=== PATIENT | male | born 1960 | race Caucasian/White ===

== ENCOUNTER 2016-06-04 06:22 | Day surgery (SDC) | payer OTHER ==
[2016-05-29 08:48] VITALS: BMI 33.9
[~2016-06-04 06:22] MED LIST: ALPRAZolam 0.25 MG TAB PO PRN; ALPRAZolam 0.5 MG TAB PO PRN; ASPIRIN 325 MG TAB PO STA; ATORVASTATIN 80 MG TAB PO STA; NITROGLYCERIN SL TABS 0.4 MG TAB SUBLINGUAL PRN; SODIUM CHLORIDE 0.9% 1,000 ML in EMPTY BAG 1 BAG IV ONE
[2016-06-04] MEDS ORDERED: INSULIN LISPRO (humaLOG) 300 UNIT/3 ML VIAL SQ ONE (07:07)
[2016-06-04 07:11] VITALS: TEMP 98.2
[2016-06-04 07:13] LABS: Basophils % (A) 0 %; CH 32.1; CHCM 35.9; Eosinophils # (A) 0.2 k/uL (0-0.7); Eosinophils % (A) 2 %; HCT 34.1 % (39.0-53.0); HGB 11.7 gm/dL (13.0-17.5); Luc # (Auto) 0.17; Luc % (Auto) 2; Lymphocytes % (A) 20 %; MCH 30.9 pg (25.0-35.0); MCHC 34.4 g/dL (31.0-37.0); MCV 89.9 fL (80.0-100.0); Monocytes # (A) 0.6 k/uL (0-1.0); Monocytes % (A) 6 %; Neutrophils # (A) 6.7 k/uL (1.3-7.7); Neutrophils % (A) 70 %; RDW 12.8 % (11.5-15.5); WBC 9.6 k/uL (3.8-10.6); WBC (Perox) 10.25
[2016-06-04 07:15] LABS: Glucose,Whole Blood 308 mg/dL (75-99)
[2016-06-04 07:26] LABS: Anion Gap 11 mmol/L; Blood Urea Nitrogen 41 mg/dL (9-20); Calcium 9.7 mg/dL (8.4-10.2); Carbon Dioxide 24 mmol/L (22-30); Chloride 103 mmol/L (98-107); Glucose 302 mg/dL (74-99); Non-African American GFR(MDRD) 54 (>60 ml/min/1.73 sqM); Sodium 138 mmol/L (137-145)
[2016-06-04] MEDS ORDERED: SODIUM CHLORIDE 0.9% (PF) 10 ML VIAL ONE (07:54)
[2016-06-04] MEDS ORDERED: MIDAZOLAM 2 MG/2 ML VIAL ONE (07:54)
[2016-06-04] MEDS ORDERED: VERAPAMIL 2.5 MG/ML 2 ML AMP ONE (07:54)
[2016-06-04] MEDS ORDERED: LIDOCAINE 2% INJ 20 MG/ML (20 ML MDV) ONE (07:54)
[2016-06-04] MEDS ORDERED: diphenhydrAMINE 50 MG/ML 1 ML VIAL ONE (07:54)
[2016-06-04] MEDS ORDERED: diphenhydrAMINE 50 MG/ML 1 ML VIAL IVP ONE (08:14)
[2016-06-04] MEDS ORDERED: MIDAZOLAM 2 MG/2 ML VIAL IV ONE (08:25)
[2016-06-04] MEDS ORDERED: LIDOCAINE 2% INJ 20 MG/ML SQ ONE (08:33)
[2016-06-04] MEDS ORDERED: HEPARIN SODIUM 1,000 UNIT/ML VIAL ONE (08:34)
[2016-06-04] MEDS: VERAPAMIL SYRINGE (5 MG/10 ML) INTRAARTER ONE ×2 (08:35→09:03)
[2016-06-04] MEDS ORDERED: BIVALIRUDIN BOLUS 250 MG/50 ML IV ONE (08:51)
[2016-06-04] MEDS ORDERED: BIVALIRUDIN 250 MG in SODIUM CHLORIDE 0.9% 50 ML IV ONE (08:52)
[2016-06-04] MEDS ORDERED: IODIXANOL 320 MG/ML 100 ML INTRAARTER ONE (09:03)
[2016-06-04] MEDS ORDERED: RX INFO: IV CONTRAST WAS GIVEN 1 EACH MISC MISCELLANE PRN (09:10)
[2016-06-04] MEDS ORDERED: SODIUM CHLORIDE 0.9% 1,000 ML IV SCH (09:15)
[2016-06-04 12:32] VITALS: RESP 18
[2016-06-04 14:32] VITALS: BP 154/76; PULSE 76
--- NOTE | 2016-06-04 19:04 | CC ---
DATE OF SERVICE: June 04, 2016 PERFORMING PHYSICIAN: Deven Domínguez, power machine operator. PROCEDURES PERFORMED: 1. Selective right and left coronary angiogram. 2. Fractional flow reserve (FFR) of the left anterior descending artery. INDICATION: This is a pleasant 55-year-old gentleman who is known to have diabetes, hypertension, dyslipidemia and unfortunately who continues to smoke, who is known to have severe underlying coronary artery disease and prior stenting of the triple vessel, was experiencing chest discomfort consistent with angina. He was scheduled to undergo a heart catheterization today. APPROACH: Right radial artery. COMPLICATIONS: None. LEVEL OF SEDATION: Moderate. PROCEDURE DESCRIPTION: After obtaining an informed consent, the patient was brought to the cardiac director of labor and delivery. The right radial artery was cannulated using micropuncture technique. The micropuncture wire passed easily, then I placed a 6 Turkmen sheath in the right radial artery. Subsequently, the patient was given 2 mg of verapamil IA and 3000 units of heparin IV. After that, I did selective right and left coronary angiogram using JR4 and JL 3.5 catheters. After that, I did an FFR of the LAD. Please see separate paragraph for that. SELECTIVE CORONARY ANGIOGRAM: 1. The right coronary artery is a medium-caliber vessel and is a co-dominant vessel. The proximal RCA appeared to de christie lesion, seems to be in the range of 60% to 70%. The mid RCA is stented and the stent is patent. Distal to the stent there is another lesion, seems to be in the range of 50%. The RCA distally appeared to have mild disease only and bifurcates into small PDA and PLV branches. 2. The left main is a short left main, but angiographically normal. It bifurcates into the left circumflex and left anterior descending artery. 3. The left circumflex is a medium-caliber vessel. In the proximal portion gives rise into a large first obtuse marginal branch which appeared to be like ramus intermedius, which seems to be stented in the midportion with critical in-stent re-stenosis. The left circumflex was poorly visualized in the AV groove after that. 4. The left anterior descending artery. The proximal LAD appeared to have de christie lesion that seems to be in the range of 50%. The proximal to mid LAD seems to be stented with in-stent re-stenosis seems to be in the range of 60% to 70%, but we did an FFR on it and came in to be ischemic at 0.75. The LAD distally appeared to have mild disease only. FRACTIONAL FLOW RESERVE OF THE LEFT ANTERIOR DESCENDING ARTERY: Anticoagulation was initiated using Angiomax. Subsequently and after zeroing the Doppler wire and equalization between the Doppler wire and the guiding catheter, which was JL3.5 guiding catheter, we did an FFR. The FFR came in to be 0.75, which is ischemic. CONCLUSION: 1. Intermediate de christie coronary artery disease involving the proximal right coronary artery with patent stent in the mid right coronary artery. 2. Critical in-stent re-stenosis involving large first obtuse marginal branch of the left circumflex. 3. Intermediate disease involving the proximal left anterior descending artery, but it turned to be ischemic by fractional flow reserve. The disease in-stent re-stenosis. POSTPROCEDURE MANAGEMENT: I will discuss with the patient the coronary artery bypass grafting. Obviously, he is not responding well to stenting.
--- NOTE | 2016-06-04 19:10 | LTR ---
June 04, 2016 Dr. Reynolds RE: John Ruiz Dear Dr. Shankar: Per our discussion on the phone, Mr. John Ruiz underwent a heart catheterization which showed severe triple vessel coronary artery disease. I am going to be send him to be evaluated by a surgeon regarding coronary artery bypass grafting. I want to thank you for allowing us to participate in his care. Please feel free to call if you have any question or concerns. Sincerely, TYLOR ZAZUETA MD
== END 2016-06-04 14:55 | disposition home or self-care (01) ==
LOC: CATHCVL 06:22
PROVIDERS: ATTEND Internal Medicine Interventional Cardiology
DX: I25.110 Atherosclerotic heart disease of native coronary artery with unstable angina pectoris (principal); I10 Essential (primary) hypertension; F17.200 Nicotine dependence, unspecified, uncomplicated; I73.9 Peripheral vascular disease, unspecified; E11.9 Type 2 diabetes mellitus without complications; E78.5 Hyperlipidemia, unspecified; Z95.1 Presence of aortocoronary bypass graft; Z95.5 Presence of coronary angioplasty implant and graft; Z82.49 Family history of ischemic heart disease and other diseases of the circulatory system; E66.3 Overweight; Z68.34 Body mass index [BMI] 34.0-34.9, adult; Z79.84 Long term (current) use of oral hypoglycemic drugs; Z79.1 Long term (current) use of non-steroidal anti-inflammatories (NSAID); Z79.02 Long term (current) use of antithrombotics/antiplatelets; Z79.82 Long term (current) use of aspirin; Z79.899 Other long term (current) drug therapy
CPT/HCPCS: 80048; 85025; 93454; 93571

== ENCOUNTER 2016-06-15 22:21 | Inpatient (IN) | payer OTHER ==
[2016-06-15] MEDS ORDERED: NITROGLYCERIN SL TABS 0.4 MG TAB SUBLINGUAL STA ×3 (22:38)
[2016-06-15] MEDS ORDERED: ASPIRIN 81 MG CHEW PO STA (22:38)
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
[2016-06-15 22:45] LABS: Basophils # (A) 0.1 k/uL (0-0.2); Basophils % (A) 1 %; CH 32.2; CHCM 36.6; Eosinophils # (A) 0.2 k/uL (0-0.7); Eosinophils % (A) 3 %; HCT 32.3 % (39.0-53.0); HDW 2.92; HGB 11.5 gm/dL (13.0-17.5); Luc # (Auto) 0.19; Luc % (Auto) 2; Lymphocytes # (A) 2.2 k/uL (1.0-4.8); Lymphocytes % (A) 25 %; MCH 31.6 pg (25.0-35.0); MCHC 35.6 g/dL (31.0-37.0); MCV 88.6 fL (80.0-100.0); Mean Platelet Volume 7.6; Monocytes # (A) 0.5 k/uL (0-1.0); Monocytes % (A) 6 %; Neutrophils # (A) 5.7 k/uL (1.3-7.7); Neutrophils % (A) 64 %; RBC 3.65 m/uL (4.30-5.90); RDW 13.2 % (11.5-15.5); WBC 8.8 k/uL (3.8-10.6); WBC (Perox) 8.72
[2016-06-15 22:55] LABS: INR 0.9 (<1.1); Prothrombin Time 9.4 sec (9.0-12.0)
[2016-06-15 22:56] LABS: Calcium 9.5 mg/dL (8.4-10.2); Magnesium 2.2 mg/dL (1.6-2.3); Partial Thromboplastin Time 22.8 sec (22.0-30.0); Potassium 4.9 mmol/L (3.5-5.1); Total Bilirubin 0.5 mg/dL (0.2-1.3); Total Protein 7.1 g/dL (6.3-8.2)
[2016-06-15 23:20] LABS: Creatine Kinase MB 0.7 ng/mL (0.0-2.4)
[2016-06-15 23:23] LABS: Troponin I 0.205 ng/mL (0.000-0.034)
[2016-06-15] MEDS ORDERED: HEPARIN SODIUM,PORCINE 5,000 UNIT/ML 1 ML VIAL IV ONE (23:33)
[2016-06-15] MEDS ORDERED: NITROGLYCERIN SL TABS 0.4 MG TAB SUBLINGUAL PRN (23:36)
[2016-06-15] MEDS: HEPARIN SODIUM,PORCINE/D5W PMX 25,000 UNIT in DEXTROSE/WATER 1 500ML.BAG IV SCH (23:47)
--- NOTE | 2016-06-15 23:56 | XR ---
EXAMINATION TYPE: XR chest 2V DATE OF EXAM: 06/15/2016 11:32 PM COMPARISON: April 22, 2014 HISTORY: Chest pain, history of CAD and heart failure TECHNIQUE: Frontal and lateral views of the chest are obtained. FINDINGS: There is suggestion of mild CHF changes with mild perihilar pulmonary edema or chronic interstitial l marcela changes. No focal pneumonia pneumothorax or pleural effusion is noted. Mild cardiomegaly is prese nt. The right hilum is prominent with prominent pulmonary vessels. Mild to moderate degenerative lo ges in the thoracic spine. IMPRESSION: 1. Suggestion of mild CHF. 2. Cardiomegaly. 3. No focal pneumonia.
[2016-06-16] MEDS ORDERED: MAG HYDROX/AL HYDROX/SIMETH 30 ML CUP PO PRN (00:54)
[2016-06-16] MEDS: NITROGLYCERIN OINT 1 INCH/GM PACKET TOPICAL SCH ×4 (01:37→17:23)
[2016-06-16 06:03] LABS: Glucose,Whole Blood 256 mg/dL (75-99)
[2016-06-16 06:11] LABS: Basophils % (A) 0 %; CH 31.9; CHCM 34.9; Eosinophils # (A) 0.2 k/uL (0-0.7); Eosinophils % (A) 2 %; HDW 2.86; HGB 10.1 gm/dL (13.0-17.5); Luc # (Auto) 0.18; Luc % (Auto) 3; Lymphocytes # (A) 1.8 k/uL (1.0-4.8); Lymphocytes % (A) 28 %; MCHC 34.8 g/dL (31.0-37.0); MCV 91.8 fL (80.0-100.0); Mean Platelet Volume 6.9; Monocytes # (A) 0.4 k/uL (0-1.0); Monocytes % (A) 6 %; Neutrophils % (A) 61 %; RBC 3.16 m/uL (4.30-5.90); RDW 13.3 % (11.5-15.5); WBC 6.5 k/uL (3.8-10.6); WBC (Perox) 6.94
[2016-06-16 06:19] LABS: Cholesterol 133 mg/dL (<200); HDL Cholesterol 31 mg/dL (40-60)
[2016-06-16 06:26] LABS: Triglycerides 560 mg/dL (<150)
[2016-06-16 06:44] LABS: Creatine Kinase MB 2.6 ng/mL (0.0-2.4); Troponin I 0.95 ng/mL (0.000-0.034)
[2016-06-16] MEDS: HEPARIN SODIUM,PORCINE 5,000 UNIT/ML 1 ML VIAL IV PRN ×3 (06:58→18:47)
[2016-06-16] MEDS ORDERED: glipiZIDE 10 MG TAB PO SCH (07:30)
[2016-06-16] MEDS: INSULIN LISPRO (humaLOG) 300 UNIT/3 ML VIAL SQ SCH ×5 (07:36→21:33)
[2016-06-16 08:30] LABS: Hemoglobin A1C 9.9 % (4.2-6.1)
[2016-06-16] MEDS ORDERED: ASPIRIN 325 MG TAB PO SCH (09:00)
[2016-06-16] MEDS ORDERED: METOPROLOL TARTRATE 25 MG TAB PO SCH (09:00)
[2016-06-16 11:39] LABS: Troponin I 1.52 ng/mL (0.000-0.034)
[2016-06-16 12:01] LABS: Glucose,Whole Blood 236 mg/dL (75-99)
[2016-06-16] MEDS: LISINOPRIL-HCTZ 20-25 MG 1 EACH TAB PO SCH (12:38)
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
[2016-06-16] MEDS: METOPROLOL TARTRATE 50 MG TAB PO SCH ×2 (15:37→21:28)
--- NOTE | 2016-06-16 16:25 | CONS ---
DATE OF CONSULTATION: John Ruiz is a 55-year-old lady, a patient of Dr. Domínguez who has developed significant restenosis following multivessel PCI was advised to be seen by Dr. Dean Gonzalez tomorrow and for possible surgery soon for his coronary arteries. However, he presented today to the hospital with episode of chest pressure suggestive of angina, went on to have troponin elevation suggestive of [id number] OR. 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 At the time of my evaluation, virtually asymptomatic, wants to go home, does not want to be in the hospital. I spent a lot of time with the patient, explained to him that he has restenotic lesions and now he has non-ST elevation OR. He should ideally stay back in the hospital, have surgery while he is here and then only be discharged. His last stents were performed in March 2016 of circumflex. There is a restenosis of the RCA, circumflex and also significant lesion which in LAD positive by FFR. He is; however, pain free, troponin profile suggests non-ST elevation OR. I am recommending that we will continue IV heparin, hold Plavix, continue aspirin 81 mg daily, increase beta delfina and based on clinical course, I will make further recommendations, but he should have surgery rather soon. I personally spoke to Dr. Lozano and recommended that surgery be performed during hospitalization and discussed this at length with the patient. PAST MEDICAL HISTORY: 1. CAD with multivessel PCI and restenosis, advised aortocoronary bypass surgery. 2. Hypertension. 3. Hyperlipidemia. 4. Type 2 diabetes mellitus. 5. History of smoking, which he continues to do so. MEDICATIONS: Meloxicam, Glucotrol, aspirin, Neurontin, metoprolol tartrate, atorvastatin, lisinopril, hydrochlorothiazide. ALLERGIES: None. REVIEW OF SYSTEMS: Unremarkable other than above-mentioned facts. On examination, blood pressure is 120/70, pulse rate is about 77 per minute. HEENT: Unremarkable. Fundus was not examined. Neck is supple. No JVD. I do not hear a carotid bruit. Heart exam reveals S1 and S2 heard normally without a rub, murmur or gallop. Lungs are clear. Abdomen is soft, nontender. Lower extremities reveal normal pulses. No edema. Central nervous system is normal. EKG revealed a sinus mechanism with nonspecific ST abnormality and nondiagnostic inferior Q-waves. Laboratory data suggests a troponin elevation of up to 1.5 suggestive of a non-ST elevation myocardial infarction. IMPRESSION: 1. [id number] myocardial infarction in a patient who is scheduled to see a cardiac surgeon for bypass surgery soon. 2. History of coronary artery disease, multivessel PCI with significant restenosis. 3. Hypertension. 4. Type 2 diabetes mellitus. 5. Hypercholesterolemia. 6. History of smoking. RECOMMENDATIONS: I have counseled the patient regarding the need to quit smoking. I will increase metoprolol to 50 mg b.i.d., continue IV heparin as per protocol. Will also check a troponin level at 6 p.m. and 6 a.m. If he has any further pain, I will consider intervention, but he is pain free now and I am recommending we hold Plavix, continue aspirin, try and have Dr. Lozano see him today and proceed with aortocoronary bypass surgery much sooner. Discussed my thoughts in detail with the patient and also talked to Dr. Lozano.
[2016-06-16 17:18] LABS: Glucose,Whole Blood 227 mg/dL (75-99)
[2016-06-16] MEDS ORDERED: MD COMMUNICATION TO PHARMACY 1 EACH MISC PO ONE ×4 (17:51)
[2016-06-16 19:18] LABS: Appearance,Urine Clear (Clear); Bacteria,Urine Rare /hpf; Bilirubin,Urine Negative (Negative); Glucose,Urine (UA) 2+ (Negative); Ketones,Urine Negative (Negative); Leukocyte Esterase,Urine Negative (Negative); Nitrite,Urine Negative (Negative); PH, Urine 6.5 (5.0-8.0); Particle Count 519; Protein,Urine 3+ (Negative); RBC,Urine 3 /hpf (0-5); Specific Gravity,Urine 1.011 (1.001-1.035); UA Billing (MACRO vs. MICRO) MICRO; Urobilinogen,Urine <2.0 mg/dL (<2.0); WBC,Urine 2 /hpf (0-5)
[2016-06-16 19:47] LABS: Hepatitis B Surface Ag Index 0.07
[2016-06-16 19:53] LABS: Hepatitis B Core IgM Index 0.06
[2016-06-16 20:05] LABS: Hepatitis C Virus IgG Index 0.02
[2016-06-16 20:17] LABS: Hepatitis C Virus IgG Ab Negative (Negative)
[2016-06-16 21:09] LABS: Glucose,Whole Blood 141 mg/dL (75-99)
[2016-06-16] MEDS: ATORVASTATIN 40 MG TAB PO SCH (21:28)
[2016-06-16] MEDS: INSULIN GLARGINE 100 UNIT/ML 10 ML VIAL SQ SCH (21:33)
[2016-06-16] MEDS: MUPIROCIN 2% OINT 22 GM TUBE NASAL SCH (21:34)
[2016-06-17] MEDS: HEPARIN SODIUM,PORCINE/D5W PMX 25,000 UNIT in DEXTROSE/WATER 1 500ML.BAG IV SCH ×2 (01:20→07:05)
[2016-06-17] MEDS: NITROGLYCERIN OINT 1 INCH/GM PACKET TOPICAL SCH ×4 (01:22→17:11)
[2016-06-17 05:55] LABS: Glucose,Whole Blood 296 mg/dL (75-99)
[2016-06-17 06:22] LABS: Basophils % (A) 1 %; CH 31.9; CHCM 34.9; Eosinophils # (A) 0.1 k/uL (0-0.7); Eosinophils % (A) 2 %; HCT 27.7 % (39.0-53.0); HDW 2.89; HGB 9.3 gm/dL (13.0-17.5); Luc # (Auto) 0.21; Luc % (Auto) 3; Lymphocytes # (A) 2.1 k/uL (1.0-4.8); Lymphocytes % (A) 34 %; MCH 30.8 pg (25.0-35.0); MCHC 33.5 g/dL (31.0-37.0); Mean Platelet Volume 7.3; Monocytes # (A) 0.3 k/uL (0-1.0); Monocytes % (A) 5 %; Neutrophils # (A) 3.5 k/uL (1.3-7.7); Neutrophils % (A) 56 %; RBC 3.01 m/uL (4.30-5.90); RDW 13.2 % (11.5-15.5); WBC 6.3 k/uL (3.8-10.6); WBC (Perox) 6.51
[2016-06-17 06:36] LABS: ALT 35 U/L (21-72); AST 16 U/L (17-59); Alkaline Phosphatase 89 U/L (38-126); Anion Gap 7 mmol/L; Blood Urea Nitrogen 35 mg/dL (9-20); Calcium 8.4 mg/dL (8.4-10.2); Carbon Dioxide 23 mmol/L (22-30); Chloride 106 mmol/L (98-107); Glucose 263 mg/dL (74-99); Magnesium 2.2 mg/dL (1.6-2.3); Non-African American GFR(MDRD) 54 (>60 ml/min/1.73 sqM); Potassium 4.7 mmol/L (3.5-5.1); Sodium 136 mmol/L (137-145); Total Bilirubin 0.3 mg/dL (0.2-1.3); Total Protein 5.8 g/dL (6.3-8.2)
[2016-06-17] MEDS: HEPARIN SODIUM,PORCINE 5,000 UNIT/ML 1 ML VIAL IV PRN (07:06)
[2016-06-17] MEDS: INSULIN LISPRO (humaLOG) 300 UNIT/3 ML VIAL SQ SCH ×7 (07:54→20:58)
--- NOTE | 2016-06-17 08:34 | P.PN ---
Subjective Principal diagnosis: NSTEMI, S/P recent heart catheterization w/ stenting Pre-op CABG Pt sitting up in bed eating breakfast in no apparent distress. Denies CP/SOB. Objective - Vital Signs Vital signs: Vital Signs Temp 97.4 F L 06/17/16 04:00 Pulse 78 06/17/16 04:00 Resp 18 06/17/16 04:00 BP 136/72 06/17/16 04:00 Pulse Ox 97 06/17/16 04:00 Intake & Output 06/16/16 06/17/16 06/17/16 18:59 06:59 18:59 Intake Total 126.645 9983.624 498.578 Balance 265.016 6039.624 498.578 Weight 111.7 kg 111.1 kg Intake: IV 966.44 0.9 320 Heparin Sodium,Porcine/ 646.44 D5w Pmx 25,000 unit In Dextrose/Water 1 500ml. bag @ 8.83 UNITS/KG/HR 20 .02 mls/hr IV .Q24H JAY Rx#:[id number] Intake, IV Titration 345.006 11.184 258.578 Amount Heparin Sodium,Porcine/ 345.006 11.184 258.578 D5w Pmx 25,000 unit In Dextrose/Water 1 500ml. bag @ 8.83 UNITS/KG/HR 20 .02 mls/hr IV .Q24H JAY Rx#:[id number] Oral 350 420 240 Other: Voiding Method Toilet Toilet # Voids 1 2 - Constitutional General appearance: Present: cooperative, no acute distress - Respiratory Details: LS diminished w/ exp wheezes present bilaterally. Resp even/non-labored. Currently on room air. - Cardiovascular Details: S1/S2 present. Reg rate/rhythm, NSR on tele. No edema present. - Gastrointestinal Gastrointestinal Comment(s): Abd soft/NT/ND. Active BS x 4 quad. Tolerating diet. - Genitourinary Genitourinary Comment(s): Voiding clear/yellow urine. - Musculoskeletal Musculoskeletal: Present: gait normal - Psychiatric Psychiatric: Present: A&O x's 3, appropriate affect, intact judgment & insight - Allied health notes Allied health notes reviewed: nursing - Labs CBC & Chem 7: 06/17/16 05:54 06/17/16 05:54 Labs: Abnormal Lab Results - Last 24 Hours (Table) 06/16/16 06/16/16 06/16/16 Range/Units 05:19 10:46 11:58 RBC (4.30-5.90) m/uL Hgb (13.0-17.5) gm/dL Hct (39.0-53.0) % APTT (22.0-30.0) sec Sodium (137-145) mmol/L BUN (9-20) mg/dL Creatinine (0.66-1.25) mg/dL Glucose (74-99) mg/dL POC Glucose (mg/dL) 236 H (75-99) mg/dL Hemoglobin A1c 9.9 H (4.2-6.1) % AST (17-59) U/L CK-MB (CK-2) 3.0 H* (0.0-2.4) ng/mL Troponin I 1.520 H* (0.000-0.034) ng/mL Total Protein (6.3-8.2) g/dL Albumin (3.5-5.0) g/dL Urine Protein (Negative) Urine Glucose (UA) (Negative) Urine Blood (Negative) Urine Bacteria (None) /hpf 06/16/16 06/16/16 06/16/16 Range/Units 17:14 18:18 18:55 RBC (4.30-5.90) m/uL Hgb (13.0-17.5) gm/dL Hct (39.0-53.0) % APTT 33.7 H (22.0-30.0) sec Sodium (137-145) mmol/L BUN (9-20) mg/dL Creatinine (0.66-1.25) mg/dL Glucose (74-99) mg/dL POC Glucose (mg/dL) 227 H (75-99) mg/dL Hemoglobin A1c (4.2-6.1) % AST (17-59) U/L CK-MB (CK-2) (0.0-2.4) ng/mL Troponin I (0.000-0.034) ng/mL Total Protein (6.3-8.2) g/dL Albumin (3.5-5.0) g/dL Urine Protein 3+ H (Negative) Urine Glucose (UA) 2+ H (Negative) Urine Blood Trace H (Negative) Urine Bacteria Rare H (None) /hpf 06/16/16 06/17/16 06/17/16 Range/Units 21:07 00:18 05:54 RBC 3.01 L (4.30-5.90) m/uL Hgb 9.3 L (13.0-17.5) gm/dL Hct 27.7 L (39.0-53.0) % APTT 42.7 H (22.0-30.0) sec Sodium (137-145) mmol/L BUN (9-20) mg/dL Creatinine (0.66-1.25) mg/dL Glucose (74-99) mg/dL POC Glucose (mg/dL) 141 H (75-99) mg/dL Hemoglobin A1c (4.2-6.1) % AST (17-59) U/L CK-MB (CK-2) (0.0-2.4) ng/mL Troponin I (0.000-0.034) ng/mL Total Protein (6.3-8.2) g/dL Albumin (3.5-5.0) g/dL Urine Protein (Negative) Urine Glucose (UA) (Negative) Urine Blood (Negative) Urine Bacteria (None) /hpf 06/17/16 06/17/16 06/17/16 Range/Units 05:54 05:54 05:54 RBC (4.30-5.90) m/uL Hgb (13.0-17.5) gm/dL Hct (39.0-53.0) % APTT 39.1 H (22.0-30.0) sec Sodium 136 L (137-145) mmol/L BUN 35 H (9-20) mg/dL Creatinine 1.36 H (0.66-1.25) mg/dL Glucose 263 H (74-99) mg/dL POC Glucose (mg/dL) 296 H (75-99) mg/dL Hemoglobin A1c (4.2-6.1) % AST 16 L (17-59) U/L CK-MB (CK-2) (0.0-2.4) ng/mL Troponin I (0.000-0.034) ng/mL Total Protein 5.8 L (6.3-8.2) g/dL Albumin 2.9 L (3.5-5.0) g/dL Urine Protein (Negative) Urine Glucose (UA) (Negative) Urine Blood (Negative) Urine Bacteria (None) /hpf Microbiology - Last 24 Hours (Table) 06/16/16 18:55 Urine Culture - Preliminary Urine,Voided - Imaging and Cardiology Chest x-ray: report reviewed, image reviewed Assessment and Plan (1) NSTEMI (non-ST elevated myocardial infarction) Status: Acute (2) CAD (coronary artery disease) Status: Acute (3) HTN (hypertension) Status: Acute (4) Hyperlipidemia Status: Acute (5) Diabetes Status: Acute Plan: 1. Cont ASA, lipitor, BB, Hep gtt. 2. Cont VALENTINO, will DC 48 hours prior to surgery. 3. Cont to hold Plavix, last dose 06-15-16. 4. Pre-op testing in progress, anticipate urgent CABG this admission.Awaiting Plavix metabolism. 5. Pre-op teaching started, will continue.Will give CABG binder and incentive spirometer. 6. Encourage smoking cessation. 7. GI/DVT prophylaxis. 8. Further recommendations to follow depending on testing/pt status. Time with Patient: Greater than 30
[2016-06-17] MEDS: LISINOPRIL-HCTZ 20-25 MG 1 EACH TAB PO SCH (08:52)
[2016-06-17] MEDS: MUPIROCIN 2% OINT 22 GM TUBE NASAL SCH ×2 (08:52→20:57)
[2016-06-17] MEDS: ASPIRIN 81 MG CHEW PO SCH (08:52)
[2016-06-17] MEDS: METOPROLOL TARTRATE 50 MG TAB PO SCH ×3 (08:52→20:58)
[2016-06-17 11:33] LABS: Glucose,Whole Blood 234 mg/dL (75-99)
[2016-06-17] MEDS: PANTOPRAZOLE 40 MG TABLET PO SCH (12:10)
--- NOTE | 2016-06-17 14:51 | P.PN ---
Subjective Principal diagnosis: Non-Q-wave IA This is a 55-year-old gentleman who follows with Dr. Aguirre in the office. He presented to the hospital with a non-Q-wave myocardial infarction. Patient has a multivessel coronary artery disease and is scheduled to undergo coronary artery bypass graft surgery during this admission. The patient was taking Plavix which is currently on hold. He was seen in consultation by . is very waiting to speak with Dr. Gonzalez today regarding timing of surgery. Overall the patient feels well, denies any chest pain or difficulty in breathing. Currently on aspirin, Lipitor, IV heparin, lisinopril, and metoprolol tartrate. Objective - Vital Signs Vital signs: Vital Signs Temp 96.2 F L 06/17/16 12:00 Pulse 70 06/17/16 12:00 Resp 18 06/17/16 12:00 BP 122/64 06/17/16 12:00 Pulse Ox 98 06/17/16 12:00 Intake & Output 06/16/16 06/17/16 06/17/16 18:59 06:59 18:59 Intake Total 711.803 7564.624 738.578 Balance 254.227 8805.624 738.578 Weight 111.7 kg 111.1 kg 111.1 kg Intake: IV 966.44 0.9 320 Heparin Sodium,Porcine/ 646.44 D5w Pmx 25,000 unit In Dextrose/Water 1 500ml. bag @ 8.83 UNITS/KG/HR 20 .02 mls/hr IV .Q24H JAY Rx#:[id number] Intake, IV Titration 345.006 11.184 258.578 Amount Heparin Sodium,Porcine/ 345.006 11.184 258.578 D5w Pmx 25,000 unit In Dextrose/Water 1 500ml. bag @ 8.83 UNITS/KG/HR 20 .02 mls/hr IV .Q24H JAY Rx#:[id number] Oral 350 420 480 Other: Voiding Method Toilet Toilet Toilet # Voids 1 2 - Exam PHYSICAL EXAMINATION: HEENT: Head is atraumatic, normocephalic. Pupils equal, round. Neck is supple. There is no elevated jugular venous pressure. HEART EXAMINATION: Heart S1, S2 normal. No murmur or gallop heard. CHEST EXAMINATION: Lungs are clear to auscultation and precussion. No chest wall tenderness is noted on palpation or with deep breathing. ABDOMEN: Soft, nontender. Bowel sounds are heard. No organomegaly noted. EXTREMITIES: 2+ peripheral pulses with no evidence of peripheral edema and no calf tenderness noted. NEUROLOGIC patient is awake, alert and oriented -3. . - Labs CBC & Chem 7: 06/17/16 05:54 06/17/16 05:54 Labs: Abnormal Lab Results - Last 24 Hours (Table) 06/16/16 06/16/16 06/16/16 Range/Units 17:14 18:18 18:55 RBC (4.30-5.90) m/uL Hgb (13.0-17.5) gm/dL Hct (39.0-53.0) % APTT 33.7 H (22.0-30.0) sec Sodium (137-145) mmol/L BUN (9-20) mg/dL Creatinine (0.66-1.25) mg/dL Glucose (74-99) mg/dL POC Glucose (mg/dL) 227 H (75-99) mg/dL AST (17-59) U/L Total Protein (6.3-8.2) g/dL Albumin (3.5-5.0) g/dL Urine Protein 3+ H (Negative) Urine Glucose (UA) 2+ H (Negative) Urine Blood Trace H (Negative) Urine Bacteria Rare H (None) /hpf 06/16/16 06/17/16 06/17/16 Range/Units 21:07 00:18 05:54 RBC 3.01 L (4.30-5.90) m/uL Hgb 9.3 L (13.0-17.5) gm/dL Hct 27.7 L (39.0-53.0) % APTT 42.7 H (22.0-30.0) sec Sodium (137-145) mmol/L BUN (9-20) mg/dL Creatinine (0.66-1.25) mg/dL Glucose (74-99) mg/dL POC Glucose (mg/dL) 141 H (75-99) mg/dL AST (17-59) U/L Total Protein (6.3-8.2) g/dL Albumin (3.5-5.0) g/dL Urine Protein (Negative) Urine Glucose (UA) (Negative) Urine Blood (Negative) Urine Bacteria (None) /hpf 06/17/16 06/17/16 06/17/16 Range/Units 05:54 05:54 05:54 RBC (4.30-5.90) m/uL Hgb (13.0-17.5) gm/dL Hct (39.0-53.0) % APTT 39.1 H (22.0-30.0) sec Sodium 136 L (137-145) mmol/L BUN 35 H (9-20) mg/dL Creatinine 1.36 H (0.66-1.25) mg/dL Glucose 263 H (74-99) mg/dL POC Glucose (mg/dL) 296 H (75-99) mg/dL AST 16 L (17-59) U/L Total Protein 5.8 L (6.3-8.2) g/dL Albumin 2.9 L (3.5-5.0) g/dL Urine Protein (Negative) Urine Glucose (UA) (Negative) Urine Blood (Negative) Urine Bacteria (None) /hpf 06/17/16 Range/Units 11:27 RBC (4.30-5.90) m/uL Hgb (13.0-17.5) gm/dL Hct (39.0-53.0) % APTT (22.0-30.0) sec Sodium (137-145) mmol/L BUN (9-20) mg/dL Creatinine (0.66-1.25) mg/dL Glucose (74-99) mg/dL POC Glucose (mg/dL) 234 H (75-99) mg/dL AST (17-59) U/L Total Protein (6.3-8.2) g/dL Albumin (3.5-5.0) g/dL Urine Protein (Negative) Urine Glucose (UA) (Negative) Urine Blood (Negative) Urine Bacteria (None) /hpf Microbiology - Last 24 Hours (Table) 06/16/16 22:20 Nasal Screen MRSA/MSSA (DELVIN) - Preliminary Nasal Swab 06/16/16 18:55 Urine Culture - Preliminary Urine,Voided Assessment and Plan (1) CAD (coronary artery disease) Status: Acute (2) Diabetes Status: Acute (3) HTN (hypertension) Status: Acute (4) Hyperlipidemia Status: Acute (5) NSTEMI (non-ST elevated myocardial infarction) Status: Acute Plan: From cardiology's perspective, we will continue the current medications this patient is on. He will be scheduled to undergo coronary artery bypass grafting surgery, exact timing yet unknown. We will continue to follow. DNP note has been reviewed, I agree with a documented findings and plan of care. Patient was seen and examined.
--- NOTE | 2016-06-17 15:39 | US ---
EXAMINATION TYPE: US carotid duplex BILAT DATE OF EXAM: 06/17/2016 2:10 PM COMPARISON: No previous CLINICAL HISTORY: 55-year-old male pre op cardiac surgery. TECHNIQUE: Carotid duplex ultrasound. Indirect Doppler criteria was utilized. FINDINGS: Hanna scale images show mild atelectatic change at the left bifurcation. EXAM MEASUREMENTS: RIGHT: Peak Systolic Velocity (PSV) cm/sec ----- Right CCA: 77.5 ----- Right ICA: 101.3 ----- Right ECA: 78.4 ICA/CCA ratio: 1.3 RIGHT: End Diastole cm/sec ----- Right CCA: 23.0 ----- Right ICA: 33.4 ----- Right ECA: 5.9 LEFT: Peak Systolic Velocity (PSV) cm/sec ----- Left CCA: 98.3 ----- Left ICA: 78.7 ----- Left ECA: 142.0 ICA/CCA ratio: 0.8 LEFT: End Diastole cm/sec ----- Left CCA: 15.4 ----- Left ICA: 23.3 ----- Left ECA: 0.0 VERTEBRALS (direction of flow): Right Vertebral: Antegrade Left Vertebral: Antegrade IMPRESSION: No hemodynamically significant stenosis appreciated in either internal carotid artery. Criteria for Assigning % of Stenosis / Diameter reduction (Estimation based on the indirect measurements of the internal carotid artery velocities (ICA PSV). 1. Normal (no stenosis)=ICA PSV < 125 cm/s: ratio < 2.0: ICA EDV<40 cm/s. 2. Less than 50% stenosis=ICA PSV < 125 cm/s: ratio < 2.0: ICA EDV<40 cm/s. 3. 50 to 69% stenosis=ICA PSV of 125 to 230 cm/s: ration 2.0 ? 4.0: ICA EDV 40-100 cm/s. 4. Greater than 70% stenosis to near occlusion= ICA PSV > 230 cm/s: ratio > 4.0: ICA EDV > 100 cm/s. 5. Near occlusion= ICA PSV velocities may be low or undetectable: variable ratio and ICA EDV. 6. Total occlusion=unable to detect flow.
--- NOTE | 2016-06-17 15:51 | P.PN ---
Progress Note - Text Patient is seen and examined. Cath films were reviewed again. I had previously reviewed the cath films with Dr. Aguirre last week. Initial plan had been to see the patient in the office today however he was re- presented to the hospital over the weekend with a non-Q-wave OH. He is currently admitted with the hope of surgery being performed this week. I discussed with the patient indications for bypass surgery risks versus benefits possible complications. Patient is anxious to proceed. We will needed up-to-date echo and vein mapping. The pulmonary function testing has been performed. It demonstrates FEV1 greater than 50% of predicted. The patient has been off Plavix since the and has not had a cigarette since coming in the hospital. Plan is to proceed with coronary bypass surgery on , June 20. We will obtain the remainder of his preop testing in the interim. Plan will be to bypass the LAD, major marginal branch and distal right coronary artery or PDA. The patient is agreeable with this plan. He asked appropriate questions disease were answered to the best of my ability.
[2016-06-17] MEDS ORDERED: MD COMMUNICATION TO PHARMACY 1 EACH MISC PO ONE ×4 (16:08)
[2016-06-17 16:56] LABS: Glucose,Whole Blood 145 mg/dL (75-99)
[2016-06-17 20:47] LABS: Glucose,Whole Blood 211 mg/dL (75-99)
[2016-06-17] MEDS: ATORVASTATIN 40 MG TAB PO SCH (20:57)
[2016-06-17] MEDS: INSULIN GLARGINE 100 UNIT/ML 10 ML VIAL SQ SCH (20:58)
[2016-06-18] MEDS: HEPARIN SODIUM,PORCINE/D5W PMX 25,000 UNIT in DEXTROSE/WATER 1 500ML.BAG IV SCH (02:44)
[2016-06-18 05:51] LABS: Glucose,Whole Blood 223 mg/dL (75-99)
[2016-06-18 06:46] LABS: Basophils % (A) 0 %; CHCM 35.1; Eosinophils # (A) 0.2 k/uL (0-0.7); Eosinophils % (A) 2 %; HCT 27.4 % (39.0-53.0); HDW 2.87; HGB 9.3 gm/dL (13.0-17.5); Luc # (Auto) 0.18; Luc % (Auto) 3; Lymphocytes # (A) 2.2 k/uL (1.0-4.8); Lymphocytes % (A) 31 %; MCHC 33.8 g/dL (31.0-37.0); MCV 91.6 fL (80.0-100.0); Mean Platelet Volume 6.9; Monocytes # (A) 0.4 k/uL (0-1.0); Monocytes % (A) 6 %; Neutrophils # (A) 4.1 k/uL (1.3-7.7); Neutrophils % (A) 58 %; RBC 2.99 m/uL (4.30-5.90); RDW 13.3 % (11.5-15.5); WBC (Perox) 7.24
[2016-06-18] MEDS: NITROGLYCERIN OINT 1 INCH/GM PACKET TOPICAL SCH ×5 (07:04→23:02)
[2016-06-18] MEDS: PANTOPRAZOLE 40 MG TABLET PO SCH (07:05)
[2016-06-18] MEDS: INSULIN LISPRO (humaLOG) 300 UNIT/3 ML VIAL SQ SCH ×7 (07:06→20:41)
[2016-06-18] MEDS: ASPIRIN 81 MG CHEW PO SCH (08:50)
[2016-06-18] MEDS: MUPIROCIN 2% OINT 22 GM TUBE NASAL SCH ×2 (08:51→20:41)
[2016-06-18] MEDS: METOPROLOL TARTRATE 50 MG TAB PO SCH ×3 (08:51→20:41)
[2016-06-18] MEDS: HYDROCHLOROTHIAZIDE 25 MG TAB PO SCH (08:51)
[2016-06-18] MEDS ORDERED: LISINOPRIL 20 MG TAB PO SCH (09:00)
--- NOTE | 2016-06-18 11:18 | PN ---
DATE OF SERVICE: 06/17/2016 INTERVAL HISTORY: Mr. Ruiz is a 55-year-old male with known history of coronary artery disease, was admitted to the hospital with chief complaint of chest pain and found to have elevated troponin level. Patient was having multivessel disease and currently cardiothoracic surgery is evaluating for coronary artery bypass graft, possibly on June 20, 2016. Patient getting preop evaluation including pulmonary function test, carotid duplex, 2-D echo, vein mapping and Plavix has been held since the of this month. Otherwise, patient currently chest pain free. Continued on heparin drip. Cardiology and Cardiothoracic Surgery are following this patient. No acute overnight issues. REVIEW OF SYSTEMS: CONSTITUTIONAL: No fever. No chills. RESPIRATORY: No cough or sputum production. CARDIOVASCULAR: No chest pain or short of breath. ABDOMEN: No nausea, vomiting, abdominal pain. GENITOURINARY: Negative. ENDOCRINE: Negative. PSYCHIATRIC: Negative. SKIN: Negative. All other 14-point review of systems negative except the above. CURRENT MEDICATIONS: Reviewed. PHYSICAL EXAMINATION: A 55-year-old male lying in the bed comfortably, awake, alert, oriented x3, appears to be in no apparent distress. VITALS: Blood pressure is 122/64, pulse is 70, respirations 18, temperature afebrile, pulse ox 98% on room air. HEENT: Atraumatic, normocephalic. Neck is supple. No JVD. CVS EXAM: S1, S2 heard. No murmurs, no gallop. LUNGS: Bilateral air entry is present. No wheezing. No crackles. Nonlabored breathing. ABDOMEN: Soft, nontender. Bowel sounds are present. ANTENNA SPECIALIST: Awake, alert and oriented x3. No focal deficit. EXTREMITIES: No edema. Pulses palpable bilaterally. No clubbing or cyanosis. PSYCHIATRIC: Cooperative. LABORATORY DATA: WBC 6.3, hemoglobin 9.3, platelets 217. Sodium 136, potassium 4.7, chloride 106, bicarb is 23, BUN 35, creatinine 1.36. Blood sugar today 296. Albumin 2.9. IMPRESSION: 1. Acute non-ST elevated myocardial infarction with elevated troponin. Continued on heparin drip now. 2. Significant coronary artery disease, status post stent placement x2 in the past. Currently awaiting for coronary artery bypass graft. 3. Uncontrolled diabetes. Hemoglobin A1c of 9.9, started on insulin during this admission. 4. Acute on chronic kidney disease, stage III. Baseline creatinine 1.3, currently present creatinine came back to baseline. It was 1.6 yesterday. 5. Diabetic peripheral neuropathy. 6. Degenerative joint disease. DISCUSSION AND PLAN: Patient will be continued on the current management. He is on heparin IV and beta blockers and ( ). Plavix has been stopped. Continue with insulin dosing and adjust as needed. Currently on Lantus 15 units q.h.s. along with Aspart 5 units t.i.d. along with sliding scale. Will continue current management and further recommendations based on the clinical course.
[2016-06-18 11:48] LABS: Glucose,Whole Blood 343 mg/dL (75-99)
--- NOTE | 2016-06-18 12:03 | P.PN ---
Subjective Principal diagnosis: Non-Q-wave CO This is a 55-year-old gentleman who follows with Dr. Aguirre in the office. He presented to the hospital with a non-Q-wave myocardial infarction. Patient has a multivessel coronary artery disease and is scheduled to undergo coronary artery bypass graft surgery during this admission. The patient was taking Plavix which is currently on hold. Continues to be on IV heparin. Scheduled for coronary artery bypass grafting surgery on . Objective - Vital Signs Vital signs: Vital Signs Temp 97.2 F L 06/18/16 08:00 Pulse 74 06/18/16 08:00 Resp 18 06/18/16 08:00 BP 112/56 06/18/16 08:00 Pulse Ox 97 06/18/16 08:00 Intake & Output 06/17/16 06/18/16 06/18/16 18:59 06:59 18:59 Intake Total 1238.578 160 200 Balance 1238.578 160 200 Weight 111.1 kg 110.4 kg Intake: IV 160 0.9 160 Intake, IV Titration 758.578 Amount Heparin Sodium,Porcine/ 758.578 D5w Pmx 25,000 unit In Dextrose/Water 1 500ml. bag @ 8.83 UNITS/KG/HR 20 .02 mls/hr IV .Q24H JAY Rx#:[id number] Oral 480 200 Other: Voiding Method Toilet Toilet Toilet # Voids 1 - Exam PHYSICAL EXAMINATION: HEENT: Head is atraumatic, normocephalic. Pupils equal, round. Neck is supple. There is no elevated jugular venous pressure. HEART EXAMINATION: Heart S1, S2 normal. No murmur or gallop heard. CHEST EXAMINATION: Lungs are clear to auscultation and precussion. No chest wall tenderness is noted on palpation or with deep breathing. ABDOMEN: Soft, nontender. Bowel sounds are heard. No organomegaly noted. EXTREMITIES: 2+ peripheral pulses with no evidence of peripheral edema and no calf tenderness noted. NEUROLOGIC patient is awake, alert and oriented -3. . - Labs CBC & Chem 7: 06/18/16 05:32 06/17/16 05:54 Labs: Abnormal Lab Results - Last 24 Hours (Table) 06/17/16 06/17/16 06/17/16 Range/Units 15:45 16:36 20:44 RBC (4.30-5.90) m/uL Hgb (13.0-17.5) gm/dL Hct (39.0-53.0) % APTT 46.8 H (22.0-30.0) sec POC Glucose (mg/dL) 145 H 211 H (75-99) mg/dL 06/17/16 06/18/16 06/18/16 Range/Units 23:35 05:32 05:32 RBC 2.99 L (4.30-5.90) m/uL Hgb 9.3 L (13.0-17.5) gm/dL Hct 27.4 L (39.0-53.0) % APTT 55.2 H 63.8 H (22.0-30.0) sec POC Glucose (mg/dL) (75-99) mg/dL 06/18/16 06/18/16 Range/Units 05:50 11:44 RBC (4.30-5.90) m/uL Hgb (13.0-17.5) gm/dL Hct (39.0-53.0) % APTT (22.0-30.0) sec POC Glucose (mg/dL) 223 H 343 H (75-99) mg/dL Microbiology - Last 24 Hours (Table) 06/16/16 18:55 Urine Culture - Final Urine,Voided 06/16/16 22:20 Nasal Screen MRSA/MSSA (DELVIN) - Preliminary Nasal Swab Assessment and Plan (1) CAD (coronary artery disease) Status: Acute (2) Diabetes Status: Acute (3) HTN (hypertension) Status: Acute (4) Hyperlipidemia Status: Acute (5) NSTEMI (non-ST elevated myocardial infarction) Status: Acute Plan: From cardiology's perspective, we will continue the current medications this patient is on. He will be scheduled to undergo coronary artery bypass grafting surgery on . We will continue to follow. DNP note has been reviewed, I agree with a documented findings and plan of care. Patient was seen and examined.
--- NOTE | 2016-06-18 12:23 | ECHOF ---
Referral Reason:pre-op open heart MEASUREMENTS -------- HEIGHT: 182.9 cm WEIGHT: 110.2 kg BP: 125/71 RVIDd: 2.7 cm (< 3.3) IVSd: 1.3 cm (0.6 - 1.1) LVIDd: 5.6 cm (3.9 - 5.3) LVPWd: 1.5 cm (0.6 - 1.1) IVSs: 1.9 cm LVIDs: 4.8 cm LVPWs: 1.7 cm LA Diam: 3.7 cm (2.7 - 3.8) Ao Diam: 4.2 cm (2.0 - 3.7) AV Cusp: 2.5 cm (1.5 - 2.6) LA Diam: 3.9 cm (2.7 - 3.8) MV EXCURSION: 22.495 mm (> 18.000) MV EF SLOPE: 104 mm/s (70 - 150) EPSS: 1.4 cm MV E Isael: 0.59 m/s MV DecT: 222 ms MV A Isael: 0.96 m/s MV E/A Ratio: 0.61 RAP: 5.00 mmHg RVSP: 26.31 mmHg FINDINGS -------- Sinus rhythm. This was a techncally difficult study with suboptimal views, , Definity utilized for enhancement of images. Left ventricular wall thickness is normal. Overall left ventricular systolic function is moderately impaired with, an EF between 35 - 40 %. Inferiorlateral Hypokinesis Posterior Hypokinesis. The right ventricle is normal in size. The right atrial size is normal. 1.5MG OF DEFINITY UTLIZED: 2 OR MORE WALL SEGMENTS NOT VISUALIZED. There is mild aortic valve sclerosis. There is no evidence of aortic regurgitation. Mild mitral annular calcification present. Mild mitral regurgitation is present. Mild tricuspid regurgitation present. There is no evidence of pulmonary hypertension. The right ventricular systolic pressure, as measured by Doppler, is 26.31mmHg. There is no pulmonic regurgitation present. The aortic root size is normal. There is no pericardial effusion. CONCLUSIONS -------- 1. This was a techncally difficult study with suboptimal views, , Definity utilized for enhancement of images. 2. Mild tricuspid regurgitation present. 3. There is no evidence of pulmonary hypertension. 4. The right ventricular systolic pressure, as measured by Doppler, is 26.31mmHg. 5. Left ventricular wall thickness is normal. 6. Overall left ventricular systolic function is moderately impaired with, an EF between 35 - 40 %. 7. Inferiorlateral Hypokinesis 8. Posterior Hypokinesis. 9. 1.5MG OF DEFINITY UTLIZED: 2 OR MORE WALL SEGMENTS NOT VISUALIZED. 10. There is mild aortic valve sclerosis. 11. Mild mitral annular calcification present. 12. Mild mitral regurgitation is present. FAGOT HEATER: Kerrie Mg RDCS
--- NOTE | 2016-06-18 15:29 | P.PN ---
Subjective Principal diagnosis: NSTEMI, S/P recent heart catheterization w/ stenting Pre-op CABG Pt sitting up in bed eating breakfast in no apparent distress. Denies CP/SOB. Objective - Vital Signs Vital signs: Vital Signs Temp 97.4 F L 06/18/16 04:00 Pulse 82 06/18/16 04:00 Resp 18 06/18/16 04:00 BP 125/71 06/18/16 04:00 Pulse Ox 97 06/18/16 04:00 Intake & Output 06/17/16 06/18/16 06/18/16 18:59 06:59 18:59 Intake Total 1238.578 160 Balance 1238.578 160 Weight 111.1 kg 110.4 kg Intake: IV 160 0.9 160 Intake, IV Titration 758.578 Amount Heparin Sodium,Porcine/ 758.578 D5w Pmx 25,000 unit In Dextrose/Water 1 500ml. bag @ 8.83 UNITS/KG/HR 20 .02 mls/hr IV .Q24H JAY Rx#:[id number] Oral 480 Other: Voiding Method Toilet Toilet # Voids 1 - Constitutional General appearance: Present: cooperative, no acute distress - Respiratory Details: Lungs sounds diminished bilaterally. Respirations even, nonlabored. Currently on room air. - Cardiovascular Details: S1, S2 present. Regular rate and rhythm, normal sinus rhythm on telemetry. No edema present. - Gastrointestinal Gastrointestinal Comment(s): Abdomen soft, nontender, nondistended. Active bowel sounds 4 quadrants. Tolerating diet. - Genitourinary Genitourinary Comment(s): Patient continues to void clear, yellow urine per urinal. - Musculoskeletal Musculoskeletal Comment(s): Ambulating in hallway without difficulty. - Psychiatric Psychiatric: Present: A&O x's 3, appropriate affect, intact judgment & insight - Allied health notes Allied health notes reviewed: nursing (Vein mapping, carotid ultrasounds, ABIs reviewed) - Labs CBC & Chem 7: 06/18/16 05:32 06/17/16 05:54 Labs: Abnormal Lab Results - Last 24 Hours (Table) 06/17/16 06/17/16 06/17/16 Range/Units 11:27 15:45 16:36 RBC (4.30-5.90) m/uL Hgb (13.0-17.5) gm/dL Hct (39.0-53.0) % APTT 46.8 H (22.0-30.0) sec POC Glucose (mg/dL) 234 H 145 H (75-99) mg/dL 06/17/16 06/17/16 06/18/16 Range/Units 20:44 23:35 05:32 RBC 2.99 L (4.30-5.90) m/uL Hgb 9.3 L (13.0-17.5) gm/dL Hct 27.4 L (39.0-53.0) % APTT 55.2 H (22.0-30.0) sec POC Glucose (mg/dL) 211 H (75-99) mg/dL 06/18/16 06/18/16 Range/Units 05:32 05:50 RBC (4.30-5.90) m/uL Hgb (13.0-17.5) gm/dL Hct (39.0-53.0) % APTT 63.8 H (22.0-30.0) sec POC Glucose (mg/dL) 223 H (75-99) mg/dL Microbiology - Last 24 Hours (Table) 06/16/16 18:55 Urine Culture - Final Urine,Voided 06/16/16 22:20 Nasal Screen MRSA/MSSA (DELVIN) - Preliminary Nasal Swab Assessment and Plan (1) NSTEMI (non-ST elevated myocardial infarction) Status: Acute (2) CAD (coronary artery disease) Status: Acute (3) HTN (hypertension) Status: Acute (4) Hyperlipidemia Status: Acute (5) Diabetes Status: Acute Plan: 1. Cont ASA, lipitor, BB, Hep gtt. 2. Cont VALENTINO, will DC 48 hours prior to surgery. 3. Cont to hold Plavix, last dose 06-15-16. 4. Pre-op testing in progress, anticipate urgent CABG .Awaiting Plavix metabolism. 5. Pre-op teaching started, will continue to reinforce. 6. Continue to encourage smoking cessation. 7. GI/DVT prophylaxis. 8. Further recommendations to follow depending on testing/pt status. Time with Patient: Greater than 30
[2016-06-18 16:47] LABS: Glucose,Whole Blood 226 mg/dL (75-99)
[2016-06-18 20:35] LABS: Glucose,Whole Blood 188 mg/dL (75-99)
[2016-06-18] MEDS: ATORVASTATIN 40 MG TAB PO SCH (20:41)
[2016-06-18] MEDS: INSULIN GLARGINE 100 UNIT/ML 10 ML VIAL SQ SCH (20:41)
[2016-06-19] MEDS: NITROGLYCERIN OINT 1 INCH/GM PACKET TOPICAL SCH ×4 (06:05→23:28)
[2016-06-19 06:28] LABS: Basophils % (A) 0 %; CH 31.9; CHCM 35.3; Eosinophils # (A) 0.1 k/uL (0-0.7); Eosinophils % (A) 2 %; HCT 26.3 % (39.0-53.0); HDW 2.88; HGB 9.1 gm/dL (13.0-17.5); Luc # (Auto) 0.15; Luc % (Auto) 2; Lymphocytes # (A) 2.4 k/uL (1.0-4.8); Lymphocytes % (A) 34 %; MCH 31.5 pg (25.0-35.0); MCHC 34.7 g/dL (31.0-37.0); MCV 90.9 fL (80.0-100.0); Mean Platelet Volume 6.7; Monocytes # (A) 0.3 k/uL (0-1.0); Monocytes % (A) 5 %; Neutrophils # (A) 3.9 k/uL (1.3-7.7); Neutrophils % (A) 57 %; RBC 2.89 m/uL (4.30-5.90); RDW 13.2 % (11.5-15.5); WBC 6.8 k/uL (3.8-10.6)
[2016-06-19 06:44] LABS: Glucose,Whole Blood 201 mg/dL (75-99)
[2016-06-19] MEDS: PANTOPRAZOLE 40 MG TABLET PO SCH (06:56)
[2016-06-19] MEDS: INSULIN LISPRO (humaLOG) 300 UNIT/3 ML VIAL SQ SCH ×7 (06:57→21:48)
[2016-06-19] MEDS: HEPARIN SODIUM,PORCINE/D5W PMX 25,000 UNIT in DEXTROSE/WATER 1 500ML.BAG IV SCH (07:11)
[2016-06-19] MEDS: HYDROCHLOROTHIAZIDE 25 MG TAB PO SCH (08:02)
[2016-06-19] MEDS: METOPROLOL TARTRATE 50 MG TAB PO SCH ×3 (08:02→21:13)
[2016-06-19] MEDS: ASPIRIN 81 MG CHEW PO SCH (08:03)
[2016-06-19] MEDS: MUPIROCIN 2% OINT 22 GM TUBE NASAL SCH ×2 (08:03→21:13)
[2016-06-19 08:06] LABS: ALT 41 U/L (21-72); AST 21 U/L (17-59); Alkaline Phosphatase 77 U/L (38-126); Anion Gap 9 mmol/L; Blood Urea Nitrogen 26 mg/dL (9-20); Calcium 8.7 mg/dL (8.4-10.2); Carbon Dioxide 22 mmol/L (22-30); Chloride 106 mmol/L (98-107); Glucose 166 mg/dL (74-99); Non-African American GFR(MDRD) 53 (>60 ml/min/1.73 sqM); Potassium 4.1 mmol/L (3.5-5.1); Sodium 137 mmol/L (137-145); Total Bilirubin 0.4 mg/dL (0.2-1.3); Total Protein 6.1 g/dL (6.3-8.2)
--- NOTE | 2016-06-19 08:20 | PN ---
DATE OF SERVICE: 06/18/2016 INTERVAL HISTORY: Mr. Ruiz is a 55 -year-old male with known history of coronary artery disease, was admitted to the hospital with chest pain and found to have elevated troponin level and non-ST elevated myocardial infarction. Patient does have coronary artery with recent cardiac catheterization and ( ) coronary artery disease, patient is being planned for emergent coronary artery bypass graft. Patient is getting preop evaluation. Patient had pulmonary function tests, carotid duplex, 2-D echo, vein mapping and Plavix has been held from 06/15 until 06/14. Coronary artery bypass graft is being planned on . Otherwise, patient currently denied any complaints of chest pain, currently on heparin IV. Otherwise, patient denied any complaints. No acute overnight issues. RESPIRATORY: No cough or sputum production. No numbness or tingling. No headache or dizziness. All other fourteen-point review of systems above. CURRENT MEDICATIONS: Reviewed. PHYSICAL EXAMINATION: A 55 -year-old male lying in bed comfortably, awake, alert, oriented x3, appears to be in no apparent distress. VITALS: Blood pressure 119/54, pulse is 70, respiratory rate 18, temperature afebrile. Pulse ox 98% on room air. HEENT: Atraumatic, normocephalic. Neck is supple. No jugular venous distention. CARDIOVASCULAR: S1, S2 heard. No murmurs, no gallop, no rub. LUNGS: Bilateral air entry is present. No wheezing, no crackles. ABDOMEN: Soft, nontender. Bowel sounds are present. CARE CONNECTOR: Awake, alert, oriented, x3. No focal deficits. EXTREMITIES: No edema. Pulses palpable bilaterally. No clubbing or cyanosis. PSYCHIATRY: Cooperative. LABORATORY DATA: WBC 7.0, hemoglobin 9.3, platelets 220, blood sugar is elevated to 223 this morning. ASSESSMENT: 1. Acute non-ST elevated myocardial infarction continue heparin drip. 2. ( ) coronary artery disease with history of stent placement x2 and currently planning for bypass graft on . 3. Uncontrolled diabetes mellitus, HbA1c 9.9. Continue with insulin dose and the dose will be adjusted. 4. Acute on chronic kidney disease Stage III, baseline creatinine 1.3, improved now. 5. Diabetic peripheral neuropathy. 6. Degenerative joint disease. DISCUSSION AND PLAN: Patient will be continued on the current management and continue with heparin IV, beta blockers and statins. Plavix has been held at this time and will continue with the Lantus 15 units q.h.s. and increase to 20 units at bedtime along with Aspart 7 units t.i.d. a.c. and continue current management and further recommendations based on clinical course.
--- NOTE | 2016-06-19 11:34 | P.PN ---
Subjective Principal diagnosis: Non-Q-wave IA This is a 55-year-old gentleman who follows with Dr. Aguirre in the office. He presented to the hospital with a non-Q-wave myocardial infarction. Patient has a multivessel coronary artery disease and is scheduled to undergo coronary artery bypass graft surgery on . The patient was taking Plavix which is currently on hold. Continues to be on IV heparin. Didn't sleep well through the night last night, denies any chest pain or difficulty in breathing. Objective - Vital Signs Vital signs: Vital Signs Temp 97.8 F 06/19/16 08:00 Pulse 77 06/19/16 08:00 Resp 18 06/19/16 08:00 BP 118/60 06/19/16 08:00 Pulse Ox 99 06/19/16 08:00 Intake & Output 06/18/16 06/19/16 06/19/16 18:59 06:59 18:59 Intake Total 498 948.8 180 Balance 498 948.8 180 Weight 110.8 kg Intake: IV 448.8 0.9 160 Heparin Sodium,Porcine/ 288.8 D5w Pmx 25,000 unit In Dextrose/Water 1 500ml. bag @ 8.83 UNITS/KG/HR 20 .02 mls/hr IV .Q24H JAY Rx#:[id number] Intake, IV Titration 500 Amount Heparin Sodium,Porcine/ 500 D5w Pmx 25,000 unit In Dextrose/Water 1 500ml. bag @ 8.83 UNITS/KG/HR 20 .02 mls/hr IV .Q24H JAY Rx#:[id number] Oral 498 180 Other: Voiding Method Toilet Toilet Toilet # Voids 1 2 - Exam PHYSICAL EXAMINATION: HEENT: Head is atraumatic, normocephalic. Pupils equal, round. Neck is supple. There is no elevated jugular venous pressure. HEART EXAMINATION: Heart S1, S2 normal. No murmur or gallop heard. CHEST EXAMINATION: Lungs are clear to auscultation and precussion. No chest wall tenderness is noted on palpation or with deep breathing. ABDOMEN: Soft, nontender. Bowel sounds are heard. No organomegaly noted. EXTREMITIES: 2+ peripheral pulses with no evidence of peripheral edema and no calf tenderness noted. NEUROLOGIC patient is awake, alert and oriented -3. . - Labs CBC & Chem 7: 06/19/16 05:35 06/19/16 05:35 Labs: Abnormal Lab Results - Last 24 Hours (Table) 06/18/16 06/18/16 06/18/16 Range/Units 11:44 16:43 20:15 RBC (4.30-5.90) m/uL Hgb (13.0-17.5) gm/dL Hct (39.0-53.0) % APTT (22.0-30.0) sec BUN (9-20) mg/dL Creatinine (0.66-1.25) mg/dL Glucose (74-99) mg/dL POC Glucose (mg/dL) 343 H 226 H 188 H (75-99) mg/dL Total Protein (6.3-8.2) g/dL Albumin (3.5-5.0) g/dL Crossmatch 06/19/16 06/19/16 06/19/16 Range/Units 05:35 05:35 05:35 RBC 2.89 L (4.30-5.90) m/uL Hgb 9.1 L (13.0-17.5) gm/dL Hct 26.3 L (39.0-53.0) % APTT (22.0-30.0) sec BUN 26 H (9-20) mg/dL Creatinine 1.39 H (0.66-1.25) mg/dL Glucose 166 H (74-99) mg/dL POC Glucose (mg/dL) (75-99) mg/dL Total Protein 6.1 L (6.3-8.2) g/dL Albumin 3.1 L (3.5-5.0) g/dL Crossmatch See Detail 06/19/16 06/19/16 Range/Units 05:35 06:29 RBC (4.30-5.90) m/uL Hgb (13.0-17.5) gm/dL Hct (39.0-53.0) % APTT 89.0 H (22.0-30.0) sec BUN (9-20) mg/dL Creatinine (0.66-1.25) mg/dL Glucose (74-99) mg/dL POC Glucose (mg/dL) 201 H (75-99) mg/dL Total Protein (6.3-8.2) g/dL Albumin (3.5-5.0) g/dL Crossmatch Microbiology - Last 24 Hours (Table) 06/16/16 22:20 Nasal Screen MRSA/MSSA (DELVIN) - Final Nasal Swab Assessment and Plan (1) CAD (coronary artery disease) Status: Acute (2) Diabetes Status: Acute (3) HTN (hypertension) Status: Acute (4) Hyperlipidemia Status: Acute (5) NSTEMI (non-ST elevated myocardial infarction) Status: Acute Plan: From cardiology's perspective, we will continue the current medications this patient is on. He will be scheduled to undergo coronary artery bypass grafting surgery on . We will continue to follow. DNP note has been reviewed, I agree with a documented findings and plan of care. Patient was seen and examined.
[2016-06-19 11:43] LABS: Glucose,Whole Blood 226 mg/dL (75-99)
--- NOTE | 2016-06-19 15:03 | P.PN ---
Subjective Principal diagnosis: NSTEMI, S/P recent heart catheterization w/ stenting Pre-op CABG Pt sitting up in chair in no apparent distress. Denies CP/SOB. Anxious for surgery tomorrow. Objective - Vital Signs Vital signs: Vital Signs Temp 97.1 F L 06/19/16 04:00 Pulse 99 06/19/16 04:00 Resp 17 06/19/16 04:00 BP 133/67 06/19/16 04:00 Pulse Ox 92 L 06/19/16 04:00 Intake & Output 06/18/16 06/19/16 06/19/16 18:59 06:59 18:59 Intake Total 498 948.8 Balance 498 948.8 Weight 110.8 kg Intake: IV 448.8 0.9 160 Heparin Sodium,Porcine/ 288.8 D5w Pmx 25,000 unit In Dextrose/Water 1 500ml. bag @ 8.83 UNITS/KG/HR 20 .02 mls/hr IV .Q24H JAY Rx#:[id number] Intake, IV Titration 500 Amount Heparin Sodium,Porcine/ 500 D5w Pmx 25,000 unit In Dextrose/Water 1 500ml. bag @ 8.83 UNITS/KG/HR 20 .02 mls/hr IV .Q24H JAY Rx#:[id number] Oral 498 Other: Voiding Method Toilet Toilet # Voids 1 2 - Constitutional General appearance: Present: cooperative, no acute distress - Respiratory Details: Lungs sounds diminished bilaterally. Respirations even, nonlabored. Remains on room air. - Cardiovascular Details: S1, S2 present. Regular rate and rhythm, normal sinus rhythm on telemetry. - Gastrointestinal Gastrointestinal Comment(s): Abdomen soft, nontender, nondistended. Active bowel sounds 4 quadrants. Tolerating diet. - Genitourinary Genitourinary Comment(s): Continues to void clear yellow urine per urinal. - Musculoskeletal Musculoskeletal: Present: gait normal - Psychiatric Psychiatric: Present: A&O x's 3, appropriate affect, intact judgment & insight - Allied health notes Allied health notes reviewed: nursing - Labs CBC & Chem 7: 06/19/16 05:35 06/17/16 05:54 Labs: Abnormal Lab Results - Last 24 Hours (Table) 06/18/16 06/18/16 06/18/16 Range/Units 11:44 16:43 20:15 RBC (4.30-5.90) m/uL Hgb (13.0-17.5) gm/dL Hct (39.0-53.0) % APTT (22.0-30.0) sec POC Glucose (mg/dL) 343 H 226 H 188 H (75-99) mg/dL 06/19/16 06/19/16 06/19/16 Range/Units 05:35 05:35 06:29 RBC 2.89 L (4.30-5.90) m/uL Hgb 9.1 L (13.0-17.5) gm/dL Hct 26.3 L (39.0-53.0) % APTT 89.0 H (22.0-30.0) sec POC Glucose (mg/dL) 201 H (75-99) mg/dL Microbiology - Last 24 Hours (Table) 06/16/16 22:20 Nasal Screen MRSA/MSSA (DELVIN) - Final Nasal Swab Assessment and Plan (1) NSTEMI (non-ST elevated myocardial infarction) Status: Acute (2) CAD (coronary artery disease) Status: Acute (3) HTN (hypertension) Status: Acute (4) Hyperlipidemia Status: Acute (5) Diabetes Status: Acute Plan: 1. Cont ASA, lipitor, BB, Hep gtt. 2. Hold VALENTINO inhibitor. 3. Cont to hold Plavix, last dose 06-15-16. 4. Pre-op testing completed, anticipate urgent CABG tomorrow.Awaiting Plavix metabolism. 5. Pre-op teaching started, will continue to reinforce. 6. Continue to encourage smoking cessation. 7. GI/DVT prophylaxis. 8. 5 m walk test done: #1 3.88 seconds,#2 4.04 seconds, #3 3.41 seconds 9. Further recommendations to follow depending on testing/pt status. Time with Patient: Greater than 30
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
[2016-06-19 17:00] LABS: Glucose,Whole Blood 167 mg/dL (75-99)
[2016-06-19] MEDS ORDERED: INSULIN GLARGINE 100 UNIT/ML 10 ML VIAL SQ SCH (21:00)
[2016-06-19] MEDS: ATORVASTATIN 40 MG TAB PO SCH (21:13)
[2016-06-19 21:27] LABS: Glucose,Whole Blood 223 mg/dL (75-99)
[2016-06-20 04:18] LABS: Basophils # (A) 0.1 k/uL (0-0.2); Basophils % (A) 1 %; CH 31.9; CHCM 35.7; Eosinophils # (A) 0.1 k/uL (0-0.7); Eosinophils % (A) 2 %; HCT 26.2 % (39.0-53.0); HDW 2.95; HGB 9.1 gm/dL (13.0-17.5); Luc # (Auto) 0.19; Luc % (Auto) 3; Lymphocytes # (A) 2.1 k/uL (1.0-4.8); Lymphocytes % (A) 31 %; MCHC 34.6 g/dL (31.0-37.0); MCV 89.7 fL (80.0-100.0); Mean Platelet Volume 7.6; Monocytes # (A) 0.4 k/uL (0-1.0); Monocytes % (A) 6 %; Neutrophils % (A) 58 %; RBC 2.92 m/uL (4.30-5.90); RDW 13.3 % (11.5-15.5); WBC 6.9 k/uL (3.8-10.6); WBC (Perox) 6.79
[2016-06-20 04:25] LABS: Partial Thromboplastin Time 61.2 sec (22.0-30.0)
[2016-06-20 04:38] LABS: Prothrombin Time 10.5 sec (9.0-12.0)
[2016-06-20 04:49] LABS: ALT 47 U/L (21-72); AST 24 U/L (17-59); Alkaline Phosphatase 65 U/L (38-126); Anion Gap 8 mmol/L; Blood Urea Nitrogen 26 mg/dL (9-20); Calcium 8.8 mg/dL (8.4-10.2); Carbon Dioxide 25 mmol/L (22-30); Chloride 105 mmol/L (98-107); Glucose 197 mg/dL (74-99); Non-African American GFR(MDRD) 57 (>60 ml/min/1.73 sqM); Sodium 138 mmol/L (137-145); Total Bilirubin 0.4 mg/dL (0.2-1.3); Total Protein 6.2 g/dL (6.3-8.2)
[2016-06-20] MEDS ORDERED: MANNITOL 25% 12.5 GM/50 ML VIAL IV PRN ×2 (05:00)
[2016-06-20] MEDS ORDERED: PROPOFOL 500 MG in EMPTY BAG 1 BAG IV PRN (05:00)
[2016-06-20] MEDS ORDERED: PAPAVERINE 360 MG in SODIUM CHLORIDE 0.9% 90 ML IV PRN (05:00)
[2016-06-20] MEDS ORDERED: ceFAZolin 1,000 MG in SODIUM CHLORIDE 0.9% IRRIGATIO 1,000 ML IRRIGATION PRN (05:00)
[2016-06-20] MEDS ORDERED: PROTAMINE SULFATE 250 MG in EMPTY BAG 1 BAG IV PRN (05:00)
[2016-06-20] MEDS ORDERED: CARDIOPLEGIC SOLN (K+ 16 MEQ/L 1,000 ML with SODIUM BICARB (1 MEQ/ML) 20 ML, LIDOCAINE ... PERFUSION PRN ×3 (05:00)
[2016-06-20] MEDS ORDERED: AMINOCAPROIC ACID 250 MG/ML 20 ML VIAL IV PRN (05:00)
[2016-06-20] MEDS ORDERED: HEPARIN SODIUM 1,000 UNIT/ML VIAL IV PRN (05:00)
[2016-06-20] MEDS ORDERED: ceFAZolin 2,000 MG in SODIUM CHLORIDE 0.9% 30 ML IVPB PRN (05:00)
[2016-06-20] MEDS ORDERED: PROTAMINE SULFATE 10 MG/ML 25 ML VIAL IV PRN (05:00)
[2016-06-20] MEDS ORDERED: ALBUMIN HUMAN 25% 50 ML in EMPTY BAG 1 BAG IVPB PRN (05:00)
[2016-06-20] MEDS ORDERED: MAGNESIUM SULFATE SYG 4.06 MEQ/ML SYRINGE IV PRN (05:00)
[2016-06-20] MEDS ORDERED: ceFAZolin 2 GM in SODIUM CHLORIDE 0.9% 30 ML IVPB PRN (05:00)
[2016-06-20] MEDS ORDERED: ATORVASTATIN 10 MG TAB PO ONE (05:00)
[2016-06-20] MEDS ORDERED: METOPROLOL TARTRATE 25 MG TAB PO ONE (05:00)
[2016-06-20] MEDS ORDERED: AMINOCAPROIC ACID 5,000 MG in DEXTROSE 5% IN WATER 50 ML IV PRN ×4 (05:00)
[2016-06-20] MEDS ORDERED: CLEVIDIPINE BUTYRATE 25 MG in EMPTY BAG 1 BAG IV PRN (05:00)
[2016-06-20] MEDS ORDERED: SODIUM CHLORIDE 0.9% 1,000 ML IV PRN (05:00)
[2016-06-20] MEDS ORDERED: ALBUMIN HUMAN 5% 500 ML in EMPTY BAG 1 BAG IVPB PRN ×6 (05:00)
[2016-06-20] MEDS ORDERED: NITROGLYCERIN-D5W PMX 50 MG in DEXTROSE/WATER 1 250ML.BAG IV PRN (05:00)
[2016-06-20] MEDS ORDERED: HEPARIN SODIUM,PORCINE 5,000 UNIT in SODIUM CHLORIDE 0.9% 500 ML IV PRN (05:00)
[2016-06-20] MEDS ORDERED: NOREPINEPHRINE 4 MG in SODIUM CHLORIDE 0.9% 250 ML IV PRN (05:00)
[2016-06-20] MEDS ORDERED: SODIUM BICARB 8.4% 50 ML SYR (1 MEQ/ML) IV PRN (05:00)
[2016-06-20] MEDS ORDERED: CHLORHEXIDINE GLUCONATE 15 ML CUP MUCOUS MEM PRN (05:00)
[2016-06-20] MEDS ORDERED: CALCIUM CHLORIDE 100 MG/ML 10 ML SYRINGE IVP PRN (05:00)
[2016-06-20] MEDS ORDERED: PHENYLEPHRINE 40 MG in SODIUM CHLORIDE 0.9% 250 ML IV PRN (05:00)
[2016-06-20] MEDS ORDERED: INSULIN REGULAR 100 UNIT in SODIUM CHLORIDE 0.9% 100 ML IV PRN (05:00)
[2016-06-20] MEDS ORDERED: PHENYLEPHRINE-0.9% NACL SYG 1 MG/10 ML SYRINGE IV PRN ×4 (05:00)
[2016-06-20] MEDS ORDERED: ASPIRIN 325 MG TAB PO ONE (05:00)
[2016-06-20] MEDS ORDERED: NITROGLYCERIN-D5W PMX 25 MG/250 ML BTL IV PRN (05:00)
[2016-06-20] MEDS: INSULIN LISPRO (humaLOG) 300 UNIT/3 ML VIAL SQ SCH ×2 (05:17→05:18)
[2016-06-20] MEDS: NITROGLYCERIN OINT 1 INCH/GM PACKET TOPICAL SCH (05:17)
[2016-06-20] MEDS: PANTOPRAZOLE 40 MG TABLET PO SCH (05:18)
[2016-06-20 06:23] LABS: Glucose,Whole Blood 199 mg/dL (75-99)
[2016-06-20] MEDS ORDERED: IV FLUID CONTINUATION 1,000 ML IV ONE (07:02)
--- NOTE | 2016-06-20 09:06 | PN ---
DATE OF SERVICE: 06/19/2016 INTERVAL HISTORY: Mr. Ruiz is a 55-year-old male who was admitted to the hospital for acute non-ST elevation SD. Patient was found to have multivessel coronary artery disease and currently being planned for coronary artery bypass graft on 06/20/2016. Patient had preop workup done including pulmonary function tests, carotid duplex, 2-D echo and vein mapping and Plavix has been held since 06/15/2016. Currently denied any complaints of chest pain or short of breath. No nausea, vomiting or abdominal pain. No acute overnight issues. CURRENT MEDICATIONS: Reviewed. PHYSICAL EXAMINATION: A 55-year-old male lying in bed comfortably. Awake, alert, oriented x3. Appears to be in no apparent distress. VITALS: Blood pressure is 130/76, pulse is 73, respirations 18, temperature afebrile, pulse ox 98% on room air. HEENT: Atraumatic, normocephalic. NECK: Supple. No JVD. CVS EXAM: S1 and S2 heard. No murmurs, no gallops, no rub. LUNGS: Bilateral air entry is present. No wheezing. No crackles. Nonlabored breathing. ABDOMEN: Soft, nontender. Bowel sounds present. LANGUAGES AND LITERATURE INSTRUCTOR: Awake, alert and oriented x3. No focal deficit. EXTREMITIES: No edema. Pulses palpable bilaterally. No clubbing or cyanosis. PSYCHIATRIC: Cooperative. LABORATORY DATA: WBC is 6.8, hemoglobin 9.1, platelets 218. Sodium 137, potassium 4.1, chloride 106, bicarb is 22, BUN 26, creatinine 1.39 and blood sugar this morning is 223. IMPRESSION: 1. Acute non-ST elevated myocardial infarction. 2. Multivessel coronary artery disease, currently being planned for coronary artery bypass graft on , that is 06/20/2016. 3. Uncontrolled diabetes mellitus with hemoglobin A1c of 9.9. Started on insulin regimen during this admission, will titrate as needed. 4. Acute on chronic kidney disease, stage III. Baseline creatinine 1.3, improved now. 5. Diabetic peripheral neuropathy. 6. Degenerative joint disease. 7. Mild chronic obstructive pulmonary disease with FEV1 of 73% of predicted. DISCUSSION AND PLAN: Patient will be continued on current management including IV heparin and beta delfina, statins and Plavix has been held. Patient is being prepared for bypass graft for tomorrow.
[2016-06-20] MEDS ORDERED: SUCCINYLCHOLINE CHLORIDE 100 MG/5 ML SYR IV ONE (09:55)
[2016-06-20] MEDS ORDERED: ALBUMIN HUMAN 5% 500 ML VIAL IVPB ONE (09:55)
[2016-06-20] MEDS ORDERED: HEPARIN SODIUM,PORCINE 10,000 UNIT/ML 1 ML VIAL ONE (09:55)
[2016-06-20] MEDS ORDERED: VECURONIUM 10 MG VIAL IV ONE (09:55)
[2016-06-20] MEDS ORDERED: PROTAMINE SULFATE 10 MG/ML 5 ML VIAL IV ONE (09:55)
[2016-06-20] MEDS ORDERED: SODIUM CHLORIDE 0.9% IRRIG 1,000 ML BTL IRRIGATION ONE (09:55)
[2016-06-20] MEDS ORDERED: DOPAMINE IV ONE (09:55)
[2016-06-20] MEDS ORDERED: PROPOFOL 10 MG/ML 20 ML VIAL IV ONE (09:55)
[2016-06-20] MEDS ORDERED: MIDAZOLAM 2 MG/2 ML VIAL ONE (09:55)
[2016-06-20] MEDS ORDERED: HEPARIN SODIUM 1,000 UNIT/ML VIAL ONE (09:55)
[2016-06-20] MEDS ORDERED: fentaNYL (PF) 50 MCG/ML 50 ML VIAL ONE (09:55)
[2016-06-20] MEDS ORDERED: fentaNYL (PF) 50 MCG/ML 2 ML AMP ONE (09:55)
[2016-06-20 10:37] LABS: Glucose,Whole Blood 208 mg/dL (75-99)
[2016-06-20 12:11] LABS: Glucose,Whole Blood 197 mg/dL (75-99)
[2016-06-20 12:30] LABS: Glucose,Whole Blood 190 mg/dL (75-99)
[2016-06-20 13:06] LABS: Glucose,Whole Blood 169 mg/dL (75-99)
[2016-06-20] MEDS ORDERED: BENZOCAINE/MENTHOL LOZENG 1 EACH LOZENGE MUCOUS MEM PRN (13:58)
[2016-06-20] MEDS ORDERED: CALCIUM GLUCONATE 2,000 MG in SODIUM CHLORIDE 0.9% 100 ML IVPB ONE (13:58)
[2016-06-20] MEDS ORDERED: Magnesium Replacement Protocol 1 EACH MISC MISCELLANE PRN (13:58)
[2016-06-20] MEDS ORDERED: Potassium Replacement Protocol 1 EACH MISC MISCELLANE PRN (13:58)
[2016-06-20] MEDS ORDERED: METOCLOPRAMIDE 5 MG/ML 2 ML VIAL IVP PRN (13:58)
[2016-06-20] MEDS ORDERED: Phosphorus Replacement Protoco 1 EACH MISC MISCELLANE PRN (13:58)
[2016-06-20] MEDS ORDERED: NITROGLYCERIN-D5W PMX 50 MG in DEXTROSE/WATER 1 250ML.BAG IV SCH (14:00)
[2016-06-20] MEDS ORDERED: PROPOFOL 500 MG in EMPTY BAG 1 BAG IV SCH (14:00)
[2016-06-20] MEDS ORDERED: DOPamine DRIP 800 MG in DEXTROSE/WATER 1 500ML.BAG IV SCH (14:00)
[2016-06-20 14:05] LABS: Glucose,Whole Blood 143 mg/dL (75-99)
[2016-06-20 14:53] LABS: Glucose,Whole Blood 166 mg/dL (75-99)
[2016-06-20] MEDS: IPRATROPIUM-ALBUTEROL 3 ML NEB INHALATION SCH ×2 (15:15→18:39)
--- NOTE | 2016-06-20 15:24 | XR ---
EXAMINATION TYPE: XR chest 1V portable DATE OF EXAM: 06/20/2016 3:14 PM CLINICAL HISTORY: Post open cardiac surgery. TECHNIQUE: Single AP portable supine view of the chest is obtained. COMPARISON: Chest x-ray from 5 days earlier. FINDINGS: There is new endotracheal tube with tip at aortic knob level, approximately 4 cm above the [place]. There is new orogastric tube projecting below left hemidiaphragm. There is new right interna l jugular Morse-Oracio catheter with tip at level of right pulmonary artery. There is new left-sided dino st tube and mediastinal drainage catheter. New post CABG changes with mediastinal clips and sternal w ires is present. There is persistent cardiomegaly with new mild central vascular congestion and patchy left basilar at electatic change. No sizable pneumothorax is seen after procedure. Right basilar atelectatic change i s present. Osseous structures are intact. IMPRESSION: New tubes and lines as above felt satisfactory in position. There is redemonstration of c ardiomegaly with new mild central vascular congestion and patchy bibasilar atelectatic change all not ed.
[2016-06-20 15:26] LABS: CH 31.6; CHCM 35.8; HDW 2.94; Ionized Calcium 5.2 mg/dL (4.5-5.3); MCH 32.3 pg (25.0-35.0); MCHC 36.4 g/dL (31.0-37.0); MCV 88.6 fL (80.0-100.0); Mean Platelet Volume 7.9; RBC 2.24 m/uL (4.30-5.90); RDW 13.2 % (11.5-15.5); WBC 6.2 k/uL (3.8-10.6); WBC (Perox) 6.09
[2016-06-20 15:29] LABS: INR 1.1 (<1.1); Partial Thromboplastin Time 23.9 sec (22.0-30.0); Prothrombin Time 11.3 sec (9.0-12.0)
[2016-06-20 15:34] LABS: Glucose,Whole Blood 121 mg/dL (75-99)
[2016-06-20 15:37] LABS: ABG PH 7.36 (7.35-7.45)
[2016-06-20 15:37] LABS: HCT 19.8 % (39.0-53.0); HGB 7.2 gm/dL (13.0-17.5)
[2016-06-20 15:38] LABS: ABG Base Excess -1.6 mmol/L; ABG HCO3 23 mmol/L (21-25); ABG PCO2 41 mmHg (35-45); ABG PO2 185 mmHg (83-108); ABG TCO2 24 mmol/L (19-24)
[2016-06-20] MEDS: CLEVIDIPINE BUTYRATE 25 MG in EMPTY BAG 1 BAG IV SCH ×2 (15:39→19:46)
[2016-06-20] MEDS: ceFAZolin 2 GM in SODIUM CHLORIDE 0.9% 100 ML IVPB SCH (15:40)
[2016-06-20] MEDS: LACTATED RINGERS 1,000 ML IV SCH (15:40)
[2016-06-20 15:46] LABS: ALT 45 U/L (21-72); AST 33 U/L (17-59); Alkaline Phosphatase 38 U/L (38-126); Anion Gap 9 mmol/L; Blood Urea Nitrogen 23 mg/dL (9-20); Calcium 8.4 mg/dL (8.4-10.2); Carbon Dioxide 23 mmol/L (22-30); Chloride 108 mmol/L (98-107); Glucose 113 mg/dL (74-99); Magnesium 2.3 mg/dL (1.6-2.3); Non-African American GFR(MDRD) >60 (>60 ml/min/1.73 sqM); Potassium 3.9 mmol/L (3.5-5.1); Sodium 140 mmol/L (137-145); Total Bilirubin 0.7 mg/dL (0.2-1.3); Total Protein 5.2 g/dL (6.3-8.2)
[2016-06-20] MEDS ORDERED: POTASSIUM CHLORIDE IVPB ONE (16:09)
[2016-06-20 16:10] LABS: Add Differential Manual Differential
[2016-06-20 16:12] LABS: Nucleated Red Blood Cells 0 /100 WBC (0-0); Total Cells Counted 100
[2016-06-20 16:13] LABS: Manual Review Performed; RBC Morphology Normal
[2016-06-20 17:09] LABS: Glucose,Whole Blood 148 mg/dL (75-99)
[2016-06-20] MEDS: MORPHINE SULFATE 2 MG/ML SYRINGE IVP PRN ×3 (17:40→22:36)
[2016-06-20 18:06] LABS: Basophils # (A) 0.1 k/uL (0-0.2); Basophils % (A) 1 %; CH 31.8; CHCM 35.9; Eosinophils # (A) 0.1 k/uL (0-0.7); Eosinophils % (A) 1 %; HCT 22.9 % (39.0-53.0); HDW 2.98; HGB 8.2 gm/dL (13.0-17.5); Luc % (Auto) 1; Lymphocytes # (A) 1.3 k/uL (1.0-4.8); Lymphocytes % (A) 14 %; MCH 31.8 pg (25.0-35.0); MCHC 35.7 g/dL (31.0-37.0); Mean Platelet Volume 8.6; Monocytes # (A) 0.6 k/uL (0-1.0); Monocytes % (A) 6 %; Neutrophils # (A) 7.4 k/uL (1.3-7.7); Neutrophils % (A) 78 %; RBC 2.58 m/uL (4.30-5.90); RDW 13.2 % (11.5-15.5); WBC 9.5 k/uL (3.8-10.6); WBC (Perox) 9.96
[2016-06-20 18:10] LABS: Glucose,Whole Blood 170 mg/dL (75-99)
[2016-06-20 18:27] LABS: ABG PCO2 42 mmHg (35-45); ABG PH 7.33 (7.35-7.45)
[2016-06-20 18:28] LABS: ABG Base Excess -3.4 mmol/L; ABG HCO3 22 mmol/L (21-25); ABG PO2 63 mmHg (83-108); ABG TCO2 23 mmol/L (19-24)
--- NOTE | 2016-06-20 18:48 | P.PN ---
Subjective 55-year-old male patient, I was asked to see for a preoperative pulmonary evaluation as the patient is suspected to go for cardiac/coronary bypass surgery in the morning. This patient is known to have coronary artery disease and he has had multiple coronary interventions and stenting in the past. The patient developed significant restenosis following multivessel PCI and he was advised to see Dr. Gonzalez on an outpatient basis for cardiac surgery. Meanwhile , the patient came into the hospital with chest pressure and angina and he developed an acute non-ST segment elevation myocardial infarction and an urgent surgical consultation was requested. The patient has significant coronary artery disease and please refer to the details of the cardiac catheterization for further results. Currently is on IV heparin. His emanating in the hallway. 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 He is also a active smoker and he quit smoking approximately a week ago. Denies having any cough or sputum production. No wheezing. A bedside spirometry was done and his FEV1 is noted of 73% of predicted. No stare bronchial asthma. No previous history of DVT or Aneta embolism. X-ray that was done showed cardiomegaly and some mild changes of CHF. No evidence of any acute pneumonia or lesions. His echocardiogram showed a impaired LV function with an ejection fraction of 35-40% and the patient has inferolateral hypokinesis and there is mild aortic valve sclerosis and a right ventricular systolic pressure measured to be 26. On 06/20/2016, the patient is being seen postop following coronary artery bypass surgery. The patient underwent four-vessel bypass surgery. Currently is postop day #0. I discussed the case with Dr. Gonzalez. Intraoperatively the patient was having low urine output and he was started on low-dose dopamine to augment his urine output. The patient was also brought to the intensive care unit on a combination of nitroglycerin drip and cleviprex drip for blood pressure control. He was initially on assist control mode and the postoperative chest x-ray showed cardiomegaly with some patchy bibasilar atelectatic changes and all of the tubes were in good location including the ET tube, they mediastinal and the left pleural chest tube and the Covert-Oracio catheter. The blood gases showed a pH of 7.36 with a pCO2 of 41 and pO2 of 185 and this was done on assist-control mode with a tidal volume of 600, rate of 16 , FiO2 of 100% and a PEEP of 5. Hemodynamically, the patient is on a combination of nitroglycerin and Clevidipine for blood pressure control.The chest tubes are in place and estimated operative of the chest tube has been around 233 ML's of bloody effusion since the patient arrived from the operating room. Urine output since his arrival has been around 500 mL as being collected in the urine bag. The patient's cardiac output was 13.6 and an index was 6.The patient is currently in the process of being weaned off FiO2 and wants to the chair reasonable oxygenation we will stop the sedation and assess patient's weaning parameters. I anticipate extubation within the next few hours at least. Objective - Vital Signs Vital signs: Vital Signs Temp 98.4 F 06/20/16 07:22 Pulse 85 06/20/16 17:15 Resp 20 06/20/16 17:15 BP 128/77 06/20/16 07:30 Pulse Ox 94 L 06/20/16 17:15 Intake & Output 06/19/16 06/20/16 06/20/16 18:59 06:59 18:59 Intake Total 298 620 670.1 Output Total 250 1565 Balance 298 370 -894.9 Weight 110.3 kg Intake: IV 320 207 0.9 160 CO 180 Heparin Sodium,Porcine/ 160 D5w Pmx 25,000 unit In Dextrose/Water 1 500ml. bag @ 8.83 UNITS/KG/HR 20 .02 mls/hr IV .Q24H [facility] Rx#:[id number] PRESSURE BAG 27 Intake, IV Titration 463.1 Amount DOPamine DRIP 800 mg In 24.9 Dextrose/Water 1 500ml. bag @ 5 MCG/KG/MIN 20.68 mls/hr IV .Q24H [facility] Rx#: [id number] Insulin Regular 100 unit 5.5 In Sodium Chloride 0.9% 100 ml @ Per Protocol IV .Q0M [facility] Rx#:[id number] Lactated Ringers 1,000 ml 150 @ 50 mls/hr IV .Q20H [facility] Rx#:[id number] Nitroglycerin-D5w Pmx 50 9 mg In Dextrose/Water 1 250ml.bag @ 5 MCG/MIN 1.5 mls/hr IV .Q24H [facility] Rx#: [id number] Potassium Chloride Open 25 Heart 50 ml As IVPB .STK- [facility] Rx#:[id number] Propofol 500 mg In Empty 48.7 Bag 1 bag @ Titrate IV . Q0M [facility] Rx#:[id number] ceFAZolin 2 gm In Sodium 200 Chloride 0.9% 100 ml @ 100 mls/hr IVPB Q8HR [facility] Rx#:[id number] Oral 298 300 Output: Chest Tube Drainage 234 Left Pleural/Mediastinal 234 Urine 250 731 Estimated Blood Loss 600 Other: Voiding Method Toilet # Voids 2 1 ABP, PAP, CO, CI - Last Documented Arterial Blood Pressure 117/48 Pulmonary Artery Pressure 32/17 Cardiac Output 9.3 Cardiac Index 5.3 - Exam Head exam was generally normal. There was no scleral icterus or corneal arcus. Mucous membranes were moist.Neck is supple and the patient has a right IJ Covert- Oracio catheter in place. There is no goiter or neck masses. Orogastric and endotracheal tube are both in place. Lung sounds are diminished bilaterally along with some few rhonchi. No wheezes or crackles. Heart sounds are regular , positive stool. Sternum stable clean and intact. Chest tubes are all in place and the patient is a mediastinal and the left pleural chest tube.Abdominal exam revealed normal bowel sounds. The abdomen was soft, non- tender, and without masses, organomegaly, or appreciable enlargement of the abdominal aorta. My normal extremities surgical wound site at all dry clean and intact. - Labs CBC & Chem 7: 06/20/16 17:45 06/20/16 14:46 Labs: Abnormal Lab Results - Last 24 Hours (Table) 06/19/16 06/19/16 06/20/16 Range/Units 05:35 21:24 03:48 RBC 2.92 L (4.30-5.90) m/uL Hgb 9.1 L (13.0-17.5) gm/dL Hct 26.2 L (39.0-53.0) % APTT (22.0-30.0) sec ABG pH (7.35-7.45) ABG pO2 (83-108) mmHg ABG O2 Saturation (94-97) % Chloride (98-107) mmol/L BUN (9-20) mg/dL Creatinine (0.66-1.25) mg/dL Glucose (74-99) mg/dL POC Glucose (mg/dL) 223 H (75-99) mg/dL Total Protein (6.3-8.2) g/dL Albumin (3.5-5.0) g/dL Crossmatch See Detail 06/20/16 06/20/16 06/20/16 Range/Units 03:48 03:48 06:17 RBC (4.30-5.90) m/uL Hgb (13.0-17.5) gm/dL Hct (39.0-53.0) % APTT 61.2 H (22.0-30.0) sec ABG pH (7.35-7.45) ABG pO2 (83-108) mmHg ABG O2 Saturation (94-97) % Chloride (98-107) mmol/L BUN 26 H (9-20) mg/dL Creatinine 1.30 H (0.66-1.25) mg/dL Glucose 197 H (74-99) mg/dL POC Glucose (mg/dL) 199 H (75-99) mg/dL Total Protein 6.2 L (6.3-8.2) g/dL Albumin 3.2 L (3.5-5.0) g/dL Crossmatch 06/20/16 06/20/16 06/20/16 Range/Units 10:24 11:58 12:28 RBC (4.30-5.90) m/uL Hgb (13.0-17.5) gm/dL Hct (39.0-53.0) % APTT (22.0-30.0) sec ABG pH (7.35-7.45) ABG pO2 (83-108) mmHg ABG O2 Saturation (94-97) % Chloride (98-107) mmol/L BUN (9-20) mg/dL Creatinine (0.66-1.25) mg/dL Glucose (74-99) mg/dL POC Glucose (mg/dL) 208 H 197 H 190 H (75-99) mg/dL Total Protein (6.3-8.2) g/dL Albumin (3.5-5.0) g/dL Crossmatch 06/20/16 06/20/16 06/20/16 Range/Units 13:03 13:51 14:46 RBC 2.24 L (4.30-5.90) m/uL Hgb 7.2 L D (13.0-17.5) gm/dL Hct 19.8 L* (39.0-53.0) % APTT (22.0-30.0) sec ABG pH (7.35-7.45) ABG pO2 (83-108) mmHg ABG O2 Saturation (94-97) % Chloride (98-107) mmol/L BUN (9-20) mg/dL Creatinine (0.66-1.25) mg/dL Glucose (74-99) mg/dL POC Glucose (mg/dL) 169 H 143 H (75-99) mg/dL Total Protein (6.3-8.2) g/dL Albumin (3.5-5.0) g/dL Crossmatch 06/20/16 06/20/16 06/20/16 Range/Units 14:46 14:51 15:27 RBC (4.30-5.90) m/uL Hgb (13.0-17.5) gm/dL Hct (39.0-53.0) % APTT (22.0-30.0) sec ABG pH (7.35-7.45) ABG pO2 185 H (83-108) mmHg ABG O2 Saturation 99.0 H (94-97) % Chloride 108 H (98-107) mmol/L BUN 23 H (9-20) mg/dL Creatinine (0.66-1.25) mg/dL Glucose 113 H (74-99) mg/dL POC Glucose (mg/dL) 166 H (75-99) mg/dL Total Protein 5.2 L (6.3-8.2) g/dL Albumin 3.0 L (3.5-5.0) g/dL Crossmatch 06/20/16 06/20/16 06/20/16 Range/Units 15:31 17:01 17:45 RBC 2.58 L (4.30-5.90) m/uL Hgb 8.2 L (13.0-17.5) gm/dL Hct 22.9 L (39.0-53.0) % APTT (22.0-30.0) sec ABG pH (7.35-7.45) ABG pO2 (83-108) mmHg ABG O2 Saturation (94-97) % Chloride (98-107) mmol/L BUN (9-20) mg/dL Creatinine (0.66-1.25) mg/dL Glucose (74-99) mg/dL POC Glucose (mg/dL) 121 H 148 H (75-99) mg/dL Total Protein (6.3-8.2) g/dL Albumin (3.5-5.0) g/dL Crossmatch 06/20/16 06/20/16 Range/Units 18:07 18:09 RBC (4.30-5.90) m/uL Hgb (13.0-17.5) gm/dL Hct (39.0-53.0) % APTT (22.0-30.0) sec ABG pH 7.33 L (7.35-7.45) ABG pO2 63 L (83-108) mmHg ABG O2 Saturation 90.0 L (94-97) % Chloride (98-107) mmol/L BUN (9-20) mg/dL Creatinine (0.66-1.25) mg/dL Glucose (74-99) mg/dL POC Glucose (mg/dL) 170 H (75-99) mg/dL Total Protein (6.3-8.2) g/dL Albumin (3.5-5.0) g/dL Crossmatch Assessment and Plan Plan: Assessment 1 multivessel coronary artery disease, and the patient is status post three- vessel bypass surgery number postop day #0 2 ventilator management post thoracotomy and bypass surgery. Patient is currently being weaned off the mechanical ventilator. S x-ray shows some limited atelectatic changes in lung bases bilaterally. Blood gases was reviewed. Chest x-ray was reviewed. 3 COPD mild with an FEV1 of 70% of predicted 4 chronic renal failure, creatinine stable at 1.2 5 diabetes mellitus, currently on insulin drip for blood sugar control 6 hypertension currently on a combination of nitroglycerin and clevidipine 7 congestion heart failure with ejection fraction of 35-40% 8 chronic smoker, quit smoking approximately a week ago 9 peripheral vascular disease 10 peripheral neuropathy 11 hyperlipidemia 12 postoperative anemia Plan We'll wean off FiO2. We'll check a set of weaning parameters once the patient' s oxidation is reasonable on that a lower FiO2. We will gradually weaned off the Diprivan. Check set of weaning parameters and if adequate we'll proceed with a spelled his breathing trial and proceed with subsequent extubation. Hemodynamically stable. Titrate the nitroglycerin and clevidipine based on the blood pressure control. Keep the dopamine for urine output. We will continue to follow output from the chest tube. Monitor hemoglobin. Monitor hemodynamics. Condition remains critical. The patient will be staying in the intensive care unit for now.
--- NOTE | 2016-06-20 18:57 | PN ---
Mr. Ruiz is a 55-year-old male who has a known history of coronary artery disease, underwent coronary bypass grafting today. He is intubated, sedated, hemodynamically stable on IV nitroglycerin. He received BURTON to the left anterior descending artery and 2 saphenous vein grafts. He is in sinus mechanism. He is intubated and sedated. Jenison-Oracio catheter in place. Preoperative echocardiogram done on the revealed an ejection fraction of 35% to 40%. PHYSICAL EXAMINATION: His blood pressure is running in the 130/70 with a heart in the 80s. LUNGS: Clear anteriorly. HEART: Regular rate rhythm. S1, S2, no rub appreciated. ABDOMEN: Soft. Hypoactive bowel sounds. No organomegaly. EXTREMITIES: Jaguar wrapping in place. IMPRESSION: 1. Status post coronary artery bypass grafting. 2. Preoperative cardiomyopathy. 3. Prior history of smoking. 4. Hyperlipidemia. 5. Diabetes mellitus. RECOMMENDATION: Will continue the routine postoperative care. I am hopeful that we will be able to extubate him within the next 12 hours, resume his statin and beta delfina. Will follow his left ventricular systolic function postoperatively and depending on the trend, further recommendation will be made.
[2016-06-20] MEDS: ESMOLOL IN SODIUM CHLORIDE PMX 2.5 GM in SALINE 1 250ML.BAG IV SCH (18:59)
[2016-06-20 19:25] LABS: Glucose,Whole Blood 194 mg/dL (75-99)
[2016-06-20] MEDS ORDERED: CLEVIDIPINE BUTYRATE 25 MG/50 ML VIAL IV ONE (19:27)
[2016-06-20 20:08] LABS: Glucose,Whole Blood 190 mg/dL (75-99)
[2016-06-20] MEDS: INSULIN REGULAR 100 UNIT in SODIUM CHLORIDE 0.9% 100 ML IV SCH (20:13)
[2016-06-20] MEDS: HEPARIN SODIUM,PORCINE 5,000 UNIT/ML 1 ML VIAL SQ SCH (21:05)
[2016-06-20 21:27] LABS: Glucose,Whole Blood 175 mg/dL (75-99)
[2016-06-20 21:34] LABS: Basophils % (A) 0 %; CH 31.9; Eosinophils % (A) 0 %; HCT 24.2 % (39.0-53.0); HDW 2.96; HGB 8.3 gm/dL (13.0-17.5); Luc # (Auto) 0.09; Luc % (Auto) 1; Lymphocytes # (A) 0.5 k/uL (1.0-4.8); Lymphocytes % (A) 6 %; MCH 30.5 pg (25.0-35.0); MCHC 34.3 g/dL (31.0-37.0); MCV 88.9 fL (80.0-100.0); Mean Platelet Volume 8.7; Monocytes # (A) 0.6 k/uL (0-1.0); Monocytes % (A) 6 %; Neutrophils # (A) 8.4 k/uL (1.3-7.7); Neutrophils % (A) 87 %; RBC 2.72 m/uL (4.30-5.90); RDW 13.2 % (11.5-15.5); WBC 9.7 k/uL (3.8-10.6); WBC (Perox) 9.44
[2016-06-20] MEDS: MUPIROCIN 2% OINT 22 GM TUBE NASAL SCH (22:00)
[2016-06-20 22:23] LABS: Glucose,Whole Blood 172 mg/dL (75-99)
[2016-06-20 23:11] LABS: Glucose,Whole Blood 146 mg/dL (75-99)
[2016-06-21 00:09] LABS: Glucose,Whole Blood 126 mg/dL (75-99)
[2016-06-21] MEDS: ceFAZolin 2 GM in SODIUM CHLORIDE 0.9% 100 ML IVPB SCH ×2 (00:44→08:00)
[2016-06-21 01:05] LABS: Glucose,Whole Blood 114 mg/dL (75-99)
[2016-06-21] MEDS: MORPHINE SULFATE 2 MG/ML SYRINGE IVP PRN ×4 (01:19→11:06)
[2016-06-21 02:07] LABS: Glucose,Whole Blood 140 mg/dL (75-99)
[2016-06-21 03:05] LABS: Glucose,Whole Blood 137 mg/dL (75-99)
[2016-06-21] MEDS: ESMOLOL IN SODIUM CHLORIDE PMX 2.5 GM in SALINE 1 250ML.BAG IV SCH (03:10)
[2016-06-21] MEDS: ONDANSETRON 4 MG/2 ML VIAL IVP PRN ×2 (03:24→14:22)
[2016-06-21 04:25] LABS: Glucose,Whole Blood 121 mg/dL (75-99)
[2016-06-21 05:14] LABS: Glucose,Whole Blood 121 mg/dL (75-99)
[2016-06-21 05:21] LABS: Basophils % (A) 0 %; CH 31.9; CHCM 36.1; Eosinophils % (A) 0 %; HCT 23.5 % (39.0-53.0); HDW 2.94; HGB 8.2 gm/dL (13.0-17.5); Luc % (Auto) 1; Lymphocytes # (A) 0.7 k/uL (1.0-4.8); Lymphocytes % (A) 8 %; MCH 30.9 pg (25.0-35.0); MCHC 34.8 g/dL (31.0-37.0); MCV 88.9 fL (80.0-100.0); Mean Platelet Volume 7.9; Monocytes # (A) 0.5 k/uL (0-1.0); Monocytes % (A) 7 %; Neutrophils # (A) 6.9 k/uL (1.3-7.7); Neutrophils % (A) 84 %; RBC 2.65 m/uL (4.30-5.90); RDW 13.1 % (11.5-15.5); WBC 8.2 k/uL (3.8-10.6); WBC (Perox) 8.05
[2016-06-21 05:26] LABS: Ionized Calcium 5.2 mg/dL (4.5-5.3)
[2016-06-21] MEDS: HEPARIN SODIUM,PORCINE 5,000 UNIT/ML 1 ML VIAL SQ SCH ×3 (05:28→22:07)
[2016-06-21 05:31] LABS: ALT 48 U/L (21-72); AST 25 U/L (17-59); Alkaline Phosphatase 40 U/L (38-126); Anion Gap 8 mmol/L; Blood Urea Nitrogen 22 mg/dL (9-20); Calcium 8.5 mg/dL (8.4-10.2); Carbon Dioxide 24 mmol/L (22-30); Chloride 107 mmol/L (98-107); Glucose 112 mg/dL (74-99); Magnesium 2.2 mg/dL (1.6-2.3); Non-African American GFR(MDRD) >60 (>60 ml/min/1.73 sqM); Potassium 4.3 mmol/L (3.5-5.1); Sodium 139 mmol/L (137-145); Total Bilirubin 0.5 mg/dL (0.2-1.3); Total Protein 5.6 g/dL (6.3-8.2)
[2016-06-21] MEDS: ALBUMIN HUMAN 5% 250 ML in EMPTY BAG 1 BAG IVPB PRN ×2 (05:34→21:48)
[2016-06-21 06:18] LABS: Glucose,Whole Blood 117 mg/dL (75-99)
[2016-06-21 06:23] LABS: Prothrombin Time 10.5 sec (9.0-12.0)
[2016-06-21 07:12] LABS: Glucose,Whole Blood 111 mg/dL (75-99)
--- NOTE | 2016-06-21 07:27 | XR ---
EXAMINATION TYPE: XR chest 1V portable DATE OF EXAM: 06/21/2016 6:55 AM COMPARISON: NONE HISTORY: SOB, Follow Up FINDINGS: Endotracheal and NG tubes have been removed. [place]-Oracio catheter is in place as well as left-sided dino st tube. No evidence for sizable pneumothorax. No change in bibasilar opacities. Stable appearance of the cardio-mediastinal structures at this time. Pleural effusion unchanged. IMPRESSION: 1. Stable portable chest. ET and NG tube removal. Clinical correlation and follow up until resoluti on is recommended.
[2016-06-21 07:46] LABS: Glucose,Whole Blood 112 mg/dL (75-99)
[2016-06-21] MEDS: IPRATROPIUM-ALBUTEROL 3 ML NEB INHALATION SCH ×4 (07:49→19:39)
[2016-06-21] MEDS: CLOPIDOGREL 75 MG TAB PO SCH (07:52)
[2016-06-21] MEDS: ATORVASTATIN 40 MG TAB PO SCH (07:52)
[2016-06-21] MEDS: ASPIRIN 325 MG TAB PO SCH (07:52)
[2016-06-21] MEDS: MUPIROCIN 2% OINT 22 GM TUBE NASAL SCH ×2 (07:53→20:28)
--- NOTE | 2016-06-21 08:43 | P.PN ---
Subjective Principal diagnosis: NSTEMI, S/P recent heart catheterization w/ stenting POD #1 off-pump coronary artery bypass grafting 3 with left internal mammary artery graft to LAD and saphenous vein grafts to first obtuse marginal and posterior descending coronary artery, intraoperative transesophageal echocardiogram, epi-aortic scanning Patient currently up in the chair in no apparent distress. States he did have incisional pain last night which the nurses are working to control. He also had nausea last night making it difficult to take oral pain medication Objective - Vital Signs Vital signs: Vital Signs Temp 99.5 F 06/20/16 22:00 Pulse 93 06/21/16 08:09 Resp 18 06/21/16 06:00 BP 128/77 06/20/16 07:30 Pulse Ox 95 06/21/16 07:49 Intake & Output 06/20/16 06/21/16 06/21/16 18:59 06:59 18:59 Intake Total 893.2 1874.026 53 Output Total 1890 1605 60 Balance -996.8 269.026 -7 Weight 112.6 kg Intake: IV 336 335 3 CO 300 290 PRESSURE BAG 36 45 3 Intake, IV Titration 557.2 1299.026 50 Amount Clevidipine Butyrate 25 90.933 mg In Empty Bag 1 bag @ 1 MG/HR 2 mls/hr IV .Q24H [facility] Rx#:[id number] DOPamine DRIP 800 mg In 33.2 96.166 Dextrose/Water 1 500ml. bag @ 5 MCG/KG/MIN 20.68 mls/hr IV .Q24H [facility] Rx#: [id number] Esmolol in Sodium 323.828 Chloride Pmx 2.5 gm In Saline 1 250ml.bag @ 25 MCG/KG/MIN 16.54 mls/hr IV .Q15H7M [facility] Rx#: [id number] Insulin Regular 100 unit 7.0 33.299 In Sodium Chloride 0.9% 100 ml @ Per Protocol IV .Q0M [facility] Rx#:[id number] Insulin Regular 100 unit 5 In Sodium Chloride 0.9% 100 ml @ Titrate IV .Q0M PRN Rx#:[id number] Lactated Ringers 1,000 ml 200 600 50 @ 50 mls/hr IV .Q20H [facility] Rx#:[id number] Nitroglycerin-D5w Pmx 50 6 9 mg In Dextrose/Water 1 250ml.bag @ 5 MCG/MIN 1.5 mls/hr IV .Q24H [facility] Rx#: [id number] Nitroglycerin-D5w Pmx 50 9 37.50 mg In Dextrose/Water 1 250ml.bag @ 5 MCG/MIN 1.5 mls/hr IV .Q24H [facility] Rx#: [id number] Potassium Chloride Open 50 Heart 50 ml As IVPB .STK- [facility] Rx#:[id number] Propofol 500 mg In Empty 52.0 3.3 Bag 1 bag @ Titrate IV . Q0M [facility] Rx#:[id number] ceFAZolin 2 gm In Sodium 200 100 Chloride 0.9% 100 ml @ 100 mls/hr IVPB Q8HR [facility] Rx#:[id number] Oral 240 Output: Chest Tube Drainage 364 490 10 Left Pleural/Mediastinal 364 490 10 Urine 926 945 50 Emesis 170 Estimated Blood Loss 600 Other: Voiding Method Indwelling Catheter Indwelling Catheter ABP, PAP, CO, CI - Last Documented Arterial Blood Pressure 126/49 Pulmonary Artery Pressure 25/11 Cardiac Output 8 Cardiac Index 3.5 - Constitutional General appearance: Present: cooperative, no acute distress - Respiratory Details: Lungs sounds diminished with fine crackles in the bases bilaterally. Respirations even, nonlabored. Currently on 100% nonrebreather mask. Left pleural/mediastinal chest tube to -20 cm wall suction, draining serosanguineous fluid, approximately 20-40 mL/h, total 970 mL in atrium since surgery. No air leak present. - Cardiovascular Details: S1, S2 present. Regular rate and rhythm, normal sinus rhythm on telemetry. Chest stable. Heart hugger in place with patient demonstrating appropriate use. Trace bilateral lower extremity edema present. Teds, SCDs present. - Gastrointestinal Gastrointestinal Comment(s): Abdomen soft, nontender, nondistended. Hypoactive bowel sounds present. Denies flatus. - Genitourinary Genitourinary Comment(s): Cha present draining clear yellow urine. Approximately 25-100 mL per hour. - Integumentary Integumentary Comment(s): Anterior chest wall incision covered with dry intact silver dressing. Left large semi-EVH sites well approximated. - Musculoskeletal Musculoskeletal Comment(s): Up to chair with assist 2. - Psychiatric Psychiatric: Present: A&O x's 3, appropriate affect, intact judgment & insight - Allied health notes Allied health notes reviewed: nursing - Labs CBC & Chem 7: 06/21/16 05:08 06/21/16 05:08 Labs: Abnormal Lab Results - Last 24 Hours (Table) 06/19/16 06/20/16 06/20/16 Range/Units 05:35 10:24 11:58 RBC (4.30-5.90) m/uL Hgb (13.0-17.5) gm/dL Hct (39.0-53.0) % Neutrophils # (1.3-7.7) k/uL Lymphocytes # (1.0-4.8) k/uL ABG pH (7.35-7.45) ABG pO2 (83-108) mmHg ABG O2 Saturation (94-97) % Chloride (98-107) mmol/L BUN (9-20) mg/dL Glucose (74-99) mg/dL POC Glucose (mg/dL) 208 H 197 H (75-99) mg/dL Total Protein (6.3-8.2) g/dL Albumin (3.5-5.0) g/dL Crossmatch See Detail 06/20/16 06/20/16 06/20/16 Range/Units 12:28 13:03 13:51 RBC (4.30-5.90) m/uL Hgb (13.0-17.5) gm/dL Hct (39.0-53.0) % Neutrophils # (1.3-7.7) k/uL Lymphocytes # (1.0-4.8) k/uL ABG pH (7.35-7.45) ABG pO2 (83-108) mmHg ABG O2 Saturation (94-97) % Chloride (98-107) mmol/L BUN (9-20) mg/dL Glucose (74-99) mg/dL POC Glucose (mg/dL) 190 H 169 H 143 H (75-99) mg/dL Total Protein (6.3-8.2) g/dL Albumin (3.5-5.0) g/dL Crossmatch 06/20/16 06/20/16 06/20/16 Range/Units 14:46 14:46 14:51 RBC 2.24 L (4.30-5.90) m/uL Hgb 7.2 L D (13.0-17.5) gm/dL Hct 19.8 L* (39.0-53.0) % Neutrophils # (1.3-7.7) k/uL Lymphocytes # (1.0-4.8) k/uL ABG pH (7.35-7.45) ABG pO2 (83-108) mmHg ABG O2 Saturation (94-97) % Chloride 108 H (98-107) mmol/L BUN 23 H (9-20) mg/dL Glucose 113 H (74-99) mg/dL POC Glucose (mg/dL) 166 H (75-99) mg/dL Total Protein 5.2 L (6.3-8.2) g/dL Albumin 3.0 L (3.5-5.0) g/dL Crossmatch 06/20/16 06/20/16 06/20/16 Range/Units 15:27 15:31 17:01 RBC (4.30-5.90) m/uL Hgb (13.0-17.5) gm/dL Hct (39.0-53.0) % Neutrophils # (1.3-7.7) k/uL Lymphocytes # (1.0-4.8) k/uL ABG pH (7.35-7.45) ABG pO2 185 H (83-108) mmHg ABG O2 Saturation 99.0 H (94-97) % Chloride (98-107) mmol/L BUN (9-20) mg/dL Glucose (74-99) mg/dL POC Glucose (mg/dL) 121 H 148 H (75-99) mg/dL Total Protein (6.3-8.2) g/dL Albumin (3.5-5.0) g/dL Crossmatch 06/20/16 06/20/16 06/20/16 Range/Units 17:45 18:07 18:09 RBC 2.58 L (4.30-5.90) m/uL Hgb 8.2 L (13.0-17.5) gm/dL Hct 22.9 L (39.0-53.0) % Neutrophils # (1.3-7.7) k/uL Lymphocytes # (1.0-4.8) k/uL ABG pH 7.33 L (7.35-7.45) ABG pO2 63 L (83-108) mmHg ABG O2 Saturation 90.0 L (94-97) % Chloride (98-107) mmol/L BUN (9-20) mg/dL Glucose (74-99) mg/dL POC Glucose (mg/dL) 170 H (75-99) mg/dL Total Protein (6.3-8.2) g/dL Albumin (3.5-5.0) g/dL Crossmatch 06/20/16 06/20/16 06/20/16 Range/Units 19:23 20:05 21:20 RBC 2.72 L (4.30-5.90) m/uL Hgb 8.3 L (13.0-17.5) gm/dL Hct 24.2 L (39.0-53.0) % Neutrophils # 8.4 H (1.3-7.7) k/uL Lymphocytes # 0.5 L (1.0-4.8) k/uL ABG pH (7.35-7.45) ABG pO2 (83-108) mmHg ABG O2 Saturation (94-97) % Chloride (98-107) mmol/L BUN (9-20) mg/dL Glucose (74-99) mg/dL POC Glucose (mg/dL) 194 H 190 H (75-99) mg/dL Total Protein (6.3-8.2) g/dL Albumin (3.5-5.0) g/dL Crossmatch 06/20/16 06/20/16 06/20/16 Range/Units 21:24 22:21 23:10 RBC (4.30-5.90) m/uL Hgb (13.0-17.5) gm/dL Hct (39.0-53.0) % Neutrophils # (1.3-7.7) k/uL Lymphocytes # (1.0-4.8) k/uL ABG pH (7.35-7.45) ABG pO2 (83-108) mmHg ABG O2 Saturation (94-97) % Chloride (98-107) mmol/L BUN (9-20) mg/dL Glucose (74-99) mg/dL POC Glucose (mg/dL) 175 H 172 H 146 H (75-99) mg/dL Total Protein (6.3-8.2) g/dL Albumin (3.5-5.0) g/dL Crossmatch 06/21/16 06/21/16 06/21/16 Range/Units 00:03 01:03 02:05 RBC (4.30-5.90) m/uL Hgb (13.0-17.5) gm/dL Hct (39.0-53.0) % Neutrophils # (1.3-7.7) k/uL Lymphocytes # (1.0-4.8) k/uL ABG pH (7.35-7.45) ABG pO2 (83-108) mmHg ABG O2 Saturation (94-97) % Chloride (98-107) mmol/L BUN (9-20) mg/dL Glucose (74-99) mg/dL POC Glucose (mg/dL) 126 H 114 H 140 H (75-99) mg/dL Total Protein (6.3-8.2) g/dL Albumin (3.5-5.0) g/dL Crossmatch 06/21/16 06/21/16 06/21/16 Range/Units 03:02 04:21 05:08 RBC 2.65 L (4.30-5.90) m/uL Hgb 8.2 L (13.0-17.5) gm/dL Hct 23.5 L (39.0-53.0) % Neutrophils # (1.3-7.7) k/uL Lymphocytes # 0.7 L (1.0-4.8) k/uL ABG pH (7.35-7.45) ABG pO2 (83-108) mmHg ABG O2 Saturation (94-97) % Chloride (98-107) mmol/L BUN (9-20) mg/dL Glucose (74-99) mg/dL POC Glucose (mg/dL) 137 H 121 H (75-99) mg/dL Total Protein (6.3-8.2) g/dL Albumin (3.5-5.0) g/dL Crossmatch 06/21/16 06/21/16 06/21/16 Range/Units 05:08 05:09 06:16 RBC (4.30-5.90) m/uL Hgb (13.0-17.5) gm/dL Hct (39.0-53.0) % Neutrophils # (1.3-7.7) k/uL Lymphocytes # (1.0-4.8) k/uL ABG pH (7.35-7.45) ABG pO2 (83-108) mmHg ABG O2 Saturation (94-97) % Chloride (98-107) mmol/L BUN 22 H (9-20) mg/dL Glucose 112 H (74-99) mg/dL POC Glucose (mg/dL) 121 H 117 H (75-99) mg/dL Total Protein 5.6 L (6.3-8.2) g/dL Albumin 3.2 L (3.5-5.0) g/dL Crossmatch 06/21/16 06/21/16 Range/Units 07:09 07:44 RBC (4.30-5.90) m/uL Hgb (13.0-17.5) gm/dL Hct (39.0-53.0) % Neutrophils # (1.3-7.7) k/uL Lymphocytes # (1.0-4.8) k/uL ABG pH (7.35-7.45) ABG pO2 (83-108) mmHg ABG O2 Saturation (94-97) % Chloride (98-107) mmol/L BUN (9-20) mg/dL Glucose (74-99) mg/dL POC Glucose (mg/dL) 111 H 112 H (75-99) mg/dL Total Protein (6.3-8.2) g/dL Albumin (3.5-5.0) g/dL Crossmatch - Imaging and Cardiology Chest x-ray: report reviewed, image reviewed Assessment and Plan (1) NSTEMI (non-ST elevated myocardial infarction) Status: Acute (2) CAD (coronary artery disease) Status: Acute (3) HTN (hypertension) Status: Acute (4) Hyperlipidemia Status: Acute (5) Diabetes Status: Acute Plan: 1. Cont ASA, lipitor, BB, Plavix. Lisinopril restarted per cardiology. 2. Wean O2 as tolerated. 3. Increase activity, out of bed most of the day, ambulate in room. 4. Will DC Faber, dopamine. 5. Tight blood sugar control with insulin drip. 6. Pain control with ordered medications. 7. Xanax ordered when necessary for patient's high anxiety. 8. Continue to encourage smoking cessation. 9. GI/DVT prophylaxis. 10. Further recommendations to follow depending on pt status. Time with Patient: Greater than 30
[2016-06-21 08:53] LABS: Glucose,Whole Blood 144 mg/dL (75-99)
[2016-06-21] MEDS ORDERED: PANTOPRAZOLE 40 MG/10 ML VIAL IVP SCH (09:00)
[2016-06-21] MEDS ORDERED: LISINOPRIL 2.5 MG TAB PO SCH (09:00)
[2016-06-21] MEDS ORDERED: METOPROLOL TARTRATE 12.5 MG TAB PO SCH (09:00)
[2016-06-21] MEDS ORDERED: METOPROLOL TARTRATE 25 MG TAB PO SCH ×2 (09:15→16:00)
--- NOTE | 2016-06-21 09:41 | PN ---
Mr. Ruiz is a 55-year-old male who has severe triple vessel coronary artery disease, underwent coronary bypass grafting yesterday. He is doing well. He is extubated. He continues to be in sinus mechanism, feeling well. His breathing is stable. He is denying any chest pain. He denies any dizziness or palpitation. He denies any nausea. He continues to be on aspirin once a day, Lipitor 40 mg daily, Plavix 75 mg daily. He was on esmolol during the night and that has been stopped. He is started on metoprolol tartrate at 12.5 mg twice a day. PHYSICAL EXAMINATION: Blood pressure 126/49 with the heart rate in 90s. His PA pressure is running in the 20s. LUNGS: With mild decreased in breath sounds. No wheezes. HEART: Regular rate and rhythm. S1, S2. No S3. No rub appreciated. ABDOMEN: Soft, nontender. EXTREMITIES: Dressing in place. Chest x-ray shows mild congestion. Lab data revealed BUN and creatinine 22 and 1.2. Potassium 4.3. Hemoglobin of 8.2. IMPRESSION: 1. Status post coronary artery bypass grafting. 2. Severe ischemic cardiomyopathy. 3. Diabetes mellitus. 4. Hypertension. 5. Hyperlipidemia. 6. Prior history of smoking. RECOMMENDATIONS: From the cardiac standpoint, will continue on beta delfina. I will start him back on a low dose of an VALENTINO inhibitor. Follow his blood pressure and renal function and depending on his progress, further recommendation will be made.
--- NOTE | 2016-06-21 10:02 | P.PN ---
Subjective 55-year-old male patient, I was asked to see for a preoperative pulmonary evaluation as the patient is suspected to go for cardiac/coronary bypass surgery in the morning. This patient is known to have coronary artery disease and he has had multiple coronary interventions and stenting in the past. The patient developed significant restenosis following multivessel PCI and he was advised to see Dr. Gonzalez on an outpatient basis for cardiac surgery. Meanwhile , the patient came into the hospital with chest pressure and angina and he developed an acute non-ST segment elevation myocardial infarction and an urgent surgical consultation was requested. The patient has significant coronary artery disease and please refer to the details of the cardiac catheterization for further results. Currently is on IV heparin. His emanating in the hallway. 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 He is also a active smoker and he quit smoking approximately a week ago. Denies having any cough or sputum production. No wheezing. A bedside spirometry was done and his FEV1 is noted of 73% of predicted. No stare bronchial asthma. No previous history of DVT or Aneta embolism. X-ray that was done showed cardiomegaly and some mild changes of CHF. No evidence of any acute pneumonia or lesions. His echocardiogram showed a impaired LV function with an ejection fraction of 35-40% and the patient has inferolateral hypokinesis and there is mild aortic valve sclerosis and a right ventricular systolic pressure measured to be 26. On 06/20/2016, the patient is being seen postop following coronary artery bypass surgery. The patient underwent 3-vessel bypass surgery. Currently is postop day #0. I discussed the case with Dr. Gonzalez. Intraoperatively the patient was having low urine output and he was started on low-dose dopamine to augment his urine output. The patient was also brought to the intensive care unit on a combination of nitroglycerin drip and cleviprex drip for blood pressure control. He was initially on assist control mode and the postoperative chest x-ray showed cardiomegaly with some patchy bibasilar atelectatic changes and all of the tubes were in good location including the ET tube, they mediastinal and the left pleural chest tube and the [place]-Oracio catheter. The blood gases showed a pH of 7.36 with a pCO2 of 41 and pO2 of 185 and this was done on assist-control mode with a tidal volume of 600, rate of 16 , FiO2 of 100% and a PEEP of 5. Hemodynamically, the patient is on a combination of nitroglycerin and Clevidipine for blood pressure control.The chest tubes are in place and estimated operative of the chest tube has been around 233 ML's of bloody effusion since the patient arrived from the operating room. Urine output since his arrival has been around 500 mL as being collected in the urine bag. The patient's cardiac output was 13.6 and an index was 6.The patient is currently in the process of being weaned off FiO2 and wants to the chair reasonable oxygenation we will stop the sedation and assess patient's weaning parameters. I anticipate extubation within the next few hours at least. On 06/21/2016, the patient is postop day #1. The patient was weaned off the mechanical ventilator and the patient was extubated without any major difficulties. This morning the patient on the 50% Ventimask. His chest x-ray showing atelectatic changes small effusion the lung bases bilaterally. The patient has still a mediastinal and the left pleural chest tube and output from the chest tubes have been 10 mL an hour collectively. The patient is using incentive spirometer and is pulling approximately 750 mL. The patient is hemodynamically stable. The asthma all drip and the nitroglycerin drip has been discontinued and the patient is currently on a clevidipine drip at 2 mg an hour. His cardiac index is at 3.5. He is producing adequate urine output and his urine output is around 60 mL an hour. No nausea. No vomiting. No active chest pain and his sternum stable clean and intact. No other significant events overnight. He is fully awake and alert and following commands and answering questions appropriately. Hemoglobin dropped down to 8.2 and this is stable for now Objective - Vital Signs Vital signs: Vital Signs Temp 99.5 F 06/20/16 22:00 Pulse 93 06/21/16 08:09 Resp 18 06/21/16 06:00 BP 128/77 06/20/16 07:30 Pulse Ox 95 06/21/16 07:49 Intake & Output 06/20/16 06/21/16 06/21/16 18:59 06:59 18:59 Intake Total 893.2 1874.026 53 Output Total 1890 1605 60 Balance -996.8 269.026 -7 Weight 112.6 kg Intake: IV 336 335 3 CO 300 290 PRESSURE BAG 36 45 3 Intake, IV Titration 557.2 1299.026 50 Amount Clevidipine Butyrate 25 90.933 mg In Empty Bag 1 bag @ 1 MG/HR 2 mls/hr IV .Q24H [facility] Rx#:[id number] DOPamine DRIP 800 mg In 33.2 96.166 Dextrose/Water 1 500ml. bag @ 5 MCG/KG/MIN 20.68 mls/hr IV .Q24H [facility] Rx#: [id number] Esmolol in Sodium 323.828 Chloride Pmx 2.5 gm In Saline 1 250ml.bag @ 25 MCG/KG/MIN 16.54 mls/hr IV .Q15H7M [facility] Rx#: [id number] Insulin Regular 100 unit 7.0 33.299 In Sodium Chloride 0.9% 100 ml @ Per Protocol IV .Q0M [facility] Rx#:[id number] Insulin Regular 100 unit 5 In Sodium Chloride 0.9% 100 ml @ Titrate IV .Q0M PRN Rx#:[id number] Lactated Ringers 1,000 ml 200 600 50 @ 50 mls/hr IV .Q20H [facility] Rx#:[id number] Nitroglycerin-D5w Pmx 50 6 9 mg In Dextrose/Water 1 250ml.bag @ 5 MCG/MIN 1.5 mls/hr IV .Q24H PRN Rx#: [id number] Nitroglycerin-D5w Pmx 50 9 37.50 mg In Dextrose/Water 1 250ml.bag @ 5 MCG/MIN 1.5 mls/hr IV .Q24H [facility] Rx#: [id number] Potassium Chloride Open 50 Heart 50 ml As IVPB .STK- [facility] Rx#:[id number] Propofol 500 mg In Empty 52.0 3.3 Bag 1 bag @ Titrate IV . Q0M [facility] Rx#:[id number] ceFAZolin 2 gm In Sodium 200 100 Chloride 0.9% 100 ml @ 100 mls/hr IVPB Q8HR [facility] Rx#:[id number] Oral 240 Output: Chest Tube Drainage 364 490 10 Left Pleural/Mediastinal 364 490 10 Urine 926 945 50 Emesis 170 Estimated Blood Loss 600 Other: Voiding Method Indwelling Catheter Indwelling Catheter ABP, PAP, CO, CI - Last Documented Arterial Blood Pressure 126/49 Pulmonary Artery Pressure 25/11 Cardiac Output 8 Cardiac Index 3.5 - Exam Head exam was generally normal. There was no scleral icterus or corneal arcus. Mucous membranes were moist.Neck was supple and without jugular venous distension, thyromegaly, or carotid bruits. Carotids were easily palpable bilaterally. There was no adenopathy. The patient has a right IJ Cordis with [place]-Oracio catheter in place. Lung sounds are diminished in lung bases bilaterally and the sternum stable clean and intact. The patient has mediastinal and left pleural chest tube.Cardiac exam revealed the PMI to be normally situated and sized. The rhythm was regular and no extrasystoles were noted during several minutes of auscultation. The first and second heart sounds were normal and physiologic splitting of the second heart sound was noted. There were no murmurs, rubs, clicks, or gallops.Abdominal exam revealed normal bowel sounds. The abdomen was soft, non-tender, and without masses, organomegaly , or appreciable enlargement of the abdominal aorta.Examination of the extremities revealed easily palpable radial, femoral and pedal pulses. There was no cyanosis, clubbing or edema. - Labs CBC & Chem 7: 06/21/16 05:08 06/21/16 05:08 Labs: Abnormal Lab Results - Last 24 Hours (Table) 06/19/16 06/20/16 06/20/16 Range/Units 05:35 10:24 11:58 RBC (4.30-5.90) m/uL Hgb (13.0-17.5) gm/dL Hct (39.0-53.0) % Neutrophils # (1.3-7.7) k/uL Lymphocytes # (1.0-4.8) k/uL ABG pH (7.35-7.45) ABG pO2 (83-108) mmHg ABG O2 Saturation (94-97) % Chloride (98-107) mmol/L BUN (9-20) mg/dL Glucose (74-99) mg/dL POC Glucose (mg/dL) 208 H 197 H (75-99) mg/dL Total Protein (6.3-8.2) g/dL Albumin (3.5-5.0) g/dL Crossmatch See Detail 06/20/16 06/20/16 06/20/16 Range/Units 12:28 13:03 13:51 RBC (4.30-5.90) m/uL Hgb (13.0-17.5) gm/dL Hct (39.0-53.0) % Neutrophils # (1.3-7.7) k/uL Lymphocytes # (1.0-4.8) k/uL ABG pH (7.35-7.45) ABG pO2 (83-108) mmHg ABG O2 Saturation (94-97) % Chloride (98-107) mmol/L BUN (9-20) mg/dL Glucose (74-99) mg/dL POC Glucose (mg/dL) 190 H 169 H 143 H (75-99) mg/dL Total Protein (6.3-8.2) g/dL Albumin (3.5-5.0) g/dL Crossmatch 06/20/16 06/20/16 06/20/16 Range/Units 14:46 14:46 14:51 RBC 2.24 L (4.30-5.90) m/uL Hgb 7.2 L D (13.0-17.5) gm/dL Hct 19.8 L* (39.0-53.0) % Neutrophils # (1.3-7.7) k/uL Lymphocytes # (1.0-4.8) k/uL ABG pH (7.35-7.45) ABG pO2 (83-108) mmHg ABG O2 Saturation (94-97) % Chloride 108 H (98-107) mmol/L BUN 23 H (9-20) mg/dL Glucose 113 H (74-99) mg/dL POC Glucose (mg/dL) 166 H (75-99) mg/dL Total Protein 5.2 L (6.3-8.2) g/dL Albumin 3.0 L (3.5-5.0) g/dL Crossmatch 06/20/16 06/20/16 06/20/16 Range/Units 15:27 15:31 17:01 RBC (4.30-5.90) m/uL Hgb (13.0-17.5) gm/dL Hct (39.0-53.0) % Neutrophils # (1.3-7.7) k/uL Lymphocytes # (1.0-4.8) k/uL ABG pH (7.35-7.45) ABG pO2 185 H (83-108) mmHg ABG O2 Saturation 99.0 H (94-97) % Chloride (98-107) mmol/L BUN (9-20) mg/dL Glucose (74-99) mg/dL POC Glucose (mg/dL) 121 H 148 H (75-99) mg/dL Total Protein (6.3-8.2) g/dL Albumin (3.5-5.0) g/dL Crossmatch 06/20/16 06/20/16 06/20/16 Range/Units 17:45 18:07 18:09 RBC 2.58 L (4.30-5.90) m/uL Hgb 8.2 L (13.0-17.5) gm/dL Hct 22.9 L (39.0-53.0) % Neutrophils # (1.3-7.7) k/uL Lymphocytes # (1.0-4.8) k/uL ABG pH 7.33 L (7.35-7.45) ABG pO2 63 L (83-108) mmHg ABG O2 Saturation 90.0 L (94-97) % Chloride (98-107) mmol/L BUN (9-20) mg/dL Glucose (74-99) mg/dL POC Glucose (mg/dL) 170 H (75-99) mg/dL Total Protein (6.3-8.2) g/dL Albumin (3.5-5.0) g/dL Crossmatch 06/20/16 06/20/16 06/20/16 Range/Units 19:23 20:05 21:20 RBC 2.72 L (4.30-5.90) m/uL Hgb 8.3 L (13.0-17.5) gm/dL Hct 24.2 L (39.0-53.0) % Neutrophils # 8.4 H (1.3-7.7) k/uL Lymphocytes # 0.5 L (1.0-4.8) k/uL ABG pH (7.35-7.45) ABG pO2 (83-108) mmHg ABG O2 Saturation (94-97) % Chloride (98-107) mmol/L BUN (9-20) mg/dL Glucose (74-99) mg/dL POC Glucose (mg/dL) 194 H 190 H (75-99) mg/dL Total Protein (6.3-8.2) g/dL Albumin (3.5-5.0) g/dL Crossmatch 06/20/16 06/20/16 06/20/16 Range/Units 21:24 22:21 23:10 RBC (4.30-5.90) m/uL Hgb (13.0-17.5) gm/dL Hct (39.0-53.0) % Neutrophils # (1.3-7.7) k/uL Lymphocytes # (1.0-4.8) k/uL ABG pH (7.35-7.45) ABG pO2 (83-108) mmHg ABG O2 Saturation (94-97) % Chloride (98-107) mmol/L BUN (9-20) mg/dL Glucose (74-99) mg/dL POC Glucose (mg/dL) 175 H 172 H 146 H (75-99) mg/dL Total Protein (6.3-8.2) g/dL Albumin (3.5-5.0) g/dL Crossmatch 06/21/16 06/21/16 06/21/16 Range/Units 00:03 01:03 02:05 RBC (4.30-5.90) m/uL Hgb (13.0-17.5) gm/dL Hct (39.0-53.0) % Neutrophils # (1.3-7.7) k/uL Lymphocytes # (1.0-4.8) k/uL ABG pH (7.35-7.45) ABG pO2 (83-108) mmHg ABG O2 Saturation (94-97) % Chloride (98-107) mmol/L BUN (9-20) mg/dL Glucose (74-99) mg/dL POC Glucose (mg/dL) 126 H 114 H 140 H (75-99) mg/dL Total Protein (6.3-8.2) g/dL Albumin (3.5-5.0) g/dL Crossmatch 06/21/16 06/21/16 06/21/16 Range/Units 03:02 04:21 05:08 RBC 2.65 L (4.30-5.90) m/uL Hgb 8.2 L (13.0-17.5) gm/dL Hct 23.5 L (39.0-53.0) % Neutrophils # (1.3-7.7) k/uL Lymphocytes # 0.7 L (1.0-4.8) k/uL ABG pH (7.35-7.45) ABG pO2 (83-108) mmHg ABG O2 Saturation (94-97) % Chloride (98-107) mmol/L BUN (9-20) mg/dL Glucose (74-99) mg/dL POC Glucose (mg/dL) 137 H 121 H (75-99) mg/dL Total Protein (6.3-8.2) g/dL Albumin (3.5-5.0) g/dL Crossmatch 06/21/16 06/21/16 06/21/16 Range/Units 05:08 05:09 06:16 RBC (4.30-5.90) m/uL Hgb (13.0-17.5) gm/dL Hct (39.0-53.0) % Neutrophils # (1.3-7.7) k/uL Lymphocytes # (1.0-4.8) k/uL ABG pH (7.35-7.45) ABG pO2 (83-108) mmHg ABG O2 Saturation (94-97) % Chloride (98-107) mmol/L BUN 22 H (9-20) mg/dL Glucose 112 H (74-99) mg/dL POC Glucose (mg/dL) 121 H 117 H (75-99) mg/dL Total Protein 5.6 L (6.3-8.2) g/dL Albumin 3.2 L (3.5-5.0) g/dL Crossmatch 06/21/16 06/21/16 06/21/16 Range/Units 07:09 07:44 08:51 RBC (4.30-5.90) m/uL Hgb (13.0-17.5) gm/dL Hct (39.0-53.0) % Neutrophils # (1.3-7.7) k/uL Lymphocytes # (1.0-4.8) k/uL ABG pH (7.35-7.45) ABG pO2 (83-108) mmHg ABG O2 Saturation (94-97) % Chloride (98-107) mmol/L BUN (9-20) mg/dL Glucose (74-99) mg/dL POC Glucose (mg/dL) 111 H 112 H 144 H (75-99) mg/dL Total Protein (6.3-8.2) g/dL Albumin (3.5-5.0) g/dL Crossmatch Assessment and Plan Plan: Assessment 1 multivessel coronary artery disease, and the patient is status post three- vessel bypass surgery number postop day #1 2 hypoxic respiratory failure, expected, due to postoperative atelectatic changes and effusion the lung bases bilaterally. The patient has a mediastinal and the pleural chest tube and output is minimal at 10 mL an hour. Hemodynamically stable. 3 COPD mild with an FEV1 of 70% of predicted 4 chronic renal failure, creatinine stable at 1.2 5 diabetes mellitus, currently on insulin drip for blood sugar control 6 hypertension currently on clevidipine at 2 mg an hour and the patient received Lopressor and lisinopril and hopefully will be able to wean off the drip based on his blood pressure control. 7 congestion heart failure with ejection fraction of 35-40%, adequate cardiac index at 3.6 8 chronic smoker, quit smoking approximately a week ago 9 peripheral vascular disease 10 peripheral neuropathy 11 hyperlipidemia 12 postoperative anemia, hemoglobin stable at 8.2 Plan The patient is on a 50% Ventimask which would be gradually weaned off and we will maintain a saturation above 92%. The patient is making adequate amount of urine output. Control the blood pressure and wean off the clevidipine infusion. Remove the [place]-Oracio catheter. Aggressive Pulmicort toileting. Keep in ICU and will continue to follow.
[2016-06-21 10:28] LABS: Glucose,Whole Blood 212 mg/dL (75-99)
[2016-06-21] MEDS: CLEVIDIPINE BUTYRATE 25 MG in EMPTY BAG 1 BAG IV SCH ×2 (11:01→16:16)
[2016-06-21] MEDS: ACETAMINOPHEN IV (For NPO) 1,000 MG in EMPTY BAG 1 BAG IVPB SCH ×2 (11:04→17:30)
[2016-06-21] MEDS: GABAPENTIN 300 MG CAP PO SCH ×2 (11:09→20:29)
[2016-06-21 11:13] LABS: Glucose,Whole Blood 176 mg/dL (75-99)
--- NOTE | 2016-06-21 11:24 | P.OP ---
Date of Procedure: 06/20/16 Preoperative Diagnosis: Coronary artery disease, subendocardial myocardial infarction, unstable angina. Postoperative Diagnosis: Same Procedure(s) Performed: Off-pump coronary artery bypass grafting 3 with left internal mammary artery graft to LAD and saphenous vein grafts to first obtuse marginal and posterior descending coronary arteries, endovascular vein harvest, epi-aortic ultrasonography. Anesthesia: GETA Surgeon: Dean Gonzalez Terrazzo Installer #1: Jay Jay Castañeda Terrazzo Installer #2: Aj Menjivar Estimated Blood Loss (ml): 50 IV fluids (ml): 2,000 Urine output (ml): 500 Pathology: none sent Condition: stable Disposition: ICU Indications for Procedure: Patient is a 63-year-old male with known history of hypertension and diabetes who presented with subendocardial infarction and unstable anginal symptomatology. Cardiac catheterization demonstrated severe three-vessel coronary artery disease and urgent surgical revascularization was requested. Echocardiogram ejection fraction was 20%. A1c was over 9. Operative Findings: Epi-aortic ultrasonography demonstrated a relatively normal ascending aorta. Conduits were reasonable. Saphenous vein was somewhat small. Left internal mammary artery was very good. Coronary arteries were diffusely diseased and calcified. Left ventricle was markedly dilated with very poor ejection fraction on initial RASHAUN approximately 15-20%. Mitral regurgitation was minimal. After revascularization the ejection fraction improved to 30-35%. Description of Procedure: Patient was brought to the operating room, placed supine on the operating table , anesthetized and intubated. [place]-Oracio catheter had been placed via the right internal jugular approach Cha and nasogastric tubes were placed in RASHAUN probe was placed. The anterior torso and lower extremities were sterilely prepped and draped. RASHAUN was performed with the findings as noted above. Endovascular vein harvest was performed from the left lower extremity from mid calf to groin and was of good quality. Simultaneous sternotomy was performed a left hemisternum retracted upwards and the left internal mammary artery harvested on a vascularized pedicle left intact on its origin from the subclavian and divided distally. Left pleural space was drained with 32-Setswana chest tube. Standard sternal retractor was placed and the heart was exposed with pericardial sutures following pericardiotomy. Patient was systemically heparinized. A CTs were maintained greater than 250 during grafting. BURTON was performed first to the LAD. The LAD was a diffusely diseased and calcific vessel. There was a short segment of relatively normal soft vessel out in the distal third of the anterior wall. It was grafted here. It was opened and blood flow control with a 2.0 mm david through. It was a 2.5 mm vessel. End-to- side anastomosis of the BURTON to the LAD was performed with running 8-0 Prolene. On completion anastomosis inflow was open and good hemostasis was noted. The JORGE ALBERTO pedicle was tacked surrounding epicardium with 6-0 silk. The lateral wall was now exposed. The first major marginal branch bifurcated high. Both branches ran intramyocardially. It was decided to grasp the second of these 2 branches of the first obtuse marginal. The vessel was dissected out of the mitral myocardium and stabilized. Was opened and blood flow control the 1.5 mm flow through. It was a 1.75 mm vessel. Saphenous vein was anastomosed in an inside fashion with running 7-0 Prolene. The heart was loaded and have position and the vein graft cut to appropriately to reach the ascending aorta. Inferior wall the heart was now exposed. The main right coronary artery was heavily calcified and nongraftable. Posterior lateral branches were very small. The PDA was a small vessel. It was opened and had a 1.25 mm lumen. 1 mm flow through could be advanced distally but not proximally as it was essentially occluded proximally. Saphenous vein graft to the PDA was performed with running 7-0 Prolene suture. On completion of the anastomosis suture was tied and good hemostasis was noted. There was good backbleeding into the vein graft. Heart was lowered into anatomic position and vein graft cut to appropriate length to reach the ascending aorta. Blood pressure was now controlled by anesthesia. Epi-aortic ultrasonography demonstrated no significant ascending aortic disease. Partial-occlusion clamp was placed on the ascending aorta and 24 mm punch holes created. Proximal anastomosis performed with running 6-0 Prolene. On completion of the proximal anastomoses the partial occlusion clamp was removed vein grafts were de-aired through needle holes and the inflow open to both distals. Good hemostasis was obtained throughout. Heparin was reversed with protamine. Patient was hemodynamically stable. RASHAUN demonstrated markedly improved left ventricular function. Mediastinum was drained with 36-Setswana chest tube. Chest was irrigated with antibiotic solution. The sternum was closed with 8 sternal wires. Fascia was closed with 0 Ethibond. The subcutaneous and subcuticular layers were closed with layers of Vicryl suture. Dry sterile dressings were applied. The patient was transferred to the ICU in stable hemodynamic condition on no inotropic support. The patient had required no blood transfusions.
[2016-06-21 12:16] LABS: Glucose,Whole Blood 140 mg/dL (75-99)
[2016-06-21 13:01] LABS: Glucose,Whole Blood 132 mg/dL (75-99)
[2016-06-21] MEDS ORDERED: BISACODYL 10 MG SUPP RECTAL PRN (14:06)
[2016-06-21] MEDS ORDERED: MAGNESIUM HYDROXIDE 2,400 MG/10 ML CUP PO PRN (14:06)
[2016-06-21] MEDS ORDERED: IPRATROPIUM-ALBUTEROL 3 ML NEB INHALATION PRN (14:07)
[2016-06-21 14:08] LABS: Glucose,Whole Blood 128 mg/dL (75-99)
[2016-06-21 15:05] LABS: Glucose,Whole Blood 129 mg/dL (75-99)
[2016-06-21] MEDS ORDERED: METOPROLOL TARTRATE 25 MG TAB PO STA (15:11)
[2016-06-21] MEDS: LACTATED RINGERS 1,000 ML IV SCH (16:16)
[2016-06-21 16:24] LABS: Glucose,Whole Blood 108 mg/dL (75-99)
[2016-06-21 17:03] LABS: Glucose,Whole Blood 99 mg/dL (75-99)
--- NOTE | 2016-06-21 17:18 | PN ---
SUBJECTIVE DATA AND HOSPITAL COURSE: This is a 55-year-old gentleman who underwent multiple interventions of the coronary arteries with stents thereafter having multiple myocardial infarctions with in stent stenosis underwent CABG x3. He is currently postoperatively day one. Patient underwent a triple vessel bypass surgery. This morning, patient is extubated currently on 50% FiO2. Denies having significant amount of cough, very minimally productive. Does state to have some chest discomfort. The patient has not been passing gas yet. However, he is tolerating some oral intake. Currently on 3 units of regular insulin, IV drip, maintained on ( ) for rate control at this time. Patient is off pressors. [place]-Oracio catheter was removed. Continues to have a chest drain and Cha catheter that is in place. No other abnormalities were reported. Patient is currently been changed over to oral rate control medications. OBJECTIVE DATA: Temperature 99.5, heart rate 93, respiratory rate 18, blood pressure 120/77, saturating 95% on 50% FiO2 as stated. GENERAL APPEARANCE: Alert, oriented x3 in no distress. LUNGS: Good air movement. No crackles or wheezing appreciated today. HEART: S1, S2 heard. Regular rate and rhythm. No murmurs appreciated. ABDOMEN: Soft, appropriately tender to palpation. Bowel sounds are hypoactive. LOWER EXTREMITIES: No edema noted. No focal deficits appreciated. Laboratory data include: Hemoglobin 8.8, hematocrit 23.5. White count 8.2, platelets 189. Sodium 139, potassium 4.3, chloride 107, bicarb 24, BUN 22, creatinine 1.21. ASSESSMENT AND PLAN: 1. Acute hypoxic respiratory failure as expected from recent surgery. 2. Acute blood loss anemia as expected from the recent open heart surgery. 3. Coronary artery disease status post triple-vessel bypass surgery postoperative day one. 4. Chronic obstructive pulmonary disease with no acute exacerbation. 5. Chronic kidney disease stage III. 6. Diabetes mellitus. 7. Peripheral vascular disease. 8. Dyslipidemia 9. Compensated systolic heart failure. PLAN: Continue management per cardiothoracic surgery and ICU. Will titrate off the insulin drip in the a.m. was patient's intake is more stable. Titrate off oxygen as tolerated. Incentive spirometer. Encourage ambulation. To continue oral beta delfina therapy and titrate off the drip as management per cardiothoracic surgery. Will follow the patient. [facility]
[2016-06-21] MEDS ORDERED: KETOROLAC 30 MG/ML 1 ML VIAL IVP ONE (17:57)
[2016-06-21 18:04] LABS: Glucose,Whole Blood 124 mg/dL (75-99)
[2016-06-21 19:06] LABS: Glucose,Whole Blood 133 mg/dL (75-99)
[2016-06-21 20:23] LABS: Glucose,Whole Blood 164 mg/dL (75-99)
[2016-06-21] MEDS: SENNOSIDES-DOCUSATE SODIUM 1 EACH TAB PO SCH (20:28)
[2016-06-21] MEDS: METOPROLOL TARTRATE 50 MG TAB PO SCH (21:47)
[2016-06-21 22:02] LABS: Glucose,Whole Blood 138 mg/dL (75-99)
[2016-06-21 23:31] LABS: Glucose,Whole Blood 137 mg/dL (75-99)
[2016-06-22 00:12] LABS: Glucose,Whole Blood 127 mg/dL (75-99)
[2016-06-22] MEDS: HYDROcodone/APAP 5-325MG 1 EACH TAB PO PRN ×3 (00:59→20:11)
[2016-06-22 01:11] LABS: Glucose,Whole Blood 111 mg/dL (75-99)
[2016-06-22 02:04] LABS: Glucose,Whole Blood 139 mg/dL (75-99)
[2016-06-22 03:18] LABS: Glucose,Whole Blood 141 mg/dL (75-99)
[2016-06-22] MEDS: ALPRAZolam 0.25 MG TAB PO PRN (04:04)
[2016-06-22] MEDS: CLEVIDIPINE BUTYRATE 25 MG in EMPTY BAG 1 BAG IV SCH ×2 (04:07→07:11)
[2016-06-22 04:23] LABS: Glucose,Whole Blood 128 mg/dL (75-99)
[2016-06-22] MEDS: LACTATED RINGERS 1,000 ML IV SCH (04:58)
[2016-06-22] MEDS: INSULIN REGULAR 100 UNIT in SODIUM CHLORIDE 0.9% 100 ML IV SCH ×2 (04:59→12:10)
[2016-06-22 05:11] LABS: Glucose,Whole Blood 146 mg/dL (75-99)
[2016-06-22 05:22] LABS: Basophils % (A) 0 %; CH 31.8; CHCM 35.4; Eosinophils # (A) 0.1 k/uL (0-0.7); Eosinophils % (A) 1 %; HCT 21.4 % (39.0-53.0); HDW 3.07; HGB 7.3 gm/dL (13.0-17.5); Luc # (Auto) 0.13; Luc % (Auto) 2; Lymphocytes # (A) 1.1 k/uL (1.0-4.8); Lymphocytes % (A) 14 %; MCHC 34.3 g/dL (31.0-37.0); MCV 90.3 fL (80.0-100.0); Monocytes # (A) 0.5 k/uL (0-1.0); Monocytes % (A) 7 %; Neutrophils # (A) 5.9 k/uL (1.3-7.7); Neutrophils % (A) 77 %; RBC 2.37 m/uL (4.30-5.90); RDW 13.5 % (11.5-15.5); WBC 7.8 k/uL (3.8-10.6); WBC (Perox) 7.52
[2016-06-22 05:30] LABS: Prothrombin Time 10.5 sec (9.0-12.0)
[2016-06-22 05:45] LABS: Ionized Calcium 5.1 mg/dL (4.5-5.3)
[2016-06-22 05:46] LABS: Calcium 8.6 mg/dL (8.4-10.2); Magnesium 2.2 mg/dL (1.6-2.3); Potassium 4.1 mmol/L (3.5-5.1); Total Bilirubin 0.9 mg/dL (0.2-1.3); Total Protein 5.3 g/dL (6.3-8.2)
[2016-06-22 06:47] LABS: Glucose,Whole Blood 138 mg/dL (75-99)
[2016-06-22] MEDS: HEPARIN SODIUM,PORCINE 5,000 UNIT/ML 1 ML VIAL SQ SCH ×3 (06:58→21:11)
[2016-06-22 07:16] LABS: Glucose,Whole Blood 147 mg/dL (75-99)
--- NOTE | 2016-06-22 07:28 | XR ---
EXAMINATION TYPE: XR chest 1V portable DATE OF EXAM: 06/22/2016 6:32 AM Comparison: 06/21/2016 Clinical History: 55 year-old male post Operative Cardiac Surgery Findings: Median sternotomy wires are present with post-CABG clips in the mediastinum. Heart is mildly enlarged. Lung volumes low with crowded vascular markings. Hazy density remains at th e right base with improving aeration. Continued small left pleural effusion with patchy left basilar opacity. No appreciable pneumothorax. Left-sided chest tube remains in place. Impression: Hypoventilatory changes with small pleural effusions with adjacent atelectasis and/or consolidation. There is some improving aeration at the right base.
[2016-06-22] MEDS: IPRATROPIUM-ALBUTEROL 3 ML NEB INHALATION SCH ×4 (07:53→19:56)
[2016-06-22 08:33] LABS: Glucose,Whole Blood 156 mg/dL (75-99)
[2016-06-22] MEDS: METOPROLOL TARTRATE 50 MG TAB PO SCH ×3 (08:47→21:11)
[2016-06-22] MEDS: PANTOPRAZOLE 40 MG TABLET PO SCH (08:47)
[2016-06-22] MEDS: ASPIRIN 325 MG TAB PO SCH (08:47)
[2016-06-22] MEDS: ATORVASTATIN 40 MG TAB PO SCH (08:48)
[2016-06-22] MEDS: GABAPENTIN 300 MG CAP PO SCH ×2 (08:48→20:11)
[2016-06-22] MEDS: CLOPIDOGREL 75 MG TAB PO SCH (08:48)
[2016-06-22] MEDS: MUPIROCIN 2% OINT 22 GM TUBE NASAL SCH ×3 (08:48→20:12)
--- NOTE | 2016-06-22 09:13 | PN ---
Mr. Ruiz is a 55-year-old male who underwent coronary artery bypass grafting. He is awake, alert, sitting up in the chair. Denying any anginal symptoms. He has chest soreness. Denies any dizziness or palpitation. Hemodynamically, he is stable. He continued to be on metoprolol tartrate 50 mg twice a day, Plavix 75 mg daily, aspirin once a day, lisinopril 2.5 mg daily, Lipitor 40 mg daily. PHYSICAL EXAMINATION: Blood pressure 130/40 with the heart rate in the 90s. LUNGS: With mild decrease in breath sounds at bases. No wheezes. HEART: Regular rate rhythm. S1, S2, no S3, no rub appreciated. ABDOMEN: Soft, nontender. EXTREMITIES: No edema. Lab data revealed BUN and creatinine 27 and 1.7, which is worse compared with yesterday. Potassium 4.1. Hemoglobin of 7.3. IMPRESSION: 1. Status post coronary artery bypass grafting . 2. Prior history of ischemic cardiomyopathy. 3. Worsening renal function. 4. Diabetes mellitus. 5. Hyperlipidemia. 6. Prior history of smoking. RECOMMENDATIONS: I will hold his VALENTINO inhibitor at this time. Continue the rest of his medical regimen. Follow his blood pressure and his renal function. Depending on that, the VALENTINO inhibitor can be reinitiated. In the meantime he will continue on incentive spirometry.
[2016-06-22] MEDS: NITROGLYCERIN OINT 1 INCH/GM PACKET TOPICAL SCH (09:46)
[2016-06-22] MEDS: INSULIN LISPRO (humaLOG) 300 UNIT/3 ML VIAL SQ SCH ×6 (09:46→20:25)
[2016-06-22] MEDS: HYDROCHLOROTHIAZIDE 25 MG TAB PO SCH (09:46)
--- NOTE | 2016-06-22 10:08 | P.PN ---
Progress Note - Text CV Surgery Nursing POD: #2, off-pump coronary artery bypass grafting 3 with left internal mammary artery to left anterior descending artery and reverse saphenous vein grafts to the first obtuse marginal and posterior descending coronary arteries, transesophageal echocardiogram done by anesthesia, epi-aortic ultrasonography, endoscopic harvesting of the greater saphenous vein. Patient awake and alert, sitting up in chair, no distress noted, no specific complaints. Vital Signs: Afebrile , T-max 99.7F Vital Signs - 24 hr 06/21/16 06/21/16 06/21/16 10:00 10:30 11:00 Temperature Pulse Rate 88 83 85 Respiratory 23 Rate Blood Pressure O2 Sat by Pulse 88 L 93 L 91 L Oximetry 06/21/16 06/21/16 06/21/16 11:27 11:30 11:44 Temperature Pulse Rate 80 81 83 Respiratory Rate Blood Pressure O2 Sat by Pulse 92 L Oximetry 06/21/16 06/21/16 06/21/16 12:00 12:30 13:00 Temperature 99.7 F H Pulse Rate 86 86 84 Respiratory 26 H Rate Blood Pressure O2 Sat by Pulse 92 L 87 L 97 Oximetry 06/21/16 06/21/16 06/21/16 13:30 14:00 14:30 Temperature Pulse Rate 93 91 89 Respiratory Rate Blood Pressure O2 Sat by Pulse 94 L 95 93 L Oximetry 06/21/16 06/21/16 06/21/16 15:00 15:30 16:00 Temperature 99.6 F Pulse Rate 95 82 84 Respiratory 24 Rate Blood Pressure O2 Sat by Pulse 92 L 98 96 Oximetry 06/21/16 06/21/16 06/21/16 16:30 17:00 17:30 Temperature Pulse Rate 99 90 89 Respiratory 26 H Rate Blood Pressure O2 Sat by Pulse 84 L 86 L 90 L Oximetry 06/21/16 06/21/16 06/21/16 18:00 18:30 19:00 Temperature Pulse Rate 83 81 88 Respiratory 25 H 28 H Rate Blood Pressure 111/59 O2 Sat by Pulse 96 96 98 Oximetry 06/21/16 06/21/16 06/21/16 19:30 19:39 19:48 Temperature Pulse Rate 90 100 100 Respiratory 28 H Rate Blood Pressure O2 Sat by Pulse 95 Oximetry 06/21/16 06/21/16 06/21/16 20:00 20:30 21:00 Temperature 98.8 F Pulse Rate 89 82 87 Respiratory 15 17 24 Rate Blood Pressure 90/58 104/61 97/55 O2 Sat by Pulse 95 99 96 Oximetry 06/21/16 06/21/16 06/21/16 21:30 22:00 22:30 Temperature Pulse Rate 86 82 80 Respiratory 22 18 16 Rate Blood Pressure 97/55 94/60 O2 Sat by Pulse 100 97 100 Oximetry 06/21/16 06/21/16 06/22/16 23:00 23:30 00:00 Temperature 98.5 F Pulse Rate 81 83 84 Respiratory 16 24 16 Rate Blood Pressure 94/60 97/59 131/64 O2 Sat by Pulse 100 98 97 Oximetry 06/22/16 06/22/16 06/22/16 00:30 01:00 01:30 Temperature Pulse Rate 87 87 88 Respiratory 21 20 16 Rate Blood Pressure 131/64 114/62 126/61 O2 Sat by Pulse 96 87 L 93 L Oximetry 06/22/16 06/22/16 06/22/16 02:00 02:30 03:00 Temperature Pulse Rate 86 86 86 Respiratory 16 18 17 Rate Blood Pressure 101/54 101/54 106/58 O2 Sat by Pulse 94 L 93 L 91 L Oximetry 06/22/16 06/22/16 06/22/16 03:30 04:00 04:30 Temperature Pulse Rate 88 113 H 99 Respiratory 19 42 H 22 Rate Blood Pressure 106/58 128/62 128/62 O2 Sat by Pulse 91 L 74 L 87 L Oximetry 06/22/16 06/22/16 06/22/16 04:45 05:00 05:30 Temperature Pulse Rate 98 97 99 Respiratory 23 20 22 Rate Blood Pressure 128/62 131/63 131/63 O2 Sat by Pulse 92 L 93 L 93 L Oximetry 06/22/16 06/22/16 06/22/16 06:00 06:30 07:00 Temperature Pulse Rate 104 H 122 H 104 H Respiratory 26 H 43 H 22 Rate Blood Pressure 131/63 131/63 113/62 O2 Sat by Pulse 91 L 91 L 92 L Oximetry 06/22/16 06/22/16 06/22/16 07:30 07:53 08:00 Temperature 98.1 F Pulse Rate 105 H 106 H 105 H Respiratory 21 20 22 Rate Blood Pressure 113/62 110/58 O2 Sat by Pulse 94 L 95 Oximetry 06/22/16 06/22/16 06/22/16 08:15 08:30 09:00 Temperature Pulse Rate 100 116 H 107 H Respiratory 24 24 Rate Blood Pressure 110/58 109/62 O2 Sat by Pulse 96 97 Oximetry 06/22/16 09:30 Temperature Pulse Rate 106 H Respiratory 20 Rate Blood Pressure 109/62 O2 Sat by Pulse 92 L Oximetry ABP, PAP, CO, CI - Last 8 Hours Arterial Blood Pressure 122/49 Arterial Blood Pressure 117/45 Arterial Blood Pressure 131/45 Arterial Blood Pressure 151/48 Arterial Blood Pressure 140/58 Arterial Blood Pressure 102/67 Arterial Blood Pressure 115/73 Arterial Blood Pressure 196/58 Arterial Blood Pressure 154/52 Arterial Blood Pressure 124/51 Arterial Blood Pressure 105/47 Arterial Blood Pressure 101/46 Labs: Short CBC 06/22/16 Range/Units 05:08 WBC 7.8 (3.8-10.6) k/uL Hgb 7.3 L (13.0-17.5) gm/dL Hct 21.4 L (39.0-53.0) % Plt Count 149 L (150-450) k/uL Neutrophils # 5.9 (1.3-7.7) k/uL BMP 06/22/16 05:08 Sodium 135 L Potassium 4.1 Chloride 104 Carbon Dioxide 23 BUN 27 H Creatinine 1.60 H Glucose 128 H Calcium 8.6 Liver Function 06/22/16 Range/Units 05:08 Total Bilirubin 0.9 (0.2-1.3) mg/dL AST 15 L (17-59) U/L ALT 37 (21-72) U/L Alkaline Phosphatase 45 (38-126) U/L Albumin 2.9 L (3.5-5.0) g/dL CVP: 12 mmHg Lungs: Respirations are even and nonlabored, breath sounds diminished bilaterally particularly in the right base O2 sat: Oxygen saturation is 92% on 2 L of oxygen delivered via nasal cannula I/S: 750 mL, patient gives a return demonstration of proper use the device. Patient was counseled on the importance of regular use of the incentive spirometer and verbalized his understanding and intent to make regular use of it. Heart: S1S2, regular rate and rhythm bedside telemetry shows sinus tachycardia without ectopy Sternum stable, chest incision clean with silverlon dressing clean and dry. Abdomen: Soft, Positive bowel sounds present in all 4 quadrants. CBGs: 128-156 mg/dL U/O: Adequate urine output to the Cha catheter Chest Tubes: Chest tubes without visible air leak draining approximately 250 mL of serosanguineous fluid over the last 8 hours Intake & Output 06/20/16 06/21/16 06/22/16 06/23/16 06:59 06:59 06:59 06:59 Intake Total 918 2767.226 1816.506 93.133 Output Total 250 3495 1963 200 Balance 668 -727.774 -146.494 -106.867 Weight 110.3 kg 112.6 kg 116.6 kg Active Medications Acetaminophen/Hydrocodone Bitart ([place] 5-325) 2 each PO Q4HR PRN PRN Reason: Severe Pain Last Admin: 06/22/16 06:38 Dose: 2 each Acetaminophen/Hydrocodone Bitart ([place] 5-325) 1 each PO Q4HR PRN PRN Reason: Moderate Pain Albuterol/Ipratropium (Duoneb 0.5 Mg-3 Mg/3 Ml Soln) 3 ml INHALATION RT-Q2H PRN PRN Reason: Shortness Of Breath Or Wheezing Albuterol/Ipratropium (Duoneb 0.5 Mg-3 Mg/3 Ml Soln) 3 ml INHALATION RT-QID [facility] Last Admin: 06/22/16 07:53 Dose: 3 ml Alprazolam (Xanax) 0.25 mg PO BID PRN PRN Reason: Anxiety Last Admin: 06/22/16 04:04 Dose: 0.25 mg Aspirin (Aspirin) 325 mg PO DAILY [facility] Last Admin: 06/22/16 08:47 Dose: 325 mg Atorvastatin Calcium (Lipitor) 40 mg PO DAILY [facility] Last Admin: 06/22/16 08:48 Dose: 40 mg Benzocaine/Menthol (Cepacol Lozenge) 1 each MUCOUS MEM Q2H PRN PRN Reason: Sore Throat Bisacodyl (Dulcolax) 10 mg RECTAL DAILY PRN PRN Reason: Constipation Clopidogrel Bisulfate (Plavix) 75 mg PO DAILY [facility] Last Admin: 06/22/16 08:48 Dose: 75 mg Gabapentin (Neurontin) 300 mg PO BID [facility] Last Admin: 06/22/16 08:48 Dose: 300 mg Heparin Sodium (Porcine) (Heparin) 5,000 unit SQ Q8H [facility] Last Admin: 06/22/16 06:58 Dose: 5,000 unit Albumin Human 250 ml/ IV (Solution) 250 mls @ 250 mls/hr IVPB Q1HR PRN PRN Reason: For Volume Stop: 06/22/16 13:59 Last Admin: 06/21/16 21:48 Dose: 250 mls/hr Clevidipine 25 mg/ IV Solution 50 mls @ 2 mls/hr IV .Q24H JAY; 1 MG/HR PRN Reason: Protocol Last Admin: 06/22/16 07:11 Dose: 4 mg/hr, 8 mls/hr Lactated Ringer's (Lactated Ringers) 1,000 mls @ 20 mls/hr IV .Q24H [facility] Last Admin: 06/22/16 04:58 Dose: 20 mls/hr Insulin Human Regular 100 unit (/ Sodium Chloride) 101 mls @ 0 mls/hr IV .Q0M [facility]; Per Protocol PRN Reason: Protocol Last Titration: 06/22/16 06:46 Dose: 2.5 units/hr, 2.52 mls/hr Magnesium Hydroxide (Milk Of Magnesia) 2,400 mg PO BID PRN PRN Reason: Constipation Metoclopramide HCl (Reglan) 10 mg IVP Q4H PRN PRN Reason: Nausea And Vomiting Metoprolol Tartrate (Lopressor) 50 mg PO BID [facility] Last Admin: 06/22/16 08:47 Dose: 50 mg Miscellaneous Information (Magnesium Per Protocol) 1 each MISCELLANE DAILY PRN ; Protocol PRN Reason: Per Protocol Miscellaneous Information (Phosphorus Per Protocol) 1 each MISCELLANE DAILY PRN ; Protocol PRN Reason: Per Protocol Miscellaneous Information (Potassium Per Protocol) 1 each MISCELLANE DAILY PRN ; Protocol PRN Reason: Per Protocol Mupirocin (Bactroban Oint) 1 applic NASAL BID [facility] Stop: 06/23/16 21:01 Last Admin: 06/22/16 08:48 Dose: 1 applic Ondansetron HCl (Zofran) 4 mg IVP Q6HR PRN PRN Reason: Nausea And Vomiting Last Admin: 06/21/16 14:22 Dose: 4 mg Pantoprazole Sodium (Protonix) 40 mg PO AC-BRKFST [facility] Last Admin: 06/22/16 08:47 Dose: 40 mg Senna/Docusate Sodium (Senokot-S) 2 each PO HS [facility] Last Admin: 06/21/16 20:28 Dose: 2 each Sodium Chloride (Saline Flush) 10 ml IV BID [facility] Last Admin: 06/22/16 08:48 Dose: 10 ml Plan: Status post off-pump CABG, day #2 Good progress Continue aggressive pulmonary toilet utilizing incentive spirometry, coughing and deep breathing, and inhalation treatments per respiratory therapy. DC Cha catheter. Continue to increase activity as tolerated. DC chest tube when drainage decreased.
[2016-06-22 10:14] LABS: Glucose,Whole Blood 194 mg/dL (75-99)
[2016-06-22 11:44] LABS: Glucose,Whole Blood 155 mg/dL (75-99)
[2016-06-22] MEDS ORDERED: FUROSEMIDE 10 MG/ML 4 ML VIAL IV STA (12:00)
[2016-06-22 14:01] LABS: Hemoglobin A1C 9.3 % (4.2-6.1)
[2016-06-22 14:09] LABS: Glucose,Whole Blood 147 mg/dL (75-99)
[2016-06-22] MEDS: INSULIN DETEMIR 100 UNIT/ML 10 ML VIAL SQ SCH (15:58)
[2016-06-22 17:07] LABS: Glucose,Whole Blood 145 mg/dL (75-99)
--- NOTE | 2016-06-22 18:56 | P.PN ---
Subjective 55-year-old male patient, I was asked to see for a preoperative pulmonary evaluation as the patient is suspected to go for cardiac/coronary bypass surgery in the morning. This patient is known to have coronary artery disease and he has had multiple coronary interventions and stenting in the past. The patient developed significant restenosis following multivessel PCI and he was advised to see Dr. Gonzalez on an outpatient basis for cardiac surgery. Meanwhile , the patient came into the hospital with chest pressure and angina and he developed an acute non-ST segment elevation myocardial infarction and an urgent surgical consultation was requested. The patient has significant coronary artery disease and please refer to the details of the cardiac catheterization for further results. Currently is on IV heparin. His emanating in the hallway. 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 He is also a active smoker and he quit smoking approximately a week ago. Denies having any cough or sputum production. No wheezing. A bedside spirometry was done and his FEV1 is noted of 73% of predicted. No stare bronchial asthma. No previous history of DVT or Aneta embolism. X-ray that was done showed cardiomegaly and some mild changes of CHF. No evidence of any acute pneumonia or lesions. His echocardiogram showed a impaired LV function with an ejection fraction of 35-40% and the patient has inferolateral hypokinesis and there is mild aortic valve sclerosis and a right ventricular systolic pressure measured to be 26. On 06/20/2016, the patient is being seen postop following coronary artery bypass surgery. The patient underwent 3-vessel bypass surgery. Currently is postop day #0. I discussed the case with Dr. Gonzalez. Intraoperatively the patient was having low urine output and he was started on low-dose dopamine to augment his urine output. The patient was also brought to the intensive care unit on a combination of nitroglycerin drip and cleviprex drip for blood pressure control. He was initially on assist control mode and the postoperative chest x-ray showed cardiomegaly with some patchy bibasilar atelectatic changes and all of the tubes were in good location including the ET tube, they mediastinal and the left pleural chest tube and the [place]-Oracio catheter. The blood gases showed a pH of 7.36 with a pCO2 of 41 and pO2 of 185 and this was done on assist-control mode with a tidal volume of 600, rate of 16 , FiO2 of 100% and a PEEP of 5. Hemodynamically, the patient is on a combination of nitroglycerin and Clevidipine for blood pressure control.The chest tubes are in place and estimated operative of the chest tube has been around 233 ML's of bloody effusion since the patient arrived from the operating room. Urine output since his arrival has been around 500 mL as being collected in the urine bag. The patient's cardiac output was 13.6 and an index was 6.The patient is currently in the process of being weaned off FiO2 and wants to the chair reasonable oxygenation we will stop the sedation and assess patient's weaning parameters. I anticipate extubation within the next few hours at least. On 06/21/2016, the patient is postop day #1. The patient was weaned off the mechanical ventilator and the patient was extubated without any major difficulties. This morning the patient on the 50% Ventimask. His chest x-ray showing atelectatic changes small effusion the lung bases bilaterally. The patient has still a mediastinal and the left pleural chest tube and output from the chest tubes have been 10 mL an hour collectively. The patient is using incentive spirometer and is pulling approximately 750 mL. The patient is hemodynamically stable. The asthma all drip and the nitroglycerin drip has been discontinued and the patient is currently on a clevidipine drip at 2 mg an hour. His cardiac index is at 3.5. He is producing adequate urine output and his urine output is around 60 mL an hour. No nausea. No vomiting. No active chest pain and his sternum stable clean and intact. No other significant events overnight. He is fully awake and alert and following commands and answering questions appropriately. Hemoglobin dropped down to 8.2 and this is stable for now On 06/22/2016 patient is postop day #2. He is doing well and he was weaned off the nonrebreather patient is currently on 2 L of oxygen by nasal cannula. He is sitting up on a chair. He is not having any major stroke difficulties. He is calm and comfortable. Today's chest x-ray shows adequate positioning of the chest tubes including a mediastinal and the pleural chest tube. The patient continues to have a small left-sided pleural effusion and patchy infiltration of the lung bases/atelectasis. Hemodynamically, the patient was taken off nitroglycerin drip and clevidipine and the patient was started on metoprolol 50 mg by mouth 3 times a day. Output from the chest to his been around 10-50 mL an hour and the mediastinal and the pleural chest tubes will be kept for another 24 hours. No cardiac arrhythmias noted. Cardiac output remains decent. The patient is producing adequate amount of urine output. He is pulling approximately 8000 on his incentive spirometer. He remains on insulin drip for blood sugar control. No other significant events over the past 24 hours and the patient's subsequent hemoglobin is down to 7.3, no plans for a transfusion. Creatinine is up to 1.6. Objective - Vital Signs Vital signs: Vital Signs Temp 98.1 F 06/22/16 12:30 Pulse 124 H 06/22/16 18:00 Resp 26 H 06/22/16 18:00 BP 121/67 06/22/16 18:00 Pulse Ox 92 L 06/22/16 18:00 Intake & Output 06/21/16 06/22/16 06/22/16 18:59 06:59 18:59 Intake Total 874.898 941.608 403.741 Output Total 980 983 870 Balance -105.102 -41.392 -466.259 Weight 116.6 kg Intake: IV 98 33 36 CO 20 PRESSURE BAG 78 33 36 Intake, IV Titration 776.898 658.608 367.741 Amount ACETAMINOPHEN IV (For NPO 100 ) 1,000 mg In Empty Bag 1 bag @ 400 mls/hr IVPB Q6HR JAY Rx#:[id number] Albumin Human 5% 250 ml 250 In Empty Bag 1 bag @ 250 mls/hr IVPB Q1HR PRN Rx#: [id number] Clevidipine Butyrate 25 29.933 16.333 24.133 mg In Empty Bag 1 bag @ 1 MG/HR 2 mls/hr IV .Q24H JAY Rx#:[id number] Insulin Regular 100 unit 46.965 32.275 13.608 In Sodium Chloride 0.9% 100 ml @ Per Protocol IV .Q0M JAY Rx#:[id number] Lactated Ringers 1,000 ml 500 360 330 @ 20 mls/hr IV .Q24H JAY Rx#:[id number] ceFAZolin 2 gm In Sodium 100 Chloride 0.9% 100 ml @ 100 mls/hr IVPB Q8HR JAY Rx#:[id number] Oral 250 Output: Chest Tube Drainage 230 210 170 Left Pleural/Mediastinal 230 210 170 Urine 750 773 700 Stool 0 Other: Voiding Method Indwelling Catheter Indwelling Catheter Indwelling Catheter ABP, PAP, CO, CI - Last Documented Arterial Blood Pressure 122/49 Pulmonary Artery Pressure 36/18 Cardiac Output 8 Cardiac Index 3.5 - Exam Head exam was generally normal. There was no scleral icterus or corneal arcus. Mucous membranes were moist.Neck was supple and without jugular venous distension, thyromegaly, or carotid bruits. Carotids were easily palpable bilaterally. There was no adenopathy. The patient has a right IJ Cordis with [place]-Oracio catheter in place. Lung sounds are diminished in lung bases bilaterally and the sternum stable clean and intact. The patient has mediastinal and left pleural chest tube.Cardiac exam revealed the PMI to be normally situated and sized. The rhythm was regular and no extrasystoles were noted during several minutes of auscultation. The first and second heart sounds were normal and physiologic splitting of the second heart sound was noted. There were no murmurs, rubs, clicks, or gallops.Abdominal exam revealed normal bowel sounds. The abdomen was soft, non-tender, and without masses, organomegaly , or appreciable enlargement of the abdominal aorta.Examination of the extremities revealed easily palpable radial, femoral and pedal pulses. There was no cyanosis, clubbing or edema. - Labs CBC & Chem 7: 06/22/16 05:08 06/22/16 05:08 Labs: Abnormal Lab Results - Last 24 Hours (Table) 06/21/16 06/21/16 06/21/16 Range/Units 19:04 20:20 22:00 RBC (4.30-5.90) m/uL Hgb (13.0-17.5) gm/dL Hct (39.0-53.0) % Plt Count (150-450) k/uL Sodium (137-145) mmol/L BUN (9-20) mg/dL Creatinine (0.66-1.25) mg/dL Glucose (74-99) mg/dL POC Glucose (mg/dL) 133 H 164 H 138 H (75-99) mg/dL Hemoglobin A1c (4.2-6.1) % AST (17-59) U/L Total Protein (6.3-8.2) g/dL Albumin (3.5-5.0) g/dL 06/21/16 06/22/16 06/22/16 Range/Units 23:28 00:09 01:07 RBC (4.30-5.90) m/uL Hgb (13.0-17.5) gm/dL Hct (39.0-53.0) % Plt Count (150-450) k/uL Sodium (137-145) mmol/L BUN (9-20) mg/dL Creatinine (0.66-1.25) mg/dL Glucose (74-99) mg/dL POC Glucose (mg/dL) 137 H 127 H 111 H (75-99) mg/dL Hemoglobin A1c (4.2-6.1) % AST (17-59) U/L Total Protein (6.3-8.2) g/dL Albumin (3.5-5.0) g/dL 06/22/16 06/22/16 06/22/16 Range/Units 02:01 03:16 04:22 RBC (4.30-5.90) m/uL Hgb (13.0-17.5) gm/dL Hct (39.0-53.0) % Plt Count (150-450) k/uL Sodium (137-145) mmol/L BUN (9-20) mg/dL Creatinine (0.66-1.25) mg/dL Glucose (74-99) mg/dL POC Glucose (mg/dL) 139 H 141 H 128 H (75-99) mg/dL Hemoglobin A1c (4.2-6.1) % AST (17-59) U/L Total Protein (6.3-8.2) g/dL Albumin (3.5-5.0) g/dL 06/22/16 06/22/16 06/22/16 Range/Units 05:08 05:08 05:08 RBC 2.37 L (4.30-5.90) m/uL Hgb 7.3 L (13.0-17.5) gm/dL Hct 21.4 L (39.0-53.0) % Plt Count 149 L (150-450) k/uL Sodium 135 L (137-145) mmol/L BUN 27 H (9-20) mg/dL Creatinine 1.60 H (0.66-1.25) mg/dL Glucose 128 H (74-99) mg/dL POC Glucose (mg/dL) 146 H (75-99) mg/dL Hemoglobin A1c (4.2-6.1) % AST 15 L (17-59) U/L Total Protein 5.3 L (6.3-8.2) g/dL Albumin 2.9 L (3.5-5.0) g/dL 06/22/16 06/22/16 06/22/16 Range/Units 05:08 06:45 07:14 RBC (4.30-5.90) m/uL Hgb (13.0-17.5) gm/dL Hct (39.0-53.0) % Plt Count (150-450) k/uL Sodium (137-145) mmol/L BUN (9-20) mg/dL Creatinine (0.66-1.25) mg/dL Glucose (74-99) mg/dL POC Glucose (mg/dL) 138 H 147 H (75-99) mg/dL Hemoglobin A1c 9.3 H (4.2-6.1) % AST (17-59) U/L Total Protein (6.3-8.2) g/dL Albumin (3.5-5.0) g/dL 06/22/16 06/22/16 06/22/16 Range/Units 08:32 10:11 11:43 RBC (4.30-5.90) m/uL Hgb (13.0-17.5) gm/dL Hct (39.0-53.0) % Plt Count (150-450) k/uL Sodium (137-145) mmol/L BUN (9-20) mg/dL Creatinine (0.66-1.25) mg/dL Glucose (74-99) mg/dL POC Glucose (mg/dL) 156 H 194 H 155 H (75-99) mg/dL Hemoglobin A1c (4.2-6.1) % AST (17-59) U/L Total Protein (6.3-8.2) g/dL Albumin (3.5-5.0) g/dL 06/22/16 06/22/16 Range/Units 14:07 17:06 RBC (4.30-5.90) m/uL Hgb (13.0-17.5) gm/dL Hct (39.0-53.0) % Plt Count (150-450) k/uL Sodium (137-145) mmol/L BUN (9-20) mg/dL Creatinine (0.66-1.25) mg/dL Glucose (74-99) mg/dL POC Glucose (mg/dL) 147 H 145 H (75-99) mg/dL Hemoglobin A1c (4.2-6.1) % AST (17-59) U/L Total Protein (6.3-8.2) g/dL Albumin (3.5-5.0) g/dL Assessment and Plan Plan: Assessment 1 multivessel coronary artery disease, and the patient is status post three- vessel bypass surgery number postop day #2 2 hypoxic respiratory failure, expected, due to postoperative atelectatic changes and effusion the lung bases bilaterally. The patient has a mediastinal and the pleural chest tube and output is minimal at 10 mL an hour. Hemodynamically stable. On the patient is postop day #2. The patient is doing well on 2 L of oxygen by nasal cannula. Chest tube will be kept in place. Today chest x-ray was noted. The patient is doing aggressive pulmonary toileting and using incentive spirometer. 3 COPD mild with an FEV1 of 70% of predicted 4 chronic renal failure 5 diabetes mellitus, currently on insulin drip for blood sugar control 6 hypertension , currently under better control 7 congestion heart failure with ejection fraction of 35-40%, adequate cardiac index at 3.6 postop and currently the [place]-Oracio catheter has been removed 8 chronic smoker, quit smoking approximately a week ago 9 peripheral vascular disease 10 peripheral neuropathy 11 hyperlipidemia 12 postoperative anemia, hemoglobin stable at 7.3 Plan Continue aggressive pulmonary toileting. Monitor the output from the chest tubes. Repeat chest x-ray in the morning. Keep insulin drip for blood sugar control. Keep the patient in ICU for supportive care. We'll continue to follow and reevaluate this patient in a.m.
--- NOTE | 2016-06-22 20:02 | PN ---
SUBJECTIVE DATA: This is a 55-year-old gentleman that was admitted to the hospital with N-STEMI. The patient is postoperative day 2 from CABG x3. Patient is currently in the ICU and status post extubation day 2. Patient is currently on supplemental oxygen. States to have some chest soreness. Denies having any abdominal pain. No nausea, vomiting. Patient's heart rate during my examination was in the 100 tens. Denies having any headaches, blurry vision as well. Currently off ( ) drip, off pressor support. Currently on insulin drip around 3 to 5 units per hour at an average over the last 24 hours. OBJECTIVE DATA: VITALS: Heart rate is between 113 to 123, respiratory rate 21, blood pressure is 111/66. Saturating 94% on 2 liters supplemental oxygen. GENERAL APPEARANCE: Alert, oriented x3. No distress. Neck is supple. No JVD. CHEST: Dressing noted over the sternal region. S1, S2 heard. Slightly tachycardic. No murmurs appreciated. LUNGS: Good air movement. No crackles or rhonchi or wheezing appreciated. ABDOMEN: Soft, appropriately tender to palpation. No organomegaly. LOWER EXTREMITIES: Trace edema. There is new or old. No focal deficits noted. LABORATORY DATA: Glucose level has been stable, between 155 and 194 ( ). ASSESSMENT: 1. Coronary artery disease, status post coronary artery bypass graft. 2. Acute hypoxic respiratory failure as expected from recent surgery. 3. Diabetes mellitus, type II, currently on the drip. 4. Compensated systolic heart failure. 5. ( ). 6. Sinus tachycardia. 7. Chronic kidney disease stage II. 8. Chronic obstructive pulmonary disease with no acute exacerbation. 9. Acute blood loss anemia as expected from recent surgery. PLAN: Continue ongoing care. Patient's beta delfina therapy has been titrated by the CT surgeon. The patient's insulin requirement has been anywhere from 70 to 75 units over the last 24 hours, hence patient will be started on 45 units of Levemir, will be titrated off the drip an hour later and thereafter will be started at 10 units t.i.d. with meals. Patient also will be on NovoLog sliding scale for any additional premeal coverage. Patient will be followed up in the a.m. and appropriate changes will be made to insulin. Other management per ICU and a CT surgery.
[2016-06-22] MEDS: SENNOSIDES-DOCUSATE SODIUM 1 EACH TAB PO SCH (20:12)
[2016-06-22 20:24] LABS: Glucose,Whole Blood 226 mg/dL (75-99)
[2016-06-22] MEDS ORDERED: INSULIN DETEMIR 100 UNIT/ML 10 ML VIAL SQ SCH (21:00)
[2016-06-23 01:10] LABS: Glucose,Whole Blood 157 mg/dL (75-99)
[2016-06-23] MEDS: HYDROcodone/APAP 5-325MG 1 EACH TAB PO PRN ×4 (04:52→21:02)
[2016-06-23 05:05] LABS: Glucose,Whole Blood 181 mg/dL (75-99)
[2016-06-23 05:22] LABS: Basophils % (A) 0 %; CH 31.8; CHCM 35.2; Eosinophils # (A) 0.1 k/uL (0-0.7); Eosinophils % (A) 1 %; HCT 21.8 % (39.0-53.0); HDW 3.07; HGB 7.5 gm/dL (13.0-17.5); Luc # (Auto) 0.25; Luc % (Auto) 3; Lymphocytes # (A) 1.2 k/uL (1.0-4.8); Lymphocytes % (A) 14 %; MCH 31.1 pg (25.0-35.0); MCHC 34.2 g/dL (31.0-37.0); Mean Platelet Volume 7.6; Monocytes # (A) 0.5 k/uL (0-1.0); Monocytes % (A) 6 %; Neutrophils # (A) 6.6 k/uL (1.3-7.7); Neutrophils % (A) 76 %; RDW 13.3 % (11.5-15.5); WBC 8.6 k/uL (3.8-10.6)
[2016-06-23 05:32] LABS: Prothrombin Time 9.8 sec (9.0-12.0)
[2016-06-23 05:37] LABS: Calcium 8.7 mg/dL (8.4-10.2); Magnesium 2.1 mg/dL (1.6-2.3); Potassium 4.2 mmol/L (3.5-5.1); Total Bilirubin 0.6 mg/dL (0.2-1.3); Total Protein 5.4 g/dL (6.3-8.2)
[2016-06-23 07:10] LABS: Glucose,Whole Blood 215 mg/dL (75-99)
--- NOTE | 2016-06-23 07:25 | XR ---
EXAMINATION TYPE: XR chest 1V portable DATE OF EXAM: 06/23/2016 6:43 AM Comparison: 06/22/2016 Clinical History: 55 year-old male post Operative Cardiac Surgery Findings: The heart remains mild to moderately enlarged, likely accentuated by low lung volumes. Vascular russ ngs are crowded and possibly mildly congested but unchanged from prior. Bibasilar opacities show impr oving aeration at the left base. Left chest tube remains in place without appreciable pneumothorax. M marissaian sternotomy wires are present with postoperative clips in the mediastinum. Impression: 1. Stable cardiomegaly and hypoventilatory changes. There may be mild pulmonary vascular congestion. 2. Patchy bibasilar atelectasis/infiltrates and likely trace effusions with some improvement in aerat ion of the left base.
[2016-06-23 08:39] LABS: Glucose,Whole Blood 179 mg/dL (75-99)
[2016-06-23] MEDS: ATORVASTATIN 40 MG TAB PO SCH (08:43)
[2016-06-23] MEDS: PANTOPRAZOLE 40 MG TABLET PO SCH (08:43)
[2016-06-23] MEDS: METOPROLOL TARTRATE 50 MG TAB PO SCH ×3 (08:43→21:01)
[2016-06-23] MEDS: CLOPIDOGREL 75 MG TAB PO SCH (08:43)
[2016-06-23] MEDS: ASPIRIN 325 MG TAB PO SCH (08:43)
[2016-06-23] MEDS: GABAPENTIN 300 MG CAP PO SCH ×2 (08:43→21:01)
[2016-06-23] MEDS: HEPARIN SODIUM,PORCINE 5,000 UNIT/ML 1 ML VIAL SQ SCH ×3 (08:44→21:01)
[2016-06-23] MEDS: INSULIN LISPRO (humaLOG) 300 UNIT/3 ML VIAL SQ SCH ×7 (08:44→21:55)
[2016-06-23] MEDS: MUPIROCIN 2% OINT 22 GM TUBE NASAL SCH ×2 (08:46→21:56)
[2016-06-23] MEDS: IPRATROPIUM-ALBUTEROL 3 ML NEB INHALATION SCH ×4 (08:46→21:02)
[2016-06-23 11:05] LABS: Glucose,Whole Blood 181 mg/dL (75-99)
--- NOTE | 2016-06-23 11:37 | P.PN ---
Progress Note - Text CV Surgery Nursing POD: #3, off pump coronary artery bypass grafts 3 with left internal mammary artery to left anterior descending coronary artery and reverse saphenous vein grafts to the first obtuse marginal and posterior descending coronary arteries, transesophageal echocardiogram, epi-aortic ultrasonography, endoscopic harvesting of the greater saphenous vein. Patient awake and alert, no distress noted, no specific complaints. Vital Signs: Afebrile , T-max 98.4F Vital Signs - 24 hr 06/22/16 06/22/16 06/22/16 12:00 12:30 12:49 Temperature 98.1 F Pulse Rate 90 93 Respiratory 21 19 Rate Blood Pressure 104/63 104/63 O2 Sat by Pulse 94 L Oximetry 06/22/16 06/22/16 06/22/16 13:00 13:01 13:30 Temperature Pulse Rate 99 92 98 Respiratory 35 H 20 Rate Blood Pressure 104/63 O2 Sat by Pulse 87 L 98 Oximetry 06/22/16 06/22/16 06/22/16 14:00 15:00 16:00 Temperature Pulse Rate 101 H 118 H 121 H Respiratory 20 21 33 H Rate Blood Pressure 114/62 127/81 123/68 O2 Sat by Pulse 96 98 96 Oximetry 06/22/16 06/22/16 06/22/16 16:04 16:15 17:00 Temperature Pulse Rate 91 93 123 H Respiratory 22 Rate Blood Pressure 123/68 O2 Sat by Pulse 94 L Oximetry 06/22/16 06/22/16 06/22/16 18:00 19:00 19:58 Temperature Pulse Rate 124 H 113 H 112 H Respiratory 26 H 21 Rate Blood Pressure 121/67 111/66 O2 Sat by Pulse 92 L 94 L Oximetry 06/22/16 06/22/16 06/22/16 20:00 20:10 21:00 Temperature 98 F Pulse Rate 112 H 118 H 117 H Respiratory 22 27 H Rate Blood Pressure 104/68 118/67 O2 Sat by Pulse 97 97 Oximetry 06/22/16 06/22/16 06/22/16 22:00 23:00 23:25 Temperature Pulse Rate 113 H 104 H 94 Respiratory 21 16 24 Rate Blood Pressure 132/66 122/72 O2 Sat by Pulse 96 97 95 Oximetry 06/23/16 06/23/16 06/23/16 00:00 01:00 02:00 Temperature 98.4 F Pulse Rate 77 76 92 Respiratory 17 20 22 Rate Blood Pressure 114/63 110/63 142/60 O2 Sat by Pulse 92 L 96 93 L Oximetry 06/23/16 06/23/16 06/23/16 03:00 04:00 05:00 Temperature Pulse Rate 91 89 100 Respiratory 23 17 24 Rate Blood Pressure 136/70 134/69 130/72 O2 Sat by Pulse 95 98 93 L Oximetry 06/23/16 06/23/16 06/23/16 06:00 07:00 08:00 Temperature Pulse Rate 90 87 84 Respiratory 15 21 11 L Rate Blood Pressure 149/76 99/61 121/72 O2 Sat by Pulse 98 99 100 Oximetry 06/23/16 06/23/16 09:00 10:00 Temperature 98.2 F Pulse Rate 94 84 Respiratory 20 21 Rate Blood Pressure 119/68 131/65 O2 Sat by Pulse 94 L 94 L Oximetry Labs: Short CBC 06/23/16 Range/Units 05:00 WBC 8.6 (3.8-10.6) k/uL Hgb 7.5 L (13.0-17.5) gm/dL Hct 21.8 L (39.0-53.0) % Plt Count 162 (150-450) k/uL Neutrophils # 6.6 (1.3-7.7) k/uL BMP 06/23/16 05:00 Sodium 137 Potassium 4.2 Chloride 104 Carbon Dioxide 23 BUN 33 H Creatinine 1.60 H Glucose 162 H Calcium 8.7 Liver Function 06/23/16 Range/Units 05:00 Total Bilirubin 0.6 (0.2-1.3) mg/dL AST 13 L (17-59) U/L ALT 35 (21-72) U/L Alkaline Phosphatase 52 (38-126) U/L Albumin 2.8 L (3.5-5.0) g/dL Lungs: Respirations are even and nonlabored, breath sounds slightly diminished bilaterally O2 sat: 94% on room air I/S: 750 mL, patient gave return demonstration of proper use of the incentive spirometer. Heart: S1S2, regular rate and rhythm bedside telemetry shows a normal sinus rhythm in the 90s Sternum stable, chest incision clean with silverlon dressing clean and dry. Abdomen: Soft, Positive bowel sounds present in all 4 quadrants. CBGs: 145-226 mg/dL U/O: Adequate Chest Tubes: Mediastinal and left pleural chest tubes without visible air leak, draining 160 mL of serosanguineous fluid over the last 8 hours. Intake & Output 06/21/16 06/22/16 06/23/16 06/24/16 06:59 06:59 06:59 06:59 Intake Total 2767.226 1439.280 6057.741 36 Output Total 3495 1963 1405 520 Balance -727.774 -146.494 -55.259 -484 Weight 112.6 kg 116.6 kg 116.9 kg Active Medications Acetaminophen/Hydrocodone Bitart (Bucklin 5-325) 2 each PO Q4HR PRN PRN Reason: Severe Pain Last Admin: 06/23/16 08:58 Dose: 2 each Acetaminophen/Hydrocodone Bitart ([place]lin 5-325) 1 each PO Q4HR PRN PRN Reason: Moderate Pain Albuterol/Ipratropium (Duoneb 0.5 Mg-3 Mg/3 Ml Soln) 3 ml INHALATION RT-Q2H PRN PRN Reason: Shortness Of Breath Or Wheezing Albuterol/Ipratropium (Duoneb 0.5 Mg-3 Mg/3 Ml Soln) 3 ml INHALATION RT-QID [facility] Last Admin: 06/23/16 08:46 Dose: Not Given Alprazolam (Xanax) 0.25 mg PO BID PRN PRN Reason: Anxiety Last Admin: 06/22/16 04:04 Dose: 0.25 mg Aspirin (Aspirin) 325 mg PO DAILY [facility] Last Admin: 06/23/16 08:43 Dose: 325 mg Atorvastatin Calcium (Lipitor) 40 mg PO DAILY [facility] Last Admin: 06/23/16 08:43 Dose: 40 mg Benzocaine/Menthol (Cepacol Lozenge) 1 each MUCOUS MEM Q2H PRN PRN Reason: Sore Throat Bisacodyl (Dulcolax) 10 mg RECTAL DAILY PRN PRN Reason: Constipation Clopidogrel Bisulfate (Plavix) 75 mg PO DAILY [facility] Last Admin: 06/23/16 08:43 Dose: 75 mg Gabapentin (Neurontin) 300 mg PO BID [facility] Last Admin: 06/23/16 08:43 Dose: 300 mg Heparin Sodium (Porcine) (Heparin) 5,000 unit SQ Q8H [facility] Last Admin: 06/23/16 08:44 Dose: 5,000 unit Clevidipine 25 mg/ IV Solution 50 mls @ 2 mls/hr IV .Q24H [facility]AY; 1 MG/HR PRN Reason: Protocol Last Admin: 06/22/16 07:11 Dose: 4 mg/hr, 8 mls/hr Lactated Ringer's (Lactated Ringers) 1,000 mls @ 20 mls/hr IV .Q24H [facility] Last Admin: 06/22/16 04:58 Dose: 20 mls/hr Insulin Detemir (Levemir) 40 unit SQ HS [facility] Last Admin: 06/22/16 15:58 Dose: 40 unit Insulin Human Lispro (Humalog) 0 unit SQ ACHS [facility] PRN Reason: Protocol Last Admin: 06/23/16 08:44 Dose: 3 unit Insulin Human Lispro (Humalog) 10 unit SQ AC-TID [facility] Last Admin: 06/23/16 08:45 Dose: 10 unit Magnesium Hydroxide (Milk Of Magnesia) 2,400 mg PO BID PRN PRN Reason: Constipation Metoclopramide HCl (Reglan) 10 mg IVP Q4H PRN PRN Reason: Nausea And Vomiting Metoprolol Tartrate (Lopressor) 50 mg PO TID [facility] Last Admin: 06/23/16 08:43 Dose: 50 mg Miscellaneous Information (Magnesium Per Protocol) 1 each MISCELLANE DAILY PRN ; Protocol PRN Reason: Per Protocol Miscellaneous Information (Phosphorus Per Protocol) 1 each MISCELLANE DAILY PRN ; Protocol PRN Reason: Per Protocol Miscellaneous Information (Potassium Per Protocol) 1 each MISCELLANE DAILY PRN ; Protocol PRN Reason: Per Protocol Mupirocin (Bactroban Oint) 1 applic NASAL BID [facility] Stop: 06/23/16 21:01 Last Admin: 06/23/16 08:46 Dose: Not Given Ondansetron HCl (Zofran) 4 mg IVP Q6HR PRN PRN Reason: Nausea And Vomiting Last Admin: 06/21/16 14:22 Dose: 4 mg Pantoprazole Sodium (Protonix) 40 mg PO AC-BRKFST [facility] Last Admin: 06/23/16 08:43 Dose: 40 mg Senna/Docusate Sodium (Senokot-S) 2 each PO HS [facility] Last Admin: 06/22/16 20:12 Dose: 2 each Sodium Chloride (Saline Flush) 10 ml IV BID [facility] Last Admin: 06/23/16 08:45 Dose: 10 ml Plan: Status post CABG day #3 Good progress DC chest tubes, cordis, arterial line. Transfer to stepdown unit.
[2016-06-23 12:22] LABS: Glucose,Whole Blood 132 mg/dL (75-99)
--- NOTE | 2016-06-23 13:03 | PN ---
Mr. Ruiz is a 55-year-old male, status post coronary artery bypass grafting. He is doing well this morning. His breathing is stable. Chest tube has been removed. He continues to be in sinus mechanism. He is using incentive spirometry. He has no chest pain. No dizziness. No palpitations. He continues to be at this time on aspirin once a day, Lipitor 40 mg daily, Plavix 75 mg daily, metoprolol tartrate 50 mg 3 times a day and Protonix. PHYSICAL EXAMINATION: Blood pressure 131/60 with a heart rate in the 80s. LUNGS: With mild decreased in breath sounds at bases. No wheezes. HEART: Regular rate rhythm. S1, S2, no S3, no rub. ABDOMEN: Soft, nontender. EXTREMITIES: Trace to 1+ edema on the left side. Lab data revealed BUN and creatinine 33 and 1.6. Potassium 4.2. Hemoglobin of 7.5. IMPRESSION: 1. Status post coronary artery bypass grafting, remains in sinus mechanism is stable. 2. History of ischemic cardiomyopathy. 3. Renal failure. 4. Diabetes. 5. Hyperlipidemia. RECOMMENDATION: Will continue present therapy, continue holding the VALENTINO inhibitor and following his renal function, increase his level of activity. If his renal function stabilizes, then I will add an VALENTINO inhibitor to his regimen. I would expect he should be able to be transferred to the telemetry floor.
[2016-06-23] MEDS: LACTATED RINGERS 1,000 ML IV SCH (15:57)
[2016-06-23 16:57] LABS: Glucose,Whole Blood 136 mg/dL (75-99)
--- NOTE | 2016-06-23 17:27 | P.PN ---
Subjective 55-year-old male patient, I was asked to see for a preoperative pulmonary evaluation as the patient is suspected to go for cardiac/coronary bypass surgery in the morning. This patient is known to have coronary artery disease and he has had multiple coronary interventions and stenting in the past. The patient developed significant restenosis following multivessel PCI and he was advised to see Dr. Gonzalez on an outpatient basis for cardiac surgery. Meanwhile , the patient came into the hospital with chest pressure and angina and he developed an acute non-ST segment elevation myocardial infarction and an urgent surgical consultation was requested. The patient has significant coronary artery disease and please refer to the details of the cardiac catheterization for further results. Currently is on IV heparin. His emanating in the hallway. 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 He is also a active smoker and he quit smoking approximately a week ago. Denies having any cough or sputum production. No wheezing. A bedside spirometry was done and his FEV1 is noted of 73% of predicted. No stare bronchial asthma. No previous history of DVT or Aneta embolism. X-ray that was done showed cardiomegaly and some mild changes of CHF. No evidence of any acute pneumonia or lesions. His echocardiogram showed a impaired LV function with an ejection fraction of 35-40% and the patient has inferolateral hypokinesis and there is mild aortic valve sclerosis and a right ventricular systolic pressure measured to be 26. On 06/20/2016, the patient is being seen postop following coronary artery bypass surgery. The patient underwent 3-vessel bypass surgery. Currently is postop day #0. I discussed the case with Dr. Gonzalez. Intraoperatively the patient was having low urine output and he was started on low-dose dopamine to augment his urine output. The patient was also brought to the intensive care unit on a combination of nitroglycerin drip and cleviprex drip for blood pressure control. He was initially on assist control mode and the postoperative chest x-ray showed cardiomegaly with some patchy bibasilar atelectatic changes and all of the tubes were in good location including the ET tube, they mediastinal and the left pleural chest tube and the [place]Oracio catheter. The blood gases showed a pH of 7.36 with a pCO2 of 41 and pO2 of 185 and this was done on assist-control mode with a tidal volume of 600, rate of 16 , FiO2 of 100% and a PEEP of 5. Hemodynamically, the patient is on a combination of nitroglycerin and Clevidipine for blood pressure control.The chest tubes are in place and estimated operative of the chest tube has been around 233 ML's of bloody effusion since the patient arrived from the operating room. Urine output since his arrival has been around 500 mL as being collected in the urine bag. The patient's cardiac output was 13.6 and an index was 6.The patient is currently in the process of being weaned off FiO2 and wants to the chair reasonable oxygenation we will stop the sedation and assess patient's weaning parameters. I anticipate extubation within the next few hours at least. On 06/21/2016, the patient is postop day #1. The patient was weaned off the mechanical ventilator and the patient was extubated without any major difficulties. This morning the patient on the 50% Ventimask. His chest x-ray showing atelectatic changes small effusion the lung bases bilaterally. The patient has still a mediastinal and the left pleural chest tube and output from the chest tubes have been 10 mL an hour collectively. The patient is using incentive spirometer and is pulling approximately 750 mL. The patient is hemodynamically stable. The asthma all drip and the nitroglycerin drip has been discontinued and the patient is currently on a clevidipine drip at 2 mg an hour. His cardiac index is at 3.5. He is producing adequate urine output and his urine output is around 60 mL an hour. No nausea. No vomiting. No active chest pain and his sternum stable clean and intact. No other significant events overnight. He is fully awake and alert and following commands and answering questions appropriately. Hemoglobin dropped down to 8.2 and this is stable for now On 06/22/2016 patient is postop day #2. He is doing well and he was weaned off the nonrebreather patient is currently on 2 L of oxygen by nasal cannula. He is sitting up on a chair. He is not having any major stroke difficulties. He is calm and comfortable. Today's chest x-ray shows adequate positioning of the chest tubes including a mediastinal and the pleural chest tube. The patient continues to have a small left-sided pleural effusion and patchy infiltration of the lung bases/atelectasis. Hemodynamically, the patient was taken off nitroglycerin drip and clevidipine and the patient was started on metoprolol 50 mg by mouth 3 times a day. Output from the chest to his been around 10-50 mL an hour and the mediastinal and the pleural chest tubes will be kept for another 24 hours. No cardiac arrhythmias noted. Cardiac output remains decent. The patient is producing adequate amount of urine output. He is pulling approximately 8000 on his incentive spirometer. He remains on insulin drip for blood sugar control. No other significant events over the past 24 hours and the patient's subsequent hemoglobin is down to 7.3, no plans for a transfusion. Creatinine is up to 1.6. On 06/23/2016, the patient is postop day #3. The patient is doing extremely well. The chest tubes were all removed today. Chest x-ray shows some atelectatic changes small effusion the lung bases nevertheless the patient has been on room air oxygen. He is ambulating. He is off antihypertensive medication is back on his metoprolol. No fever. Surgical wound sites are all clean. He is using incentive spirometer. Objective - Vital Signs Vital signs: Vital Signs Temp 98.2 F 06/23/16 09:00 Pulse 112 H 06/23/16 12:17 Resp 22 06/23/16 12:00 BP 131/65 06/23/16 11:00 Pulse Ox 94 L 06/23/16 11:00 Intake & Output 06/22/16 06/23/16 06/23/16 18:59 06:59 18:59 Intake Total 403.741 946 36 Output Total 870 535 520 Balance -466.259 411 -484 Weight 116.9 kg Intake: IV 36 36 6 PRESSURE BAG 36 36 6 Intake, IV Titration 367.741 360 30 Amount Clevidipine Butyrate 25 24.133 mg In Empty Bag 1 bag @ 1 MG/HR 2 mls/hr IV .Q24H [facility] Rx#:[id number] Insulin Regular 100 unit 13.608 In Sodium Chloride 0.9% 100 ml @ Per Protocol IV .Q0M [facility] Rx#:[id number] Lactated Ringers 1,000 ml 330 360 30 @ 20 mls/hr IV .Q24H [facility] Rx#:[id number] Oral 550 Output: Chest Tube Drainage 170 160 20 Left Pleural/Mediastinal 170 160 20 Urine 700 375 500 Stool 0 0 0 Other: Voiding Method Indwelling Catheter Indwelling Catheter ABP, PAP, CO, CI - Last Documented Arterial Blood Pressure 122/49 Pulmonary Artery Pressure 36/18 Cardiac Output 8 Cardiac Index 3.5 - Exam Head exam was generally normal. There was no scleral icterus or corneal arcus. Mucous membranes were moist.Neck was supple and without jugular venous distension, thyromegaly, or carotid bruits. Carotids were easily palpable bilaterally. There was no adenopathy. The patient has a right IJ Cordis with [place]-Oracio catheter in place. Lung sounds are diminished in lung bases bilaterally and the sternum stable clean and intact.Cardiac exam revealed the PMI to be normally situated and sized. The rhythm was regular and no extrasystoles were noted during several minutes of auscultation. The first and second heart sounds were normal and physiologic splitting of the second heart sound was noted. There were no murmurs, rubs, clicks, or gallops.Abdominal exam revealed normal bowel sounds. The abdomen was soft, non-tender, and without masses, organomegaly, or appreciable enlargement of the abdominal aorta.Examination of the extremities revealed easily palpable radial, femoral and pedal pulses. There was no cyanosis, clubbing or edema. - Labs CBC & Chem 7: 06/23/16 05:00 06/23/16 05:00 Labs: Abnormal Lab Results - Last 24 Hours (Table) 06/22/16 06/23/16 06/23/16 Range/Units 20:20 01:07 04:59 RBC (4.30-5.90) m/uL Hgb (13.0-17.5) gm/dL Hct (39.0-53.0) % BUN (9-20) mg/dL Creatinine (0.66-1.25) mg/dL Glucose (74-99) mg/dL POC Glucose (mg/dL) 226 H 157 H 181 H (75-99) mg/dL AST (17-59) U/L Total Protein (6.3-8.2) g/dL Albumin (3.5-5.0) g/dL 06/23/16 06/23/16 06/23/16 Range/Units 05:00 05:00 07:09 RBC 2.40 L (4.30-5.90) m/uL Hgb 7.5 L (13.0-17.5) gm/dL Hct 21.8 L (39.0-53.0) % BUN 33 H (9-20) mg/dL Creatinine 1.60 H (0.66-1.25) mg/dL Glucose 162 H (74-99) mg/dL POC Glucose (mg/dL) 215 H (75-99) mg/dL AST 13 L (17-59) U/L Total Protein 5.4 L (6.3-8.2) g/dL Albumin 2.8 L (3.5-5.0) g/dL 06/23/16 06/23/16 06/23/16 Range/Units 08:37 11:02 12:20 RBC (4.30-5.90) m/uL Hgb (13.0-17.5) gm/dL Hct (39.0-53.0) % BUN (9-20) mg/dL Creatinine (0.66-1.25) mg/dL Glucose (74-99) mg/dL POC Glucose (mg/dL) 179 H 181 H 132 H (75-99) mg/dL AST (17-59) U/L Total Protein (6.3-8.2) g/dL Albumin (3.5-5.0) g/dL 06/23/16 Range/Units 16:52 RBC (4.30-5.90) m/uL Hgb (13.0-17.5) gm/dL Hct (39.0-53.0) % BUN (9-20) mg/dL Creatinine (0.66-1.25) mg/dL Glucose (74-99) mg/dL POC Glucose (mg/dL) 136 H (75-99) mg/dL AST (17-59) U/L Total Protein (6.3-8.2) g/dL Albumin (3.5-5.0) g/dL Assessment and Plan Plan: Assessment 1 multivessel coronary artery disease, and the patient is status post three- vessel bypass surgery number postop day #3 2 hypoxic respiratory failure, expected, due to postoperative atelectatic changes and effusion the lung bases bilaterally. The patient has a mediastinal and the pleural chest tube and output is minimal at 10 mL an hour. Hemodynamically stable. On the patient is postop day #2. The patient is doing well on 2 L of oxygen by nasal cannula. Chest tube will be kept in place. Today chest x-ray was noted. The patient is doing aggressive pulmonary toileting and using incentive spirometer. On 06/23/2016 the patient is postop day #3. The chest tube will be removed. He is on room air oxygen and pulse oxing above 90%. Hemodynamically stable. I' m inclined to this patient out of the intensive care unit if the surgical team is agreeable. 3 COPD mild with an FEV1 of 70% of predicted 4 chronic renal failure 5 diabetes mellitus, currently on insulin drip for blood sugar control 6 hypertension , currently under better control 7 congestion heart failure with ejection fraction of 35-40%, adequate cardiac index at 3.6 postop and currently the [place] catheter has been removed 8 chronic smoker, quit smoking approximately a week ago 9 peripheral vascular disease 10 peripheral neuropathy 11 hyperlipidemia 12 postoperative anemia, hemoglobin stable at 7.5 Plan Continue aggressive pulmonary toileting. Remote the chest tube. Continue using incentive spirometer. Monitor hemoglobin. Monitor renal function. We' ll follow. We'll move the patient out of the intensive care unit.
--- NOTE | 2016-06-23 18:40 | PN ---
SUBJECTIVE DATA: This is a 55-year-old gentleman that is admitted to the hospital with an N-STEMI. The patient is postoperative day 3 from a CABG x3. Patient is triaged out of the ICU. He is status post extubation day 3. Patient is on minimal oxygen. He is able to ambulate without any difficulty. Denies having any additional complaints. 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 OBJECTIVE DATA: Heart rate is between 82 to 112. Blood pressure 131/69. Saturating 94% on room air. GENERAL: Appears alert, oriented x3. No distress. Neck is supple. No JVD. HEART: S1, S2 heard. Regular rate and rhythm. Murmurs appreciated. Slightly tachycardic. Intermittently. LUNGS: Good air movement and diminished at the bases. ABDOMEN: Soft, nontender, no organomegaly. LOWER EXTREMITIES: No edema noted. NEURO: No focal motor or sensory deficits noted. Insulin range has been on 132 to 215. ASSESSMENT: 1. Coronary artery disease status post coronary artery bypass graft. 2. Diabetes mellitus type 2. 3. Chronic kidney disease stage II. 4. Chronic obstructive pulmonary disease with no acute exacerbation. 5. Acute hypoxic respiratory failure, which is improved. 6. Compensated systolic heart failure. PLAN: Continue ongoing care. Patient does have isolated elevations of glucose. However, patient's Levemir was started yesterday. We will monitor before making the change tomorrow. Encourage ambulation. Other plans per CT surgery team.
[2016-06-23] MEDS: SENNOSIDES-DOCUSATE SODIUM 1 EACH TAB PO SCH (21:01)
[2016-06-23 21:14] LABS: Glucose,Whole Blood 185 mg/dL (75-99)
[2016-06-23] MEDS: INSULIN DETEMIR 100 UNIT/ML 10 ML VIAL SQ SCH (21:55)
[2016-06-24 03:06] LABS: Glucose,Whole Blood 267 mg/dL (75-99)
[2016-06-24] MEDS: HYDROcodone/APAP 5-325MG 1 EACH TAB PO PRN ×2 (04:37→20:13)
[2016-06-24] MEDS: ALPRAZolam 0.25 MG TAB PO PRN ×2 (04:38→20:13)
[2016-06-24 06:35] LABS: Glucose,Whole Blood 208 mg/dL (75-99)
[2016-06-24 06:41] LABS: Basophils % (A) 0 %; CHCM 35.1; Eosinophils # (A) 0.2 k/uL (0-0.7); Eosinophils % (A) 3 %; HCT 22.3 % (39.0-53.0); HGB 7.6 gm/dL (13.0-17.5); Luc % (Auto) 3; Lymphocytes # (A) 0.9 k/uL (1.0-4.8); Lymphocytes % (A) 14 %; MCH 31.1 pg (25.0-35.0); MCHC 33.9 g/dL (31.0-37.0); MCV 91.7 fL (80.0-100.0); Mean Platelet Volume 7.5; Monocytes # (A) 0.4 k/uL (0-1.0); Monocytes % (A) 6 %; Neutrophils # (A) 4.3 k/uL (1.3-7.7); Neutrophils % (A) 73 %; RBC 2.43 m/uL (4.30-5.90); RDW 13.4 % (11.5-15.5); WBC (Perox) 6.49
[2016-06-24 06:48] LABS: INR 0.9 (<1.1); Prothrombin Time 9.3 sec (9.0-12.0)
[2016-06-24] MEDS: PANTOPRAZOLE 40 MG TABLET PO SCH (06:59)
[2016-06-24] MEDS: HEPARIN SODIUM,PORCINE 5,000 UNIT/ML 1 ML VIAL SQ SCH ×3 (07:00→20:14)
[2016-06-24 07:01] LABS: ALT 30 U/L (21-72); AST 12 U/L (17-59); Alkaline Phosphatase 61 U/L (38-126); Anion Gap 9 mmol/L; Blood Urea Nitrogen 35 mg/dL (9-20); Calcium 8.9 mg/dL (8.4-10.2); Carbon Dioxide 23 mmol/L (22-30); Chloride 105 mmol/L (98-107); Glucose 193 mg/dL (74-99); Magnesium 2.2 mg/dL (1.6-2.3); Non-African American GFR(MDRD) 52 (>60 ml/min/1.73 sqM); Potassium 4.1 mmol/L (3.5-5.1); Sodium 137 mmol/L (137-145); Total Bilirubin 0.4 mg/dL (0.2-1.3); Total Protein 5.6 g/dL (6.3-8.2)
--- NOTE | 2016-06-24 07:29 | XR ---
EXAMINATION TYPE: XR chest 1V portable DATE OF EXAM: 06/24/2016 7:20 AM COMPARISON: 06/23/2016 HISTORY: Post cardiac surgery TECHNIQUE: Single frontal view of the chest is obtained. FINDINGS: Postsurgical change and cardiomegaly noted with bilateral infiltrate and small right effus ion. No sizable pneumothorax. Mild venous congestion not excluded. IMPRESSION: 1. Stable bilateral consolidation and small effusion. 2. Postsurgical changes
[2016-06-24] MEDS: INSULIN LISPRO (humaLOG) 300 UNIT/3 ML VIAL SQ SCH ×7 (07:58→21:16)
[2016-06-24] MEDS: ASPIRIN 325 MG TAB PO SCH (08:21)
[2016-06-24] MEDS: METOPROLOL TARTRATE 50 MG TAB PO SCH ×3 (08:21→20:14)
[2016-06-24] MEDS: CLOPIDOGREL 75 MG TAB PO SCH (08:21)
[2016-06-24] MEDS: GABAPENTIN 300 MG CAP PO SCH ×2 (08:21→20:14)
[2016-06-24] MEDS: ATORVASTATIN 40 MG TAB PO SCH (08:21)
[2016-06-24 08:34] VITALS: RESP 16
[2016-06-24] MEDS: IPRATROPIUM-ALBUTEROL 3 ML NEB INHALATION SCH ×4 (09:00→19:34)
--- NOTE | 2016-06-24 09:22 | P.PN ---
Subjective Principal diagnosis: NSTEMI, S/P recent heart catheterization w/ stenting POD #4 off-pump coronary artery bypass grafting 3 with left internal mammary artery graft to LAD and saphenous vein grafts to first obtuse marginal and posterior descending coronary artery, intraoperative transesophageal echocardiogram, epi-aortic scanning Patient currently sitting up in the chair and ambulating in the hallway. No apparent distress. States his pain medication is making him anxious Objective - Vital Signs Vital signs: Vital Signs Temp 98.6 F 06/24/16 08:00 Pulse 94 06/24/16 08:00 Resp 16 06/24/16 08:00 BP 124/56 06/24/16 08:00 Pulse Ox 96 06/24/16 08:00 Intake & Output 06/23/16 06/24/16 06/24/16 18:59 06:59 18:59 Intake Total 276 300 Output Total 520 Balance -244 300 Weight 116.8 kg Intake: IV 6 PRESSURE BAG 6 Intake, IV Titration 30 Amount Lactated Ringers 1,000 ml 30 @ 20 mls/hr IV .Q24H JAY Rx#:[id number] Oral 240 300 Output: Chest Tube Drainage 20 Left Pleural/Mediastinal 20 Urine 500 Stool 0 Other: Voiding Method Toilet # Voids 1 ABP, PAP, CO, CI - Last Documented Arterial Blood Pressure 122/49 Pulmonary Artery Pressure 36/18 Cardiac Output 8 Cardiac Index 3.5 - Constitutional General appearance: Present: cooperative, no acute distress - Respiratory Details: Lungs sounds very diminished. Respirations even, nonlabored. Currently on room air. Able to achieve 1250 mL on his incentive spirometry. - Cardiovascular Details: S1, S2. Regular rate and rhythm, normal sinus rhythm on telemetry. Chest stable. Heart hugger in place with patient demonstrating appropriate use. No edema present. Teds, SCDs present. - Gastrointestinal Gastrointestinal Comment(s): Abdomen soft, nontender, nondistended. Active bowel sounds 4 quadrants. Tolerating diet. - Genitourinary Genitourinary Comment(s): Patient pain clear, yellow urine per urinal. - Integumentary Integumentary Comment(s): Anterior chest incision covered with dry intact silver dressing. Left lower extremity EVH site well approximated. - Musculoskeletal Musculoskeletal: Present: gait normal - Psychiatric Psychiatric: Present: A&O x's 3, appropriate affect, intact judgment & insight - Allied health notes Allied health notes reviewed: nursing - Labs CBC & Chem 7: 06/24/16 06:06 06/24/16 06:06 Labs: Abnormal Lab Results - Last 24 Hours (Table) 06/23/16 06/23/16 06/23/16 Range/Units 11:02 12:20 16:52 RBC (4.30-5.90) m/uL Hgb (13.0-17.5) gm/dL Hct (39.0-53.0) % Lymphocytes # (1.0-4.8) k/uL BUN (9-20) mg/dL Creatinine (0.66-1.25) mg/dL Glucose (74-99) mg/dL POC Glucose (mg/dL) 181 H 132 H 136 H (75-99) mg/dL AST (17-59) U/L Total Protein (6.3-8.2) g/dL Albumin (3.5-5.0) g/dL 06/23/16 06/24/16 06/24/16 Range/Units 21:09 02:56 06:06 RBC 2.43 L (4.30-5.90) m/uL Hgb 7.6 L (13.0-17.5) gm/dL Hct 22.3 L (39.0-53.0) % Lymphocytes # 0.9 L (1.0-4.8) k/uL BUN (9-20) mg/dL Creatinine (0.66-1.25) mg/dL Glucose (74-99) mg/dL POC Glucose (mg/dL) 185 H 267 H (75-99) mg/dL AST (17-59) U/L Total Protein (6.3-8.2) g/dL Albumin (3.5-5.0) g/dL 06/24/16 06/24/16 Range/Units 06:06 06:20 RBC (4.30-5.90) m/uL Hgb (13.0-17.5) gm/dL Hct (39.0-53.0) % Lymphocytes # (1.0-4.8) k/uL BUN 35 H (9-20) mg/dL Creatinine 1.40 H (0.66-1.25) mg/dL Glucose 193 H (74-99) mg/dL POC Glucose (mg/dL) 208 H (75-99) mg/dL AST 12 L (17-59) U/L Total Protein 5.6 L (6.3-8.2) g/dL Albumin 2.9 L (3.5-5.0) g/dL - Imaging and Cardiology Chest x-ray: report reviewed, image reviewed Assessment and Plan (1) NSTEMI (non-ST elevated myocardial infarction) Status: Acute (2) CAD (coronary artery disease) Status: Acute (3) HTN (hypertension) Status: Acute (4) Hyperlipidemia Status: Acute (5) Diabetes Status: Acute Plan: 1. Cont ASA, lipitor, BB, Plavix. Lisinopril discontinued per cardiology secondary to renal function. 2. Will restart VALENTINO inhibitor when appropriate. 3. Increase activity, out of bed most of the day, ambulate in hallway. 4. Tight blood sugar control per primary service 5. Pain control with ordered medications. 6. Xanax ordered when necessary for patient's high anxiety. 7. Continue to encourage smoking cessation. 8. GI/DVT prophylaxis. 9. Anticipate discharge in the next 24-48 hours.
[2016-06-24] MEDS ORDERED: FUROSEMIDE 10 MG/ML 2 ML VIAL IV ONE (10:31)
[2016-06-24 11:36] LABS: ABG Base Excess -2.7 mmol/L; ABG HCO3 22 mmol/L (21-25); ABG Oxygen Saturation 99.9 % (94-97); ABG PCO2 43 mmHg (35-45); ABG PH 7.33 (7.35-7.45); ABG PO2 332 mmHg (83-108); ABG TCO2 24 mmol/L (19-24)
[2016-06-24 11:37] LABS: ABG Base Excess -2.3 mmol/L; ABG HCO3 23 mmol/L (21-25); ABG PCO2 43 mmHg (35-45); ABG PH 7.34 (7.35-7.45); ABG PO2 412 mmHg (83-108); ABG TCO2 24 mmol/L (19-24)
[2016-06-24 11:39] LABS: ABG Base Excess -1.7 mmol/L; ABG HCO3 23 mmol/L (21-25); ABG Oxygen Saturation 99.7 % (94-97); ABG PCO2 39 mmHg (35-45); ABG PH 7.38 (7.35-7.45); ABG PO2 210 mmHg (83-108); ABG TCO2 24 mmol/L (19-24)
[2016-06-24 11:39] LABS: Glucose,Whole Blood 161 mg/dL (75-99)
[2016-06-24 11:40] LABS: ABG PCO2 37 mmHg (35-45)
[2016-06-24 11:41] LABS: ABG Base Excess -1.8 mmol/L; ABG HCO3 22 mmol/L (21-25); ABG Oxygen Saturation 99.8 % (94-97); ABG PO2 247 mmHg (83-108); ABG TCO2 23 mmol/L (19-24)
[2016-06-24 11:42] LABS: ABG Base Excess -1.5 mmol/L; ABG HCO3 22 mmol/L (21-25); ABG Oxygen Saturation 99.8 % (94-97); ABG PCO2 36 mmHg (35-45); ABG PH 7.42 (7.35-7.45); ABG PO2 236 mmHg (83-108); ABG TCO2 23 mmol/L (19-24)
[2016-06-24 13:03] VITALS: BMI 34.9
--- NOTE | 2016-06-24 13:17 | P.PN ---
Subjective Principal diagnosis: Status post CABG 55-year-old male patient, I was asked to see for a preoperative pulmonary evaluation as the patient is suspected to go for cardiac/coronary bypass surgery in the morning. This patient is known to have coronary artery disease and he has had multiple coronary interventions and stenting in the past. The patient developed significant restenosis following multivessel PCI and he was advised to see Dr. Gonzalez on an outpatient basis for cardiac surgery. Meanwhile , the patient came into the hospital with chest pressure and angina and he developed an acute non-ST segment elevation myocardial infarction and an urgent surgical consultation was requested. The patient has significant coronary artery disease and please refer to the details of the cardiac catheterization for further results. Currently is on IV heparin. His emanating in the hallway. 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 He is also a active smoker and he quit smoking approximately a week ago. Denies having any cough or sputum production. No wheezing. A bedside spirometry was done and his FEV1 is noted of 73% of predicted. No stare bronchial asthma. No previous history of DVT or Aneta embolism. X-ray that was done showed cardiomegaly and some mild changes of CHF. No evidence of any acute pneumonia or lesions. His echocardiogram showed a impaired LV function with an ejection fraction of 35-40% and the patient has inferolateral hypokinesis and there is mild aortic valve sclerosis and a right ventricular systolic pressure measured to be 26. On 06/20/2016, the patient is being seen postop following coronary artery bypass surgery. The patient underwent 3-vessel bypass surgery. Currently is postop day #0. I discussed the case with Dr. Gonzalez. Intraoperatively the patient was having low urine output and he was started on low-dose dopamine to augment his urine output. The patient was also brought to the intensive care unit on a combination of nitroglycerin drip and cleviprex drip for blood pressure control. He was initially on assist control mode and the postoperative chest x-ray showed cardiomegaly with some patchy bibasilar atelectatic changes and all of the tubes were in good location including the ET tube, they mediastinal and the left pleural chest tube and the [place] catheter. The blood gases showed a pH of 7.36 with a pCO2 of 41 and pO2 of 185 and this was done on assist-control mode with a tidal volume of 600, rate of 16 , FiO2 of 100% and a PEEP of 5. Hemodynamically, the patient is on a combination of nitroglycerin and Clevidipine for blood pressure control.The chest tubes are in place and estimated operative of the chest tube has been around 233 ML's of bloody effusion since the patient arrived from the operating room. Urine output since his arrival has been around 500 mL as being collected in the urine bag. The patient's cardiac output was 13.6 and an index was 6.The patient is currently in the process of being weaned off FiO2 and wants to the chair reasonable oxygenation we will stop the sedation and assess patient's weaning parameters. I anticipate extubation within the next few hours at least. On 06/21/2016, the patient is postop day #1. The patient was weaned off the mechanical ventilator and the patient was extubated without any major difficulties. This morning the patient on the 50% Ventimask. His chest x-ray showing atelectatic changes small effusion the lung bases bilaterally. The patient has still a mediastinal and the left pleural chest tube and output from the chest tubes have been 10 mL an hour collectively. The patient is using incentive spirometer and is pulling approximately 750 mL. The patient is hemodynamically stable. The asthma all drip and the nitroglycerin drip has been discontinued and the patient is currently on a clevidipine drip at 2 mg an hour. His cardiac index is at 3.5. He is producing adequate urine output and his urine output is around 60 mL an hour. No nausea. No vomiting. No active chest pain and his sternum stable clean and intact. No other significant events overnight. He is fully awake and alert and following commands and answering questions appropriately. Hemoglobin dropped down to 8.2 and this is stable for now On 06/22/2016 patient is postop day #2. He is doing well and he was weaned off the nonrebreather patient is currently on 2 L of oxygen by nasal cannula. He is sitting up on a chair. He is not having any major stroke difficulties. He is calm and comfortable. Today's chest x-ray shows adequate positioning of the chest tubes including a mediastinal and the pleural chest tube. The patient continues to have a small left-sided pleural effusion and patchy infiltration of the lung bases/atelectasis. Hemodynamically, the patient was taken off nitroglycerin drip and clevidipine and the patient was started on metoprolol 50 mg by mouth 3 times a day. Output from the chest to his been around 10-50 mL an hour and the mediastinal and the pleural chest tubes will be kept for another 24 hours. No cardiac arrhythmias noted. Cardiac output remains decent. The patient is producing adequate amount of urine output. He is pulling approximately 8000 on his incentive spirometer. He remains on insulin drip for blood sugar control. No other significant events over the past 24 hours and the patient's subsequent hemoglobin is down to 7.3, no plans for a transfusion. Creatinine is up to 1.6. On 06/23/2016, the patient is postop day #3. The patient is doing extremely well. The chest tubes were all removed today. Chest x-ray shows some atelectatic changes small effusion the lung bases nevertheless the patient has been on room air oxygen. He is ambulating. He is off antihypertensive medication is back on his metoprolol. No fever. Surgical wound sites are all clean. He is using incentive spirometer. On 06/24/2016, patient is postoperative day #4. Continues to have some shortness of breath with activity, intermittent episodes of diaphoresis. No chest pain, no shortness of breath at rest, chest x-ray showed some atelectatic changes at the bases, and a small left pleural effusion. Hemoglobin is 7.6. Electrolytes are normal BUN is 35 creatinine is 1.40. Chest x-ray was reviewed and I ordered one dose of Lasix. Objective - Vital Signs Vital signs: Vital Signs Temp 98.6 F 06/24/16 08:00 Pulse 94 06/24/16 08:00 Resp 16 06/24/16 08:00 BP 124/56 06/24/16 08:00 Pulse Ox 96 06/24/16 08:00 Intake & Output 06/23/16 06/24/16 06/24/16 18:59 06:59 18:59 Intake Total 276 300 Output Total 520 Balance -244 300 Weight 116.8 kg 116.8 kg Intake: IV 6 PRESSURE BAG 6 Intake, IV Titration 30 Amount Lactated Ringers 1,000 ml 30 @ 20 mls/hr IV .Q24H JAY Rx#:[id number] Oral 240 300 Output: Chest Tube Drainage 20 Left Pleural/Mediastinal 20 Urine 500 Stool 0 Other: Voiding Method Toilet Toilet # Voids 1 ABP, PAP, CO, CI - Last Documented Arterial Blood Pressure 122/49 Pulmonary Artery Pressure 36/18 Cardiac Output 8 Cardiac Index 3.5 - Exam Physical Exam: Revealed a 55-year-old white male in no distress. HEENT:[Neck is supple.] [No neck masses.] [No thyromegaly.] [No JVD.] Chest: [Diminished breath sounds at the bases no crackles or rhonchi or wheezes except minimal crackles at the left base. Cardiac Exam: [Normal S1 and S2, no S3 gallop, no murmur.] Abdomen: [Soft, nontender, no megaly, no rebound, no guarding, normal bowel sounds.] Extremities: [No clubbing, no edema, no cyanosis.] Neurological Exam: [No focal neurologic deficit.] - Labs CBC & Chem 7: 06/24/16 06:06 06/24/16 06:06 Labs: Abnormal Lab Results - Last 24 Hours (Table) 06/20/16 06/20/16 06/20/16 Range/Units 10:25 12:00 12:29 RBC (4.30-5.90) m/uL Hgb (13.0-17.5) gm/dL Hct (39.0-53.0) % Lymphocytes # (1.0-4.8) k/uL ABG pH 7.33 L 7.34 L (7.35-7.45) ABG pO2 332 H 412 H 210 H (83-108) mmHg ABG O2 Saturation 99.9 H 100.0 H 99.7 H (94-97) % ABG Hematocrit 24 L 24 L 24 L (34.0-46.0) % BUN (9-20) mg/dL Creatinine (0.66-1.25) mg/dL Glucose (74-99) mg/dL POC Glucose (mg/dL) (75-99) mg/dL AST (17-59) U/L Total Protein (6.3-8.2) g/dL Albumin (3.5-5.0) g/dL 06/20/16 06/20/16 06/23/16 Range/Units 13:04 13:53 16:52 RBC (4.30-5.90) m/uL Hgb (13.0-17.5) gm/dL Hct (39.0-53.0) % Lymphocytes # (1.0-4.8) k/uL ABG pH (7.35-7.45) ABG pO2 247 H 236 H (83-108) mmHg ABG O2 Saturation 99.8 H 99.8 H (94-97) % ABG Hematocrit 21 L 20 L* (34.0-46.0) % BUN (9-20) mg/dL Creatinine (0.66-1.25) mg/dL Glucose (74-99) mg/dL POC Glucose (mg/dL) 136 H (75-99) mg/dL AST (17-59) U/L Total Protein (6.3-8.2) g/dL Albumin (3.5-5.0) g/dL 06/23/16 06/24/16 06/24/16 Range/Units 21:09 02:56 06:06 RBC 2.43 L (4.30-5.90) m/uL Hgb 7.6 L (13.0-17.5) gm/dL Hct 22.3 L (39.0-53.0) % Lymphocytes # 0.9 L (1.0-4.8) k/uL ABG pH (7.35-7.45) ABG pO2 (83-108) mmHg ABG O2 Saturation (94-97) % ABG Hematocrit (34.0-46.0) % BUN (9-20) mg/dL Creatinine (0.66-1.25) mg/dL Glucose (74-99) mg/dL POC Glucose (mg/dL) 185 H 267 H (75-99) mg/dL AST (17-59) U/L Total Protein (6.3-8.2) g/dL Albumin (3.5-5.0) g/dL 06/24/16 06/24/16 06/24/16 Range/Units 06:06 06:20 11:34 RBC (4.30-5.90) m/uL Hgb (13.0-17.5) gm/dL Hct (39.0-53.0) % Lymphocytes # (1.0-4.8) k/uL ABG pH (7.35-7.45) ABG pO2 (83-108) mmHg ABG O2 Saturation (94-97) % ABG Hematocrit (34.0-46.0) % BUN 35 H (9-20) mg/dL Creatinine 1.40 H (0.66-1.25) mg/dL Glucose 193 H (74-99) mg/dL POC Glucose (mg/dL) 208 H 161 H (75-99) mg/dL AST 12 L (17-59) U/L Total Protein 5.6 L (6.3-8.2) g/dL Albumin 2.9 L (3.5-5.0) g/dL Assessment and Plan Plan: 1 multivessel coronary artery disease, and the patient is status post three- vessel bypass surgery number postop day #4 2 hypoxic respiratory failure, expected, due to postoperative atelectatic changes and effusion the lung bases bilaterally. The patient has a mediastinal and the pleural chest tube and output is minimal at 10 mL an hour. Hemodynamically stable. On the patient is postop day #2. The patient is doing well on 2 L of oxygen by nasal cannula. Chest tube will be kept in place. Today chest x-ray was noted. The patient is doing aggressive pulmonary toileting and using incentive spirometer. On 06/23/2016 the patient is postop day #3. The chest tube will be removed. He is on room air oxygen and pulse oxing above 90%. Hemodynamically stable. I' m inclined to this patient out of the intensive care unit if the surgical team is agreeable. On 06/24/2016, patient is postoperative day #4, continues to do relatively well, chest x-ray showed minimal atelectasis and small left pleural effusion, hence Lasix was given 1 dose only. Renal profile was reviewed. Patient is ambulating , and we'll continue bronchodilators for his underlying COPD as well as incentive spirometry. 3 COPD mild with an FEV1 of 70% of predicted 4 chronic renal failure 5 diabetes mellitus, currently on insulin drip for blood sugar control 6 hypertension , currently under better control 7 congestion heart failure with ejection fraction of 35-40%, adequate cardiac index at 3.6 postop and currently the [place] catheter has been removed 8 chronic smoker, quit smoking approximately a week ago 9 peripheral vascular disease 10 peripheral neuropathy 11 hyperlipidemia 12 postoperative anemia, hemoglobin stable at 7.6 Recommendation: Continue present treatment plan, continue ablation, intermittent diuresis, bronchodilators, incentive spirometry. We'll continue to follow. Time with Patient: Less than 30
--- NOTE | 2016-06-24 13:21 | P.PN ---
Subjective Principal diagnosis: Non-Q-wave GA This is a 55-year-old gentleman who follows with Dr. Aguirre in the office. He presented to the hospital with a non-Q-wave myocardial infarction. Patient underwent coronary artery bypass grafting surgery. He is now being followed on the telemetry unit. Blood pressure 124/50 with a heart rate in the 90s. 96% on room air. Patient states that he gets diaphoretic after taking his medications. The pressure and heart rate have remained stable. He has been encouraged to work on his incentive spirometry and increase ambulation. Objective - Vital Signs Vital signs: Vital Signs Temp 98.6 F 06/24/16 08:00 Pulse 94 06/24/16 08:00 Resp 16 06/24/16 08:00 BP 124/56 06/24/16 08:00 Pulse Ox 96 06/24/16 08:00 Intake & Output 06/23/16 06/24/16 06/24/16 18:59 06:59 18:59 Intake Total 276 300 Output Total 520 Balance -244 300 Weight 116.8 kg 116.8 kg Intake: IV 6 PRESSURE BAG 6 Intake, IV Titration 30 Amount Lactated Ringers 1,000 ml 30 @ 20 mls/hr IV .Q24H JAY Rx#:[id number] Oral 240 300 Output: Chest Tube Drainage 20 Left Pleural/Mediastinal 20 Urine 500 Stool 0 Other: Voiding Method Toilet Toilet # Voids 1 ABP, PAP, CO, CI - Last Documented Arterial Blood Pressure 122/49 Pulmonary Artery Pressure 36/18 Cardiac Output 8 Cardiac Index 3.5 - Exam PHYSICAL EXAMINATION: HEENT: Head is atraumatic, normocephalic. Pupils equal, round. Neck is supple. There is no elevated jugular venous pressure. HEART EXAMINATION: Heart S1, S2 normal. No murmur or gallop heard. CHEST EXAMINATION: Lungs reveal crackles to bilateral bases. ABDOMEN: Soft, nontender. Bowel sounds are heard. No organomegaly noted. EXTREMITIES: 2+ peripheral pulses with trace evidence of peripheral edema and no calf tenderness noted. NEUROLOGIC patient is awake, alert and oriented -3. . - Labs CBC & Chem 7: 06/24/16 06:06 06/24/16 06:06 Labs: Abnormal Lab Results - Last 24 Hours (Table) 06/20/16 06/20/16 06/20/16 Range/Units 10:25 12:00 12:29 RBC (4.30-5.90) m/uL Hgb (13.0-17.5) gm/dL Hct (39.0-53.0) % Lymphocytes # (1.0-4.8) k/uL ABG pH 7.33 L 7.34 L (7.35-7.45) ABG pO2 332 H 412 H 210 H (83-108) mmHg ABG O2 Saturation 99.9 H 100.0 H 99.7 H (94-97) % ABG Hematocrit 24 L 24 L 24 L (34.0-46.0) % BUN (9-20) mg/dL Creatinine (0.66-1.25) mg/dL Glucose (74-99) mg/dL POC Glucose (mg/dL) (75-99) mg/dL AST (17-59) U/L Total Protein (6.3-8.2) g/dL Albumin (3.5-5.0) g/dL 06/20/16 06/20/16 06/23/16 Range/Units 13:04 13:53 16:52 RBC (4.30-5.90) m/uL Hgb (13.0-17.5) gm/dL Hct (39.0-53.0) % Lymphocytes # (1.0-4.8) k/uL ABG pH (7.35-7.45) ABG pO2 247 H 236 H (83-108) mmHg ABG O2 Saturation 99.8 H 99.8 H (94-97) % ABG Hematocrit 21 L 20 L* (34.0-46.0) % BUN (9-20) mg/dL Creatinine (0.66-1.25) mg/dL Glucose (74-99) mg/dL POC Glucose (mg/dL) 136 H (75-99) mg/dL AST (17-59) U/L Total Protein (6.3-8.2) g/dL Albumin (3.5-5.0) g/dL 06/23/16 06/24/16 06/24/16 Range/Units 21:09 02:56 06:06 RBC 2.43 L (4.30-5.90) m/uL Hgb 7.6 L (13.0-17.5) gm/dL Hct 22.3 L (39.0-53.0) % Lymphocytes # 0.9 L (1.0-4.8) k/uL ABG pH (7.35-7.45) ABG pO2 (83-108) mmHg ABG O2 Saturation (94-97) % ABG Hematocrit (34.0-46.0) % BUN (9-20) mg/dL Creatinine (0.66-1.25) mg/dL Glucose (74-99) mg/dL POC Glucose (mg/dL) 185 H 267 H (75-99) mg/dL AST (17-59) U/L Total Protein (6.3-8.2) g/dL Albumin (3.5-5.0) g/dL 06/24/16 06/24/16 06/24/16 Range/Units 06:06 06:20 11:34 RBC (4.30-5.90) m/uL Hgb (13.0-17.5) gm/dL Hct (39.0-53.0) % Lymphocytes # (1.0-4.8) k/uL ABG pH (7.35-7.45) ABG pO2 (83-108) mmHg ABG O2 Saturation (94-97) % ABG Hematocrit (34.0-46.0) % BUN 35 H (9-20) mg/dL Creatinine 1.40 H (0.66-1.25) mg/dL Glucose 193 H (74-99) mg/dL POC Glucose (mg/dL) 208 H 161 H (75-99) mg/dL AST 12 L (17-59) U/L Total Protein 5.6 L (6.3-8.2) g/dL Albumin 2.9 L (3.5-5.0) g/dL Assessment and Plan (1) CAD (coronary artery disease) Status: Acute (2) Diabetes Status: Acute (3) HTN (hypertension) Status: Acute (4) Hyperlipidemia Status: Acute (5) NSTEMI (non-ST elevated myocardial infarction) Status: Acute (6) S/P CABG (coronary artery bypass graft) Status: Acute Plan: From cardiology's perspective, we will continue the current medications this patient is on. The patient has been encouraged regarding the use of his incentive spirometry, he's also been encouraged to be up ambulating. Chest x- ray performed today revealed stable bilateral consolidation and small effusions. DNP note has been reviewed, I agree with a documented findings and plan of care. Patient was seen and examined.
[2016-06-24 16:10] LABS: Glucose,Whole Blood 159 mg/dL (75-99)
[2016-06-24] MEDS ORDERED: INSULIN DETEMIR 100 UNIT/ML 10 ML VIAL SQ SCH (21:00)
[2016-06-24 21:02] LABS: Glucose,Whole Blood 197 mg/dL (75-99)
[2016-06-24] MEDS: SENNOSIDES-DOCUSATE SODIUM 1 EACH TAB PO SCH (21:15)
--- NOTE | 2016-06-24 22:07 | PN ---
SUBJECTIVE/INTERVAL HISTORY: The patient is a 55-year-old gentleman who was admitted to the hospital with chest pain secondary to an NSTEMI. Patient underwent CABG x3. He is currently postoperative day 4. Patient is off oxygen. Denies having any chest pain, difficulty in breathing, nausea, vomiting. Patient is able to ambulate without any difficulty. OBJECTIVE DATA: Vitals include heart rate of 94, blood pressure 124/56. Saturating 96% on room air. GENERAL APPEARANCE: Alert, oriented x3, in no distress. HEAD: Atraumatic, normocephalic. Pupils are equal, round and reactive to light and accommodation. CHEST: Bandage over the surgical site. Regular rate and rhythm. No murmurs appreciated. LUNGS: Diminished breath sounds at the bases. No rhonchi or wheezing or crackles. ABDOMEN: Soft, nontender. No organomegaly. LOWER EXTREMITIES: One plus edema. Nontender to palpation. NEURO: No focal motor or sensory deficits noted. Labs were reviewed, including sodium 137, potassium 4.1, chloride 105, bicarb 23. BUN 35, creatinine 1.40. ASSESSMENT AND PLAN: 1. Coronary artery disease, status post coronary artery bypass graft x3. 2. Diabetes mellitus, type 2, poorly controlled. 3. Acute on chronic kidney disease with a baseline creatinine of 0.91. 4. History of chronic obstructive pulmonary disease that is stable. 5. Hypertension that is stable. 6. Sinus tachycardia that is appropriately stable. 7. Anemia due to recent blood loss as expected from surgery. PLAN: Continue ongoing care and encourage incentive spirometry, encourage ambulation. Patient's Levemir will be increased to 45 units. Continue NovoLog 10 t.i.d. The patient should be on insulin on discharge. This was discussed with the patient and the CT Surgery nurse practitioner.
[2016-06-25 02:34] LABS: Glucose,Whole Blood 229 mg/dL (75-99)
[2016-06-25 06:34] LABS: INR 0.9 (<1.1); Prothrombin Time 9.3 sec (9.0-12.0)
[2016-06-25 06:35] LABS: Basophils % (A) 0 %; CH 31.8; Eosinophils # (A) 0.2 k/uL (0-0.7); Eosinophils % (A) 4 %; HCT 22.6 % (39.0-53.0); HDW 3.24; HGB 7.7 gm/dL (13.0-17.5); Luc % (Auto) 4; Lymphocytes # (A) 1.2 k/uL (1.0-4.8); Lymphocytes % (A) 21 %; MCH 31.2 pg (25.0-35.0); MCHC 34.2 g/dL (31.0-37.0); MCV 91.2 fL (80.0-100.0); Monocytes # (A) 0.4 k/uL (0-1.0); Monocytes % (A) 6 %; Neutrophils # (A) 3.7 k/uL (1.3-7.7); Neutrophils % (A) 65 %; RBC 2.48 m/uL (4.30-5.90); RDW 13.1 % (11.5-15.5); WBC 5.7 k/uL (3.8-10.6); WBC (Perox) 5.81
[2016-06-25 06:38] LABS: Glucose,Whole Blood 211 mg/dL (75-99)
[2016-06-25 06:47] LABS: ALT 26 U/L (21-72); AST 11 U/L (17-59); Alkaline Phosphatase 64 U/L (38-126); Anion Gap 11 mmol/L; Blood Urea Nitrogen 33 mg/dL (9-20); Calcium 8.9 mg/dL (8.4-10.2); Carbon Dioxide 23 mmol/L (22-30); Chloride 104 mmol/L (98-107); Glucose 193 mg/dL (74-99); Magnesium 2.1 mg/dL (1.6-2.3); Non-African American GFR(MDRD) 52 (>60 ml/min/1.73 sqM); Potassium 3.9 mmol/L (3.5-5.1); Sodium 138 mmol/L (137-145); Total Bilirubin 0.4 mg/dL (0.2-1.3); Total Protein 5.6 g/dL (6.3-8.2)
[2016-06-25] MEDS: INSULIN LISPRO (humaLOG) 300 UNIT/3 ML VIAL SQ SCH ×4 (06:52→12:27)
[2016-06-25] MEDS: HEPARIN SODIUM,PORCINE 5,000 UNIT/ML 1 ML VIAL SQ SCH (06:52)
[2016-06-25] MEDS: PANTOPRAZOLE 40 MG TABLET PO SCH (07:10)
[2016-06-25] MEDS: IPRATROPIUM-ALBUTEROL 3 ML NEB INHALATION SCH ×3 (09:17→16:19)
[2016-06-25] MEDS: ASPIRIN 325 MG TAB PO SCH (09:36)
[2016-06-25] MEDS: CLOPIDOGREL 75 MG TAB PO SCH (09:36)
[2016-06-25] MEDS: GABAPENTIN 300 MG CAP PO SCH (09:36)
[2016-06-25] MEDS: METOPROLOL TARTRATE 50 MG TAB PO SCH (09:36)
[2016-06-25] MEDS: ATORVASTATIN 40 MG TAB PO SCH (09:36)
[2016-06-25 11:25] LABS: Glucose,Whole Blood 215 mg/dL (75-99)
[2016-06-25 11:40] VITALS: TEMP 96.8
[2016-06-25 12:26] VITALS: BP 122/65; PULSE 88
--- NOTE | 2016-06-25 14:13 | P.PN ---
Subjective Principal diagnosis: Status post CABG 55-year-old male patient, I was asked to see for a preoperative pulmonary evaluation as the patient is suspected to go for cardiac/coronary bypass surgery in the morning. This patient is known to have coronary artery disease and he has had multiple coronary interventions and stenting in the past. The patient developed significant restenosis following multivessel PCI and he was advised to see Dr. Gonzalez on an outpatient basis for cardiac surgery. Meanwhile , the patient came into the hospital with chest pressure and angina and he developed an acute non-ST segment elevation myocardial infarction and an urgent surgical consultation was requested. The patient has significant coronary artery disease and please refer to the details of the cardiac catheterization for further results. Currently is on IV heparin. His emanating in the hallway. 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 He is also a active smoker and he quit smoking approximately a week ago. Denies having any cough or sputum production. No wheezing. A bedside spirometry was done and his FEV1 is noted of 73% of predicted. No stare bronchial asthma. No previous history of DVT or Aneta embolism. X-ray that was done showed cardiomegaly and some mild changes of CHF. No evidence of any acute pneumonia or lesions. His echocardiogram showed a impaired LV function with an ejection fraction of 35-40% and the patient has inferolateral hypokinesis and there is mild aortic valve sclerosis and a right ventricular systolic pressure measured to be 26. On 06/20/2016, the patient is being seen postop following coronary artery bypass surgery. The patient underwent 3-vessel bypass surgery. Currently is postop day #0. I discussed the case with Dr. Gonzalez. Intraoperatively the patient was having low urine output and he was started on low-dose dopamine to augment his urine output. The patient was also brought to the intensive care unit on a combination of nitroglycerin drip and cleviprex drip for blood pressure control. He was initially on assist control mode and the postoperative chest x-ray showed cardiomegaly with some patchy bibasilar atelectatic changes and all of the tubes were in good location including the ET tube, they mediastinal and the left pleural chest tube and the Harvey-Oracio catheter. The blood gases showed a pH of 7.36 with a pCO2 of 41 and pO2 of 185 and this was done on assist-control mode with a tidal volume of 600, rate of 16 , FiO2 of 100% and a PEEP of 5. Hemodynamically, the patient is on a combination of nitroglycerin and Clevidipine for blood pressure control.The chest tubes are in place and estimated operative of the chest tube has been around 233 ML's of bloody effusion since the patient arrived from the operating room. Urine output since his arrival has been around 500 mL as being collected in the urine bag. The patient's cardiac output was 13.6 and an index was 6.The patient is currently in the process of being weaned off FiO2 and wants to the chair reasonable oxygenation we will stop the sedation and assess patient's weaning parameters. I anticipate extubation within the next few hours at least. On 06/21/2016, the patient is postop day #1. The patient was weaned off the mechanical ventilator and the patient was extubated without any major difficulties. This morning the patient on the 50% Ventimask. His chest x-ray showing atelectatic changes small effusion the lung bases bilaterally. The patient has still a mediastinal and the left pleural chest tube and output from the chest tubes have been 10 mL an hour collectively. The patient is using incentive spirometer and is pulling approximately 750 mL. The patient is hemodynamically stable. The asthma all drip and the nitroglycerin drip has been discontinued and the patient is currently on a clevidipine drip at 2 mg an hour. His cardiac index is at 3.5. He is producing adequate urine output and his urine output is around 60 mL an hour. No nausea. No vomiting. No active chest pain and his sternum stable clean and intact. No other significant events overnight. He is fully awake and alert and following commands and answering questions appropriately. Hemoglobin dropped down to 8.2 and this is stable for now On 06/22/2016 patient is postop day #2. He is doing well and he was weaned off the nonrebreather patient is currently on 2 L of oxygen by nasal cannula. He is sitting up on a chair. He is not having any major stroke difficulties. He is calm and comfortable. Today's chest x-ray shows adequate positioning of the chest tubes including a mediastinal and the pleural chest tube. The patient continues to have a small left-sided pleural effusion and patchy infiltration of the lung bases/atelectasis. Hemodynamically, the patient was taken off nitroglycerin drip and clevidipine and the patient was started on metoprolol 50 mg by mouth 3 times a day. Output from the chest to his been around 10-50 mL an hour and the mediastinal and the pleural chest tubes will be kept for another 24 hours. No cardiac arrhythmias noted. Cardiac output remains decent. The patient is producing adequate amount of urine output. He is pulling approximately 8000 on his incentive spirometer. He remains on insulin drip for blood sugar control. No other significant events over the past 24 hours and the patient's subsequent hemoglobin is down to 7.3, no plans for a transfusion. Creatinine is up to 1.6. On 06/23/2016, the patient is postop day #3. The patient is doing extremely well. The chest tubes were all removed today. Chest x-ray shows some atelectatic changes small effusion the lung bases nevertheless the patient has been on room air oxygen. He is ambulating. He is off antihypertensive medication is back on his metoprolol. No fever. Surgical wound sites are all clean. He is using incentive spirometer. On 06/24/2016, patient is postoperative day #4. Continues to have some shortness of breath with activity, intermittent episodes of diaphoresis. No chest pain, no shortness of breath at rest, chest x-ray showed some atelectatic changes at the bases, and a small left pleural effusion. Hemoglobin is 7.6. Electrolytes are normal BUN is 35 creatinine is 1.40. Chest x-ray was reviewed and I ordered one dose of Lasix. Patient was seen on 06/17/2016, his postoperative day #5. Feeling much better today, requesting to be discharged home, and he was made aware that the final decision upon discharge it would be left up to the surgeon on the case. Patient denies any shortness of breath no cough no wheezing. Hemoglobin today is 7.7, electrolytes were reviewed BUN is 33 creatinine is 1.4. No chest x-ray was done today. Objective - Vital Signs Vital signs: Vital Signs Temp 96.8 F L 06/25/16 08:00 Pulse 88 06/25/16 12:00 Resp 16 06/25/16 12:00 BP 122/65 06/25/16 12:00 Pulse Ox 95 06/25/16 12:00 Intake & Output 06/24/16 06/25/16 06/25/16 18:59 06:59 18:59 Intake Total 598 300 402 Output Total 0 0 0 Balance 598 300 402 Weight 116.8 kg 115.8 kg Intake: IV 0 PRESSURE BAG 0 Oral 598 300 402 Output: Stool 0 0 0 Other: Voiding Method Toilet Toilet # Voids 1 2 ABP, PAP, CO, CI - Last Documented Arterial Blood Pressure 122/49 Pulmonary Artery Pressure 36/18 Cardiac Output 8 Cardiac Index 3.5 - Exam Physical Exam: Revealed a 55-year-old white male in no distress. HEENT:[Neck is supple.] [No neck masses.] [No thyromegaly.] [No JVD.] Chest: [Diminished breath sounds at the bases no crackles or rhonchi or wheezes except minimal crackles at the left base. Cardiac Exam: [Normal S1 and S2, no S3 gallop, no murmur.] Abdomen: [Soft, nontender, no megaly, no rebound, no guarding, normal bowel sounds.] Extremities: [No clubbing, no edema, no cyanosis.] Neurological Exam: [No focal neurologic deficit.] - Labs CBC & Chem 7: 06/25/16 05:56 06/25/16 05:56 Labs: Abnormal Lab Results - Last 24 Hours (Table) 06/24/16 06/24/16 06/25/16 Range/Units 16:08 21:01 02:29 RBC (4.30-5.90) m/uL Hgb (13.0-17.5) gm/dL Hct (39.0-53.0) % BUN (9-20) mg/dL Creatinine (0.66-1.25) mg/dL Glucose (74-99) mg/dL POC Glucose (mg/dL) 159 H 197 H 229 H (75-99) mg/dL AST (17-59) U/L Total Protein (6.3-8.2) g/dL Albumin (3.5-5.0) g/dL 06/25/16 06/25/16 06/25/16 Range/Units 05:56 05:56 06:37 RBC 2.48 L (4.30-5.90) m/uL Hgb 7.7 L (13.0-17.5) gm/dL Hct 22.6 L (39.0-53.0) % BUN 33 H (9-20) mg/dL Creatinine 1.40 H (0.66-1.25) mg/dL Glucose 193 H (74-99) mg/dL POC Glucose (mg/dL) 211 H (75-99) mg/dL AST 11 L (17-59) U/L Total Protein 5.6 L (6.3-8.2) g/dL Albumin 2.9 L (3.5-5.0) g/dL 06/25/16 Range/Units 11:20 RBC (4.30-5.90) m/uL Hgb (13.0-17.5) gm/dL Hct (39.0-53.0) % BUN (9-20) mg/dL Creatinine (0.66-1.25) mg/dL Glucose (74-99) mg/dL POC Glucose (mg/dL) 215 H (75-99) mg/dL AST (17-59) U/L Total Protein (6.3-8.2) g/dL Albumin (3.5-5.0) g/dL Assessment and Plan Plan: 1 multivessel coronary artery disease, and the patient is status post three- vessel bypass surgery number postop day # 5 2 hypoxic respiratory failure, expected, due to postoperative atelectatic changes and effusion the lung bases bilaterally. On the patient is postop day #2. The patient is doing well on 2 L of oxygen by nasal cannula. Chest tube will be kept in place. Today chest x-ray was noted. The patient is doing aggressive pulmonary toileting and using incentive spirometer. On 06/23/2016 the patient is postop day #3. The chest tube will be removed. He is on room air oxygen and pulse oxing above 90%. Hemodynamically stable. I' m inclined to this patient out of the intensive care unit if the surgical team is agreeable. On 06/24/2016, patient is postoperative day #4, continues to do relatively well, chest x-ray showed minimal atelectasis and small left pleural effusion, hence Lasix was given 1 dose only. Renal profile was reviewed. Patient is ambulating , and we'll continue bronchodilators for his underlying COPD as well as incentive spirometry. On 06/25/2016, patient is postoperative day #5, doing well, requesting to be discharged home, patient will be cleared from our perspective, but the final decision will have to be done by the surgeon on the case. Patient can follow- up with us on outpatient basis of discharge home today. 3 COPD mild with an FEV1 of 70% of predicted 4 chronic renal failure 5 diabetes mellitus, currently on insulin drip for blood sugar control 6 hypertension , currently under better control 7 congestion heart failure with ejection fraction of 35-40%, adequate cardiac index at 3.6 postop and currently the Harvey-Oracio catheter has been removed 8 chronic smoker, quit smoking approximately a week ago 9 peripheral vascular disease 10 peripheral neuropathy 11 hyperlipidemia 12 postoperative anemia, hemoglobin stable at 7.7 Recommendation: Continue present treatment plan, continue ablation, intermittent diuresis, bronchodilators, incentive spirometry. We'll continue to follow. Time with Patient: Less than 30
--- NOTE | 2016-06-25 14:24 | P.PN ---
Subjective Principal diagnosis: NSTEMI, S/P recent heart catheterization w/ stenting POD #5 off-pump coronary artery bypass grafting 3 with left internal mammary artery graft to LAD and saphenous vein grafts to first obtuse marginal and posterior descending coronary artery, intraoperative transesophageal echocardiogram, epi-aortic scanning Patient currently sitting up in the chair in no apparent distress. Anxious to go home. Objective - Vital Signs Vital signs: Vital Signs Temp 97.1 F L 06/25/16 04:00 Pulse 92 06/25/16 04:00 Resp 16 06/25/16 04:00 BP 138/71 06/25/16 04:00 Pulse Ox 97 06/25/16 04:00 Intake & Output 06/24/16 06/25/16 06/25/16 18:59 06:59 18:59 Intake Total 598 300 Output Total 0 0 Balance 598 300 Weight 116.8 kg 115.8 kg Intake: IV 0 PRESSURE BAG 0 Oral 598 300 Output: Stool 0 0 Other: Voiding Method Toilet # Voids 1 2 ABP, PAP, CO, CI - Last Documented Arterial Blood Pressure 122/49 Pulmonary Artery Pressure 36/18 Cardiac Output 8 Cardiac Index 3.5 - Constitutional General appearance: Present: cooperative, no acute distress - Respiratory Details: Lungs sounds diminished bilaterally. Respirations even, nonlabored. Currently on 2 L nasal cannula. Able to achieve 1750 mL on his incentive spirometry. - Cardiovascular Details: S1, S2 present. Regular rate and rhythm, normal sinus rhythm on telemetry. Chest stable. Heart hugger in place with patient demonstrating appropriate use. Trace bilateral lower extremity edema present. Teds, SCDs present. - Gastrointestinal Gastrointestinal Comment(s): Abdomen soft, nontender, nondistended. Active bowel sounds 4 quadrants. No bowel movement since surgery. Tolerating diet. - Genitourinary Genitourinary Comment(s): Continues to void clear, yellow urine per urinal. - Integumentary Integumentary Comment(s): Anterior chest incision covered with dry intact silver dressing. Left lower extremity EVH site well approximated. - Musculoskeletal Musculoskeletal: Present: gait normal - Psychiatric Psychiatric: Present: A&O x's 3, appropriate affect, intact judgment & insight - Allied health notes Allied health notes reviewed: case management - Labs CBC & Chem 7: 06/25/16 05:56 06/25/16 05:56 Labs: Abnormal Lab Results - Last 24 Hours (Table) 06/20/16 06/20/16 06/20/16 Range/Units 10:25 12:00 12:29 RBC (4.30-5.90) m/uL Hgb (13.0-17.5) gm/dL Hct (39.0-53.0) % ABG pH 7.33 L 7.34 L (7.35-7.45) ABG pO2 332 H 412 H 210 H (83-108) mmHg ABG O2 Saturation 99.9 H 100.0 H 99.7 H (94-97) % ABG Hematocrit 24 L 24 L 24 L (34.0-46.0) % BUN (9-20) mg/dL Creatinine (0.66-1.25) mg/dL Glucose (74-99) mg/dL POC Glucose (mg/dL) (75-99) mg/dL AST (17-59) U/L Total Protein (6.3-8.2) g/dL Albumin (3.5-5.0) g/dL 06/20/16 06/20/16 06/24/16 Range/Units 13:04 13:53 11:34 RBC (4.30-5.90) m/uL Hgb (13.0-17.5) gm/dL Hct (39.0-53.0) % ABG pH (7.35-7.45) ABG pO2 247 H 236 H (83-108) mmHg ABG O2 Saturation 99.8 H 99.8 H (94-97) % ABG Hematocrit 21 L 20 L* (34.0-46.0) % BUN (9-20) mg/dL Creatinine (0.66-1.25) mg/dL Glucose (74-99) mg/dL POC Glucose (mg/dL) 161 H (75-99) mg/dL AST (17-59) U/L Total Protein (6.3-8.2) g/dL Albumin (3.5-5.0) g/dL 06/24/16 06/24/16 06/25/16 Range/Units 16:08 21:01 02:29 RBC (4.30-5.90) m/uL Hgb (13.0-17.5) gm/dL Hct (39.0-53.0) % ABG pH (7.35-7.45) ABG pO2 (83-108) mmHg ABG O2 Saturation (94-97) % ABG Hematocrit (34.0-46.0) % BUN (9-20) mg/dL Creatinine (0.66-1.25) mg/dL Glucose (74-99) mg/dL POC Glucose (mg/dL) 159 H 197 H 229 H (75-99) mg/dL AST (17-59) U/L Total Protein (6.3-8.2) g/dL Albumin (3.5-5.0) g/dL 06/25/16 06/25/16 06/25/16 Range/Units 05:56 05:56 06:37 RBC 2.48 L (4.30-5.90) m/uL Hgb 7.7 L (13.0-17.5) gm/dL Hct 22.6 L (39.0-53.0) % ABG pH (7.35-7.45) ABG pO2 (83-108) mmHg ABG O2 Saturation (94-97) % ABG Hematocrit (34.0-46.0) % BUN 33 H (9-20) mg/dL Creatinine 1.40 H (0.66-1.25) mg/dL Glucose 193 H (74-99) mg/dL POC Glucose (mg/dL) 211 H (75-99) mg/dL AST 11 L (17-59) U/L Total Protein 5.6 L (6.3-8.2) g/dL Albumin 2.9 L (3.5-5.0) g/dL Assessment and Plan (1) NSTEMI (non-ST elevated myocardial infarction) Status: Acute (2) CAD (coronary artery disease) Status: Acute (3) HTN (hypertension) Status: Acute (4) Hyperlipidemia Status: Acute (5) Diabetes Status: Acute Plan: 1. Cont ASA, lipitor, BB, Plavix. Lisinopril discontinued per cardiology secondary to renal function. 2. Will restart VALENTINO inhibitor when appropriate. 3. Increase activity, out of bed most of the day, ambulate in hallway. PT to follow 4. Tight blood sugar control per primary service. Will DC on insulin 5. Constipation, discussed with primary RN need for milk of mag. 6. Pain control with ordered medications. 7. Xanax ordered when necessary for patient's high anxiety. 8. Continue to encourage smoking cessation. 9. GI/DVT prophylaxis. 10. Anticipate discharge today if pt has BM. Time with Patient: Greater than 30
--- NOTE | 2016-06-25 15:07 | P.PN ---
Subjective Principal diagnosis: Non-Q-wave AR This is a 55-year-old gentleman who follows with Dr. Aguirre in the office. He presented to the hospital with a non-Q-wave myocardial infarction. Patient underwent coronary artery bypass grafting surgery. He is now being followed on the telemetry unit. Blood pressure 122/60 with a heart rate in the 80s. 98% on room air. He's been up ambulating in the hallway without any difficulty. Eager to be discharged home today. Objective - Vital Signs Vital signs: Vital Signs Temp 96.8 F L 06/25/16 08:00 Pulse 88 06/25/16 12:00 Resp 16 06/25/16 12:00 BP 122/65 06/25/16 12:00 Pulse Ox 95 06/25/16 12:00 Intake & Output 06/24/16 06/25/16 06/25/16 18:59 06:59 18:59 Intake Total 598 300 402 Output Total 0 0 0 Balance 598 300 402 Weight 116.8 kg 115.8 kg Intake: IV 0 PRESSURE BAG 0 Oral 598 300 402 Output: Stool 0 0 0 Other: Voiding Method Toilet Toilet # Voids 1 2 ABP, PAP, CO, CI - Last Documented Arterial Blood Pressure 122/49 Pulmonary Artery Pressure 36/18 Cardiac Output 8 Cardiac Index 3.5 - Exam PHYSICAL EXAMINATION: HEENT: Head is atraumatic, normocephalic. Pupils equal, round. Neck is supple. There is no elevated jugular venous pressure. HEART EXAMINATION: Heart S1, S2 normal. No murmur or gallop heard. CHEST EXAMINATION: Lungs reveal crackles to bilateral bases. ABDOMEN: Soft, nontender. Bowel sounds are heard. No organomegaly noted. EXTREMITIES: 2+ peripheral pulses with trace evidence of peripheral edema and no calf tenderness noted. NEUROLOGIC patient is awake, alert and oriented -3. . - Labs CBC & Chem 7: 06/25/16 05:56 06/25/16 05:56 Labs: Abnormal Lab Results - Last 24 Hours (Table) 06/24/16 06/24/16 06/25/16 Range/Units 16:08 21:01 02:29 RBC (4.30-5.90) m/uL Hgb (13.0-17.5) gm/dL Hct (39.0-53.0) % BUN (9-20) mg/dL Creatinine (0.66-1.25) mg/dL Glucose (74-99) mg/dL POC Glucose (mg/dL) 159 H 197 H 229 H (75-99) mg/dL AST (17-59) U/L Total Protein (6.3-8.2) g/dL Albumin (3.5-5.0) g/dL 06/25/16 06/25/16 06/25/16 Range/Units 05:56 05:56 06:37 RBC 2.48 L (4.30-5.90) m/uL Hgb 7.7 L (13.0-17.5) gm/dL Hct 22.6 L (39.0-53.0) % BUN 33 H (9-20) mg/dL Creatinine 1.40 H (0.66-1.25) mg/dL Glucose 193 H (74-99) mg/dL POC Glucose (mg/dL) 211 H (75-99) mg/dL AST 11 L (17-59) U/L Total Protein 5.6 L (6.3-8.2) g/dL Albumin 2.9 L (3.5-5.0) g/dL 06/25/16 Range/Units 11:20 RBC (4.30-5.90) m/uL Hgb (13.0-17.5) gm/dL Hct (39.0-53.0) % BUN (9-20) mg/dL Creatinine (0.66-1.25) mg/dL Glucose (74-99) mg/dL POC Glucose (mg/dL) 215 H (75-99) mg/dL AST (17-59) U/L Total Protein (6.3-8.2) g/dL Albumin (3.5-5.0) g/dL Assessment and Plan (1) CAD (coronary artery disease) Status: Acute (2) Diabetes Status: Acute (3) HTN (hypertension) Status: Acute (4) Hyperlipidemia Status: Acute (5) NSTEMI (non-ST elevated myocardial infarction) Status: Acute (6) S/P CABG (coronary artery bypass graft) Status: Acute Plan: From cardiology's perspective, we will continue the current medications this patient is on. Arrangements are made made for discharge home today. A follow- up appointment in 2 weeks post discharge. DNP note has been reviewed, I agree with a documented findings and plan of care. Patient was seen and examined.
--- NOTE | 2016-06-25 16:56 | P.PN ---
Subjective Date of service 06/25/2016. Progress note being dictated for Dr. Ferguson. Interval history: This 55-year-old gentleman admitted with non-Q-wave MN, status post CABG, poorly controlled diabetes mellitus, acute on chronic renal failure and multiple other medical issues. Levemir increased yesterday, with blood sugars slow to improve. Positive diet intake without nausea or vomiting. Ambulating in hallway, tolerating increase in exertion well. Incentive spirometer up to 1500 to 2000. Telemetry sinus rhythm. Denies chest pain, palpitations or increasing shortness of breath. Objective - Vital Signs Vital signs: Vital Signs Temp 96.8 F L 06/25/16 08:00 Pulse 88 06/25/16 12:00 Resp 16 06/25/16 12:00 BP 122/65 06/25/16 12:00 Pulse Ox 95 06/25/16 12:00 Intake & Output 06/24/16 06/25/16 06/25/16 18:59 06:59 18:59 Intake Total 598 300 402 Output Total 0 0 0 Balance 598 300 402 Weight 116.8 kg 115.8 kg Intake: IV 0 PRESSURE BAG 0 Oral 598 300 402 Output: Stool 0 0 0 Other: Voiding Method Toilet Toilet # Voids 1 2 ABP, PAP, CO, CI - Last Documented Arterial Blood Pressure 122/49 Pulmonary Artery Pressure 36/18 Cardiac Output 8 Cardiac Index 3.5 - Exam PHYSICAL EXAM: VITAL SIGNS: [As above] GENERAL: [Sitting up in chair, no acute distress] HEENT: [Pupils equal conjunctiva normal.] NECK: [Supple, no JVD] RESPIRATORY EFFORT:[Normal] LUNGS: [Diminished bilateral bases, no crackles, no rhonchi, no wheezing] CARDIOVASCULAR[regular S1 and S2, no murmur, rub or gallop, trace edema] GI: [Abdomen soft, nontender, positive bowel sounds.] PSYCH: [Alert and oriented -3, mood and affect normal.] NEURO: No focal deficits, moves all 4 extremities, strength and sensation grossly intact - Labs CBC & Chem 7: 06/25/16 05:56 06/25/16 05:56 Labs: Abnormal Lab Results - Last 24 Hours (Table) 06/24/16 06/24/16 06/25/16 Range/Units 16:08 21:01 02:29 RBC (4.30-5.90) m/uL Hgb (13.0-17.5) gm/dL Hct (39.0-53.0) % BUN (9-20) mg/dL Creatinine (0.66-1.25) mg/dL Glucose (74-99) mg/dL POC Glucose (mg/dL) 159 H 197 H 229 H (75-99) mg/dL AST (17-59) U/L Total Protein (6.3-8.2) g/dL Albumin (3.5-5.0) g/dL 06/25/16 06/25/16 06/25/16 Range/Units 05:56 05:56 06:37 RBC 2.48 L (4.30-5.90) m/uL Hgb 7.7 L (13.0-17.5) gm/dL Hct 22.6 L (39.0-53.0) % BUN 33 H (9-20) mg/dL Creatinine 1.40 H (0.66-1.25) mg/dL Glucose 193 H (74-99) mg/dL POC Glucose (mg/dL) 211 H (75-99) mg/dL AST 11 L (17-59) U/L Total Protein 5.6 L (6.3-8.2) g/dL Albumin 2.9 L (3.5-5.0) g/dL 06/25/16 Range/Units 11:20 RBC (4.30-5.90) m/uL Hgb (13.0-17.5) gm/dL Hct (39.0-53.0) % BUN (9-20) mg/dL Creatinine (0.66-1.25) mg/dL Glucose (74-99) mg/dL POC Glucose (mg/dL) 215 H (75-99) mg/dL AST (17-59) U/L Total Protein (6.3-8.2) g/dL Albumin (3.5-5.0) g/dL Assessment and Plan Plan: 1. [Acute non-STEMI ,CAD, status post CABG]. 2. [Diabetes mellitus type 2, poorly controlled, hemoglobin A1c 9.3]. 3. [Acute on chronic kidney disease with baseline creatinine of 0.91]. 4. [COPD, without acute exacerbation]. 5. [Hypertension]. 6. [Postoperative blood loss anemia as expected from surgery]. 7. [Hyperlipidemia]. Plan: Continue on current medication regime ,monitoring and symptomatic treatment. Aggressive pulmonary toileting, I S reinforced .Discussed with RN, patient cleared for discharge with increase in Levemir insulin to 48 units, sliding scale, maintain log of Accu-Cheks to be taken to follow-up appointment at PCPs office for further recommendations, welfare case worker arranging outpatient diabetes education classes and confirming diabetic supplies including glucometer. Patient is being discharged home as per cardiothoracic surgery. Follow-up with PCP in 3 days. Close monitoring of hemoglobin, renal function with outpatient repeat labs ordered. Further recommendations to follow. The impression and plan of care has been dictated as directed. : I performed a H&P examination of this patient and discussed the same with the dictator. I agree with the dictator's note. Any additional findings/opinions/ etc. will be noted.
[2016-06-25] MEDS ORDERED: INSULIN DETEMIR 100 UNIT/ML 10 ML VIAL SQ SCH (21:00)
--- NOTE | 2016-06-26 10:56 | P.VSCSTY ---
Greater Saphenous Vein Mapping This is bilateral lower extremity greater saphenous vein mapping. Date of service 06/17/2016 Vein quality and ultrasound appearance some excessive significant branching the right thigh and lower left thigh. Vein size groin right 8.7 x 8.0 groin left 8.8 x 8.3 High thigh right 5.7 x 5.9 high thigh left 6.3 x 6.0 Mid thigh right 3.8 x 3.2 mid thigh left 4.8 x 4.1 Above-knee right 3.4 x 3.0 above- knee left 4.3 x 4.5 Below knee right 2.4 x 2.3 below-knee left 3.2 x 3.2 Mid calf right 2.8 x 2.5 mid calf left to 3.1 x 2.6 Ankle right 2.3 x 1.9 ankle left 3.0 x 2.5 Impression usable bilateral greater saphenous vein. Lower legs probably a better in overall size and characteristics.
--- NOTE | 2016-06-26 10:58 | P.ARTDOP ---
Arterial Doppler LOWER EXTREMITY ARTERIAL DOPPLER: DATE OF SERVICE: 06/17/2016 Reason for study: Pre-CABG. Doppler waveforms: Multiphasic bilaterally throughout. Pulse volume recording: Normal configuration. Pressure gradients: None. Ankle-brachial indices: Greater than 1 bilaterally. Toe pressures: 91 on the right, 122 on the left Impression: Normal study.
--- NOTE | 2016-06-29 06:15 | P.DS ---
Providers Date of admission: 06/15/16 23:36 Attending physician: Dean Gonzalez Consults: 06/16/16 11:57 Consult Physician Urgent Consulting Provider: Svetlana Lozano Consult Reason/Comments: CABG JOSE GUADALUPE Do you want consulting provider notified?: Yes 06/16/16 17:51 Consult Anesthesia Routine Consulting Provider: Anesthesia,Services Consult Reason/Comments: Cardiac Surgery Pre-Op 06/17/16 16:08 Consult Anesthesia Routine Consulting Provider: Anesthesia,Services Consult Reason/Comments: Cardiac Surgery Pre-Op Consult Physician Routine Consulting Provider: Nabeel Awad Consult Reason/Comments: medical management Do you want consulting provider notified?: Already Contacted 06/19/16 08:25 Consult Physician Routine Consulting Provider: Isidra Oreilly Consult Reason/Comments: pre-op CABG for 06/20/16 Do you want consulting provider notified?: Yes Primary care physician: Vonnie Reynolds - Arsh Diagnosis(es) (1) NSTEMI (non-ST elevated myocardial infarction) Status: Acute (2) CAD (coronary artery disease) Status: Acute (3) HTN (hypertension) Status: Acute (4) Hyperlipidemia Status: Acute (5) Diabetes Status: Acute Hospital Course: FINAL DIAGNOSIS: 1.[coronary artery disease with history of coronary artery stenting to LAD, RCA , circumflex arteries] 2.[non-ST elevation myocardial infarction] 3.[hypertension] 4.[uncontrolled diabetes mellitus type 2] 5.[systolic heart failure] 6.[hyperlipidemia] 7.[GERD] PRINCIPAL PROCEDURE: [] 1.[urgent off-pump coronary artery bypass grafting x3 with left internal mammary artery graft to LAD and saphenous vein grafts to first obtuse marginal and posterior descending coronary arteries] 2.[endovascular vein harvest] 3.[epi-aortic scanning] HISTORY OF PRESENT ILLNESS: [This 55 year old male with known history of coronary artery disease and previous stenting presented to the emergency room with chest pain after strenuous activity and was diagnosed with a non-ST elevation myocardial infarction. He was taken to the cardiac catheterization lab and was found to have severe three-vessel coronary artery disease and urgent surgical revascularization was requested. Pre-operative testing was completed. An extensive discussion was had with the patient, all risks and benefits were explained, and he elected to proceed with surgery.] HOSPITAL COURSE:[This gentleman was kept inpatient secondary to the severity of his disease. On 06/20/16 he was taken to the operating room. Dr. Gonzalez performed an urgent off-pump coronary artery bypass grafting x 3 with the left internal mammary artery graft to the LAD, greater saphenous vein grafts to the first obtuse marginal and posterior descending coronary arteries, endovascular vein harvest, and epi-aortic scanning. Upon completion of surgery, the patient was subsequently transferred to the cardiovascular intensive care unit where he was recovered, monitored hemodynamically, and where he progressed to cardiac rehabilitation phase I. He was extubated, all lines, tubes, and drips were discontinued when appropriate, and he was subsequently transferred to [address] [place] [address] for further monitoring aned rehabilitation. His oxygen was titrated down, he continued to work with physical therapy, and was ready to be discharged home on post operative day #5 with [facility] to follow.] COMPLICATIONS: [The patient experienced no post operative complications.] CONSULTATIONS: 1.[Dr. Domínguez for cardiology] 2.[Dr. Oreilly for pulmonology] 3.[Dr. Awad for medical managment] DISCHARGE INSTRUCTIONS: 1. No driving for 4 weeks, or until physician gives their ok. 2. The patient should sleep in their own bed, no medical bed needed. 3. Stairs are not an issue. If the bedroom is upstairs, it is advised that the patient go up at night and down in the morning for the first week. Go slowly, using handrail and take 1 step at a time. 4. SAHRA hose are to be worn for 30 days or until physician discontinues. 5. Heart hugger is to be worn 100% of the time until physician discontinues.( except when showering) 6. No lifting, pushing, or pulling more than 10 pounds for 12 weeks. The physician will advise of any restriction changes. 7. The patient is expected to continue the prescribed walking program. 8. Continue pain control per as needed orders. 9. Continue with incentive spirometry and splinting/heart hugger until otherwise directed by the physician. 10. Must shower daily using liquid antibacterial soap and a separate white washcloth for each individual incision. 11. Please remove Silverlon chest dressing on [June 27, 2016] with routine sternal incision care thereafter. HOME HEALTH SERVICES TO PROVIDE: RN SKILLED HOME CARE SERVICES FOR POST-OP SURGICAL PATIENTS WITH THE FOLLOWING: Coronary Artery Bypass Surgery (CABG) RN TO CONTINUE EDUCATION FROM ``ROAD TO A HEALTH HEART PATIENT EDUCATION MANUAL (GIVEN TO PATIENT IN THE HOSPITAL) MEDICATION RECONCILIATION WITH EDUCATION NEEDED ON FIRST HOME VISIT EMPHASIZE IMPORTANCE OF WEARING HEART HUGGER ENCOURAGE USE OF INCENTIVE SPIROMETER 10 X EVERY HOUR WHILE AWAKE ENCOURAGE UTILIZATION OF LOWER EXTREMITY COMPRESSION STOCKINGS/SAHRA HOSE and ELEVATE LEGS ABOVE LEVEL OF HEART WHILE AT REST. ENCOURAGE AMBULATION 3-5x/day INCREASING TOLERATES, WHILE AVOID EXTREMES IN TEMPERATURE FREQUENCY: RN TO OPEN THE PATIENT WITHIN 24 HOURS OF DISCHARGE FROM THE HOSPITAL WITH [place]HE[place] [facility] [place] TO VISIT 2-3 X A WEEK FOR 4 WEEKS ESTABLISHED BY PATIENT NEEDS. REMOVAL OF SUTURES: NURSING SERVICES TO REMOVE SUTURES TWO WEEKS POST SURGICAL DATE [ July 04, 2016 ]. If any questions regarding suture removal please call the office at [phone]. LABORATORY: CBC, CMP TO BE DRAWN ON THE THIRD DAY HOME, Friday06/28/2016 (RAN STAT) FAX RESULTS TO [phone]. TELEHEALTH PARAMETERS: WEIGHT: NOTIFY MD OF WEIGHT GAIN OF 2 LBS IN 24 HOURS OR 5 LBS IN ONE WEEK HR: NOTIFY MD OF HR <55 BPM OR HR>100 BPM BP: NOTIFY MD IF BP <90/55 OR BP>140/100 O2 SAT: NOTIFY MD IF PO2<93% ON ROOM AIR SEND TELEHEALTH REPORT TO CASE MGR AND CARDIOVASCULAR SURGEON THE FIRST WEEK OF CARE AND THEN BI-WEEKLY. PLEASE ADDITIONALLY COMMUNICATE ANY ABNORMALS AND NEW FINDINGS TO THE SURGEONS OFFICE. [facility] Care Patient Condition at Discharge: Serious Plan - Discharge Summary New Discharge Prescriptions: Aspirin 325 mg PO DAILY #30 tab HYDROcodone/APAP 5-325MG [Surry 5-325] 1 - 2 each PO Q6HR PRN #60 tab PRN Reason: Moderate Pain INSULIN LISPRO (humaLOG) [humaLOG (formulary)] 10 unit SQ AC-TID 30 Days Insulin Detemir [Levemir] 48 unit SQ HS #1 vial Metoprolol Tartrate [Lopressor] 50 mg PO TID #90 tab Discharge Medication List Gabapentin [Neurontin] 300 mg PO BID 07/17/15 [History] Atorvastatin [Lipitor] 40 mg PO HS 08/02/15 [History] Clopidogrel Bisulfate [Plavix] 75 mg PO DAILY 12/05/16 [History] Aspirin 325 mg PO DAILY #30 tab 06/25/16 [Rx] HYDROcodone/APAP 5-325MG [Surry 5-325] 1 - 2 each PO Q6HR PRN #60 tab 06/25/16 [ Rx] INSULIN LISPRO (humaLOG) [humaLOG (formulary)] 10 unit SQ AC-TID 30 Days [Rx] Insulin Detemir [Levemir] 48 unit SQ HS #1 vial 06/25/16 [Rx] Metoprolol Tartrate [Lopressor] 50 mg PO TID #90 tab 06/25/16 [Rx] Sennosides-Docusate Sodium [Senokot-S] 2 each PO HS tab 06/25/16 [Rx] Follow up Appointment(s)/Referral(s): Deven Domínguez MD [STAFF PHYSICIAN] - 07/09/16 3:00 pm Dean Gonzalez MD [STAFF PHYSICIAN] - 07/22/16 1:30 pm [facility], [NON-STAFF] - Vonnie Reynolds MD [Primary Care Provider] - 3 Days Isidra Oreilly MD [STAFF PHYSICIAN] - 07/17/16 2:00 pm Ambulatory/Diagnostic Orders: Complete Blood Count w/diff [LAB.AMB] Time Frame: 3 Days, Facility: [facility], Location: [facility] Comprehensive Metabolic Panel [LAB.AMB] Time Frame: 3 Days, Facility: [facility], Location: [facility] Patient Instructions/Handouts: Coronary Artery Bypass Graft (DC) Activity/Diet/Wound Care/Special Instructions: DISCHARGE INSTRUCTIONS: 1. No driving for 4 weeks, or until physician gives their ok. 2. The patient should sleep in their own bed, no medical bed needed. 3. Stairs are not an issue. If the bedroom is upstairs, it is advised that the patient go up at night and down in the morning for the first week. Go slowly, using handrail and take 1 step at a time. 4. SAHRA hose are to be worn for 30 days or until physician discontinues. 5. Heart hugger is to be worn 100% of the time until physician discontinues.( except when showering) 6. No lifting, pushing, or pulling more than 10 pounds for 12 weeks. The physician will advise of any restriction changes. 7. The patient is expected to continue the prescribed walking program. 8. Continue pain control per as needed orders. 9. Continue with incentive spirometry and splinting/heart hugger until otherwise directed by the physician. 10. Must shower daily using liquid antibacterial soap and a separate white washcloth for each individual incision. 11. Please remove Silverlon chest dressing on [June 27, 2016] with routine sternal incision care thereafter. HOME HEALTH SERVICES TO PROVIDE: RN SKILLED HOME CARE SERVICES FOR POST-OP SURGICAL PATIENTS WITH THE FOLLOWING: Coronary Artery Bypass Surgery (CABG) RN TO CONTINUE EDUCATION FROM ``ROAD TO A HEALTH HEART PATIENT EDUCATION MANUAL (GIVEN TO PATIENT IN THE HOSPITAL) MEDICATION RECONCILIATION WITH EDUCATION NEEDED ON FIRST HOME VISIT EMPHASIZE IMPORTANCE OF WEARING HEART HUGGER ENCOURAGE USE OF INCENTIVE SPIROMETER 10 X EVERY HOUR WHILE AWAKE ENCOURAGE UTILIZATION OF LOWER EXTREMITY COMPRESSION STOCKINGS/SAHRA HOSE and ELEVATE LEGS ABOVE LEVEL OF HEART WHILE AT REST. ENCOURAGE AMBULATION 3-5x/day INCREASING TOLERATES, WHILE AVOID EXTREMES IN TEMPERATURE FREQUENCY: RN TO OPEN THE PATIENT WITHIN 24 HOURS OF DISCHARGE FROM THE HOSPITAL WITH [place]HEALTH [place] [facility] [place] TO VISIT 2-3 X A WEEK FOR 4 WEEKS ESTABLISHED BY PATIENT NEEDS. REMOVAL OF SUTURES: NURSING SERVICES TO REMOVE SUTURES TWO WEEKS POST SURGICAL DATE [ July 04, 2016 ]. If any questions regarding suture removal please call the office at [phone]. LABORATORY: CBC, CMP TO BE DRAWN ON THE THIRD DAY HOME, Friday06/28/2016 (RAN STAT) FAX RESULTS TO [phone]. TELEHEALTH PARAMETERS: WEIGHT: NOTIFY MD OF WEIGHT GAIN OF 2 LBS IN 24 HOURS OR 5 LBS IN ONE WEEK HR: NOTIFY MD OF HR <55 BPM OR HR>100 BPM BP: NOTIFY MD IF BP <90/55 OR BP>140/100 O2 SAT: NOTIFY MD IF PO2<93% ON ROOM AIR SEND TELEHEALTH REPORT TO CASE MGR AND CARDIOVASCULAR SURGEON THE FIRST WEEK OF CARE AND THEN BI-WEEKLY. PLEASE ADDITIONALLY COMMUNICATE ANY ABNORMALS AND NEW FINDINGS TO THE SURGEONS OFFICE. [facility] a[facility], maintain log, take to F/U visit with PCP for further rec. OP Diabetic Education classes Discharge Disposition: HOME WITH HOME HEALTH SERVICES
== END 2016-06-25 17:11 | disposition home health service (06) | DRG 236 ==
LOC: EC 22:21 → 6SEL 23:36 → 6ICU 06-20 07:00 → 6SEL 06-23 14:12
PROVIDERS: ADMIT Hospitalist; ATTEND Thoracic Surgery (Cardiothoracic Vascular Surgery)
PROC: 021109W Bypass Coronary Artery, Two Arteries from Aorta with Autologous Venous Tissue, Open Approach (ICD-10-PCS; principal; 2016-06-20 09:30)
PROC: 06BQ4ZZ Excision of Left Saphenous Vein, Percutaneous Endoscopic Approach (ICD-10-PCS; principal; 2016-06-20 09:30)
PROC: 02100Z9 Bypass Coronary Artery, One Artery from Left Internal Mammary, Open Approach (ICD-10-PCS; principal; 2016-06-20 09:30)
DX: I21.4 Non-ST elevation (NSTEMI) myocardial infarction (principal); E11.22 Type 2 diabetes mellitus with diabetic chronic kidney disease; I13.0 Hypertensive heart and chronic kidney disease with heart failure and stage 1 through stage 4 chronic kidney disease, or unspecified chronic kidney disease; I50.22 Chronic systolic (congestive) heart failure; D62 Acute posthemorrhagic anemia; J98.11 Atelectasis; E11.42 Type 2 diabetes mellitus with diabetic polyneuropathy; E11.65 Type 2 diabetes mellitus with hyperglycemia; I25.110 Atherosclerotic heart disease of native coronary artery with unstable angina pectoris; E78.00 Pure hypercholesterolemia, unspecified; E78.5 Hyperlipidemia, unspecified; F17.200 Nicotine dependence, unspecified, uncomplicated; I25.5 Ischemic cardiomyopathy; I34.0 Nonrheumatic mitral (valve) insufficiency; I35.8 Other nonrheumatic aortic valve disorders; N18.3 Chronic kidney disease, stage 3 (moderate); I73.9 Peripheral vascular disease, unspecified; J44.9 Chronic obstructive pulmonary disease, unspecified; J45.909 Unspecified asthma, uncomplicated; K21.9 Gastro-esophageal reflux disease without esophagitis; M19.90 Unspecified osteoarthritis, unspecified site; Z79.02 Long term (current) use of antithrombotics/antiplatelets; Z79.82 Long term (current) use of aspirin; Z87.442 Personal history of urinary calculi; Z95.5 Presence of coronary angioplasty implant and graft; Z79.899 Other long term (current) drug therapy
CPT/HCPCS: 36415; 36620; 71010; 71020; 80053; 80061; 80074; 81001; 82330; 82550; 82553; 82805; 83036; 83735; 83880; 84132; 84443; 84484; 85025; 85520; 85610; 85730; 86850; 86891; 86900; 86901; 86920; 87070; 87086; 93306; 93880; 93923; 93970; 94002; 94150; 94640; 94760; 96365; 96376; 99291

== ENCOUNTER 2016-07-02 08:31 | Emergency (ER) | payer OTHER ==
[2016-07-02] MEDS ORDERED: SODIUM CHLORIDE 0.9% 1,000 ML IV STA (09:21)
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
[2016-07-02 09:48] LABS: Basophils % (A) 1 %; CH 31.4; CHCM 35.2; Eosinophils # (A) 0.6 k/uL (0-0.7); Eosinophils % (A) 7 %; HCT 22.7 % (39.0-53.0); HDW 3.46; HGB 7.7 gm/dL (13.0-17.5); Luc # (Auto) 0.17; Luc % (Auto) 2; Lymphocytes # (A) 1.3 k/uL (1.0-4.8); Lymphocytes % (A) 14 %; MCH 30.6 pg (25.0-35.0); MCHC 34.1 g/dL (31.0-37.0); MCV 89.7 fL (80.0-100.0); Mean Platelet Volume 7.6; Monocytes # (A) 0.4 k/uL (0-1.0); Monocytes % (A) 4 %; Neutrophils # (A) 6.5 k/uL (1.3-7.7); Neutrophils % (A) 72 %; Poikilocytosis Slight; RBC 2.53 m/uL (4.30-5.90); RDW 13.3 % (11.5-15.5); WBC (Perox) 8.96
--- NOTE | 2016-07-02 09:54 | XR ---
EXAMINATION TYPE: XR chest 2V DATE OF EXAM: 07/02/2016 9:48 AM COMPARISON: Prior chest x-ray June 24, 2016. HISTORY: Weakness after CABG procedure June 20, 2016. TECHNIQUE: Frontal and lateral views of the chest are obtained. FINDINGS: Post CABG changes with mediastinal clips and sternal wires is redemonstrated. There is pers istent cardiomegaly. There is no suspicious focal airspace opacity or pneumothorax seen bilaterally. Tiny bilateral pleural effusions are redemonstrated with blunting of posterior costophrenic angles. The osseous structures are intact. IMPRESSION: Cardiomegaly with tiny bilateral pleural effusions, no suspicious focal infiltrate is se en.
[2016-07-02 10:00] LABS: ALT 24 U/L (21-72); AST 11 U/L (17-59); Alkaline Phosphatase 79 U/L (38-126); Anion Gap 9 mmol/L; Blood Urea Nitrogen 26 mg/dL (9-20); Calcium 9.2 mg/dL (8.4-10.2); Carbon Dioxide 25 mmol/L (22-30); Chloride 105 mmol/L (98-107); Glucose 202 mg/dL (74-99); Non-African American GFR(MDRD) 59 (>60 ml/min/1.73 sqM); Sodium 139 mmol/L (137-145); Total Bilirubin 0.3 mg/dL (0.2-1.3); Total Protein 6.1 g/dL (6.3-8.2)
[2016-07-02 10:17] LABS: Creatine Kinase 24 U/L (55-170)
[2016-07-02 10:24] LABS: Partial Thromboplastin Time 19.5 sec (22.0-30.0)
[2016-07-02 10:28] LABS: Creatine Kinase MB 0.3 ng/mL (0.0-2.4); Troponin I <0.012 ng/mL (0.000-0.034)
[2016-07-02 10:48] VITALS: TEMP 97.1
[2016-07-02] MEDS ORDERED: ACETAMINOPHEN TAB 500 MG TAB PO STA (11:53)
[2016-07-02 12:50] VITALS: BP 121/76; PULSE 89; RESP 16
== END 2016-07-02 12:50 | disposition home or self-care (01) ==
LOC: EC 08:31
DX: D64.9 Anemia, unspecified (principal); I25.10 Atherosclerotic heart disease of native coronary artery without angina pectoris; E11.9 Type 2 diabetes mellitus without complications; I50.9 Heart failure, unspecified; I10 Essential (primary) hypertension; E78.5 Hyperlipidemia, unspecified; M19.90 Unspecified osteoarthritis, unspecified site; Z87.891 Personal history of nicotine dependence; Z79.899 Other long term (current) drug therapy; Z79.02 Long term (current) use of antithrombotics/antiplatelets; Z95.5 Presence of coronary angioplasty implant and graft
CPT/HCPCS: 36415; 71020; 80053; 82550; 82553; 83735; 84484; 85025; 85610; 85730; 86850; 86900; 86901; 93005; 96360; 96361; 99285

== ENCOUNTER → 2016-10-31 | Outpatient (CLI) | payer OTHER ==
[2016-10-31 10:53] LABS: Blood Urea Nitrogen 29 mg/dL (9-20); Non-African American GFR(MDRD) >60 (>60 ml/min/1.73 sqM)
--- NOTE | 2016-10-31 11:40 | CT ---
EXAMINATION TYPE: CT chest w con DATE OF EXAM: 10/31/2016 COMPARISON: NONE HISTORY: Patient complains of chest pain and difficulty breathing. Patient had recent CABG [address] DLP: 755 mGycm Automated exposure control for dose reduction was used. CONTRAST: CT scan of the chest is performed with IV Contrast, patient injected with 100 mL of Omnipaque 300. FINDINGS: The lungs are clear. There is some shotty mediastinal lymph nodes. There is a 1.3 cm right paratracheal lymph node. There is no significant hilar adenopathy. There is mild cardiomegaly. There is no pleural or pericardial fluid. There is coronary artery and ot her vascular calcifications present. The gallbladder is been removed. Visualized portions of the upper abdomen are otherwise unremarkable. There is hypertrophic spondylosis within the spine. There has been a previous midline sternotomy. IMPRESSION: 1. NONSPECIFIC RIGHT PARATRACHEAL LYMPH NODE. 2. MILD CARDIOMEGALY. 3. CORONARY ARTERY AND OTHER VASCULAR CALCIFICATIONS. 4. STATUS POST CHOLECYSTECTOMY. 5. HYPERTROPHIC SPONDYLOSIS WITHIN THE SPINE.
== END | disposition home or self-care (01) ==
LOC: RADCTMAIN 10:06
PROVIDERS: ATTEND Thoracic Surgery (Cardiothoracic Vascular Surgery)
DX: I51.7 Cardiomegaly (principal); I25.10 Atherosclerotic heart disease of native coronary artery without angina pectoris; M47.9 Spondylosis, unspecified; Z90.49 Acquired absence of other specified parts of digestive tract; Z95.1 Presence of aortocoronary bypass graft
CPT/HCPCS: 82565; 84520; 71260; 36415; Q9967

== ENCOUNTER 2016-12-16 06:31 | Inpatient (IN) | payer OTHER ==
[2016-12-11 15:59] VITALS: BMI 34.4
[~2016-12-16 06:31] MED LIST changes: -ALPRAZolam 0.25 MG TAB PO PRN; -ALPRAZolam 0.5 MG TAB PO PRN; -ASPIRIN 325 MG TAB PO STA; -ATORVASTATIN 80 MG TAB PO STA; +DEXAMETHASONE SOD PHOSPHATE 10 MG/ML 1 ML VIAL IV ONE; +HYDROmorphone 1 MG/ML 1 ML SYRINGE IVP PRN; +LACTATED RINGERS 1,000 ML IV SCH; +LIDOCAINE 1% 20 ML VIAL (10MG/ML) FOR IV START INTRADERMA PRN; -NITROGLYCERIN SL TABS 0.4 MG TAB SUBLINGUAL PRN; +ONDANSETRON 4 MG/2 ML VIAL IVP ONE; +SCOPOLAMINE 1.5MG/72HR PATCH TRANSDERM ONE; -SODIUM CHLORIDE 0.9% 1,000 ML in EMPTY BAG 1 BAG IV ONE; +ceFAZolin 2 GM in SODIUM CHLORIDE 0.9% 100 ML IVPB ONE
[2016-12-16 06:53] LABS: Glucose,Whole Blood 392 mg/dL (75-99)
[2016-12-16] MEDS ORDERED: METOCLOPRAMIDE 5 MG/ML 2 ML VIAL IVP STA (07:02)
[2016-12-16] MEDS ORDERED: FAMOTIDINE 20 MG/2 ML VIAL IV STA (07:02)
[2016-12-16] MEDS ORDERED: MIDAZOLAM (PF) 1 MG/ML 5 ML VIAL IV PRN (07:02)
[2016-12-16] MEDS ORDERED: INSULIN LISPRO (humaLOG) 300 UNIT/3 ML VIAL SQ ONE (07:09)
[2016-12-16] MEDS ORDERED: GLYCOPYRROLATE 0.2 MG/ML 2 ML VIAL ONE (07:24)
[2016-12-16] MEDS ORDERED: MIDAZOLAM 2 MG/2 ML VIAL ONE (07:24)
[2016-12-16] MEDS ORDERED: ROCURONIUM BROMIDE 10 MG/ML 10 ML VIAL IV ONE (07:24)
[2016-12-16] MEDS ORDERED: PROPOFOL 10 MG/ML 20 ML VIAL IV ONE (07:24)
[2016-12-16] MEDS ORDERED: PHENYLEPHRINE-0.9% NACL SYG 1 MG/10 ML SYRINGE ONE (07:24)
[2016-12-16] MEDS ORDERED: ePHEDrine SULFATE/0.9% NACL/PF 50 MG/5 ML SYRINGE IV ONE (07:24)
[2016-12-16] MEDS ORDERED: fentaNYL (PF) 50 MCG/ML 2 ML AMP ONE (07:24)
[2016-12-16] MEDS ORDERED: SUCCINYLCHOLINE CHLORIDE 100 MG/5 ML SYR IV ONE (07:24)
[2016-12-16] MEDS ORDERED: NEOSTIGMINE 1 MG/ML 10 ML VIAL ONE (07:24)
[2016-12-16] MEDS ORDERED: LIDOCAINE 1% INJ 10MG/ML (20 ML MDV) ONE (07:24)
[2016-12-16] MEDS ORDERED: FUROSEMIDE 40 MG TAB PO SCH (09:00)
--- NOTE | 2016-12-16 09:00 | P.OP ---
Date of Procedure: 12/16/16 Preoperative Diagnosis: sternal wound nonunion Postoperative Diagnosis: same Procedure(s) Performed: Implants: The wound exploration, removal of sternal wires, sternal debridement, allograft bone grafting of the sternum, localized pectoralis major myocutaneous advancement flap closure of sternal wound. Anesthesia: GETA Surgeon: Dean Gonzalez Inspector [employer] #1: Aj Menjivar Estimated Blood Loss (ml): 10 IV fluids (ml): 500 Urine output (ml): 0 Pathology: other (Scar, sternal debridement) Condition: stable Disposition: PACU Indications for Procedure: Patient is a 56-year-old obese gentleman who is status post coronary bypass surgery 4 months ago presented with complaints of persistent chest pain and clicking in his sternum. His sternum was palpably stable. He did have pain with deep palpation of the sternum. Computed tomography scan showed evidence of fibrous nonunion of the sternum with fractured sternal wires and no evidence of infection or abnormal collection. Due to persistent pain the patient was recommended to undergo sternal wire excision. Operative Findings: 6 of the 8 sternal wires were fractured including 2 of 3 double wires and 4 of 5 single wires. 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 The lower portion of the sternum had a significant soft tissue defect about a centimeter wide and 6 cm in length. There was no evidence of infection. Description of Procedure: The patient was brought to the operating room placed supine on the operating table anesthetized and intubated. The anterior chest was sterilely prepped and draped. Sternal skin scar tissue was excised. The subcutaneous fat was divided with electrocautery down to the sternum. Sternal wires were identified. All the sternal wires were removed. Findings are as noted above. The lower portion of the sternal wound where there was a significant gap between the sternal edges and an instability was debrided with both sharp debridement with scissors and curettes. The defect was then packed with cortical bone chips. This was then filled in with bone putty. Myocutaneous advancement flaps of the pectoralis major were raised bilaterally on either side to cover this area. These were approximated with [id number] sutures of 2-0 Vicryl. The wound was then irrigated with saline. The subcutaneous tissue superiorly and inferiorly was also closed with [id number] of 2-0 Vicryl. The subcutaneous layer was closed with 2-0 Vicryl running horizontal mattress. The skin was closed with a subcuticular 3-0 Vicryl stitch. Skin glue dressing was applied. The patient was transferred to recovery in stable condition.
[2016-12-16 09:26] LABS: Glucose,Whole Blood 381 mg/dL (75-99)
[2016-12-16] MEDS ORDERED: LACTATED RINGERS 1,000 ML IV ONE ×2 (09:31→10:10)
[2016-12-16] MEDS ORDERED: HYDROmorphone 1 MG/ML 1 ML SYRINGE IVP ONE ×4 (09:32→10:08)
[2016-12-16] MEDS ORDERED: NALOXONE 0.4 MG/ML 1 ML VIAL IV PRN (10:10)
[2016-12-16] MEDS ORDERED: HYDROcodone/APAP 5-325MG 1 EACH TAB PO PRN (10:10)
[2016-12-16] MEDS ORDERED: ONDANSETRON 4 MG/2 ML VIAL IVP PRN (10:10)
[2016-12-16] MEDS: GABAPENTIN 300 MG CAP PO SCH ×2 (11:07→22:03)
[2016-12-16 11:39] LABS: Glucose,Whole Blood 428 mg/dL (75-99)
[2016-12-16] MEDS: CITALOPRAM HYDROBROMIDE 20 MG TAB PO SCH (11:46)
[2016-12-16] MEDS: ASPIRIN 325 MG TAB PO SCH (11:46)
[2016-12-16] MEDS: METOPROLOL TARTRATE 25 MG TAB PO SCH ×2 (11:47→22:03)
[2016-12-16] MEDS: CLOPIDOGREL 75 MG TAB PO SCH (11:47)
[2016-12-16] MEDS: FAMOTIDINE 20 MG TAB PO SCH ×2 (11:48→22:03)
[2016-12-16] MEDS: KETOROLAC 30 MG/ML 1 ML VIAL IVP SCH ×3 (11:49→22:26)
[2016-12-16] MEDS ORDERED: INSULIN REGULAR 100 UNIT/ML VIAL IV ONE (12:09)
[2016-12-16] MEDS: INSULIN REGULAR 100 UNIT in SODIUM CHLORIDE 0.9% 100 ML IV SCH (12:28)
[2016-12-16] MEDS ORDERED: INSULIN LISPRO (humaLOG) 300 UNIT/3 ML VIAL SQ SCH (12:30)
[2016-12-16 13:24] LABS: Glucose,Whole Blood 463 mg/dL (75-99)
[2016-12-16 13:54] LABS: Glucose,Whole Blood 463 mg/dL (75-99)
[2016-12-16 14:38] LABS: Glucose,Whole Blood 428 mg/dL (75-99)
[2016-12-16 15:12] LABS: Glucose,Whole Blood 400 mg/dL (75-99)
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
[2016-12-16 15:41] LABS: Glucose,Whole Blood 365 mg/dL (75-99)
[2016-12-16] MEDS: HEPARIN SODIUM,PORCINE 5,000 UNIT/ML 1 ML VIAL SQ SCH ×2 (15:41→23:34)
[2016-12-16 16:13] LABS: Glucose,Whole Blood 326 mg/dL (75-99)
[2016-12-16] MEDS: HYDROcodone/APAP 5-325MG 1 EACH TAB PO PRN (16:59)
[2016-12-16 17:12] LABS: Glucose,Whole Blood 285 mg/dL (75-99)
[2016-12-16 17:12] LABS: Glucose,Whole Blood 267 mg/dL (75-99)
[2016-12-16] MEDS ORDERED: glipiZIDE 5 MG TAB PO SCH (17:30)
[2016-12-16 17:39] LABS: Glucose,Whole Blood 202 mg/dL (75-99)
[2016-12-16 20:31] LABS: Glucose,Whole Blood 111 mg/dL (75-99)
[2016-12-16] MEDS ORDERED: INSULIN DETEMIR 100 UNIT/ML 10 ML VIAL SQ SCH (21:00)
[2016-12-16] MEDS ORDERED: ATORVASTATIN 40 MG TAB PO SCH (21:00)
[2016-12-16 21:24] LABS: Glucose,Whole Blood 105 mg/dL (75-99)
[2016-12-16 23:18] LABS: Glucose,Whole Blood 178 mg/dL (75-99)
[2016-12-17 01:57] LABS: Glucose,Whole Blood 192 mg/dL (75-99)
[2016-12-17 03:36] LABS: Glucose,Whole Blood 183 mg/dL (75-99)
[2016-12-17] MEDS: KETOROLAC 30 MG/ML 1 ML VIAL IVP SCH (03:49)
[2016-12-17] MEDS: INSULIN REGULAR 100 UNIT in SODIUM CHLORIDE 0.9% 100 ML IV SCH (03:49)
[2016-12-17 05:51] LABS: Glucose,Whole Blood 126 mg/dL (75-99)
[2016-12-17 06:49] LABS: Basophils % (A) 0 %; CH 30.9; CHCM 35.6; Eosinophils # (A) 0.2 k/uL (0-0.7); Eosinophils % (A) 2 %; HCT 31.9 % (39.0-53.0); HDW 2.96; HGB 11.2 gm/dL (13.0-17.5); Luc % (Auto) 3; Lymphocytes % (A) 19 %; MCH 30.6 pg (25.0-35.0); MCHC 35.1 g/dL (31.0-37.0); MCV 87.2 fL (80.0-100.0); Mean Platelet Volume 7.2; Monocytes # (A) 0.8 k/uL (0-1.0); Monocytes % (A) 7 %; Neutrophils # (A) 7.5 k/uL (1.3-7.7); Neutrophils % (A) 69 %; RBC 3.65 m/uL (4.30-5.90); RDW 13.9 % (11.5-15.5); WBC 10.8 k/uL (3.8-10.6); WBC (Perox) 10.79
[2016-12-17 06:57] LABS: Calcium 8.8 mg/dL (8.4-10.2); Potassium 4.1 mmol/L (3.5-5.1)
[2016-12-17 07:02] LABS: Glucose,Whole Blood 118 mg/dL (75-99)
[2016-12-17] MEDS: FAMOTIDINE 20 MG TAB PO SCH (08:42)
[2016-12-17] MEDS: GABAPENTIN 300 MG CAP PO SCH (08:42)
[2016-12-17] MEDS: CLOPIDOGREL 75 MG TAB PO SCH (08:42)
[2016-12-17] MEDS: ASPIRIN 325 MG TAB PO SCH (08:42)
[2016-12-17] MEDS: METOPROLOL TARTRATE 25 MG TAB PO SCH (08:42)
[2016-12-17] MEDS: CITALOPRAM HYDROBROMIDE 20 MG TAB PO SCH (08:42)
[2016-12-17] MEDS: HEPARIN SODIUM,PORCINE 5,000 UNIT/ML 1 ML VIAL SQ SCH (08:44)
[2016-12-17] MEDS: HYDROcodone/APAP 5-325MG 1 EACH TAB PO PRN (08:48)
[2016-12-17 09:07] LABS: Hemoglobin A1C 12.4 % (4.2-6.1)
[2016-12-17 09:13] VITALS: BP 127/84; PULSE 81; RESP 19; TEMP 98.1
[2016-12-17 09:17] LABS: Glucose,Whole Blood 238 mg/dL (75-99)
--- NOTE | 2016-12-17 09:51 | P.PN ---
Subjective Principal diagnosis: Sternal wound nonunion, history of coronary artery disease status post coronary artery bypass grafting 3, history of non-ST elevation myocardial infarction, hypertension, uncontrolled diabetes mellitus type 2, systolic heart failure, hyperlipidemia, GERD. POD #1, sternal wound exploration, removal of sternal wires, sternal debridement , allograft bone grafting of the sternum, localized pectoralis major myocutaneous advancement flap closure of sternal wound. The patient is sitting up to the bedside chair, eating his breakfast. No acute distress. Reports that he does feel some clicking to his lower part of his sternum. Denies any shortness of breath or complaints of pain at this time. Objective - Vital Signs Vital signs: Vital Signs Temp 96.6 F L 12/17/16 03:26 Pulse 84 12/17/16 03:28 Resp 18 12/17/16 03:28 BP 156/82 12/17/16 03:26 Pulse Ox 95 12/17/16 03:26 Intake & Output 12/16/16 12/17/16 12/17/16 18:59 06:59 18:59 Intake Total 1975.363 355.821 Output Total 25 Balance 1950.363 355.821 Weight 115.212 kg 118.2 kg Intake: IV 1100 320 Lactated Ringers 1,000 ml 320 @ 40 mls/hr IV .Q24H [facility] Rx#:[id number] Intake, IV Titration 155.363 35.821 Amount Insulin Regular 100 unit 75.363 35.821 In Sodium Chloride 0.9% 100 ml @ Titrate IV .Q0M [facility] Rx#:[id number] Lactated Ringers 1,000 ml 80 @ 20 mls/hr IV .Q24H [facility] Rx#:[id number] Oral 720 Output: Estimated Blood Loss 25 Other: Voiding Method Toilet Urinal # Voids 2 - Constitutional General appearance: Present: cooperative, no acute distress, obese - EENT Eyes: Present: PERRLA, normal appearance ENT: Present: hearing grossly normal - Neck Details: No JVD present. - Respiratory Details: Essentially clear throughout, diminished at bilateral bases. Respirations are symmetrical and unlabored. He is achieving 2500 mL on his incentive spirometry. Suction saturations are 95% on room air. - Cardiovascular Details: Regular rhythm and rate. S1 and S2 present, negative for S3, gallop or murmur. Remote telemetry showing normal sinus rhythm heart rate 77. SCDs in place was bilateral lower extremities. Heart hugger in place and he is demonstrating appropriate use of the heart hugger. - Gastrointestinal Gastrointestinal Comment(s): Abdomen is soft, nontender and nondistended. Positive flatus. He is tolerating an oral diet. His blood sugars in the last 24 hours have ranged from 105-463 mg/dL. - Genitourinary Genitourinary Comment(s): Adequate urine output, clear yellow urine. - Integumentary Integumentary Comment(s): Midline sternal incision clean and dry and well approximated. Dermabond dressing in place. 4 x 4 folded gauze dressing in place and secured with tape. No drainage noted. - Musculoskeletal Musculoskeletal: Present: gait normal, strength equal bilaterally - Psychiatric Psychiatric: Present: A&O x's 3, appropriate affect, intact judgment & insight - Allied health notes Allied health notes reviewed: nursing - Labs CBC & Chem 7: 12/17/16 06:16 12/17/16 06:16 Labs: Abnormal Lab Results - Last 24 Hours (Table) 12/16/16 12/16/16 12/16/16 Range/Units 09:21 11:31 13:14 WBC (3.8-10.6) k/uL RBC (4.30-5.90) m/uL Hgb (13.0-17.5) gm/dL Hct (39.0-53.0) % Sodium (137-145) mmol/L BUN (9-20) mg/dL Creatinine (0.66-1.25) mg/dL POC Glucose (mg/dL) 381 H 428 H 463 H (75-99) mg/dL 12/16/16 12/16/16 12/16/16 Range/Units 13:42 14:17 14:51 WBC (3.8-10.6) k/uL RBC (4.30-5.90) m/uL Hgb (13.0-17.5) gm/dL Hct (39.0-53.0) % Sodium (137-145) mmol/L BUN (9-20) mg/dL Creatinine (0.66-1.25) mg/dL POC Glucose (mg/dL) 463 H 428 H 400 H (75-99) mg/dL 12/16/16 12/16/16 12/16/16 Range/Units 15:20 15:53 16:23 WBC (3.8-10.6) k/uL RBC (4.30-5.90) m/uL Hgb (13.0-17.5) gm/dL Hct (39.0-53.0) % Sodium (137-145) mmol/L BUN (9-20) mg/dL Creatinine (0.66-1.25) mg/dL POC Glucose (mg/dL) 365 H 326 H 285 H (75-99) mg/dL 12/16/16 12/16/16 12/16/16 Range/Units 16:52 17:27 20:19 WBC (3.8-10.6) k/uL RBC (4.30-5.90) m/uL Hgb (13.0-17.5) gm/dL Hct (39.0-53.0) % Sodium (137-145) mmol/L BUN (9-20) mg/dL Creatinine (0.66-1.25) mg/dL POC Glucose (mg/dL) 267 H 202 H 111 H (75-99) mg/dL 12/16/16 12/16/16 12/17/16 Range/Units 21:23 23:10 01:38 WBC (3.8-10.6) k/uL RBC (4.30-5.90) m/uL Hgb (13.0-17.5) gm/dL Hct (39.0-53.0) % Sodium (137-145) mmol/L BUN (9-20) mg/dL Creatinine (0.66-1.25) mg/dL POC Glucose (mg/dL) 105 H 178 H 192 H (75-99) mg/dL 12/17/16 12/17/16 12/17/16 Range/Units 03:34 05:46 06:16 WBC 10.8 H (3.8-10.6) k/uL RBC 3.65 L (4.30-5.90) m/uL Hgb 11.2 L (13.0-17.5) gm/dL Hct 31.9 L (39.0-53.0) % Sodium (137-145) mmol/L BUN (9-20) mg/dL Creatinine (0.66-1.25) mg/dL POC Glucose (mg/dL) 183 H 126 H (75-99) mg/dL 12/17/16 12/17/16 Range/Units 06:16 06:59 WBC (3.8-10.6) k/uL RBC (4.30-5.90) m/uL Hgb (13.0-17.5) gm/dL Hct (39.0-53.0) % Sodium 135 L (137-145) mmol/L BUN 30 H (9-20) mg/dL Creatinine 2.21 H (0.66-1.25) mg/dL POC Glucose (mg/dL) 118 H (75-99) mg/dL Assessment and Plan (1) History of non-ST elevation myocardial infarction (NSTEMI) Status: Acute (2) CAD (coronary artery disease) Status: Acute (3) Diabetes Status: Acute (4) HTN (hypertension) Status: Acute (5) Hyperlipidemia Status: Acute (6) S/P CABG (coronary artery bypass graft) Status: Acute Plan: 1. Continue to reinforce importance of controlling his blood sugars and using his heart hugger to allow healing of his sternum. 2. We will discontinue his Toradol and also hold his Lasix today as his creatinine today is 2.21. 3. He will be discharged home today in follow-up with his primary care physician as scheduled on , 12/19/2016. 4. We will repeat a BMP on , 12/19/2016. 5. Importance of smoking cessation were discussed with the patient and a smoking cessation pamphlet was given to the patient. 6. Discharge instructions were reviewed with the patient. Time with Patient: Greater than 30
--- NOTE | 2016-12-17 10:38 | P.DS ---
Providers Date of admission: 12/16/16 09:09 Expected date of discharge: 12/17/16 Attending physician: Dean Gonzalez Consults: 12/16/16 11:54 Consult Physician Routine Consulting Provider: Junior Myers Consult Reason/Comments: Medical and blood sugar management Do you want consulting provider notified?: Already Contacted Primary care physician: Vonnie Reynolds - Discharge Diagnosis(es) (1) History of non-ST elevation myocardial infarction (NSTEMI) Current Visit: No Status: Acute (2) CAD (coronary artery disease) Current Visit: No Status: Acute (3) Diabetes Current Visit: No Status: Acute (4) HTN (hypertension) Current Visit: No Status: Acute (5) Hyperlipidemia Current Visit: No Status: Acute (6) S/P CABG (coronary artery bypass graft) Current Visit: No Status: Acute Hospital Course: FINAL DIAGNOSIS: 1. Sternal wound nonunion 2. Coronary artery disease with history of coronary artery bypass grafting 3 in May 2016 3. History of non-ST elevation myocardial infarction 4. Hypertension 5. Hyperlipidemia 6. Uncontrolled diabetes mellitus type 2 7. Nicotine dependence 8. Gastroesophageal reflux disease PRINCIPAL PROCEDURE: 1. Sternal wound exploration, removal of sternal wires, sternal debridement, allograft bone grafting of the sternum, localized pectoralis major myocutaneous advancement flap closure of sternal wound. HISTORY OF PRESENT ILLNESS: This is a 56-year-old gentleman who is followed by Dr. Vonnie Reynolds on an outpatient basis. The patient has a history of undergoing an urgent coronary artery bypass grafting surgery 3 in May 2016. Postoperatively the patient had complaints of persistent pain and clicking to his sternum. Subsequently he did undergo a computed tomography scan of his chest which demonstrated evidence of fibrosis nonunion of the sternum with fractured sternal wires and no evidence of infection or abnormal collection. Due to the patient's complaints of persistent pain and clicking to his chest it was recommended by Dr. Gonzalez he undergo a sternal wire excision. HOSPITAL COURSE: The patient was admitted to the hospital and after obtaining consent he was taken to the operating room where Dr. Gonzalez performed a sternal wound exploration, removal of his sternal wires, sternal debridement, allograft bone grafting of the sternum and localized pectoralis major myocutaneous advancement flap closure of sternal wound. The patient was subsequently recovered, and transferred to [facility] for further monitoring and rehabilitation. Postoperatively his blood sugars were in the 400s and internal medicine was consulted for blood sugar management. Discharge instructions were reviewed with the patient and the importance of smoking cessation was reviewed with the patient. COMPLICATIONS: There were no postoperative complications. CONSULTATIONS: 1. Dr. Myers for medical and diabetes management DISCHARGE INSTRUCTIONS: 1. No driving for 4 weeks, or until physician gives their ok. 2. The patient should sleep in their own bed, no medical bed needed. 3. Stairs are not an issue. If the bedroom is upstairs, it is advised that the patient go up at night and down in the morning for the first week. Go slowly, using handrail and take 1 step at a time. 4. SAHRA hose are to be worn for 30 days or until physician discontinues. 5. Heart hugger is to be worn 100% of the time until physician discontinues.( except when showering) 6. No lifting, pushing, or pulling more than 10 pounds for 12 weeks. The physician will advise of any restriction changes. 7. The patient is expected to continue the prescribed walking program. 8. Continue pain control per as needed orders. 9. Continue with incentive spirometry and splinting/heart hugger until otherwise directed by the physician. 10. Must shower daily using liquid antibacterial soap and a separate white washcloth for each individual incision. 11. Routine sternal incision care, no ointments, lotions or powders on the incisions. 12. Please notify surgeon/nurse practitioner for temperature greater than 101F or purulent drainage from incisions 13. Prescriptions for first 30 days given per cardiac surgery service. After 30 days, all prescription refills obtained through cardiology/primary care physician. 14. Hold Lasix until his follow-up with Dr. Reynolds, and his BMP results are reviewed. 15. He is to check his blood sugars before meals and at bedtime and record his blood sugar results and to bring the record to Dr. Reynolds's office for follow-up appointment. 16. The importance of smoking cessation was discussed with the patient. HOME HEALTH SERVICES TO PROVIDE: LABORATORY: BMP TO BE DRAWN ON THE SECOND DAY HOME, , 12/17/2016 (RAN STAT) FAX RESULTS TO [phone]. His last creatinine on 12/17/2016 was 2.21 mg/dl. TELEHEALTH PARAMETERS: WEIGHT: NOTIFY MD OF WEIGHT GAIN OF 2 LBS IN 24 HOURS OR 5 LBS IN ONE WEEK HR: NOTIFY MD OF HR <55 BPM OR HR>100 BPM BP: NOTIFY MD IF BP <90/55 OR BP>140/100 O2 SAT: NOTIFY MD IF PO2<93% ON ROOM AIR Plan - Discharge Summary New Discharge Prescriptions: New HYDROcodone/APAP 5-325MG [Troup 5-325] 1 - 2 each PO Q6HR PRN #20 tab PRN Reason: Mild Pain Continue Gabapentin [Neurontin] 300 mg PO BID Atorvastatin [Lipitor] 40 mg PO HS Clopidogrel Bisulfate [Plavix] 75 mg PO DAILY Aspirin 325 mg PO DAILY #30 tab INSULIN LISPRO (humaLOG) [humaLOG (formulary)] 10 unit SQ AC-TID 30 Days Citalopram Hydrobromide [Citalopram HBr] 20 mg PO DAILY Metoprolol Tartrate [Lopressor] 75 mg PO BID Furosemide [Lasix] 40 mg PO DAILY #0 Changed Insulin Detemir [Levemir] 30 unit SQ BID #0 Discontinued glipiZIDE [Glucotrol] 15 mg PO AC-BID Discharge Medication List Gabapentin [Neurontin] 300 mg PO BID 07/17/15 [History] Atorvastatin [Lipitor] 40 mg PO HS 08/02/15 [History] Clopidogrel Bisulfate [Plavix] 75 mg PO DAILY 04/01/16 [History] Aspirin 325 mg PO DAILY #30 tab 06/25/16 [Rx] INSULIN LISPRO (humaLOG) [humaLOG (formulary)] 10 unit SQ AC-TID 30 Days [Rx] Citalopram Hydrobromide [Citalopram HBr] 20 mg PO DAILY 12/11/16 [History] Metoprolol Tartrate [Lopressor] 75 mg PO BID 12/11/16 [History] Furosemide [Lasix] 40 mg PO DAILY #0 12/17/16 [Rx] HYDROcodone/APAP 5-325MG [Troup 5-325] 1 - 2 each PO Q6HR PRN #20 tab 12/17/16 [ Rx] Insulin Detemir [Levemir] 30 unit SQ BID #0 12/17/16 [Rx] Follow up Appointment(s)/Referral(s): Dean Gonzalez MD [STAFF PHYSICIAN] - 01/06/17 2:15 pm Vonnie Reynolds MD [Primary Care Provider] - 12/19/16 9:45 am Ambulatory/Diagnostic Orders: Basic Metabolic Panel [LAB.AMB] Time Frame: 12/19/16, Facility: [facility], Location: Laboratory [place] Discharge Disposition: HOME SELF-CARE
[2016-12-18] MEDS ORDERED: FAMOTIDINE 20 MG TAB PO SCH (09:00)
== END 2016-12-17 11:54 | disposition home health service (06) | DRG 908 ==
LOC: OR 06:31 → 6SEL 09:09
PROVIDERS: ADMIT Thoracic Surgery (Cardiothoracic Vascular Surgery); ATTEND Thoracic Surgery (Cardiothoracic Vascular Surgery)
PROC: 0PR Upper Bones, Replacement (ICD-10-PCS; 2016-12-16)
PROC: 0KXJ0ZZ Transfer Left Thorax Muscle, Open Approach (ICD-10-PCS; 2016-12-16)
PROC: 0KXH0ZZ Transfer Right Thorax Muscle, Open Approach (ICD-10-PCS; 2016-12-16)
PROC: 0PC00ZZ Extirpation of Matter from Sternum, Open Approach (ICD-10-PCS; principal; 2016-12-16 07:30)
DX: T81.32XA Disruption of internal operation (surgical) wound, not elsewhere classified, initial encounter (principal); I50.22 Chronic systolic (congestive) heart failure; I13.0 Hypertensive heart and chronic kidney disease with heart failure and stage 1 through stage 4 chronic kidney disease, or unspecified chronic kidney disease; E11.22 Type 2 diabetes mellitus with diabetic chronic kidney disease; E11.42 Type 2 diabetes mellitus with diabetic polyneuropathy; E11.65 Type 2 diabetes mellitus with hyperglycemia; E78.5 Hyperlipidemia, unspecified; E66.9 Obesity, unspecified; I25.10 Atherosclerotic heart disease of native coronary artery without angina pectoris; J44.9 Chronic obstructive pulmonary disease, unspecified; N18.9 Chronic kidney disease, unspecified; K21.9 Gastro-esophageal reflux disease without esophagitis; M19.91 Primary osteoarthritis, unspecified site; I25.2 Old myocardial infarction; F17.200 Nicotine dependence, unspecified, uncomplicated; Z79.84 Long term (current) use of oral hypoglycemic drugs; Z79.02 Long term (current) use of antithrombotics/antiplatelets; Z79.82 Long term (current) use of aspirin; Z79.4 Long term (current) use of insulin; Z79.899 Other long term (current) drug therapy; Z90.49 Acquired absence of other specified parts of digestive tract; Z87.442 Personal history of urinary calculi; Z95.1 Presence of aortocoronary bypass graft; Z95.5 Presence of coronary angioplasty implant and graft; Y83.2 Surgical operation with anastomosis, bypass or graft as the cause of abnormal reaction of the patient, or of later complication, without mention of misadventure at the time of the procedure
CPT/HCPCS: 80048; 83036; 85025; 88304; 88305; 93005; 94760

== ENCOUNTER → 2017-01-16 | Outpatient (CLI) | payer OTHER ==
--- NOTE | 2017-01-16 14:27 | US ---
EXAMINATION TYPE: US kidneys/renal and bladder DATE OF EXAM: 01/16/2017 COMPARISON: NONE CLINICAL HISTORY: N18.9 Chronic Kidney Disease. CKD EXAM MEASUREMENTS: Right Kidney: 15.5 x 6.8 x 6.4cm Left Kidney: 15.7 x 8.3 x 6.1cm Right Kidney: enlarged, cystic area lower pole = 1.9 x 2.4 x 2.6cm Left Kidney: enlarged, no evidence of hydronephrosis Bladder: appears wnl Bilateral Jets seen: no There is no evidence for hydronephrosis at this point in time. No nephrolithiasis is seen. No miriam s are identified. The urinary bladder is anechoic. Bilateral ureteral jets are seen. IMPRESSION: Kidneys are symmetrically mildly enlarged. Simple appearing left lower pole renal cyst measuring 2.6 cm. No evidence of hydronephrosis or nephrolithiasis.
== END ==
LOC: RADUSWWP 13:37
PROVIDERS: ATTEND Internal Medicine
DX: N28.1 Cyst of kidney, acquired (principal); N18.9 Chronic kidney disease, unspecified
CPT/HCPCS: 76770

== ENCOUNTER → 2017-04-12 | Outpatient (CLI) | payer OTHER ==
[2017-04-12 10:15] LABS: Appearance,Urine Clear (Clear); Bilirubin,Urine Negative (Negative); Glucose,Urine (UA) 4+ (Negative); Ketones,Urine Negative (Negative); Leukocyte Esterase,Urine Negative (Negative); Mucus,Urine Rare /hpf; Nitrite,Urine Negative (Negative); Particle Count 951; Protein,Urine 3+ (Negative); RBC,Urine 2 /hpf (0-5); Specific Gravity,Urine 1.009 (1.001-1.035); UA Billing (MACRO vs. MICRO) MICRO; Urobilinogen,Urine <2.0 mg/dL (<2.0); WBC,Urine <1 /hpf (0-5)
[2017-04-12 10:21] LABS: Calcium 9.2 mg/dL (8.4-10.2); Magnesium 1.9 mg/dL (1.6-2.3); Phosphorus 4.7 mg/dL (2.5-4.5); Potassium 4.4 mmol/L (3.5-5.1); Total Bilirubin 0.2 mg/dL (0.2-1.3); Total Protein 6.8 g/dL (6.3-8.2); Uric Acid 6.4 mg/dL (3.5-8.5)
[2017-04-12 17:04] LABS: Urine Creatinine 68.7 mg/dL
== END | disposition home or self-care (01) ==
LOC: LABWHC1 09:43
PROVIDERS: ATTEND Internal Medicine
DX: N18.3 Chronic kidney disease, stage 3 (moderate) (principal); E21.3 Hyperparathyroidism, unspecified; E55.9 Vitamin D deficiency, unspecified; M10.9 Gout, unspecified; R80.9 Proteinuria, unspecified
CPT/HCPCS: 36415; 80053; 81001; 82043; 82306; 82570; 83735; 83970; 84100; 84550

== ENCOUNTER 2017-04-29 07:25 | Day surgery (SDC) | payer OTHER ==
[2017-04-24 09:05] VITALS: BMI 36.6
[~2017-04-29 07:25] MED LIST changes: -DEXAMETHASONE SOD PHOSPHATE 10 MG/ML 1 ML VIAL IV ONE; -HYDROmorphone 1 MG/ML 1 ML SYRINGE IVP PRN; -LACTATED RINGERS 1,000 ML IV SCH; -LIDOCAINE 1% 20 ML VIAL (10MG/ML) FOR IV START INTRADERMA PRN; -ONDANSETRON 4 MG/2 ML VIAL IVP ONE; -SCOPOLAMINE 1.5MG/72HR PATCH TRANSDERM ONE; +SODIUM CHLORIDE 0.9% 1,000 ML IV SCH; -ceFAZolin 2 GM in SODIUM CHLORIDE 0.9% 100 ML IVPB ONE
[2017-04-29 07:58] LABS: Glucose,Whole Blood 194 mg/dL (75-99)
[2017-04-29 08:00] LABS: Basophils % (A) 0 %; Eosinophils # (A) 0.3 k/uL (0-0.7); Eosinophils % (A) 4 %; HCT 35.2 % (39.0-53.0); Lymphocytes # (A) 1.9 k/uL (1.0-4.8); Lymphocytes % (A) 21 %; MCHC 34.1 g/dL (31.0-37.0); MCV 87.8 fL (80.0-100.0); Monocytes # (A) 0.5 k/uL (0-1.0); Monocytes % (A) 6 %; Neutrophils # (A) 5.8 k/uL (1.3-7.7); Neutrophils % (A) 67 %; Platelet Count 302 k/uL (150-450); RDW 13.3 % (11.5-15.5); WBC 8.7 k/uL (3.8-10.6)
[2017-04-29] MEDS ORDERED: DEXTROSE 5% IN WATER 1,000 ML with SODIUM BICARB (1 MEQ/ML) 150 ML IV SCH (08:00)
[2017-04-29] MEDS ORDERED: HYDROmorphone 1 MG/ML 1 ML SYRINGE IVP PRN (09:33)
[2017-04-29] MEDS ORDERED: HYDROmorphone 1 MG/ML 1 ML SYRINGE IVP ONE (09:57)
[2017-04-29] MEDS ORDERED: MIDAZOLAM 2 MG/2 ML VIAL IV ONE (10:52)
[2017-04-29] MEDS ORDERED: LIDOCAINE 2% INJ 20 MG/ML SQ ONE (10:59)
[2017-04-29] MEDS ORDERED: IODIXANOL 320 MG/ML 100 ML INTRAARTER ONE (11:14)
[2017-04-29] MEDS ORDERED: hydrALAZINE HCL 20 MG/ML 1 ML VIAL IV ONE (11:20)
[2017-04-29] MEDS ORDERED: SODIUM CHLORIDE 0.9% 1,000 ML IV SCH (11:30)
--- NOTE | 2017-04-29 11:51 | IR ---
EXAMINATION TYPE: IR angio abdominal w runoff DATE OF EXAM: 04/29/2017 COMPARISON: NONE HISTORY: Peripheral vascular occlusive disease. Fluoroscopy was provided to the referring clinician. 2.5 minutes of fluoroscopy provided.
--- NOTE | 2017-04-29 11:54 | AN ---
ANGIOGRAPHY REPORT DATE OF SERVICE: 04/29/2017 PERFORMING PHYSICIAN: Deven Domínguez MD, Manager Statistical. PROCEDURES PERFORMED: 1. An abdominal aortogram. 2. Bilateral lower extremities runoff. 3. Selective right common femoral artery angiogram. INDICATION: This is a very pleasant 56-year-old gentleman who is known to have coronary artery disease and he underwent coronary artery bypass grafting as well as he is a smoker, was experiencing bilateral lower extremities intermittent claudication, worse on the right side. He was admitted today to undergo an abdominal aortogram and bilateral lower extremities runoff. APPROACH: Right common femoral artery. COMPLICATION: None. LEVEL OF SEDATION: Moderate with sedation length of 26 minutes. PROCEDURE DESCRIPTION: After obtaining AN informed consent, the patient was brought to the Cardiac Flight Engineer. The right common femoral artery was cannulated using micropuncture technique. The micropuncture wire passed easily, then I placed a 5-Vincentian sheath in the right common femoral artery. After that, I did an abdominal aortogram and bilateral lower extremities runoff using 5-Vincentian pigtail catheter which was initially placed at the level of the renal arteries, then it was pulled into above the bifurcation of the aorta to right and left common iliac arteries. After that, I did selective right common femoral artery angiogram. The procedure was completed without any complication. SELECTIVE PERIPHERAL ANGIOGRAM: 1. The abdominal aorta is calcified with mild disease only. 2. RENAL ARTERIES: The right and left renal arteries are angiographically normal. 3. COMMON ILIAC ARTERIES: The right and left common iliac arteries are angiographically normal. 4. INTERNAL ILIAC ARTERIES: The right and left internal iliac arteries are patent. 5. EXTERNAL ILIAC ARTERIES: The right and left external iliac artery appeared to have mild disease only. 6. COMMON FEMORAL ARTERIES: The right and left common femoral arteries are angiographically normal. 7. PROFUNDA: The right and left profunda are patent. 8. SFA: The right and left SFA are calcified with only mild to moderate diffuse disease. 9. POPLITEAL: The right and left popliteal are angiographically normal. 10.BELOW THE KNEE: On the right side, there is severe dx involving the right TBT and occluded anterior tibial on the long segment. On the left side, there are 3 vessels runoff below the knee. CONCLUSION: 1. Mild aortoiliac disease. 2. Mild femoral-popliteal disease. 3. Severe dx of the right TPT trunck and Occluded anterior tibial on the right side. POSTPROCEDURE MANAGEMENT: CHARGING CRANE OPERATOR of the right TPT. SACHA / IJN: [id number] / MTDCary
--- NOTE | 2017-04-29 11:54 | LTR ---
April 29, 2017 Re: John Ruiz Dear Vonnie: Mrs. Ruiz was experiencing bilateral lower extremities discomfort concerning for intermittent claudication and severe underlying PAD. He underwent a peripheral angiogram today and that revealed occluded anterior tibial on the right side. I want to consider medical treatment at this point in view of the absence of any critical limb ischemia like resting pain or tissue loss. I want to thank you for allowing me to participate in his care and I will continue following up with . Sincerely, MD SACHA Rodarte / SURESH: [id number] /
[2017-04-30 22:56] VITALS: BP 159/77; PULSE 82; RESP 18; TEMP 97.8
== END 2017-04-29 20:05 | disposition home or self-care (01) ==
LOC: CATHCVL 07:25 → 3OBS 11:17 → CATHCVL 20:05
PROVIDERS: ATTEND Internal Medicine Interventional Cardiology
DX: I77.9 Disorder of arteries and arterioles, unspecified (principal); I70.0 Atherosclerosis of aorta; I73.9 Peripheral vascular disease, unspecified; I25.10 Atherosclerotic heart disease of native coronary artery without angina pectoris; Z95.1 Presence of aortocoronary bypass graft; Z95.5 Presence of coronary angioplasty implant and graft; E78.5 Hyperlipidemia, unspecified; I13.10 Hypertensive heart and chronic kidney disease without heart failure, with stage 1 through stage 4 chronic kidney disease, or unspecified chronic kidney disease; E11.22 Type 2 diabetes mellitus with diabetic chronic kidney disease; N18.9 Chronic kidney disease, unspecified; Z82.49 Family history of ischemic heart disease and other diseases of the circulatory system; F17.200 Nicotine dependence, unspecified, uncomplicated; Z79.84 Long term (current) use of oral hypoglycemic drugs; Z79.02 Long term (current) use of antithrombotics/antiplatelets; Z79.82 Long term (current) use of aspirin; Z79.899 Other long term (current) drug therapy
CPT/HCPCS: 93005; 36200; 75625; 75716; 85025; C1894; C1769 ×4; J2001; J2250; J0360; Q9967; J1170

== ENCOUNTER → 2017-05-08 | Outpatient (CLI) | payer OTHER ==
--- NOTE | 2017-05-08 10:22 | XR ---
EXAMINATION TYPE: XR chest 2V DATE OF EXAM: 05/08/2017 COMPARISON: CT chest October 31, 2016. Two-view chest x-ray July 26, 2016. HISTORY: Chest pain. TECHNIQUE: Frontal and lateral views of the chest are obtained. FINDINGS: Sternal wires have been removed in the interval. Single wire fragment remains present. Med iastinal clips are redemonstrated. There is no focal air space opacity, pleural effusion, or pneumoth orax seen. The cardiac silhouette size is stable and mildly enlarged. The osseous structures are i ntact. IMPRESSION: Mild cardiomegaly without acute pulmonary process. Interval removal of majority of flowers al wires with single wire fragment between aortic knob and intraclavicular region noted.
== END | disposition home or self-care (01) ==
LOC: RADXRMAIN 08:23
PROVIDERS: ATTEND Thoracic Surgery (Cardiothoracic Vascular Surgery)
DX: I51.7 Cardiomegaly (principal); R07.9 Chest pain, unspecified; Z98.890 Other specified postprocedural states
CPT/HCPCS: 71046

== ENCOUNTER → 2017-06-24 | Outpatient (CLI) | payer OTHER ==
[2017-06-24 09:40] LABS: HCT 34.4 % (39.0-53.0); HGB 12.1 gm/dL (13.0-17.5); MCV 88.5 fL (80.0-100.0); Mean Platelet Volume 7.1; Platelet Count 344 k/uL (150-450); RBC 3.89 m/uL (4.30-5.90); RDW 12.7 % (11.5-15.5); WBC 7.8 k/uL (3.8-10.6)
[2017-06-24 09:47] LABS: Appearance,Urine Clear (Clear); Bilirubin,Urine Negative (Negative); Blood,Urine Trace (Negative); Color,Urine Light Yellow; Glucose,Urine (UA) 3+ (Negative); Hyaline Casts,Urine 3 /lpf (0-2); Ketones,Urine Negative (Negative); Leukocyte Esterase,Urine Negative (Negative); Mucus,Urine Rare /hpf; Nitrite,Urine Negative (Negative); PH, Urine 6.5 (5.0-8.0); Protein,Urine 3+ (Negative); RBC,Urine 2 /hpf (0-5); Specific Gravity,Urine 1.007 (1.001-1.035); Urobilinogen,Urine <2.0 mg/dL (<2.0)
[2017-06-24 09:56] LABS: Albumin 3.5 g/dL (3.5-5.0); Calcium 9.4 mg/dL (8.4-10.2); Magnesium 2.1 mg/dL (1.6-2.3); Phosphorus 3.8 mg/dL (2.5-4.5); Potassium 4.5 mmol/L (3.5-5.1); Total Bilirubin 0.3 mg/dL (0.2-1.3); Total Protein 6.9 g/dL (6.3-8.2); Uric Acid 5.6 mg/dL (3.5-8.5)
[2017-06-24 16:38] LABS: Vitamin D 25 Hydroxy 19.8 ng/mL (30.0-100.0)
[2017-06-24 16:48] LABS: Iron Saturation 21.38 (15.00-50.00)
[2017-06-24 16:51] LABS: Parathyroid Hormone Intact 66.7 pg/mL (14.0-72.0)
[2017-06-24 18:12] LABS: Hepatitis A Antibody IgM Non-Reactive (Non-Reactive)
[2017-06-24 18:13] LABS: Hepatitis B Core IgM Non-Reactive (Non-Reactive)
[2017-06-24 19:52] LABS: DNA Double-Stranded NEGATIVE (NEGATIVE)
[2017-06-25 11:45] LABS: ANA Pattern Speckled
[2017-06-25 14:32] LABS: C-ANCA <1:20 Titer (<1:20); P-ANCA <1:20 Titer (<1:20)
== END | disposition home or self-care (01) ==
LOC: LABWHC1 08:59
PROVIDERS: ATTEND Internal Medicine
DX: N18.3 Chronic kidney disease, stage 3 (moderate) (principal)
CPT/HCPCS: 36415; 80053; 80074; 81001; 82043; 82306; 82570; 82728; 83516; 83540; 83550; 83735; 83883; 83970; 84100; 84166; 84550; 85027; 86038; 86039; 86160; 86162; 86225; 86255; 86334

== ENCOUNTER → 2017-11-28 | Outpatient (CLI) | payer OTHER ==
--- NOTE | 2017-11-30 15:45 | CT ---
EXAMINATION TYPE: CT abdomen pelvis wo con DATE OF EXAM: 11/28/2017 COMPARISON: 04/22/2014 INDICATION: c/o upper abdominal pain, discomfort X 6 months DLP: 1076 mGycm, Automated exposure control for dose reduction was used. CONTRAST: 0 mL of Isovue 300. Study performed with Oral Contrast TECHNIQUE: Axial images were obtained from above the diaphragm to the pubic rami in the axial plane a t 5 mm thick sections. Reconstructed images are reviewed on the computer in the coronal plane. FINDINGS: Limited CT sections are obtained the lung bases. The lung bases are clear. Coronary artery calcific ation is present. CT ABDOMEN: Liver: Normal Spleen: Normal Pancreas: Normal Adrenal glands: The adrenal glands are normal. Gallbladder: Surgically absent Kidneys: No masses are evident. No hydronephrosis is present. No cysts are present. There is a 0.4 cm nonobstructing renal stone in the anterior left mid kidney. Punctate calcification at the same le stephanie may be posterior liver. This could be a vascular calcification posteriorly. Vascular calcificatio n is noted within the left kidney. Some perinephric stranding is present bilaterally. There is a exop hytic rounded density inferior posterior lateral right kidney measuring 2.8 cm in diameter and 25 Ronaldo nsfield units. No hydroureter is evident. Aorta: Vascular calcification is within the aorta. Inferior vena cava: Normal. CT PELVIS: Loops of bowel within the abdomen and pelvis are normal. There are loops of bowel which are incom pletely distended or lack oral contrast limiting their evaluation. Appendix: Normal as visualized. Urinary bladder: Normal. No calcifications are evident. Genitourinary structures: Prostate contains calcifications. Osseous structures: No suspicious lytic or sclerotic lesions. IMPRESSIONS: 1. Inferior lateral right renal cyst suspected. This is not a simple cyst by CT. Ultrasound with att ention to the right kidney is recommended. 2. Nonobstructing mid right renal stone.
== END ==
LOC: RADCTMAIN 16:30
PROVIDERS: ATTEND Family Medicine
DX: N20.0 Calculus of kidney (principal)
CPT/HCPCS: 74176

== ENCOUNTER → 2017-12-31 | Outpatient (CLI) | payer OTHER ==
[2017-12-31 09:45] LABS: Basophils % (A) 1 %; Eosinophils # (A) 0.3 k/uL (0-0.7); Eosinophils % (A) 4 %; HCT 34.6 % (39.0-53.0); HGB 11.4 gm/dL (13.0-17.5); Lymphocytes # (A) 1.3 k/uL (1.0-4.8); Lymphocytes % (A) 19 %; MCH 29.7 pg (25.0-35.0); MCHC 32.9 g/dL (31.0-37.0); MCV 90.1 fL (80.0-100.0); Mean Platelet Volume 6.7; Monocytes # (A) 0.4 k/uL (0-1.0); Monocytes % (A) 6 %; Neutrophils # (A) 4.7 k/uL (1.3-7.7); Neutrophils % (A) 69 %; Platelet Count 216 k/uL (150-450); RBC 3.84 m/uL (4.30-5.90); WBC 6.9 k/uL (3.8-10.6)
[2017-12-31 10:01] LABS: Albumin 3.6 g/dL (3.5-5.0); Calcium 9.1 mg/dL (8.4-10.2); Magnesium 1.9 mg/dL (1.6-2.3); Phosphorus 3.6 mg/dL (2.5-4.5); Potassium 4.7 mmol/L (3.5-5.1); Uric Acid 7.1 mg/dL (3.5-8.5)
[2017-12-31 10:20] LABS: Appearance,Urine Clear (Clear); Bilirubin,Urine Negative (Negative); Blood,Urine Trace (Negative); Color,Urine Light Yellow; Glucose,Urine (UA) 4+ (Negative); Hyaline Casts,Urine 1 /lpf (0-2); Ketones,Urine Negative (Negative); Leukocyte Esterase,Urine Negative (Negative); Mucus,Urine Rare /hpf; Nitrite,Urine Negative (Negative); PH, Urine 5.5 (5.0-8.0); Protein,Urine 2+ (Negative); RBC,Urine 2 /hpf (0-5); Specific Gravity,Urine 1.008 (1.001-1.035); Urobilinogen,Urine <2.0 mg/dL (<2.0)
[2017-12-31 14:15] LABS: Creatinine,Urine Random 41.4 mg/dL
[2017-12-31 18:30] LABS: Iron Saturation 23.49 (15.00-50.00)
[2017-12-31 18:39] LABS: Vitamin D 25 Hydroxy 24.6 ng/mL (30.0-100.0)
[2017-12-31 20:19] LABS: Hemoglobin A1C 10.1 % (4.0-6.0)
[2017-12-31 23:11] LABS: Parathyroid Hormone Intact 89.8 pg/mL (14.0-72.0)
== END | disposition home or self-care (01) ==
LOC: LABWHC1 08:12
PROVIDERS: ATTEND Internal Medicine Nephrology
DX: E11.22 Type 2 diabetes mellitus with diabetic chronic kidney disease (principal); N18.3 Chronic kidney disease, stage 3 (moderate); D63.1 Anemia in chronic kidney disease; R80.9 Proteinuria, unspecified; E55.9 Vitamin D deficiency, unspecified; N25.81 Secondary hyperparathyroidism of renal origin
CPT/HCPCS: 36415; 80048; 81001; 82040; 82043; 82306; 82570; 82728; 83036; 83540; 83550; 83735; 83970; 84100; 84156; 84550; 85025

== ENCOUNTER → 2018-01-12 | Outpatient (CLI) | payer OTHER ==
[2018-01-12 08:49] LABS: Basophils % (A) 0 %; Eosinophils # (A) 0.3 k/uL (0-0.7); Eosinophils % (A) 4 %; HCT 32.8 % (39.0-53.0); Lymphocytes # (A) 1.3 k/uL (1.0-4.8); Lymphocytes % (A) 19 %; MCH 30.4 pg (25.0-35.0); MCHC 33.5 g/dL (31.0-37.0); MCV 90.7 fL (80.0-100.0); Mean Platelet Volume 6.5; Monocytes # (A) 0.5 k/uL (0-1.0); Monocytes % (A) 7 %; Neutrophils # (A) 4.9 k/uL (1.3-7.7); Neutrophils % (A) 68 %; Platelet Count 236 k/uL (150-450); RBC 3.62 m/uL (4.30-5.90); RDW 12.9 % (11.5-15.5); WBC 7.2 k/uL (3.8-10.6)
[2018-01-12 09:04] LABS: Partial Thromboplastin Time 23.8 sec (22.0-30.0); Prothrombin Time 9.6 sec (9.0-12.0)
[2018-01-12 09:12] LABS: Potassium 5.1 mmol/L (3.5-5.1)
== END | disposition home or self-care (01) ==
LOC: LABWHC1 08:06
PROVIDERS: ATTEND Internal Medicine
DX: N18.3 Chronic kidney disease, stage 3 (moderate) (principal)
CPT/HCPCS: 36415; 80051; 82565; 84520; 85025; 85610; 85730

== ENCOUNTER → 2018-01-14 | Day surgery (SDC) | payer OTHER ==
[~2018-01-14] MED LIST changes: +ALPRAZolam 0.5 MG TAB PO STA; +HYDROmorphone 1 MG/ML 1 ML SYRINGE IVP STA; -SODIUM CHLORIDE 0.9% 1,000 ML IV SCH
[2018-01-14 10:09] VITALS: TEMP 97.4
[2018-01-14 11:12] VITALS: RESP 16
[2018-01-14 13:10] VITALS: PULSE 68
[2018-01-14 14:09] VITALS: BP 137/61
--- NOTE | 2018-01-14 14:26 | CT ---
DATE OF EXAM: 01/14/2018 COMPARISON: NONE CT DLP: 1265 mGycm HISTORY: Renal failure, N18.3 PROCEDURE: Maximal barrier technique was utilized. After informed consent, the skin overlying a suit able path to the left kidney was localized using CT guidance, the skin was prepped and draped. Lidoc aimee was used for local anesthesia. A skin donnie made with a scalpel. Using CT guidance, a 17-gauge needle was advanced into in position at the lateral and inferior cortex of the right kidney where coa xial placement of an 18-gauge needle was used and core biopsy obtained. 4 passes made in total. Hem ostasis was achieved. There was no immediate complication and patient remained in stable condition. Specimen submitted to Pathology. IMPRESSION: Status post CT guided core biopsy of left renal cortex, pathology pending. This procedur e performed by the undersigned.
== END ==
LOC: RADPROMAIN 08:50
PROVIDERS: ATTEND Internal Medicine Nephrology
DX: E11.21 Type 2 diabetes mellitus with diabetic nephropathy (principal); E11.22 Type 2 diabetes mellitus with diabetic chronic kidney disease; I12.9 Hypertensive chronic kidney disease with stage 1 through stage 4 chronic kidney disease, or unspecified chronic kidney disease; N18.3 Chronic kidney disease, stage 3 (moderate); Z79.4 Long term (current) use of insulin; I70.1 Atherosclerosis of renal artery; F17.210 Nicotine dependence, cigarettes, uncomplicated; E78.5 Hyperlipidemia, unspecified; E55.9 Vitamin D deficiency, unspecified; N25.81 Secondary hyperparathyroidism of renal origin; I25.10 Atherosclerotic heart disease of native coronary artery without angina pectoris; Z79.02 Long term (current) use of antithrombotics/antiplatelets; Z79.899 Other long term (current) drug therapy
CPT/HCPCS: 86900; 86901; 82947; 86850; 96374; 36415; 50200; 77012; J1170

== ENCOUNTER 2018-01-20 16:14 | Emergency (ER) | payer OTHER ==
[2018-01-20 16:20] VITALS: RESP 18
[2018-01-20] MEDS ORDERED: SODIUM CHLORIDE 0.9% 1,000 ML IV STA (16:40)
[2018-01-20] MEDS ORDERED: KETOROLAC 30 MG/ML 1 ML VIAL IVP STA (16:40)
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
[2018-01-20 16:53] LABS: Basophils % (A) 1 %; Eosinophils # (A) 0.3 k/uL (0-0.7); Eosinophils % (A) 5 %; HCT 32.8 % (39.0-53.0); HGB 11.3 gm/dL (13.0-17.5); Lymphocytes # (A) 1.7 k/uL (1.0-4.8); Lymphocytes % (A) 25 %; MCH 30.6 pg (25.0-35.0); MCHC 34.5 g/dL (31.0-37.0); MCV 88.7 fL (80.0-100.0); Mean Platelet Volume 6.8; Monocytes # (A) 0.5 k/uL (0-1.0); Monocytes % (A) 7 %; Neutrophils % (A) 60 %; Platelet Count 244 k/uL (150-450); RBC 3.69 m/uL (4.30-5.90); RDW 13.2 % (11.5-15.5); WBC 6.7 k/uL (3.8-10.6)
[2018-01-20 17:06] LABS: Albumin 3.9 g/dL (3.5-5.0); Calcium 9.6 mg/dL (8.4-10.2); Total Bilirubin 0.3 mg/dL (0.2-1.3); Total Protein 7.5 g/dL (6.3-8.2)
[2018-01-20 17:07] LABS: INR 0.9 (<1.2); Partial Thromboplastin Time 23.8 sec (22.0-30.0); Prothrombin Time 9.4 sec (9.0-12.0)
[2018-01-20 17:14] LABS: Creatine Kinase 61 U/L (55-170)
[2018-01-20 17:27] LABS: Creatine Kinase MB 0.9 ng/mL (0.0-2.4); Troponin I <0.012 ng/mL (0.000-0.034)
--- NOTE | 2018-01-20 17:29 | XR ---
EXAMINATION: XR chest 2V DATE AND TIME: 01/20/2018 5:05 PM CLINICAL INDICATION: Chest Pain TECHNIQUE: PA and lateral COMPARISON: 05/08/2017 FINDINGS: Cardiac silhouette is markedly enlarged. Sternal sutures and mediastinal clips and EKG leads noted. There is mild obscuration of the pulmonary vasculature by a fine reticular pattern which could correl ate with a clinical diagnosis of mildly elevated left heart pressures. However, no overt pulmonary ed rafa. Lungs are otherwise unremarkable. Pleural spaces are unremarkable. Bones and soft tissues are unremarkable. IMPRESSION: NO DEFINITE ACUTE PROCESS.
[2018-01-20 17:31] VITALS: BP 147/88; PULSE 88
[2018-01-20 18:13] VITALS: TEMP 98
== END 2018-01-20 18:00 | disposition home or self-care (01) ==
LOC: EC 16:14
DX: M94.0 Chondrocostal junction syndrome [Tietze] (principal); E78.5 Hyperlipidemia, unspecified; I13.0 Hypertensive heart and chronic kidney disease with heart failure and stage 1 through stage 4 chronic kidney disease, or unspecified chronic kidney disease; I50.9 Heart failure, unspecified; E11.22 Type 2 diabetes mellitus with diabetic chronic kidney disease; E11.42 Type 2 diabetes mellitus with diabetic polyneuropathy; Z82.49 Family history of ischemic heart disease and other diseases of the circulatory system; I25.10 Atherosclerotic heart disease of native coronary artery without angina pectoris; K21.9 Gastro-esophageal reflux disease without esophagitis; F32.9 Major depressive disorder, single episode, unspecified; F17.200 Nicotine dependence, unspecified, uncomplicated; Z86.79 Personal history of other diseases of the circulatory system; Z79.02 Long term (current) use of antithrombotics/antiplatelets; Z79.4 Long term (current) use of insulin; Z79.899 Other long term (current) drug therapy; Z95.1 Presence of aortocoronary bypass graft; N18.9 Chronic kidney disease, unspecified
CPT/HCPCS: 36415; 93005; 80053; 82550; 82553; 83735; 84484; 85025; 85610; 85730; 71046; 99285; 96374; 96361; 99406; J1885

== ENCOUNTER 2018-01-28 23:54 | Observation (INO) | payer OTHER ==
[2018-01-29] MEDS ORDERED: ASPIRIN 81 MG PO STA (00:29)
[2018-01-29] MEDS ORDERED: NITROGLYCERIN OINT 1 INCH/GM PACKET TOPICAL STA (00:29)
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
[2018-01-29] MEDS ORDERED: ONDANSETRON 4 MG/2 ML VIAL IVP STA (00:42)
[2018-01-29 00:53] LABS: Basophils % (A) 0 %; Eosinophils # (A) 0.2 k/uL (0-0.7); Eosinophils % (A) 2 %; HCT 30.7 % (39.0-53.0); HGB 10.5 gm/dL (13.0-17.5); Lymphocytes # (A) 1.3 k/uL (1.0-4.8); Lymphocytes % (A) 15 %; MCH 30.3 pg (25.0-35.0); MCHC 34.3 g/dL (31.0-37.0); MCV 88.4 fL (80.0-100.0); Mean Platelet Volume 7.2; Monocytes # (A) 0.5 k/uL (0-1.0); Monocytes % (A) 6 %; Neutrophils # (A) 6.4 k/uL (1.3-7.7); Neutrophils % (A) 74 %; Platelet Count 245 k/uL (150-450); RBC 3.47 m/uL (4.30-5.90); RDW 13.2 % (11.5-15.5); WBC 8.7 k/uL (3.8-10.6)
--- NOTE | 2018-01-29 00:58 | XR ---
EXAMINATION TYPE: XR chest 2V DATE OF EXAM: 01/29/2018 COMPARISON: 01/20/2018 HISTORY: Chest pain TECHNIQUE: Frontal and lateral views of the chest are obtained. FINDINGS: There is no heart failure nor confluent pneumonic infiltrate. Costophrenic angles are madie r. There are chest leads. Bony thorax is intact. IMPRESSION: No active cardiopulmonary disease. No adverse change.
[2018-01-29 01:05] LABS: Calcium 9.7 mg/dL (8.4-10.2); Magnesium 2.2 mg/dL (1.6-2.3); Potassium 4.7 mmol/L (3.5-5.1); Total Bilirubin 0.3 mg/dL (0.2-1.3); Total Protein 7.4 g/dL (6.3-8.2)
[2018-01-29 01:17] LABS: Partial Thromboplastin Time 23.5 sec (22.0-30.0); Prothrombin Time 9.7 sec (9.0-12.0)
[2018-01-29 01:20] LABS: Creatine Kinase 134 U/L (55-170)
[2018-01-29 01:33] LABS: Creatine Kinase MB 1.7 ng/mL (0.0-2.4); Troponin I <0.012 ng/mL (0.000-0.034)
[2018-01-29 01:38] LABS: D-Dimer 1.21 mg/L FEU (<0.60)
[2018-01-29] MEDS ORDERED: ENOXAPARIN 120 MG/0.8 ML SYRINGE SQ STA (03:38)
[2018-01-29] MEDS ORDERED: NITROGLYCERIN SL TABS 0.4 MG TAB SUBLINGUAL PRN (04:17)
[2018-01-29] MEDS ORDERED: ONDANSETRON 4 MG/2 ML VIAL IVP PRN (04:59)
[2018-01-29 05:47] VITALS: BMI 35.2
[2018-01-29 07:27] LABS: Glucose,Whole Blood 182 mg/dL (75-99)
[2018-01-29 07:38] LABS: Creatine Kinase MB 1.7 ng/mL (0.0-2.4); Troponin I 0.012 ng/mL (0.000-0.034)
[2018-01-29] MEDS ORDERED: FUROSEMIDE 40 MG TAB PO SCH (08:00)
--- NOTE | 2018-01-29 08:22 | CONS ---
CONSULTATION Mr. Ruiz is a 57-year-old male with known history of coronary artery disease, status post coronary artery bypass grafting who has been followed in the past with Dr. Domínguez who presented with nausea and vomiting and chest discomfort. I am not able to obtain an accurate history from him. He is quite sleepy. He has opened his eyes to verbal stimulation, but falls asleep shortly after. According to the ER note that he had a complaint of chest discomfort, although I am not able to get that history at all. He was admitted in May of 2016 with symptoms of chest discomfort and non ST-segment elevation myocardial infarction, subsequently underwent coronary bypass grafting. He has a history of peripheral vascular disease and in the past his systolic function was mildly impaired with an ejection fraction of 35% to 40%. When he had his surgery he received a BURTON to the LAD, saphenous vein graft to the obtuse marginal branch and to the PDA. I am not able to get any more history from him. His coronary risk factors are positive for hyperlipidemia, diabetes, and hypertension. His smoking status is unavailable. MEDICATION: His medications include Lasix, Plavix, Lipitor, omeprazole, Lopressor 75 mg twice a day, insulin, Prandin, Zantac, and lisinopril. He has a history of chronic kidney disease and has been followed in the past by Dr. Lisa. Reviewing his lab data, there was some worsening in his renal function recently. REVIEW OF SYSTEMS: No review of systems could be obtained at this time. PHYSICAL EXAMINATION: He is a 57-year-old male, quite somnolent, opening of his eyes to verbal stimulation, falling asleep again. Blood pressure running in the 130s to 150s with the heart in the 60s. Afebrile. HEAD: Normocephalic. EYES: Sclerae anicteric. NECK: Good upstroke. No bruit. LUNGS: Clear to auscultation. HEART: Regular rate and rhythm, S1, S2. No S3 with a systolic murmur. No diastolic murmur. No rub. ABDOMEN: Soft, nontender. Positive bowel sounds. No organomegaly. EXTREMITIES: No edema. Intact distal pulses. LAB DATA: Chest x-ray revealed no acute changes. EKG reveals sinus mechanism with evidence suggestive of inferior myocardial infarction, nonspecific ST-T wave changes. His BUN and creatinine 40 and 2.55. Potassium 4.7. Troponin less than 0.012. NT proBNP of 1010. His hemoglobin is 10.5. IMPRESSION: 1. History of nausea and vomiting according to the records, although I am not able to obtain any history. 2. Somnolence. Apparently according to the nursing staff, this is not his baseline. 3. Status post coronary artery bypass grafting with no clear evidence to suggest recurrent angina pectoris or congestive heart failure. 4. History of ischemic cardiomyopathy with no symptoms of congestive heart failure. 5. Peripheral vascular disease. 6. Diabetes. 7. Worsening renal function. 8. Hyperlipidemia. RECOMMENDATION: From the cardiac standpoint, I will stop his diuretic at this time. I will obtain echocardiogram with Doppler. We will hydrate the patient. His blood sugar will be checked. He may need further evaluation in regards of the etiology of change in mental status. Depending on his progress, further recommendation will be made. At this time, I do not see any active cardiac issues. Thank you for this consult. We will follow with you. SACHA / IJN: [id number] /
[2018-01-29] MEDS ORDERED: SODIUM CHLORIDE 0.9% 1,000 ML IV SCH (10:15)
[2018-01-29] MEDS: INSULIN ASPART 100 UNIT/ML 1 ML 10 ML VIAL SQ SCH ×4 (10:35→20:07)
--- NOTE | 2018-01-29 11:04 | CT ---
EXAMINATION TYPE: CT brain wo con DATE OF EXAM: 01/29/2018 COMPARISON: None INDICATION: altered mental status DLP: 1029.9 mGycm, Automated exposure control for dose reduction was used. CONTRAST: None CT of the brain is performed utilizing 3 mm thick sections through the posterior fossa and 3 mm thick sections through the remaining calvarium. Study is performed within 24 hours of arrival to the hosp ital. No abnormal hyperdensity is present to suggest an acute intracranial hemorrhage. No mass lesion is evident. No acute infarcts are evident. There may be some very mild periventricular white matter hypodensity c ould be related to chronic white matter ischemic change. Ventricles and sulci are appropriate for the patient age. Paranasal sinuses are clear. There is some fluid within the inferior right mastoid air cells. Left ma stoid air cells are clear. IMPRESSIONS: 1. Suggestion of mild. Ventricular white matter ischemic changes. 2. Mild right mastoiditis.
[2018-01-29 12:00] LABS: Amylase 46 U/L (30-110); Lipase 113 U/L (23-300)
[2018-01-29 12:08] LABS: Creatine Kinase 120 U/L (55-170)
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
[2018-01-29] MEDS ORDERED: LISINOPRIL 5 MG TAB PO SCH (12:15)
[2018-01-29 12:18] LABS: Glucose,Whole Blood 192 mg/dL (75-99)
[2018-01-29 12:22] LABS: Creatine Kinase MB 1.8 ng/mL (0.0-2.4); Troponin I <0.012 ng/mL (0.000-0.034)
[2018-01-29] MEDS ORDERED: FUROSEMIDE 20 MG TAB PO SCH (12:30)
[2018-01-29] MEDS ORDERED: hydrALAZINE HCL 20 MG/ML 1 ML VIAL IVP PRN (13:24)
[2018-01-29] MEDS: PANTOPRAZOLE 40 MG TABLET PO SCH (13:26)
[2018-01-29] MEDS: METOPROLOL TARTRATE 25 MG TAB PO SCH ×2 (13:26→20:20)
[2018-01-29] MEDS: CLOPIDOGREL 75 MG TAB PO SCH (13:27)
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
[2018-01-29] MEDS: INSULIN DETEMIR 100 UNIT/ML 10 ML VIAL SQ SCH (13:29)
[2018-01-29] MEDS: SODIUM CHLORIDE 0.9% 1,000 ML IV SCH ×2 (13:29→18:49)
--- NOTE | 2018-01-29 13:32 | ECHOF ---
Referral Reason:cad MEASUREMENTS -------- HEIGHT: 182.9 cm WEIGHT: 117.5 kg BP: 164/92 IVSd: 1.1 cm (0.6 - 1.1) LVIDd: 5.2 cm (3.9 - 5.3) LVPWd: 1.0 cm (0.6 - 1.1) IVSs: 1.3 cm LVIDs: 3.0 cm LVPWs: 1.2 cm LAESV Index (A-L): 32.50 ml/m Ao Diam: 3.7 cm (2.0 - 3.7) AV Cusp: 2.5 cm (1.5 - 2.6) LA Diam: 3.6 cm (2.7 - 3.8) EPSS: 1.8 cm MV E Isael: 0.83 m/s MV DecT: 271 ms MV A Isael: 0.87 m/s MV E/A Ratio: 0.95 RAP: 5.00 mmHg RVSP: 12.22 mmHg MV EF SLOPE: 41.94 mm/s (70 - 150) MV EXCURSION: 1.68 cm (> 18.000) FINDINGS -------- Sinus rhythm. This was a technically difficult study with suboptimal views. The left ventricular size is normal. There is borderline concentric left ventricular hypertrophy. Overall left ventricular systolic function is mildly impaired with, an EF between 45 - 50 %. Apica l anterior LV wall motion is hypokinetic. Apical septum LV wall motion is hypokinetic. The RV was not well visualized. LA is midly dilated 29-33ml/m2. The right atrium is normal in size. 3 ml of Lumason was utilized for enhancement of images. There is mild aortic valve sclerosis. Mild mitral annular calcification present. Mild mitral regurgitation is present. Trace tricuspid regurgitation present. There is no evidence of pulmonary hypertension. The right ventricular systolic pressure, as measured by Doppler, is 12.22mmHg. The pulmonic valve was not well visualized. There is no pulmonic regurgitation present. The aortic root is mildy dilated, up to 3.8 cm. Normal inferior vena cava with normal inspiratory collapse consistent with estimated right atrial pre ssure of 5 mmHg. There is no pericardial effusion. CONCLUSIONS -------- 1. Sinus rhythm. 2. This was a technically difficult study with suboptimal views. 3. The left ventricular size is normal. 4. There is borderline concentric left ventricular hypertrophy. 5. Overall left ventricular systolic function is mildly impaired with, an EF between 45 - 50 %. 6. Apical anterior LV wall motion is hypokinetic. 7. Apical septum LV wall motion is hypokinetic. 8. The RV was not well visualized. 9. LA is midly dilated 29-33ml/m2. 10. 3 ml of Lumason was utilized for enhancement of images. 11. There is mild aortic valve sclerosis. 12. Mild mitral annular calcification present. 13. Mild mitral regurgitation is present. 14. Trace tricuspid regurgitation present. 15. There is no evidence of pulmonary hypertension. 16. The pulmonic valve was not well visualized. 17. The aortic root is mildy dilated, up to 3.8 cm. 18. There is no pericardial effusion. GETTERER: Dong Minor RDCS
[2018-01-29] MEDS: NICOTINE 21MG/24HR PATCH TRANSDERM SCH (13:33)
[2018-01-29] MEDS: amLODIPine 5 MG TAB PO SCH (13:33)
--- NOTE | 2018-01-29 14:56 | NM ---
EXAMINATION TYPE: NM pul vent and perfuse DATE OF EXAM: 01/29/2018 COMPARISON: Chest x-ray 01/29/2018 HISTORY: Chest pain dizziness vomiting TECHNIQUE: Utilizing inhalation of 36.9 mCi Tc 99m DTPA aerosol and intravenous injection of 4.9 mCi of Tc 99m MAA, ventilation and perfusion images are acquired post injection in multiple projections. FINDINGS: No moderate or large mismatched defects are evident. There may be a small ventilation defect at the l eft base posteriorly. No triple matched defects are evident. IMPRESSION: Low probability for pulmonary embolism based on PIOPED 2 criteria.
[2018-01-29 17:15] LABS: Appearance,Urine Clear (Clear); Bilirubin,Urine Negative (Negative); Blood,Urine Moderate (Negative); Color,Urine Yellow; Glucose,Urine (UA) 2+ (Negative); Ketones,Urine Negative (Negative); Leukocyte Esterase,Urine Negative (Negative); Mucus,Urine Rare /hpf; Nitrite,Urine Negative (Negative); Protein,Urine 3+ (Negative); RBC,Urine 4 /hpf (0-5); Specific Gravity,Urine 1.015 (1.001-1.035); Urobilinogen,Urine <2.0 mg/dL (<2.0); WBC,Urine 1 /hpf (0-5)
[2018-01-29 17:27] LABS: Amphetamine Screen,Urine Not Detected (NotDetected); Barbiturate Screen,Urine Not Detected (NotDetected); Benzodiazepines Screen,Urine Not Detected (NotDetected); Cocaine Screen,Urine Not Detected (NotDetected); Methadone Screen, Urine Not Detected (NotDetected); Opiate Screen,Urine Not Detected (NotDetected); Oxycodone Screen, Urine Not Detected (NotDetected); Phencyclidine Screen,Urine Not Detected (NotDetected); Tricyclic Antidepressant,Urine Not Detected (NotDetected); Urn Cannabinoid Scrn Not Detected (NotDetected)
[2018-01-29] MEDS: DULoxetine HCL 30 MG CAPSULE.DR PO SCH (17:28)
[2018-01-29 17:39] LABS: Glucose,Whole Blood 270 mg/dL (75-99)
[2018-01-29] MEDS: ATORVASTATIN 40 MG TAB PO SCH (20:20)
[2018-01-29] MEDS: FAMOTIDINE 20 MG TAB PO SCH (20:21)
[2018-01-29 20:24] LABS: Glucose,Whole Blood 99 mg/dL (75-99)
[2018-01-29] MEDS ORDERED: ENOXAPARIN 120 MG/0.8 ML SYRINGE SQ SCH (21:00)
[2018-01-29 21:48] LABS: Hemoglobin A1C 9.2 % (4.0-6.0)
[2018-01-30] MEDS ORDERED: ENOXAPARIN 40 MG/0.4 ML SYRINGE SQ SCH (05:00)
[2018-01-30 06:46] LABS: Glucose,Whole Blood 246 mg/dL (75-99)
--- NOTE | 2018-01-30 07:44 | PN ---
PROGRESS NOTE Mr. Ruiz is a 57-year-old male with a known history of coronary artery disease, status post coronary artery bypass grafting who presented with chest discomfort. Yesterday he was quite somnolent, not responsive to verbal stimulation. He is awake and alert today and feeling better. He has had chest pain and this discomfort appears to be worse with movement of his chest and his arm. He has been working in his barn. He has been having nausea and vomiting for the last few months and the etiology has been unclear. The patient unfortunately continues to smoke. He has a history of chronic tobacco use. His echocardiogram that was performed yesterday revealed ejection fraction 45% to 50% with segmental wall motion abnormality. MEDICATION: His medications at this time include aspirin once a day, Lipitor 40 mg daily, Plavix 75 mg daily, metoprolol tartrate 75 mg twice a day, Protonix and amlodipine 5 mg daily. PHYSICAL EXAMINATION: Blood pressure running in the 140s to 160s with the heart rate in the 70s. LUNGS: Clear. HEART: Regular rate and rhythm. S1, S2. No S3 with systolic murmur. No diastolic murmur. ABDOMEN: Soft, nontender. EXTREMITIES: No edema. LAB DATA: Lab data from this morning is pending. IMPRESSION: 1. Symptoms of chest discomfort appears to be musculoskeletal in etiology. 2. Change in mental status, improving. 3. Status post coronary artery bypass grafting. 4. Prior issue with the sternum post surgical intervention. 5. Chronic kidney disease. 6. Hypertension. 7. Hyperlipidemia. 8. Peripheral vascular disease. 9. Diabetes mellitus. RECOMMENDATION: His VALENTINO inhibitor has been on hold because of his blood pressure. I will add hydralazine to his regimen, increase his level activity. If he remains stable, he may be able to be discharged home and followed as an outpatient with Dr. Domínguez. MMODL / IJN: [id number] /
[2018-01-30 07:52] LABS: Albumin 3.4 g/dL (3.5-5.0); Phosphorus 4.3 mg/dL (2.5-4.5); Potassium 4.7 mmol/L (3.5-5.1); Total Bilirubin 0.3 mg/dL (0.2-1.3); Total Protein 6.6 g/dL (6.3-8.2)
[2018-01-30 07:57] LABS: Basophils % (A) 0 %; Eosinophils # (A) 0.3 k/uL (0-0.7); Eosinophils % (A) 4 %; HCT 31.8 % (39.0-53.0); HGB 10.6 gm/dL (13.0-17.5); Lymphocytes # (A) 1.5 k/uL (1.0-4.8); Lymphocytes % (A) 22 %; MCH 30.3 pg (25.0-35.0); MCHC 33.2 g/dL (31.0-37.0); Monocytes # (A) 0.5 k/uL (0-1.0); Monocytes % (A) 8 %; Neutrophils # (A) 4.3 k/uL (1.3-7.7); Neutrophils % (A) 64 %; Platelet Count 232 k/uL (150-450); RBC 3.49 m/uL (4.30-5.90); RDW 13.2 % (11.5-15.5); WBC 6.7 k/uL (3.8-10.6)
[2018-01-30] MEDS: PANTOPRAZOLE 40 MG TABLET PO SCH (08:07)
[2018-01-30] MEDS: NICOTINE 21MG/24HR PATCH TRANSDERM SCH (08:07)
[2018-01-30] MEDS: amLODIPine 5 MG TAB PO SCH (08:08)
[2018-01-30] MEDS: CLOPIDOGREL 75 MG TAB PO SCH (08:08)
[2018-01-30] MEDS: ENOXAPARIN 40 MG/0.4 ML SYRINGE SQ SCH (08:08)
[2018-01-30] MEDS: METOPROLOL TARTRATE 25 MG TAB PO SCH ×2 (08:08→21:34)
[2018-01-30] MEDS: hydrALAZINE HCL 25 MG TAB PO SCH ×2 (08:08→21:35)
[2018-01-30] MEDS: ASPIRIN 81 MG PO SCH (08:08)
[2018-01-30] MEDS: DULoxetine HCL 30 MG CAPSULE.DR PO SCH (08:09)
[2018-01-30] MEDS: INSULIN DETEMIR 100 UNIT/ML 10 ML VIAL SQ SCH (08:10)
[2018-01-30] MEDS: INSULIN ASPART 100 UNIT/ML 1 ML 10 ML VIAL SQ SCH ×5 (08:10→21:34)
[2018-01-30] MEDS ORDERED: ASPIRIN 325 MG TAB PO SCH (09:00)
[2018-01-30] MEDS ORDERED: CALCITRIOL 0.25 MCG CAP PO SCH (09:00)
--- NOTE | 2018-01-30 11:06 | P.PN ---
Subjective Progress Note Date: 01/30/18 This is a 57-year-old male, patient of [facility]. He has a known past medical history of myocardial infarction, coronary artery disease with cardiac stents and previous CABG, hyperlipidemia, COPD, diabetes mellitus type 2 , GERD, chronic systolic congestive heart failure, and chronic renal failure. Patient also is an active smoker. Occasionally smokes marijuana as well. Patient is a poor historian. He presents to the emergency room after having several episodes of vomiting yesterday. Also developed left-sided chest pain. He at that time was having some shortness of breath and sweating. Information was obtained from the ER report. Early this morning nursing staff called with concerns about patient being very lethargic. They were able to wait have him wake up and open his eyes any focal right back to sleep. Later in the morning I was able to evaluate patient he was still confused but he was alert and orientated to his name and place. Did not know the year. And was confused at times during the conversation. No facial droop or slurred speech. Hand gun stock checker and lower extremity strength equal bilaterally. Patient was no longer having the chest pain. Computed tomography scan of the brain and drug screen were ordered. Patient appears to be more dehydrated creatinine was 2.55. And was having pain yesterday which she took [place] and baclofen which she doesn't take very often. Blood sugar was normal at 182. Computed tomography scan of the brain showed no evidence of bleed or stroke. Services at suggestive mild ventricular white matter ischemic changes and mild right mastoiditis. Patient denies any fever chills or sweats. Denies any cough. Denies any bowel movement changes or urinary symptoms. Cardiology has been consulted. End nephrology also consulted due to the worsening kidney function. Patient had recent kidney biopsy of a kidney cyst. Patient is currently on Lovenox for PE treatment due to elevated d-dimer of 1.21 until VQ scan can be completed. 01/30/2018 troponins are negative 3 sets. Patient seen evaluated by cardiology. [place] chest pain was related to musculoskeletal pain. Patient is also had blood pressure medications adjusted due to his uncontrolled blood pressures. Norvasc added as well as hydralazine during this admission. Patient is more awake and alert today. Still slightly confused. Per nursing staff patient is having difficulty remembering details. For in-stent nurse explained to patient that she is giving him insulin and Lovenox injections. Then goes to administer medications and patient is asking "what are these medications you're giving me why are you giving me this." Also nursing staff describes giving patient medications and he is kind of almost falls asleep sitting up. Patient also reports trying to use his phone last night and had difficulty selecting the appropriate name to call. He reports accidentally calling a few wrong numbers. Patient also reporting some burning with urination. Urinalysis is negative for infection. There is evidence of moderate blood. He does feel that he is not completely emptying the bladder. Bladder scan with Postvoid residuals have been ordered. Objective - Vital Signs Vital signs: Vital Signs Temp 98.3 F 01/30/18 07:43 Pulse 80 01/30/18 07:43 Resp 16 01/30/18 07:43 BP 182/88 01/30/18 07:43 Pulse Ox 98 01/30/18 07:43 Intake & Output 01/29/18 01/30/18 01/30/18 18:59 06:59 18:59 Intake Total 1186 236 Output Total 500 700 Balance 686 -464 Intake: Intake, IV Titration 650 Amount Sodium Chloride 0.9% 1, 650 000 ml @ 50 mls/hr IV . Q20H [facility] Rx#:[id number] Oral 536 236 Output: Urine 500 700 Other: Voiding Method Toilet # Voids 1 1 2 - Exam Head normocephalic Neck supple Lungs clear to auscultation bilaterally no wheezing or crackles Heart regular rate and rhythm S1-S2, no rub or gallop Abdomen is soft nontender nondistended positive bowel sounds no hepatosplenomegaly Extremities no edema Neuro alert and orientated to 3 - Labs CBC & Chem 7: 01/30/18 06:46 01/30/18 06:46 Labs: Abnormal Lab Results - Last 24 Hours (Table) 01/29/18 01/29/18 01/29/18 Range/Units 00:27 12:16 16:55 RBC (4.30-5.90) m/uL Hgb (13.0-17.5) gm/dL Hct (39.0-53.0) % Chloride (98-107) mmol/L BUN (9-20) mg/dL Creatinine (0.66-1.25) mg/dL Glucose (74-99) mg/dL POC Glucose (mg/dL) 192 H (75-99) mg/dL Hemoglobin A1c 9.2 H (4.0-6.0) % AST (17-59) U/L ALT (21-72) U/L Albumin (3.5-5.0) g/dL Triglycerides (<150) mg/dL HDL Cholesterol (40-60) mg/dL Urine Protein 3+ H (Negative) Urine Glucose (UA) 2+ H (Negative) Urine Blood Moderate H (Negative) Urine Mucus Rare H (None) /hpf 01/29/18 01/30/18 01/30/18 Range/Units 17:20 06:31 06:46 RBC (4.30-5.90) m/uL Hgb (13.0-17.5) gm/dL Hct (39.0-53.0) % Chloride 110 H (98-107) mmol/L BUN 38 H (9-20) mg/dL Creatinine 2.29 H (0.66-1.25) mg/dL Glucose 218 H (74-99) mg/dL POC Glucose (mg/dL) 270 H 246 H (75-99) mg/dL Hemoglobin A1c (4.0-6.0) % AST 14 L (17-59) U/L ALT 20 L (21-72) U/L Albumin 3.4 L (3.5-5.0) g/dL Triglycerides 465 H (<150) mg/dL HDL Cholesterol 30 L (40-60) mg/dL Urine Protein (Negative) Urine Glucose (UA) (Negative) Urine Blood (Negative) Urine Mucus (None) /hpf 01/30/18 Range/Units 06:46 RBC 3.49 L (4.30-5.90) m/uL Hgb 10.6 L (13.0-17.5) gm/dL Hct 31.8 L (39.0-53.0) % Chloride (98-107) mmol/L BUN (9-20) mg/dL Creatinine (0.66-1.25) mg/dL Glucose (74-99) mg/dL POC Glucose (mg/dL) (75-99) mg/dL Hemoglobin A1c (4.0-6.0) % AST (17-59) U/L ALT (21-72) U/L Albumin (3.5-5.0) g/dL Triglycerides (<150) mg/dL HDL Cholesterol (40-60) mg/dL Urine Protein (Negative) Urine Glucose (UA) (Negative) Urine Blood (Negative) Urine Mucus (None) /hpf Microbiology - Last 24 Hours (Table) 01/29/18 16:55 Urine Culture - Preliminary Urine,Voided Assessment and Plan Assessment: 1. Nausea and vomiting: Patient reports recently having EGD and colonoscopy within the last few months. per patient he may have had a diverticular bleed. LFTs and amylase and lipase are normal 2. Chest pain: Likely musculoskeletal. Patient seen evaluated by cardiology. troponins negative 3. EKG normal sinus rhythm with inferior infarct age undetermined. Echo shows an EF of 45-50% with apical wall motion hypokinetic 3. Altered mental status changes possibly a toxic and metabolic encephalopathy due to dehydration and baclofen. Computed tomography scan of the brain showed no evidence of any stroke or bleed. No evidence of hypoglycemia. Ammonia level normal. Urine drug screen negative. Urinalysis shows no signs of infection 4. Elevated d-dimer with chest pain. VQ scan low probability of PE. Lovenox changed to 40 mg subcu daily 5. Acute on chronic renal failure, stage III. Acute kidney injury prerenal from diuresis. Creatinine has decreased 2.29. Chronic kidney disease baseline creatinine near 2. Seen by nephrology. Continue to hold Lasix and lisinopril. Continue IV fluids at normal saline at 50 mL an hour. 6. Diabetes mellitus type 2: Hyperglycemia this morning. Patient did not receive scheduled insulin yesterday because of nothing by mouth status. Resume Levemir, scheduled NovoLog and will add sliding scale coverage. 7. History of myocardial infarction and coronary artery disease with previous cardiac stent and CABG 8. Chronic systolic CHF no evidence of exacerbation. 9. Nicotine dependence discussed smoking cessation. Add nicotine patch. 10. Recent right kidney cysts biopsy. Per nephrology biopsy proven diabetic kidney disease. Also revealed severe tubular atrophy and interstitial fibrosis 11. Possible urinary retention check bladder scan with postvoid residual 12. Essential hypertension with uncontrolled blood pressures. Norvasc and hydralazine added during this admission. Continue to monitor 13. Anemia: Check iron studies 14. Hypertriglyceridemia: Encouraged a low-fat low-cholesterol diet GI prophylaxis omeprazole and DVT prophylaxis Lovenox I performed an examination of the patient and discussed their management with the physician Magnetic Prospecting Operator. I have reviewed the Physician Magnetic Prospecting Operator's notes and agree with the documented findings and plan of care
[2018-01-30 11:35] LABS: Glucose,Whole Blood 187 mg/dL (75-99)
[2018-01-30 16:55] LABS: Iron Saturation 24.65 (15.00-50.00)
[2018-01-30 17:31] LABS: Glucose,Whole Blood 197 mg/dL (75-99)
--- NOTE | 2018-01-30 17:53 | PN ---
PROGRESS NOTE The patient is being seen for followup for chronic kidney disease, and acute kidney injury. Patient's mentation seems to be improved compared to yesterday. His blood pressure is slightly on the higher side. Patient is not on any IV fluids or diuretics. PHYSICAL EXAMINATION: Blood pressure 160/73, heart rate 66 per minute. He is afebrile. Examination of the heart S1, S2. Examination of the lungs bilateral breath sounds are heard. Abdomen is soft, nontender. Examination lower extremity shows no significant edema. SENIOR COUNSEL COMMERCIAL exam shows patient moving all 4 extremities. LAB: Show sodium 142, potassium 4.7, chloride 110, BUN 38, serum creatinine 2.29, hemoglobin 10.6 g/dL. ASSESSMENT: 1. Acute kidney injury, nonoliguric, currently improved, possibly prerenal. At this time, patient is not on any IV fluids. He is also not on any diuretics, which we will continue to hold off. The patient is encouraged to increase his oral intake. He is not on any nephrotoxic medications. I will repeat labs in a.m. The patient was on VALENTINO inhibitors at home, which is currently on hold. 2. Altered mentation. Neurology has been consulted. CT of the brain is negative. 3. Type 2 diabetes. Blood sugars were high this morning. 4. Coronary artery disease with history of myocardial infarction. 5. Hypertension with Chronic kidney disease. Blood pressure currently elevated. The patient is off of VALENTINO inhibitors that he was taking at home. The hydralazine was just started. We can increase the dose if blood pressure remains uncontrolled. 6. Chronic kidney disease NKF stage IIIB to 4 with baseline creatinine around 2 with previous kidney biopsy showing severe interstitial fibrosis and tubular atrophy with evidence of diabetic kidney disease on the kidney biopsy. PLAN: Continue current medications. I will repeat labs in a.m. Continue to avoid nephrotoxic agents. I agree with checking postvoid residual to rule out urine retention. MMODL / IJN: [id number] /
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
[2018-01-30 21:28] LABS: Glucose,Whole Blood 208 mg/dL (75-99)
[2018-01-30] MEDS: ATORVASTATIN 40 MG TAB PO SCH (21:34)
[2018-01-30] MEDS: FAMOTIDINE 20 MG TAB PO SCH (21:34)
--- NOTE | 2018-01-30 22:20 | XR ---
EXAMINATION TYPE: XR orbit pre-MRI foreign body DATE OF EXAM: 01/30/2018 COMPARISON: NONE HISTORY: MRI screening TECHNIQUE: 3 views FINDINGS: Orbital margins are intact. There is no sign of radiopaque foreign body. IMPRESSION: No foreign body seen.
[2018-01-31 08:04] LABS: Glucose,Whole Blood 306 mg/dL (75-99)
[2018-01-31] MEDS: INSULIN ASPART 100 UNIT/ML 1 ML 10 ML VIAL SQ SCH ×5 (08:20→21:21)
[2018-01-31 08:23] LABS: Basophils % (A) 1 %; Eosinophils # (A) 0.3 k/uL (0-0.7); Eosinophils % (A) 5 %; HCT 30.8 % (39.0-53.0); HGB 10.7 gm/dL (13.0-17.5); Lymphocytes # (A) 1.3 k/uL (1.0-4.8); Lymphocytes % (A) 21 %; MCH 30.7 pg (25.0-35.0); MCHC 34.7 g/dL (31.0-37.0); MCV 88.5 fL (80.0-100.0); Monocytes # (A) 0.4 k/uL (0-1.0); Monocytes % (A) 7 %; Neutrophils # (A) 3.9 k/uL (1.3-7.7); Neutrophils % (A) 64 %; Platelet Count 225 k/uL (150-450); RBC 3.48 m/uL (4.30-5.90); RDW 13.1 % (11.5-15.5)
[2018-01-31] MEDS: DULoxetine HCL 30 MG CAPSULE.DR PO SCH (08:23)
[2018-01-31] MEDS: CLOPIDOGREL 75 MG TAB PO SCH (08:23)
[2018-01-31] MEDS: hydrALAZINE HCL 25 MG TAB PO SCH ×2 (08:23→21:20)
[2018-01-31] MEDS: ASPIRIN 81 MG PO SCH (08:23)
[2018-01-31] MEDS: METOPROLOL TARTRATE 25 MG TAB PO SCH ×2 (08:23→21:20)
[2018-01-31] MEDS: NICOTINE 21MG/24HR PATCH TRANSDERM SCH (08:23)
[2018-01-31] MEDS: ENOXAPARIN 40 MG/0.4 ML SYRINGE SQ SCH (08:23)
[2018-01-31] MEDS: PANTOPRAZOLE 40 MG TABLET PO SCH (08:24)
[2018-01-31 08:38] LABS: Albumin 3.4 g/dL (3.5-5.0); Potassium 4.8 mmol/L (3.5-5.1); Total Bilirubin 0.3 mg/dL (0.2-1.3); Total Protein 6.7 g/dL (6.3-8.2)
[2018-01-31] MEDS: INSULIN DETEMIR 100 UNIT/ML 10 ML VIAL SQ SCH (08:49)
[2018-01-31] MEDS: amLODIPine 5 MG TAB PO SCH (08:50)
[2018-01-31] MEDS ORDERED: LORazepam 2 MG/ML INJ IV PRN (08:51)
[2018-01-31 11:26] LABS: Glucose,Whole Blood 223 mg/dL (75-99)
--- NOTE | 2018-01-31 12:15 | MR ---
EXAMINATION TYPE: MR brain wo con DATE OF EXAM: 01/31/2018 11:51 AM. COMPARISON: CT scan of the brain dated 01/29/2018. HISTORY: Intractable vomiting Technique: Multiplanar, multiecho imaging of the brain was obtained without intravenous contrast. FINDINGS: A fast brain protocol was utilized. This decreases resolution. There is a partially empty sella. Midline structures are otherwise unremarkable. There is a normal cr aniocervical junction. Echoplanar diffusion imaging fails to show areas of restricted diffusion. There are normal vascular flow voids. The orbits are unremarkable. There is mucoperiosteal thickening involving both maxillary sinuses. There is increased signal in the right mastoid air cells suggestive of mastoiditis. There is no evidence of a CP angle mass lesion There is abnormal signal within the pierre. There is mild, diffuse periventricular white matter change some scattered focal lesions are also seen. This may be on the basis of chronic ischemic change. There is no mass effect, midline shift or intracranial blood. IMPRESSION: 1. NO ACUTE INTRACRANIAL ABNORMALITY. 2. BOTH PUNCTATE AND DIFFUSE PERIVENTRICULAR WHITE MATTER CHANGES. THESE MAY BE ON THE BASIS OF CHRON IC ISCHEMIC CHANGE AND SMALL VESSEL DISEASE. 3. CHRONIC, BILATERAL MAXILLARY SINUS MUCOSAL DISEASE. 4. ACUTE RIGHT-SIDED MASTOIDITIS.
--- NOTE | 2018-01-31 14:30 | PN ---
PROGRESS NOTE The patient is seen for followup for acute kidney injury on chronic kidney disease. He was admitted to the hospital with confusion. The mentation seems to have improved. Patient was evaluated by Neurology. EXAMINATION: This morning blood pressure is 130/59, heart rate is 72 per minute. He is afebrile. Examination of the heart S1, S2. Examination of the lungs bilateral breath sounds are heard. Abdomen is soft, nontender. Examination lower extremity shows no significant edema. QUALITY ASSURANCE ASSISTANT exam is grossly intact. LAB: Show sodium 138, potassium 4.8, chloride 102, CO2 is 28, serum creatinine 1.85, BUN 33, hemoglobin 10.7. ASSESSMENT: 1. Acute kidney injury and prerenal. Seems to have improved. The patient is nonoliguric. 2. Chronic kidney disease NKF stage IIIB to 4. Baseline creatinine around 2. Etiology biopsy-proven chronic diabetic kidney disease with severe interstitial fibrosis and tubular atrophy. 3. Coronary artery disease with history of myocardial infarction. 4. Altered mentation. The patient is being evaluated by Neurology. PLAN: No changes from Nephrology standpoint. Patient is stable for discharge once cleared from Neurology. MMODL / IJN: [id number] /
--- NOTE | 2018-01-31 16:21 | P.PN ---
Subjective Progress Note Date: 01/31/18 This is a 57-year-old male, patient of [facility]. He has a known past medical history of myocardial infarction, coronary artery disease with cardiac stents and previous CABG, hyperlipidemia, COPD, diabetes mellitus type 2 , GERD, chronic systolic congestive heart failure, and chronic renal failure. Patient also is an active smoker. Occasionally smokes marijuana as well. Patient is a poor historian. He presents to the emergency room after having several episodes of vomiting yesterday. Also developed left-sided chest pain. He at that time was having some shortness of breath and sweating. Information was obtained from the ER report. Early this morning nursing staff called with concerns about patient being very lethargic. They were able to wait have him wake up and open his eyes any focal right back to sleep. Later in the morning I was able to evaluate patient he was still confused but he was alert and orientated to his name and place. Did not know the year. And was confused at times during the conversation. No facial droop or slurred speech. 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 Patient was no longer having the chest pain. Computed tomography scan of the brain and drug screen were ordered. Patient appears to be more dehydrated creatinine was 2.55. And was having pain yesterday which she took [place] and baclofen which she doesn't take very often. Blood sugar was normal at 182. Computed tomography scan of the brain showed no evidence of bleed or stroke. Services at suggestive mild ventricular white matter ischemic changes and mild right mastoiditis. Patient denies any fever chills or sweats. Denies any cough. Denies any bowel movement changes or urinary symptoms. Cardiology has been consulted. End nephrology also consulted due to the worsening kidney function. Patient had recent kidney biopsy of a kidney cyst. Patient is currently on Lovenox for PE treatment due to elevated d-dimer of 1.21 until VQ scan can be completed. 01/30/2018 troponins are negative 3 sets. Patient seen evaluated by cardiology. [place] chest pain was related to musculoskeletal pain. Patient is also had blood pressure medications adjusted due to his uncontrolled blood pressures. Norvasc added as well as hydralazine during this admission. Patient is more awake and alert today. Still slightly confused. Per nursing staff patient is having difficulty remembering details. For in-stent nurse explained to patient that she is giving him insulin and Lovenox injections. Then goes to administer medications and patient is asking "what are these medications you're giving me why are you giving me this." Also nursing staff describes giving patient medications and he is kind of almost falls asleep sitting up. Patient also reports trying to use his phone last night and had difficulty selecting the appropriate name to call. He reports accidentally calling a few wrong numbers. Patient also reporting some burning with urination. Urinalysis is negative for infection. There is evidence of moderate blood. He does feel that he is not completely emptying the bladder. Bladder scan with Postvoid residuals have been ordered. On 01/31/2018 patient is alert and oriented 3 he is feeling better he is sitting up in a chair and has been ambulating kidney function is improving creatinine is down to 1.86 he denies any pain or discomfort at this time Objective - Vital Signs Vital signs: Vital Signs Temp 98.0 F 01/31/18 14:21 Pulse 74 01/31/18 14:21 Resp 18 01/31/18 14:21 BP 171/77 01/31/18 14:21 Pulse Ox 98 01/31/18 14:21 Intake & Output 01/30/18 01/31/18 01/31/18 18:59 06:59 18:59 Intake Total 1158 600 220 Output Total 1322 149 Balance -164 600 71 Weight 117.9 kg Intake: IV 600 0.9 @ 50 600 Oral 1158 220 Output: Urine 1300 Post Void Residual 22 149 Other: Voiding Method Toilet # Voids 2 2 3 - Exam Head normocephalic and atraumatic Neck supple no JVD no goiter Lungs clear to auscultation bilaterally no wheezing or crackles Heart regular rate and rhythm S1-S2, no rub or gallop Abdomen is soft nontender nondistended positive bowel sounds no hepatosplenomegaly Extremities no edema no cyanosis or clubbing Neuro alert and orientated to 3 - Labs CBC & Chem 7: 01/31/18 07:56 01/31/18 07:56 Labs: Abnormal Lab Results - Last 24 Hours (Table) 01/30/18 01/30/18 01/31/18 Range/Units 17:26 21:27 07:56 RBC 3.48 L (4.30-5.90) m/uL Hgb 10.7 L (13.0-17.5) gm/dL Hct 30.8 L (39.0-53.0) % Chloride (98-107) mmol/L BUN (9-20) mg/dL Creatinine (0.66-1.25) mg/dL Glucose (74-99) mg/dL POC Glucose (mg/dL) 197 H 208 H (75-99) mg/dL AST (17-59) U/L ALT (21-72) U/L Albumin (3.5-5.0) g/dL 01/31/18 01/31/18 01/31/18 Range/Units 07:56 08:00 11:25 RBC (4.30-5.90) m/uL Hgb (13.0-17.5) gm/dL Hct (39.0-53.0) % Chloride 109 H (98-107) mmol/L BUN 33 H (9-20) mg/dL Creatinine 1.85 H (0.66-1.25) mg/dL Glucose 248 H (74-99) mg/dL POC Glucose (mg/dL) 306 H 223 H (75-99) mg/dL AST 15 L (17-59) U/L ALT 19 L (21-72) U/L Albumin 3.4 L (3.5-5.0) g/dL Microbiology - Last 24 Hours (Table) 01/29/18 16:55 Urine Culture - Final Urine,Voided Assessment and Plan Plan: 1. Nausea and vomiting: Patient reports recently having EGD and colonoscopy within the last few months. per patient he may have had a diverticular bleed. LFTs and amylase and lipase are normal 2. Chest pain: Likely musculoskeletal. Patient seen evaluated by cardiology. troponins negative 3. EKG normal sinus rhythm with inferior infarct age undetermined. Echo shows an EF of 45-50% with apical wall motion hypokinetic 3. Altered mental status changes possibly a toxic and metabolic encephalopathy due to dehydration and baclofen. Computed tomography scan of the brain showed no evidence of any stroke or bleed. No evidence of hypoglycemia. Ammonia level normal. Urine drug screen negative. Urinalysis shows no signs of infection 4. Elevated d-dimer with chest pain. VQ scan low probability of PE. Lovenox changed to 40 mg subcu daily 5. Acute on chronic renal failure, stage III. Acute kidney injury prerenal from diuresis. Creatinine has decreased 2.29. Chronic kidney disease baseline creatinine near 2. Seen by nephrology. Continue to hold Lasix and lisinopril. Continue IV fluids at normal saline at 50 mL an hour. 6. Diabetes mellitus type 2: Hyperglycemia this morning. Patient did not receive scheduled insulin yesterday because of nothing by mouth status. Resume Levemir, scheduled NovoLog and will add sliding scale coverage. 7. History of myocardial infarction and coronary artery disease with previous cardiac stent and CABG 8. Chronic systolic CHF no evidence of exacerbation. 9. Nicotine dependence discussed smoking cessation. Add nicotine patch. 10. Recent right kidney cysts biopsy. Per nephrology biopsy proven diabetic kidney disease. Also revealed severe tubular atrophy and interstitial fibrosis 11. Possible urinary retention check bladder scan with postvoid residual 12. Essential hypertension with uncontrolled blood pressures. Norvasc and hydralazine added during this admission. Continue to monitor 13. Anemia: Check iron studies 14. Hypertriglyceridemia: Encouraged a low-fat low-cholesterol diet GI prophylaxis omeprazole and DVT prophylaxis Lovenox
[2018-01-31 16:49] LABS: Glucose,Whole Blood 215 mg/dL (75-99)
[2018-01-31] MEDS: ATORVASTATIN 40 MG TAB PO SCH (21:20)
[2018-01-31] MEDS: FAMOTIDINE 20 MG TAB PO SCH (21:21)
[2018-01-31 21:27] LABS: Glucose,Whole Blood 194 mg/dL (75-99)
[2018-01-31 22:20] VITALS: RESP 16
[2018-02-01 06:41] LABS: Glucose,Whole Blood 230 mg/dL (75-99)
[2018-02-01 07:19] LABS: Basophils % (A) 1 %; Eosinophils # (A) 0.3 k/uL (0-0.7); Eosinophils % (A) 5 %; HGB 10.8 gm/dL (13.0-17.5); Lymphocytes # (A) 1.4 k/uL (1.0-4.8); Lymphocytes % (A) 23 %; MCH 30.9 pg (25.0-35.0); MCHC 34.8 g/dL (31.0-37.0); MCV 88.8 fL (80.0-100.0); Mean Platelet Volume 6.6; Monocytes # (A) 0.4 k/uL (0-1.0); Monocytes % (A) 6 %; Neutrophils # (A) 3.9 k/uL (1.3-7.7); Neutrophils % (A) 64 %; Platelet Count 220 k/uL (150-450); RBC 3.49 m/uL (4.30-5.90); RDW 13.1 % (11.5-15.5); WBC 6.2 k/uL (3.8-10.6)
[2018-02-01 07:37] LABS: Albumin 3.5 g/dL (3.5-5.0); Calcium 9.4 mg/dL (8.4-10.2); Potassium 4.9 mmol/L (3.5-5.1); Total Bilirubin 0.5 mg/dL (0.2-1.3); Total Protein 6.9 g/dL (6.3-8.2)
[2018-02-01] MEDS: PANTOPRAZOLE 40 MG TABLET PO SCH (08:10)
[2018-02-01] MEDS: ENOXAPARIN 40 MG/0.4 ML SYRINGE SQ SCH (08:10)
[2018-02-01] MEDS: METOPROLOL TARTRATE 25 MG TAB PO SCH (08:10)
[2018-02-01] MEDS: ASPIRIN 81 MG PO SCH (08:10)
[2018-02-01] MEDS: amLODIPine 5 MG TAB PO SCH (08:10)
[2018-02-01] MEDS: DULoxetine HCL 30 MG CAPSULE.DR PO SCH (08:10)
[2018-02-01] MEDS: CLOPIDOGREL 75 MG TAB PO SCH (08:10)
[2018-02-01] MEDS: NICOTINE 21MG/24HR PATCH TRANSDERM SCH (08:11)
[2018-02-01] MEDS: INSULIN ASPART 100 UNIT/ML 1 ML 10 ML VIAL SQ SCH ×2 (08:11→08:12)
[2018-02-01] MEDS: hydrALAZINE HCL 25 MG TAB PO SCH (08:21)
[2018-02-01 10:00] VITALS: BP 170/80; PULSE 74; TEMP 97.8
[2018-02-01] MEDS: INSULIN DETEMIR 100 UNIT/ML 10 ML VIAL SQ SCH (10:09)
--- NOTE | 2018-02-01 10:27 | P.DS ---
Providers Date of admission: 01/29/18 04:17 Expected date of discharge: 02/01/18 Attending physician: Yamilka Rey Consults: 01/29/18 04:18 Consult Physician Routine Consulting Provider: Deven Domínguez Consult Reason/Comments: chest pain Do you want consulting provider notified?: Yes 01/29/18 10:18 Consult Physician Routine Consulting Provider: Marcial Padilla Consult Reason/Comments: [place] Do you want consulting provider notified?: Yes 01/30/18 13:05 Consult Physician Routine Consulting Provider: Mayr Real Consult Reason/Comments: altered mental status Do you want consulting provider notified?: Yes Primary care physician: Angela Nieves [facility] Course: Diagnoses on discharge: 1. Nausea and vomiting: Patient reports recently having EGD and colonoscopy within the last few months normal. LFTs and amylase and lipase are normal, likely related to viral gastroenteritis improved during this admission, patient is able to tolerate diet well without any nausea or vomiting at the time of discharge 2. Chest pain troponins negative 2. EKG normal sinus rhythm with inferior infarct age undetermined. Cardiology following. They've ordered an echo. 3. Altered mental status changes possibly a toxic and metabolic encephalopathy due to dehydration and taking [place] and baclofen. Urine drug screen has been ordered. Check urinalysis to rule out any infection. Computed tomography scan of the brain showed no evidence of any stroke or bleed. Blood sugar 182. Ammonia level normal. Patient underwent MRI of the brain that revealed no acute intracranial abnormality, there was evidence of white matter changes likely on the basis of chronic ischemic changes and small vessel disease patient was started on baby aspirin daily patient also had evidence of sinusitis and acute right sided mastoiditis he was started on oral antibiotic Ceftin 500 mg twice daily for 10 days. Mental status changes were most likely related to metabolic encephalopathy this improved significantly during this admission. 4. Elevated d-dimer with chest pain. VQ scan ordered. Continue with Lovenox 120 mg every 12 hours. VQ scan revealed low probability for pulmonary embolism 5. Acute on chronic renal failure, stage III. Nephrology consulted. Continue to hold Lasix and lisinopril. Continue IV fluids at normal saline at 100 mL an hour. Creatinine was up to 2.55 at the time of admission it was down to 1.7 to at the time of discharge at this time Lasix and VALENTINO inhibitor were held this should be reevaluated closely by his primary care physician and his pmp certified project manager to assess if VALENTINO inhibitor and Lasix need to be resumed as outpatient. 6. Diabetes mellitus type 2: Resume Levemir, scheduled NovoLog and will add sliding scale coverage. 7. History of myocardial infarction and coronary artery disease with previous cardiac stent and CABG 8. Chronic systolic CHF no evidence of exacerbation. Awaiting echo. Last EF reported at 35-40% 9. Nicotine dependence discussed smoking cessation. Add nicotine patch. 10. Recent right kidney cysts biopsy. Hospital course: This is a 57-year-old male, patient of [facility]. He has a known past medical history of myocardial infarction, coronary artery disease with cardiac stents and previous CABG, hyperlipidemia, COPD, diabetes mellitus type 2 , GERD, chronic systolic congestive heart failure, and chronic renal failure. Patient also is an active smoker. Occasionally smokes marijuana as well. Patient is a poor historian. He presents to the emergency room after having several episodes of vomiting yesterday. Also developed left-sided chest pain. He at that time was having some shortness of breath and sweating. Information was obtained from the ER report. Early this morning nursing staff called with concerns about patient being very lethargic. They were able to wait have him wake up and open his eyes any focal right back to sleep. Later in the morning I was able to evaluate patient he was still confused but he was alert and orientated to his name and place. Did not know the year. And was confused at times during the conversation. No facial droop or slurred speech. 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 Patient was no longer having the chest pain. Computed tomography scan of the brain and drug screen were ordered. Patient appears to be more dehydrated creatinine was 2.55. And was having pain yesterday which she took [place] and baclofen which she doesn't take very often. Blood sugar was normal at 182. Computed tomography scan of the brain showed no evidence of bleed or stroke. Services at suggestive mild ventricular white matter ischemic changes and mild right mastoiditis. Patient denies any fever chills or sweats. Denies any cough. Denies any bowel movement changes or urinary symptoms. Cardiology has been consulted. End nephrology also consulted due to the worsening kidney function. Patient had recent kidney biopsy of a kidney cyst. Patient is currently on Lovenox for PE treatment due to elevated d-dimer of 1.21 until VQ scan can be completed. Plan - Discharge Summary New Discharge Prescriptions: New amLODIPine [Norvasc] 5 mg PO DAILY tab Aspirin 81 mg PO DAILY chew Cefuroxime Axetil [Ceftin] 500 mg PO BID #20 tab hydrALAZINE HCL [Apresoline] 25 mg PO BID tab Nicotine 21Mg/24Hr Patch [Habitrol] 1 patch TRANSDERM DAILY patch Nitroglycerin Sl Tabs [Nitrostat] 0.4 mg SUBLINGUAL Q5M PRN tab PRN Reason: Chest Pain Continue Atorvastatin [Lipitor] 40 mg PO HS Clopidogrel Bisulfate [Plavix] 75 mg PO DAILY Ergocalciferol [Vitamin D2 (DRISDOL)] 50,000 unit PO Q7D Lisinopril [Zestril] 5 mg PO DAILY Calcitriol [Rocaltrol] 0.25 mcg PO MOFR Ranitidine HCl [Zantac] 300 mg PO HS Omeprazole 40 mg PO DAILY Repaglinide [Prandin] 0.5 mg PO DAILY Metoprolol Tartrate [Lopressor] 75 mg PO BID Baclofen [Lioresal] 20 mg PO BID PRN PRN Reason: Pain Insulin Aspart [NovoLOG (formulary)] 16 unit SQ AC-BRKFST Insulin Aspart [NovoLOG (formulary)] 10 unit SQ AC-SUPPER Insulin Glargine,Hum.rec.anlog [Basaglar Kwikpen U-100] 34 unit SQ QAM Lansoprazole 30 mg PO DAILY DULoxetine HCL [Cymbalta] 30 mg PO DAILY Discontinued Furosemide [Lasix] 40 mg PO QAM Furosemide [Lasix] 20 mg PO AC-LUNCH Discharge Medication List Atorvastatin [Lipitor] 40 mg PO HS 08/02/15 [History] Clopidogrel Bisulfate [Plavix] 75 mg PO DAILY 04/01/16 [History] Ergocalciferol [Vitamin D2 (DRISDOL)] 50,000 unit PO Q7D 04/24/17 [History] Lisinopril [Zestril] 5 mg PO DAILY 04/24/17 [History] Calcitriol [Rocaltrol] 0.25 mcg PO MOFR 01/09/18 [History] Omeprazole 40 mg PO DAILY 01/09/18 [History] Ranitidine HCl [Zantac] 300 mg PO HS 01/09/18 [History] Repaglinide [Prandin] 0.5 mg PO DAILY 01/09/18 [History] Metoprolol Tartrate [Lopressor] 75 mg PO BID 01/20/18 [History] Baclofen [Lioresal] 20 mg PO BID PRN 01/29/18 [History] DULoxetine HCL [Cymbalta] 30 mg PO DAILY 01/29/18 [History] Insulin Aspart [NovoLOG (formulary)] 10 unit SQ AC-SUPPER 01/29/18 [History] Insulin Aspart [NovoLOG (formulary)] 16 unit SQ AC-BRKFST 01/29/18 [History] Insulin Glargine,Hum.rec.anlog [Basaglar Kwikpen U-100] 34 unit SQ QAM 01/29/18 [History] Lansoprazole 30 mg PO DAILY 01/29/18 [History] Aspirin 81 mg PO DAILY chew 02/01/18 [Rx] Cefuroxime Axetil [Ceftin] 500 mg PO BID #20 tab 02/01/18 [Rx] Nicotine 21Mg/24Hr Patch [Habitrol] 1 patch TRANSDERM DAILY patch 02/01/18 [Rx] Nitroglycerin Sl Tabs [Nitrostat] 0.4 mg SUBLINGUAL Q5M PRN tab 02/01/18 [Rx] amLODIPine [Norvasc] 5 mg PO DAILY tab 02/01/18 [Rx] hydrALAZINE HCL [Apresoline] 25 mg PO BID tab 02/01/18 [Rx] Follow up Appointment(s)/Referral(s): Deven Domínguez MD [STAFF PHYSICIAN] - 2 Weeks Angela Nieves DO [Primary Care Provider] - 1-2 days
[2018-02-01] MEDS ORDERED: INSULIN ASPART 100 UNIT/ML 1 ML 10 ML VIAL SQ SCH (17:30)
[2018-02-09] MEDS ORDERED: ERGOCALCIFEROL 50,000 UNIT CAP PO SCH (09:00)
== END 2018-02-01 12:02 | disposition home or self-care (01) ==
LOC: EC 23:54 → 3OBS 01-29 04:17 → 3SUR 01-30 18:28
PROVIDERS: ADMIT Internal Medicine; ATTEND Internal Medicine
DX: R11.2 Nausea with vomiting, unspecified (principal); R07.89 Other chest pain; R41.82 Altered mental status, unspecified; E86.0 Dehydration; J32.9 Chronic sinusitis, unspecified; H70.001 Acute mastoiditis without complications, right ear; R79.89 Other specified abnormal findings of blood chemistry; N17.9 Acute kidney failure, unspecified; N18.3 Chronic kidney disease, stage 3 (moderate); I50.22 Chronic systolic (congestive) heart failure; F17.200 Nicotine dependence, unspecified, uncomplicated; N28.1 Cyst of kidney, acquired; I25.10 Atherosclerotic heart disease of native coronary artery without angina pectoris; E78.5 Hyperlipidemia, unspecified; J44.9 Chronic obstructive pulmonary disease, unspecified; K21.9 Gastro-esophageal reflux disease without esophagitis; R61 Generalized hyperhidrosis; G93.41 Metabolic encephalopathy; E11.22 Type 2 diabetes mellitus with diabetic chronic kidney disease; I13.0 Hypertensive heart and chronic kidney disease with heart failure and stage 1 through stage 4 chronic kidney disease, or unspecified chronic kidney disease; E11.65 Type 2 diabetes mellitus with hyperglycemia; E11.42 Type 2 diabetes mellitus with diabetic polyneuropathy; E11.51 Type 2 diabetes mellitus with diabetic peripheral angiopathy without gangrene; I25.5 Ischemic cardiomyopathy; R30.9 Painful micturition, unspecified; R31.9 Hematuria, unspecified; D64.9 Anemia, unspecified; I25.2 Old myocardial infarction; E78.1 Pure hyperglyceridemia; R20.2 Paresthesia of skin; Z95.5 Presence of coronary angioplasty implant and graft; Z95.1 Presence of aortocoronary bypass graft; R20.0 Anesthesia of skin; M19.90 Unspecified osteoarthritis, unspecified site; L98.9 Disorder of the skin and subcutaneous tissue, unspecified; Z79.899 Other long term (current) drug therapy; Z79.02 Long term (current) use of antithrombotics/antiplatelets; Z79.4 Long term (current) use of insulin; F32.9 Major depressive disorder, single episode, unspecified; Z87.442 Personal history of urinary calculi; Z90.49 Acquired absence of other specified parts of digestive tract; E66.9 Obesity, unspecified; Z68.35 Body mass index [BMI] 35.0-35.9, adult
CPT/HCPCS: 99285; 96374 ×2; 96372 ×5; 96375; 36415; 93005; 85379; 83880; 80061; 80053 ×4; 82728; 82140; 82150; 82550; 82553; 83540; 83550; 83690; 83735; 84100; 84484; 85025 ×4; 85610; 85730; 81001; 80306; 87086; 83036; 70030; 71046; 70450; 70551; 78582; G0378 ×4; C8929; A9540; A9567; S4990 ×4; J2060; J0360; J2405; J1650 ×4; Q9950; 93306

== ENCOUNTER → 2018-03-13 | Outpatient (CLI) | payer OTHER | LOC: RADMRIMAIN 19:35 | PROVIDERS: ATTEND Family Medicine | DX: Z53.9 Procedure and treatment not carried out, unspecified reason (principal) ==

== ENCOUNTER → 2018-03-30 | Day surgery (SDC) | payer OTHER ==
[2018-03-30 09:30] VITALS: TEMP 98
[2018-03-30 09:32] LABS: Mean Platelet Volume 7.8; Platelet Count 242 k/uL (150-450)
[2018-03-30 09:44] LABS: INR 0.9 (<1.2); Prothrombin Time 9.4 sec (9.0-12.0)
[2018-03-30 10:29] LABS: Glucose,Whole Blood 392 mg/dL (75-99)
--- NOTE | 2018-03-30 12:00 | US ---
EXAMINATION TYPE: US kidneys/renal and bladder DATE OF EXAM: 03/30/2018 COMPARISON: US & CT 2018 CLINICAL HISTORY: N28.89 renal mass. Right kidney lesion EXAM MEASUREMENTS: Right Kidney: 16.0 x 7.9 x 8.7 cm Left Kidney: 16.5 x 7.1 x 6.4 cm Right Kidney: enlarged, hypoechoic area inferior pole = 2.4 x 2.7 x 2.8cm (measured up to 2.6 cm on t he prior) Left Kidney: enlarged, no hydronephrosis or masses seen Bladder: wnl Bilateral Jets seen: yes There is no evidence for hydronephrosis at this point in time. No nephrolithiasis is seen. The urina ry bladder is anechoic. Bilateral ureteral jets are seen. IMPRESSION: 1. A right renal lesion seen on the prior ultrasound of 01/16/2017 was cystic at that time and now mariel ears hypoechoic. This likely represents internal hemorrhage and/or proteinaceous debris and has only minimally increased in size in comparison to the prior. However this does not appear entirely cystic on the recent CT with contrast could assess for enhancement. 2. Again the kidneys are mildly enlarged with a left lower pole renal lesion that appeared cystic on the prior exam of 01/16/2017 and similar in size.
[2018-03-30 12:20] LABS: Glucose,Whole Blood 330 mg/dL (75-99)
[2018-03-30 12:57] VITALS: BP 155/81; PULSE 80; RESP 16
--- NOTE | 2018-03-30 14:49 | CT ---
EXAMINATION TYPE: CT biopsy renal RT DATE OF EXAM: 03/30/2018 HISTORY: Renal mass COMPARISON: CT dated 11/28/2017, ultrasound 03/30/2018 Maximal barrier technique was utilized. The skin overlying a suitable path to the lesion at the lowe r pole of the right kidney was localized using CT and the overlying skin was prepped and draped. Lid ocaine used for local anesthesia. A skin donnie made with a scalpel. Using CT guidance, access was ga ined to the lesion with a 17-gauge guide needle. 18-gauge core biopsy was performed coaxially. 2 pas ses were performed in all. Following the procedure no immediate complications. The patient is disc harged in stable condition. Hemostasis achieved. IMPRESSION: SUCCESSFUL CT GUIDED LOWER POLE RIGHT RENAL MASS BIOPSY. PATHOLOGY PENDING. THIS PROCEDURE WAS PERF ORMED BY THE UNDERSIGNED.
== END ==
LOC: RADPROMAIN 08:50
PROVIDERS: ATTEND Physician Assistant
DX: N28.89 Other specified disorders of kidney and ureter (principal)
CPT/HCPCS: 36415; 76770; 77012; 85049; 85610; 88305

== ENCOUNTER → 2018-04-03 | Outpatient (CLI) | payer OTHER | LOC: LABWHC1 09:36 | PROVIDERS: ATTEND Nurse Practitioner Family | DX: Z53.9 Procedure and treatment not carried out, unspecified reason (principal) ==

== ENCOUNTER → 2018-06-17 | Outpatient (CLI) | payer OTHER ==
--- NOTE | 2018-06-17 16:57 | US ---
EXAMINATION TYPE: US kidneys/renal and bladder DATE OF EXAM: 06/17/2018 COMPARISON: US 2018 CLINICAL HISTORY: N41.01 NEOPLASM OF RT KIDNEY,N20.0 CALCULUS OF KIDNEY. Follow up right renal lesion EXAM MEASUREMENTS: Right Kidney: 15.0 x 7.3 x 8.6 cm Left Kidney: 15.0 x 7.5 x 6.7 cm Right Kidney: enlarged, exophytic hypoechoic cystic area inferior pole = 3.0 x 3.2 x 2.9cm (measures 2.4 x 2.7 x 2.8cm on prior ultrasound) Left Kidney: enlarged, no hydronephrosis or masses seen Bladder: wnl Bilateral Jets seen: no IMPRESSION: 1. Simple cyst right mid inferior renal cortex
== END | disposition home or self-care (01) ==
LOC: RADUSWWP 12:12
PROVIDERS: ATTEND Surgery
DX: N28.1 Cyst of kidney, acquired (principal)
CPT/HCPCS: 76770

== ENCOUNTER → 2018-06-30 | Outpatient (CLI) | payer OTHER ==
--- NOTE | 2018-06-30 09:12 | CT ---
EXAMINATION TYPE: CT sinus wo con DATE OF EXAM: 06/30/2018 COMPARISON: MRI brain January 31, 2018 HISTORY: Orbital swelling and sinus pain CT DLP: 622.3 mGycm. Automated Exposure Control for Dose Reduction was Utilized. TECHNIQUE: CT scan of the sinuses is performed without contrast, axial images are obtained, coronal r eformatted images are also reviewed. Sinus CT includes evaluation of orbits. FINDINGS: Mild to moderate lobulated mucosal thickening inferior aspect of both maxillary sinuses rem ains present. There is mild mucosal thickening involving ethmoid sinuses bilaterally. Bilateral front al and sphenoid sinuses are clear without suspicious opacification or air-fluid levels. The ostiomea suleman complex is patent on the left on the coronal images. There is narrowing/near complete occlusion o n the right coronal image 29 noted due to antral mucosal thickening. Orbital floors and fontenot are intact bilaterally. The globes are intact bilaterally. Intraconal fat is preserved. Rectus muscles are symmetric and felt within normal limits. Suprasellar cistern is mainta ined. Visualized portion of mastoid air cells shows increasing opacification on the right more prominent fr om MRI. Visualized portion of brain parenchyma shows mild generalized age-related cerebral atrophy. IMPRESSION: 1. Chronic paranasal sinus disease as detailed above. No acute sinusitis is evident. 2. CT orbital findings felt within normal limits. 3. Increasing fluid signal right mastoid air cells raises concern for mastoiditis, correlate clinical ly.
== END | disposition home or self-care (01) ==
LOC: RADCTMAIN 07:53
PROVIDERS: ATTEND Family Medicine
DX: J34.89 Other specified disorders of nose and nasal sinuses (principal)
CPT/HCPCS: 70486

== ENCOUNTER → 2018-08-26 | Outpatient (CLI) | payer OTHER ==
--- NOTE | 2018-08-26 09:00 | CT ---
EXAMINATION TYPE: CT lumbar spine wo con DATE OF EXAM: 08/26/2018 8:48 AM COMPARISON: CT abdomen and pelvis November 28, 2017 HISTORY: Severe low back pain for 8 weeks into bilateral thighs causing bilateral leg weakness per pa tient. CT DLP: 2272 mGycm Automated exposure control for dose reduction was used. Unenhanced CT of the lumbar spine was performed. Bone and soft tissue window settings are submitted as well as coronal and sagittal reconstructions. Findings: 5 lumbar type vertebra are redemonstrated. Lumbar spine redemonstrates satisfactory alignme nt without evidence of acute fracture or dislocation. Vertebral body heights and disc space heights a re fairly well maintained. Posterior disc herniation is noted L2-L3 through the L4-L5 levels on sagit suleman images. No significant change from prior CT. There is mild to moderate multilevel anterior and la teral spurring redemonstrated. Axial images at the T12-L1 and L1-L2 levels remain within normal limits. Axial images at the L2-L3 level shows [id number] broad disc bulge mildly effaces the anterior t hecal sac with mild facet degenerative changes bilaterally on axial image 45. Right-sided neural fora rosa is mildly narrowed anterior-inferior aspect. Axial images at the L3-L4 level show [id number] facet degenerative changes at the before meals and posterior lateral thecal sac with moderate broad disc bulge effaces the anterior thecal sac and a xial image 58 and causing moderate bilateral anterior inferior neural foraminal narrowing. No signifi cant change from prior. Axial images at the L4-L5 level shows moderate facet degenerative changes bilaterally with mild/moder ate broad-based disc bulge effacing the anterior thecal sac and causing moderate right greater than l eft bilateral neural foraminal narrowing. No significant change from prior. Axial images at the L5-S1 levels with [id number] facet degenerative changes bilaterally. There is broad-based right paracentral disc protrusion axial image 79 redemonstrated. Spinal canal preserve d. There is moderate bilateral inferior neural foraminal narrowing redemonstrated. Mild to moderate perinephric fluid which is nonspecific finding is redemonstrated. There is moderate calcified plaque of the aorta redemonstrated. IMPRESSION: Multilevel degenerative changes in the lumbar spine most prominent at L3-L4 and L4-L5 lev els as detailed above. No significant progression or change from comparison CT abdomen pelvis study.
== END ==
LOC: RADCTMAIN 08:11
PROVIDERS: ATTEND Family Medicine
DX: M48.061 Spinal stenosis, lumbar region without neurogenic claudication (principal); M48.07 Spinal stenosis, lumbosacral region; M51.27 Other intervertebral disc displacement, lumbosacral region; M51.26 Other intervertebral disc displacement, lumbar region; M47.817 Spondylosis without myelopathy or radiculopathy, lumbosacral region; M47.816 Spondylosis without myelopathy or radiculopathy, lumbar region
CPT/HCPCS: 72131

== ENCOUNTER 2019-01-28 18:49 | Inpatient (IN) | payer OTHER ==
[2019-01-28] MEDS ORDERED: MORPHINE SULFATE 4 MG/ML SYRINGE IVP STA (19:51)
[2019-01-28] MEDS ORDERED: IPRATROPIUM-ALBUTEROL 3 ML NEB INHALATION STA (19:51)
[2019-01-28 20:24] LABS: Basophils % (A) 1 %; Eosinophils # (A) 0.3 k/uL (0-0.7); Eosinophils % (A) 4 %; HCT 31.9 % (39.0-53.0); HGB 10.6 gm/dL (13.0-17.5); Lymphocytes # (A) 1.6 k/uL (1.0-4.8); Lymphocytes % (A) 24 %; MCH 30.4 pg (25.0-35.0); MCHC 33.1 g/dL (31.0-37.0); MCV 91.9 fL (80.0-100.0); Mean Platelet Volume 7.4; Monocytes # (A) 0.5 k/uL (0-1.0); Monocytes % (A) 7 %; Neutrophils # (A) 4.1 k/uL (1.3-7.7); Neutrophils % (A) 62 %; Platelet Count 290 k/uL (150-450); RBC 3.48 m/uL (4.30-5.90); RDW 13.1 % (11.5-15.5); WBC 6.5 k/uL (3.8-10.6)
[2019-01-28 20:33] LABS: Albumin 4.2 g/dL (3.5-5.0); Calcium 9.1 mg/dL (8.4-10.2); Potassium 4.5 mmol/L (3.5-5.1); Total Bilirubin 0.3 mg/dL (0.2-1.3); Total Protein 7.6 g/dL (6.3-8.2)
[2019-01-28 20:42] LABS: INR 0.9 (<1.2); Partial Thromboplastin Time 24.6 sec (22.0-30.0); Prothrombin Time 9.9 sec (9.0-12.0)
[2019-01-28 20:43] LABS: D-Dimer 1.46 mg/L FEU (<0.60)
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
[2019-01-28] MEDS ORDERED: NALOXONE 0.4 MG/ML 1 ML VIAL IV PRN (22:37)
[2019-01-28] MEDS ORDERED: ENOXAPARIN 120 MG/0.8 ML SYRINGE SQ ONE (23:00)
[2019-01-28] MEDS: INSULIN ASPART (NovoLOG) 100 UNIT/ML VIAL SQ SCH (23:13)
[2019-01-28] MEDS: SODIUM CHLORIDE 0.9% 1,000 ML IV SCH (23:31)
[2019-01-28] MEDS: HYDROmorphone 1 MG/ML 1 ML SYRINGE IVP PRN (23:35)
[2019-01-29 03:57] LABS: Amorphous Sediment,Urine Rare /hpf; Appearance,Urine Cloudy (Clear); Bacteria,Urine Rare /hpf; Bilirubin,Urine Negative (Negative); Blood,Urine Small (Negative); Color,Urine Yellow; Glucose,Urine (UA) 3+ (Negative); Hyaline Casts,Urine 49 /lpf (0-2); Ketones,Urine Negative (Negative); Leukocyte Esterase,Urine Negative (Negative); Mucus,Urine Rare /hpf; Nitrite,Urine Negative (Negative); Protein,Urine 3+ (Negative); RBC,Urine 3 /hpf (0-5); Specific Gravity,Urine 1.019 (1.001-1.035); Squamous Epithelial Cell,Urine 1 /hpf (0-4); Urobilinogen,Urine <2.0 mg/dL (<2.0); WBC,Urine <1 /hpf (0-5)
[2019-01-29] MEDS ORDERED: guaiFENesin-DM 100-10MG/5ML 10 ML CUP PO PRN (06:25)
[2019-01-29] MEDS: HYDROmorphone 1 MG/ML 1 ML SYRINGE IVP PRN (06:53)
[2019-01-29 07:01] LABS: Glucose,Whole Blood 127 mg/dL (75-99)
[2019-01-29] MEDS ORDERED: INSULIN ASPART (NovoLOG) 100 UNIT/ML VIAL SQ SCH (07:30)
[2019-01-29 07:47] LABS: Basophils % (A) 0 %; Eosinophils # (A) 0.3 k/uL (0-0.7); Eosinophils % (A) 5 %; HCT 31.7 % (39.0-53.0); HGB 10.6 gm/dL (13.0-17.5); Lymphocytes # (A) 1.6 k/uL (1.0-4.8); Lymphocytes % (A) 27 %; MCH 30.8 pg (25.0-35.0); MCHC 33.4 g/dL (31.0-37.0); MCV 92.3 fL (80.0-100.0); Mean Platelet Volume 6.7; Monocytes # (A) 0.5 k/uL (0-1.0); Monocytes % (A) 8 %; Neutrophils # (A) 3.5 k/uL (1.3-7.7); Neutrophils % (A) 57 %; Platelet Count 273 k/uL (150-450); RBC 3.43 m/uL (4.30-5.90); WBC 6.1 k/uL (3.8-10.6)
[2019-01-29 08:05] LABS: Calcium 9.1 mg/dL (8.4-10.2); Potassium 4.3 mmol/L (3.5-5.1)
[2019-01-29] MEDS ORDERED: amLODIPine 5 MG TAB PO SCH (09:00)
[2019-01-29] MEDS ORDERED: METOPROLOL TARTRATE 25 MG TAB PO SCH (09:00)
[2019-01-29] MEDS ORDERED: INSULIN DETEMIR (LEVEMIR) 100 UNIT/ML SYR SQ SCH (09:00)
[2019-01-29] MEDS ORDERED: CLOPIDOGREL 75 MG TAB PO SCH (09:00)
[2019-01-29] MEDS ORDERED: PANTOPRAZOLE 40 MG TABLET PO SCH (09:00)
[2019-01-29] MEDS ORDERED: ISOSORBIDE MONONITRATE ER 30 MG TAB.ER.24H PO SCH (09:00)
[2019-01-29] MEDS ORDERED: hydrALAZINE HCL 25 MG TAB PO SCH ×2 (09:00→21:00)
[2019-01-29] MEDS ORDERED: ASPIRIN 81 MG PO SCH (09:00)
[2019-01-29] MEDS ORDERED: methylPREDNISolone SOD SUCCI 125 MG/2 ML VIAL IV STA (09:01)
[2019-01-29] MEDS: SODIUM CHLORIDE 0.9% 1,000 ML IV SCH ×2 (09:11→16:44)
[2019-01-29] MEDS ORDERED: IPRATROPIUM-ALBUTEROL 3 ML NEB INHALATION PRN (11:56)
[2019-01-29 11:59] LABS: Glucose,Whole Blood 119 mg/dL (75-99)
[2019-01-29] MEDS ORDERED: ENOXAPARIN 40 MG/0.4 ML SYRINGE SQ SCH (12:00)
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
--- NOTE | 2019-01-29 12:17 | CT ---
EXAMINATION TYPE: CT chest wo con DATE OF EXAM: 01/28/2019 COMPARISON: 10/31/2016 HISTORY: Chest pain, possible rib fx, pna CT DLP: 906.9 mGycm, Automated exposure control for dose reduction was used. CONTRAST: Performed injected with 0 mL of Isovue 300. TECHNIQUE: Axial images were obtained at 5 mm thick sections. Reconstructed images are reviewed on [employer] computer in the coronal plane. FINDINGS: Portion of the thyroid visualized is normal. No suspicious lung nodules or focal infiltrates are present. No enlarged mediastinal or hilar adenopathy is evident. The ascending aorta diameter at the level o f the main pulmonary artery is 3.7 cm. The main pulmonary artery diameter at the bifurcation is 2.2 cm. Coronary artery calcification is present. The is a hairline fracture along the right lateral eighth rib. Series 201 image 46. No pneumothorax i s evident. Limited CT sections are obtained through the upper abdomen. No suspicious acute changes within the ab domen. Liver appears intact without evidence of laceration. IMPRESSIONS: 1. Right lateral eighth rib fracture, nondisplaced. No pneumothorax or lacerations evident. 2. No suspicious lung infiltrates evident. 3. Preliminary results were provided by the on-call radiologist.
--- NOTE | 2019-01-29 13:26 | XR ---
EXAMINATION TYPE: XR chest 2V DATE OF EXAM: 01/29/2019 COMPARISON: CT dated 01/28/2019 HISTORY: Coughing and rib pain TECHNIQUE: Frontal and lateral views of the chest are obtained. FINDINGS: The known right lateral nondisplaced eighth rib fracture is better seen on the CT dated . Double density overlying the left mediastinal border relates to prominent mediastinal fat wh en correlated with the CT. Post CABG changes of the chest are noted. No consolidation, pleural effusi on or pneumothorax. Curvilinear density that is about the aortic arch may relate to postsurgical lo ge or be external to the patient, not well seen on the lateral view. Flattening of the diaphragms on the lateral view relates underlying COPD. Mild degenerative changes of the spine. IMPRESSION: The known right lateral eighth rib fracture is better seen on CT. No acute cardiopulmona ry process seen.
[2019-01-29 16:29] LABS: Glucose,Whole Blood 233 mg/dL (75-99)
[2019-01-29] MEDS: INSULIN ASPART (NovoLOG) 100 UNIT/ML VIAL SQ SCH (16:44)
[2019-01-29 16:48] VITALS: BP 180/107; PULSE 81; RESP 18; TEMP 98.9
--- NOTE | 2019-01-29 19:58 | CONS ---
CONSULTATION REASON FOR CONSULT: Renal failure. HISTORY OF PRESENT ILLNESS: Patient is a 58-year-old male who was admitted to the hospital with complaints of pain on the right side of his chest associated with severe coughing. The patient stated that he has been sick for about a week. He has had decreased oral intake, some cough, congestion, headache, nausea, but no vomiting or diarrhea. He had been coughing and felt severe pain on his right side. He has a history of chronic kidney disease secondary to biopsy-proven diabetic nephropathy, NKF stage III, with previous creatinine 1.9 in December of 2017. Patient was admitted with a creatinine of 3.28. He is currently maintained on IV fluids. His creatinine is down to 3.07. He says he is voiding. Blood pressure has not been low. Patient denies use of any nonsteroidal anti-inflammatory agents prior to admission. He had been maintained on Zestril, which is currently on hold. PAST MEDICAL HISTORY: 1. CKD, stage III, secondary to diabetic nephropathy. 2. Type 2 diabetes. 3. CKD mineral bone disorder. 4. Coronary artery disease. 5. Hypertension. 6. Gastroesophageal reflux disease. 7. Peripheral vascular disease. 8. Cardiomyopathy, EF 35% to 40%. PAST SURGICAL HISTORY: 1. Cholecystectomy. 2. Coronary artery bypass surgery. 3. Cardiac catheterization with coronary stent placement. 4. Tonsillectomy. SOCIAL HISTORY: Positive for smoking and use of marijuana. MEDICATIONS: Medications prior to admission included: 1. Lipitor. 2. Plavix. 3. Drisdol. 4. Zestril. 5. Rocaltrol. 6. Omeprazole. 7. Zantac. 8. Prandin. 9. Lopressor. 10.Cymbalta. 11.Insulin. 12.Lansoprazole. 13.Aspirin. 14.Ceftin. 15.Habitrol. 16.Norvasc. 17.Hydralazine. 18.Fenofibrate. 19.Imdur. ALLERGIES: NONE. REVIEW OF SYSTEMS: As per HPI. Other systems negative. PHYSICAL EXAMINATION: Patient is comfortable, awake, not in any acute distress. Blood pressure this morning 175/87, heart rate 90 per minute. He is afebrile. EXAMINATION OF THE HEART: S1 and S2. EXAMINATION OF LUNGS: Bilateral breath sounds are heard. ABDOMEN: Soft, non-tender. Examination of lower extremities shows no significant edema. [employer] HELPER exam is grossly intact. LABS: Sodium 141, potassium 4.3, BUN 39, serum creatinine 3.07. UA shows 3+ protein, 3+ glucose. Small blood is noted. RBCs 3, WBCs less than 1, hyaline casts 49. ASSESSMENT: 1. Acute kidney injury, prerenal, currently improving with IV fluids. Continue to hold off on VALENTINO inhibitors. No other nephrotoxic agents on board. 2. Chronic kidney disease, stage IIIB, with baseline creatinine about 1.9 as of 12/31/2017 secondary to biopsy-proven diabetic kidney disease. 3. Hypertension, currently uncontrolled. Hold off on lisinopril. Increase hydralazine to 50 mg twice a day. 4. Anemia of chronic disease. 5. Chronic kidney disease mineral bone disorder, maintained on Rocaltrol at home, which we can continue. 6. Chest pain secondary to right lateral eighth rib fracture associated with severe cough. PLAN: Continue IV fluids. Repeat labs in a.m. Increase hydralazine. Thank you for this consultation. Will continue to follow the patient with you during his hospitalization. MMODL / IJN: [id number] /
[2019-01-29] MEDS ORDERED: BUDESONIDE 0.5 MG/2 ML NEBU INHALATION SCH (20:00)
[2019-01-29] MEDS ORDERED: ATORVASTATIN 40 MG TAB PO SCH (21:00)
--- NOTE | 2019-01-30 13:52 | P.DS ---
Providers Date of admission: 01/29/19 08:45 Expected date of discharge: 01/29/19 Attending physician: Milo Moss MD Consults: 01/28/19 22:38 Consult Physician Urgent Consulting Provider: Marcial Padilla Consult Reason/Comments: a/c renal failure Do you want consulting provider notified?: Yes Primary care physician: Angela Nieves - Discharge Diagnosis(es) (1) MARIETTA (acute kidney injury) Status: Acute (2) Hypertension Status: Acute (3) Coronary artery disease Status: Acute (4) Costochondral chest pain Status: Acute (5) Viral URI with cough Status: Acute (6) Type 2 diabetes mellitus Status: Acute (7) CKD stage 3 due to type 2 diabetes mellitus Status: Acute (8) Elevated d-dimer Status: Acute Hospital Course: John Terrazas is a 58 yo M with PMH of CAD, HTN, T2DM, CKD3 who presented to the ED complaining of R lateral chest wall pain after coughing over the past few days. He states he came down with upper respiratory symptoms about a week ago including congestion, headache, malaise and sore throat and proceeded to e xperience productive cough. He states that after an especially vigorous cough he felt a 'pop' and since then has had aching pain and tenderness along his R anterolateral chest wall. He also complains of poor appetite and has been lying in bed most of the day. He denies shortness of breath or fevers. Feels his upper respiratory symptoms are improving with the exception of the cough, which hurts every time he coughs. In the ED pt's vitals were stable, EKG without ST/T changes, WBC 6, Cr 3.5 from baseline 1.5, trop negative x3. D-dimer 1.5. Pt was admitted to medicine and nephrology consulted. He was started on IVF for his MARIETTA. CT chest did show nondisplaced hairline fracture of his R 8th lateral rib. There was no evidence of PE. On 01/29, pt left AMA. He was recommended to stay inpatient for continued treatment of his kidney injury and declined. He is recommended to follow up with PCP. Patient Condition at Discharge: Serious Plan - Discharge Summary Discharge Rx Participant: Yes New Discharge Prescriptions: No Action Atorvastatin [Lipitor] 40 mg PO HS Clopidogrel Bisulfate [Plavix] 75 mg PO DAILY Ergocalciferol [Vitamin D2 (DRISDOL)] 50,000 unit PO Q7D Lisinopril [Zestril] 5 mg PO DAILY Calcitriol [Rocaltrol] 0.25 mcg PO DAILY Ranitidine HCl [Zantac] 300 mg PO HS Omeprazole 40 mg PO DAILY Repaglinide [Prandin] 0.5 mg PO AC-LUNCH Metoprolol Tartrate [Lopressor] 75 mg PO BID Baclofen [Lioresal] 20 mg PO BID PRN PRN Reason: Pain INSULIN ASPART (NovoLOG) [NovoLOG (formulary)] 16 unit SQ AC-BRKFST INSULIN ASPART (NovoLOG) [NovoLOG (formulary)] 10 unit SQ AC-SUPPER Insulin Glargine,Hum.rec.anlog [Basaglar Kwikpen U-100] 34 unit SQ QAM Lansoprazole 30 mg PO DAILY DULoxetine HCL [Cymbalta] 30 mg PO DAILY amLODIPine [Norvasc] 5 mg PO DAILY tab Aspirin 81 mg PO DAILY chew Cefuroxime Axetil [Ceftin] 500 mg PO BID #20 tab hydrALAZINE HCL [Apresoline] 25 mg PO BID tab Nicotine 21Mg/24Hr Patch [Habitrol] 1 patch TRANSDERM DAILY patch Nitroglycerin Sl Tabs [Nitrostat] 0.4 mg SUBLINGUAL Q5M PRN tab PRN Reason: Chest Pain Fenofibrate 160 mg PO DAILY Isosorbide Mononitrate ER [Imdur] 30 mg PO DAILY Discharge Medication List Atorvastatin [Lipitor] 40 mg PO HS 08/02/15 [History] Clopidogrel Bisulfate [Plavix] 75 mg PO DAILY 04/01/16 [History] Ergocalciferol [Vitamin D2 (DRISDOL)] 50,000 unit PO Q7D 04/24/17 [History] Lisinopril [Zestril] 5 mg PO DAILY 04/24/17 [History] Calcitriol [Rocaltrol] 0.25 mcg PO DAILY 01/09/18 [History] Omeprazole 40 mg PO DAILY 01/09/18 [History] Ranitidine HCl [Zantac] 300 mg PO HS 01/09/18 [History] Repaglinide [Prandin] 0.5 mg PO AC-LUNCH 01/09/18 [History] Metoprolol Tartrate [Lopressor] 75 mg PO BID 01/20/18 [History] Baclofen [Lioresal] 20 mg PO BID PRN 01/29/18 [History] DULoxetine HCL [Cymbalta] 30 mg PO DAILY 01/29/18 [History] INSULIN ASPART (NovoLOG) [NovoLOG (formulary)] 10 unit SQ AC-SUPPER 01/29/18 [History] INSULIN ASPART (NovoLOG) [NovoLOG (formulary)] 16 unit SQ AC-BRKFST 01/29/18 [History] Insulin Glargine,Hum.rec.anlog [Basaglar Kwikpen U-100] 34 unit SQ QAM 01/29/18 [History] Lansoprazole 30 mg PO DAILY 01/29/18 [History] Aspirin 81 mg PO DAILY chew 02/01/18 [Rx] Cefuroxime Axetil [Ceftin] 500 mg PO BID #20 tab 02/01/18 [Rx] Nicotine 21Mg/24Hr Patch [Habitrol] 1 patch TRANSDERM DAILY patch 02/01/18 [Rx] Nitroglycerin Sl Tabs [Nitrostat] 0.4 mg SUBLINGUAL Q5M PRN tab 02/01/18 [Rx] amLODIPine [Norvasc] 5 mg PO DAILY tab 02/01/18 [Rx] hydrALAZINE HCL [Apresoline] 25 mg PO BID tab 02/01/18 [Rx] Fenofibrate 160 mg PO DAILY 01/28/19 [History] Isosorbide Mononitrate ER [Imdur] 30 mg PO DAILY 01/28/19 [History] Follow up Appointment(s)/Referral(s): Angela Nieves DO [Primary Care Provider] - 1-2 days Discharge Disposition: Left Against Medical Advice
== END 2019-01-29 18:10 | disposition left against medical advice (07) | DRG 683 ==
LOC: EC 18:49 → 1SOBS 22:48 → OBSVTOIN 01-29 08:45
PROVIDERS: ADMIT Family Medicine; ATTEND Family Medicine
DX: N17.9 Acute kidney failure, unspecified (principal); M84.48XA Pathological fracture, other site, initial encounter for fracture; I42.9 Cardiomyopathy, unspecified; I13.0 Hypertensive heart and chronic kidney disease with heart failure and stage 1 through stage 4 chronic kidney disease, or unspecified chronic kidney disease; E11.22 Type 2 diabetes mellitus with diabetic chronic kidney disease; E11.42 Type 2 diabetes mellitus with diabetic polyneuropathy; E83.9 Disorder of mineral metabolism, unspecified; E11.51 Type 2 diabetes mellitus with diabetic peripheral angiopathy without gangrene; I50.9 Heart failure, unspecified; N18.3 Chronic kidney disease, stage 3 (moderate); M94.0 Chondrocostal junction syndrome [Tietze]; J06.9 Acute upper respiratory infection, unspecified; G89.29 Other chronic pain; D63.8 Anemia in other chronic diseases classified elsewhere; F32.9 Major depressive disorder, single episode, unspecified; J44.9 Chronic obstructive pulmonary disease, unspecified; I25.10 Atherosclerotic heart disease of native coronary artery without angina pectoris; E78.5 Hyperlipidemia, unspecified; M19.90 Unspecified osteoarthritis, unspecified site; K21.9 Gastro-esophageal reflux disease without esophagitis; F17.210 Nicotine dependence, cigarettes, uncomplicated; Z71.6 Tobacco abuse counseling; Z95.1 Presence of aortocoronary bypass graft; Z79.02 Long term (current) use of antithrombotics/antiplatelets; Z79.4 Long term (current) use of insulin; Z79.82 Long term (current) use of aspirin; Z79.899 Other long term (current) drug therapy; Z87.442 Personal history of urinary calculi; Z90.49 Acquired absence of other specified parts of digestive tract; Z95.5 Presence of coronary angioplasty implant and graft; Z87.2 Personal history of diseases of the skin and subcutaneous tissue; Z98.890 Other specified postprocedural states; Z83.2 Family history of diseases of the blood and blood-forming organs and certain disorders involving the immune mechanism; Z82.49 Family history of ischemic heart disease and other diseases of the circulatory system
CPT/HCPCS: 36415; 71046; 71250; 80048; 80053; 81001; 83735; 83880; 84484; 85025; 85379; 85610; 85730; 93005; 94640; 96372; 96374; 96375; 99285

== ENCOUNTER 2021-03-21 15:18 | Emergency (ER) | payer OTHER ==
[2021-03-21 16:37] VITALS: BP 133/81; PULSE 87; RESP 20; TEMP 98.4
--- NOTE | 2021-03-21 17:11 | XR ---
EXAMINATION TYPE: XR ankle complete RT DATE OF EXAM: 03/21/2021 COMPARISON: NONE HISTORY: Ankle pain and swelling TECHNIQUE: 3 views FINDINGS: There is soft tissue swelling around the ankle joint. There is bony densities at the medial malleolus that is probably from old trauma. I see no acute fracture nor dislocation. There is some s purring of the anterior malleolus. There is evidence of large ankle joint effusion. IMPRESSION: No acute fracture seen. Soft tissue swelling and ankle joint effusion. Calcaneal spurring noted.
== END 2021-03-21 18:50 | disposition left against medical advice (07) ==
LOC: EC 15:18
DX: Z53.21 Procedure and treatment not carried out due to patient leaving prior to being seen by health care provider (principal)
CPT/HCPCS: 99499

== ENCOUNTER 2021-10-27 15:37 | Inpatient (IN) | payer OTHER ==
[2021-10-27] MEDS ORDERED: SODIUM CHLORIDE 0.9% 500 ML 500 ML IV ONE (16:27)
[2021-10-27] MEDS ORDERED: ONDANSETRON 4 MG/2 ML VIAL IVP STA (16:27)
[2021-10-27] MEDS ORDERED: DILTIAZEM DRIP BOLUS FROM BAG 1 MG SOLN IV ONE (16:28)
[2021-10-27] MEDS ORDERED: DILTIAZEM 125 MG in SODIUM CHLORIDE 0.9% 100 ML IV SCH (16:30)
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
[2021-10-27 16:59] LABS: Basophils % (A) 0 %; Eosinophils # (A) 0.2 k/uL (0-0.7); Eosinophils % (A) 2 %; HCT 31.4 % (39.0-53.0); HGB 10.4 gm/dL (13.0-17.5); Lymphocytes # (A) 0.7 k/uL (1.0-4.8); Lymphocytes % (A) 6 %; MCH 31.2 pg (25.0-35.0); MCHC 33.3 g/dL (31.0-37.0); MCV 93.8 fL (80.0-100.0); Monocytes # (A) 0.7 k/uL (0-1.0); Monocytes % (A) 6 %; Neutrophils # (A) 10.7 k/uL (1.3-7.7); Neutrophils % (A) 86 %; Platelet Count 216 k/uL (150-450); RBC 3.35 m/uL (4.30-5.90); RDW 12.8 % (11.5-15.5); WBC 12.5 k/uL (3.8-10.6)
[2021-10-27 17:07] LABS: INR 0.9 (<1.2); Partial Thromboplastin Time 23.2 sec (22.0-30.0)
[2021-10-27 17:15] LABS: Albumin 3.9 g/dL (3.5-5.0); Calcium 8.8 mg/dL (8.4-10.2); Magnesium 1.2 mg/dL (1.6-2.3); Potassium 4.8 mmol/L (3.5-5.1); Total Bilirubin 0.3 mg/dL (0.2-1.3); Total Protein 7.1 g/dL (6.3-8.2)
--- NOTE | 2021-10-27 17:38 | XR ---
EXAMINATION TYPE: XR chest 2V DATE OF EXAM: 10/27/2021 COMPARISON: 01/29/2019 HISTORY: Dysrhythmia TECHNIQUE: 3 views FINDINGS: Heart size is normal. No heart failure seen. Costophrenic angles are clear. There are no hi lar masses. Chest leads. IMPRESSION: No active cardiopulmonary disease. No change
[2021-10-27] MEDS ORDERED: NALOXONE 0.4 MG/ML 1 ML VIAL IV PRN (18:02)
[2021-10-27] MEDS ORDERED: HEPARIN SODIUM 1,000 UN/ML (10ML VL) IV PRN (18:08)
[2021-10-27] MEDS ORDERED: HEPARIN SODIUM 1,000 UN/ML (10ML VL) IV ONE (18:08)
[2021-10-27] MEDS ORDERED: HEPARIN SOD,PORK IN 0.45% NACL 25,000 UNIT in 0.45% NACL 1 250ML.BAG IV SCH (18:15)
[2021-10-27] MEDS: MAGNESIUM SULFATE-D5W PMX 1 GM in DEXTROSE/WATER 1 100ML.BAG IVPB SCH ×2 (19:01→21:12)
[2021-10-27] MEDS: SODIUM CHLORIDE 0.9% 1,000 ML IV SCH (19:19)
[2021-10-27] MEDS ORDERED: HYDROcodone/APAP 7.5-325MG 1 EACH TAB PO STA (20:11)
[2021-10-27] MEDS ORDERED: CYCLOBENZAPRINE 10 MG TAB PO PRN (21:06)
[2021-10-27] MEDS ORDERED: HYDROcodone/APAP 10-325MG 1 EACH TAB PO PRN (21:06)
[2021-10-27] MEDS ORDERED: TAMSULOSIN 0.4 MG CAP.ER.24H PO SCH (21:15)
[2021-10-27] MEDS ORDERED: ATORVASTATIN 40 MG TAB PO SCH (21:15)
[2021-10-27] MEDS: GABAPENTIN 300 MG CAP PO SCH (21:33)
[2021-10-27] MEDS: hydrALAZINE HCL 25 MG TAB PO SCH (21:34)
[2021-10-28] MEDS ORDERED: ALPRAZolam 0.5 MG TAB PO PRN (08:06)
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
[2021-10-28] MEDS: hydrALAZINE HCL 25 MG TAB PO SCH (08:56)
[2021-10-28] MEDS: GABAPENTIN 300 MG CAP PO SCH (08:56)
[2021-10-28 09:24] LABS: Basophils # (A) 0.1 k/uL (0-0.2); Basophils % (A) 1 %; Eosinophils # (A) 0.1 k/uL (0-0.7); Eosinophils % (A) 1 %; HCT 27.4 % (39.0-53.0); Hypochromasia Slight; Lymphocytes # (A) 1.7 k/uL (1.0-4.8); Lymphocytes % (A) 14 %; MCH 32.1 pg (25.0-35.0); MCV 97.2 fL (80.0-100.0); Mean Platelet Volume 7.8; Monocytes # (A) 0.8 k/uL (0-1.0); Monocytes % (A) 7 %; Neutrophils # (A) 9.8 k/uL (1.3-7.7); Neutrophils % (A) 77 %; Platelet Count 186 k/uL (150-450); RBC 2.82 m/uL (4.30-5.90); RDW 12.9 % (11.5-15.5); WBC 12.7 k/uL (3.8-10.6)
[2021-10-28 09:26] LABS: INR 0.9 (<1.2); Partial Thromboplastin Time 30.4 sec (22.0-30.0); Prothrombin Time 10.4 sec (9.0-12.0)
[2021-10-28 09:27] LABS: Calcium 8.3 mg/dL (8.4-10.2); Magnesium 1.8 mg/dL (1.6-2.3); Potassium 5.3 mmol/L (3.5-5.1)
[2021-10-28] MEDS ORDERED: SODIUM BICARBONATE TAB 650 MG TAB PO SCH (09:30)
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
[2021-10-28] MEDS: SODIUM CHLORIDE 0.9% 1,000 ML IV SCH (11:25)
[2021-10-28 11:56] LABS: Glucose,Whole Blood 179 mg/dL (70-110)
[2021-10-28] MEDS ORDERED: ISOSORBIDE MONONITRATE ER 30 MG TAB.ER.24H PO SCH (12:00)
[2021-10-28] MEDS ORDERED: METOPROLOL SUCCINATE (ER) 100 MG TAB.ER.24H PO SCH (12:00)
[2021-10-28] MEDS ORDERED: APIXABAN 5 MG TAB PO SCH (12:45)
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
[2021-10-28] MEDS ORDERED: NICOTINE 21MG/24HR PATCH TRANSDERM SCH (13:00)
[2021-10-28 14:57] LABS: Glucose,Whole Blood 229 mg/dL (70-110)
[2021-10-28 15:02] VITALS: BP 148/64; PULSE 88; RESP 17; TEMP 98.7
[2021-10-28 17:06] LABS: Glucose,Whole Blood 212 mg/dL (70-110)
[2021-10-28] MEDS ORDERED: INSULIN DETEMIR (LEVEMIR) 100 UNIT/ML SYR SQ SCH (17:45)
--- NOTE | 2021-10-28 18:09 | CT ---
EXAMINATION TYPE: CT brain wo con DATE OF EXAM: 10/28/2021 COMPARISON: 01/29/2018 HISTORY: ams CT DLP: 1247.4 mGycm Automated exposure control for dose reduction was used. Ventricles have fairly normal size. There is no mass effect or midline shift. No sign of intracranial hemorrhage. No evidence of cerebral edema. The calvarium is intact. Skull base is intact. There is l imited aeration of the right mastoid sinus. IMPRESSION: There is right-sided mastoiditis which is increased compared to old exam. No acute intracranial abnor mality.
[2021-10-28 18:39] LABS: HCT 25.7 % (39.0-53.0); HGB 8.7 gm/dL (13.0-17.5); MCH 32.4 pg (25.0-35.0); MCHC 33.9 g/dL (31.0-37.0); MCV 95.3 fL (80.0-100.0); Mean Platelet Volume 8.7; Platelet Count 193 k/uL (150-450); RDW 12.9 % (11.5-15.5); WBC 13.3 k/uL (3.8-10.6)
--- NOTE | 2021-10-28 20:38 | P.DS ---
Providers Date of admission: 10/27/21 18:02 Attending physician: Nabeel Awad Consults: 10/27/21 18:02 Consult Physician Routine Consulting Provider: Liz Orozco Consult Reason/Comments: CAD, New a flutter Do you want consulting provider notified?: Yes Primary care physician: Angela Nieves Hospital Course: Please note patient was not discharged but he left without signing AMA papers I got a call by luis to contact the bedside nurse upon her request, i talked to the nurse Alesia and told me that patient has already left the hospital, Apparently patient was awake alert and oriented 3 and apparently patient did not want to wait in the hospital, also he wanted to smoke although nicotine patch was ordered and provided for him, several nurses talked to him, but he left without signing AMA papers. Family and daughter were already informed, with advice for the patient to come to the hospital or go to his PCP as soon as possible. I informed the bedside nurse Alesia to notify the food and nutrition supervisor nurse and follow the protocol in these situations Please refer to H&P from today for more details Patient Condition at Discharge: Stable Plan - Discharge Summary Discharge Rx Participant: No New Discharge Prescriptions: No Action RX: Atorvastatin [Lipitor] 40 mg PO HS RX: Clopidogrel Bisulfate [Plavix] 75 mg PO DAILY RX: lisinopriL [Zestril] 5 mg PO DAILY RX: Omeprazole 40 mg PO DAILY RX: hydrALAZINE HCL [Apresoline] 25 mg PO BID tab Isosorbide Mononitrate ER [Imdur] 30 mg PO DAILY Aspirin EC [Ecotrin Low Dose] 81 mg PO DAILY Ferrous Sulfate [Feosol] 325 mg PO DAILY Furosemide [Lasix] 40 mg PO DAILY Tamsulosin [Flomax] 0.4 mg PO HS Cyclobenzaprine [Flexeril] 10 mg PO BID PRN PRN Reason: Muscle Spasm Dulaglutide [Trulicity] 1.5 mg SQ SA Ergocalciferol [Vitamin D2 (1250 Mcg = 12959 Iu)] 1,250 mcg PO Q30D RX: Gabapentin 600 mg PO BID HYDROcodone/APAP 10-325MG [[place] 10-325] 1 tab PO TID PRN PRN Reason: Pain Insulin Glargine,Hum.rec.anlog [Lantus Solostar Pen] 25 units SQ DAILY Metoprolol Succinate (ER) [Toprol Xl] 100 mg PO DAILY Discharge Medication List RX: Atorvastatin [Lipitor] 40 mg PO HS 08/02/15 [History] RX: Clopidogrel Bisulfate [Plavix] 75 mg PO DAILY 04/01/16 [History] RX: lisinopriL [Zestril] 5 mg PO DAILY 04/24/17 [History] RX: Omeprazole 40 mg PO DAILY 01/09/18 [History] RX: hydrALAZINE HCL [Apresoline] 25 mg PO BID tab 02/01/18 [Rx] Isosorbide Mononitrate ER [Imdur] 30 mg PO DAILY 01/28/19 [History] Aspirin EC [Ecotrin Low Dose] 81 mg PO DAILY 10/27/21 [History] Cyclobenzaprine [Flexeril] 10 mg PO BID PRN 10/27/21 [History] Dulaglutide [Trulicity] 1.5 mg SQ SA 10/27/21 [History] Ergocalciferol [Vitamin D2 (1250 Mcg = 66104 Iu)] 1,250 mcg PO Q30D 10/27/21 [History] Ferrous Sulfate [Feosol] 325 mg PO DAILY 10/27/21 [History] Furosemide [Lasix] 40 mg PO DAILY 10/27/21 [History] HYDROcodone/APAP 10-325MG [[place] 10-325] 1 tab PO TID PRN 10/27/21 [History] Insulin Glargine,Hum.rec.anlog [Lantus Solostar Pen] 25 units SQ DAILY 10/27/21 [History] Metoprolol Succinate (ER) [Toprol Xl] 100 mg PO DAILY 10/27/21 [History] RX: Gabapentin 600 mg PO BID 10/27/21 [History] Tamsulosin [Flomax] 0.4 mg PO HS 10/27/21 [History] Follow up Appointment(s)/Referral(s): Angela Nieves DO [Primary Care Provider] - 1-2 days Discharge Disposition: Left Against Medical Advice
== END 2021-10-28 18:57 | disposition left against medical advice (07) | DRG 308 ==
LOC: EC 15:37 → 3SCARD 18:02
PROVIDERS: ADMIT Hospitalist; ATTEND Hospitalist
DX: I48.92 Unspecified atrial flutter (principal); N17.0 Acute kidney failure with tubular necrosis; I50.22 Chronic systolic (congestive) heart failure; I13.0 Hypertensive heart and chronic kidney disease with heart failure and stage 1 through stage 4 chronic kidney disease, or unspecified chronic kidney disease; N18.4 Chronic kidney disease, stage 4 (severe); E87.2 Acidosis; I48.91 Unspecified atrial fibrillation; Z20.822 Contact with and (suspected) exposure to COVID-19; I25.10 Atherosclerotic heart disease of native coronary artery without angina pectoris; J44.9 Chronic obstructive pulmonary disease, unspecified; Z68.31 Body mass index [BMI] 31.0-31.9, adult; E11.22 Type 2 diabetes mellitus with diabetic chronic kidney disease; M19.90 Unspecified osteoarthritis, unspecified site; Z95.1 Presence of aortocoronary bypass graft; F32.A Depression, unspecified; D63.1 Anemia in chronic kidney disease; Z79.4 Long term (current) use of insulin; Z79.84 Long term (current) use of oral hypoglycemic drugs; E11.42 Type 2 diabetes mellitus with diabetic polyneuropathy; E66.9 Obesity, unspecified; E78.5 Hyperlipidemia, unspecified; E83.42 Hypomagnesemia; E86.0 Dehydration; F17.210 Nicotine dependence, cigarettes, uncomplicated; Z79.02 Long term (current) use of antithrombotics/antiplatelets; Z79.82 Long term (current) use of aspirin; Z79.899 Other long term (current) drug therapy; Z82.49 Family history of ischemic heart disease and other diseases of the circulatory system; Z87.442 Personal history of urinary calculi; Z95.5 Presence of coronary angioplasty implant and graft; Z83.2 Family history of diseases of the blood and blood-forming organs and certain disorders involving the immune mechanism; R77.8 Other specified abnormalities of plasma proteins
CPT/HCPCS: 36415; 70450; 71046; 80048; 80053; 83605; 83735; 84145; 84484; 85025; 85027; 85610; 85730; 87502; 87635; 93005; 94760; 96365; 96366; 96368; 96375; 99291

== ENCOUNTER 2021-10-31 18:46 | Inpatient (IN) | payer OTHER ==
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
[2021-10-31 19:44] LABS: Basophils % (A) 0 %; Eosinophils # (A) 0.1 k/uL (0-0.7); Eosinophils % (A) 1 %; HGB 8.9 gm/dL (13.0-17.5); Lymphocytes # (A) 0.5 k/uL (1.0-4.8); Lymphocytes % (A) 5 %; MCH 31.9 pg (25.0-35.0); MCHC 34.2 g/dL (31.0-37.0); MCV 93.3 fL (80.0-100.0); Mean Platelet Volume 8.3; Monocytes # (A) 0.3 k/uL (0-1.0); Monocytes % (A) 3 %; Neutrophils # (A) 8.9 k/uL (1.3-7.7); Neutrophils % (A) 91 %; Platelet Count 224 k/uL (150-450); RBC 2.78 m/uL (4.30-5.90); RDW 12.7 % (11.5-15.5); WBC 9.8 k/uL (3.8-10.6)
[2021-10-31 19:57] LABS: Albumin 3.3 g/dL (3.5-5.0); Calcium 8.3 mg/dL (8.4-10.2); Magnesium 1.5 mg/dL (1.6-2.3); Total Bilirubin 0.4 mg/dL (0.2-1.3); Total Protein 6.4 g/dL (6.3-8.2)
[2021-10-31 20:00] LABS: INR 0.9 (<1.2); Partial Thromboplastin Time 24.4 sec (22.0-30.0); Prothrombin Time 9.8 sec (9.0-12.0)
--- NOTE | 2021-10-31 20:01 | XR ---
EXAMINATION TYPE: XR chest 2V DATE OF EXAM: 10/31/2021 COMPARISON: 10/27/2021 HISTORY: Dysrhythmia TECHNIQUE: 2 views FINDINGS: There is no heart failure nor confluent pneumonic infiltrate. Costophrenic angles are clear . Bony thorax is intact. There is slight coarsening of interstitial markings. IMPRESSION: No active cardiopulmonary disease. Normal heart. No change. Minimal fibrotic changes
[2021-10-31] MEDS ORDERED: MAGNESIUM OXIDE 400 MG TAB PO STA (20:06)
[2021-10-31 20:12] LABS: T4, Free (Free Thyroxine) 1.28 ng/dL (0.78-2.19)
[2021-10-31 21:00] LABS: Appearance,Urine Clear (Clear); Bacteria,Urine Rare /hpf; Bilirubin,Urine Negative (Negative); Blood,Urine Negative (Negative); Color,Urine Light Yellow; Glucose,Urine (UA) 2+ (Negative); Ketones,Urine Negative (Negative); Leukocyte Esterase,Urine Negative (Negative); Mucus,Urine Rare /hpf; Nitrite,Urine Negative (Negative); PH, Urine 5.5 (5.0-8.0); Protein,Urine 2+ (Negative); RBC,Urine 1 /hpf (0-5); Specific Gravity,Urine 1.009 (1.001-1.035); Urobilinogen,Urine <2.0 mg/dL (<2.0); WBC,Urine 1 /hpf (0-5)
[2021-10-31] MEDS ORDERED: ACETAMINOPHEN TAB 325 MG TAB PO PRN (21:20)
[2021-10-31] MEDS ORDERED: NALOXONE 0.4 MG/ML 1 ML VIAL IV PRN (21:20)
[2021-10-31] MEDS ORDERED: SODIUM CHLORIDE 0.9% 1,000 ML IV SCH (21:30)
[2021-10-31 22:56] LABS: Glucose,Whole Blood 197 mg/dL (70-110)
[2021-10-31] MEDS: CLINDAMYCIN 600 MG in DEXTROSE 5% IN WATER 50 ML IVPB SCH ×2 (23:27)
[2021-11-01] MEDS: ACETAMINOPHEN TAB 325 MG TAB PO PRN ×3 (00:31→16:24)
[2021-11-01] MEDS: CLINDAMYCIN 600 MG in DEXTROSE 5% IN WATER 50 ML IVPB SCH ×2 (05:16)
[2021-11-01 06:19] LABS: Glucose,Whole Blood 198 mg/dL (70-110)
[2021-11-01] MEDS ORDERED: FAMOTIDINE 20 MG TAB PO SCH (09:00)
[2021-11-01] MEDS ORDERED: lisinopriL 5 MG TAB PO SCH (09:00)
[2021-11-01] MEDS ORDERED: FUROSEMIDE 40 MG TAB PO SCH (09:15)
[2021-11-01] MEDS: ASPIRIN 81 MG PO SCH (09:43)
[2021-11-01] MEDS: METOPROLOL SUCCINATE (ER) 100 MG TAB.ER.24H PO SCH (09:43)
[2021-11-01] MEDS: GABAPENTIN 300 MG CAP PO SCH ×2 (09:44→20:57)
[2021-11-01] MEDS: CLOPIDOGREL 75 MG TAB PO SCH (09:44)
[2021-11-01] MEDS: ISOSORBIDE MONONITRATE ER 30 MG TAB.ER.24H PO SCH (09:45)
[2021-11-01] MEDS: hydrALAZINE HCL 25 MG TAB PO SCH ×2 (09:45→20:57)
[2021-11-01] MEDS: PANTOPRAZOLE 40 MG TABLET PO SCH (09:45)
[2021-11-01] MEDS: INSULIN DETEMIR (LEVEMIR) 100 UNIT/ML SYR SQ SCH (09:52)
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
[2021-11-01] MEDS: SODIUM CHLORIDE 0.9% 1,000 ML IV SCH ×2 (10:40→20:57)
[2021-11-01 10:57] LABS: Calcium 8.1 mg/dL (8.4-10.2); Magnesium 1.3 mg/dL (1.6-2.3); Potassium 4.8 mmol/L (3.5-5.1)
[2021-11-01] MEDS ORDERED: Magnesium Replacement Protocol 1 EACH MISC MISCELLANE PRN (11:26)
[2021-11-01 12:18] LABS: Glucose,Whole Blood 250 mg/dL (70-110)
[2021-11-01] MEDS: MAGNESIUM SULFATE-D5W PMX 1 GM in DEXTROSE/WATER 1 100ML.BAG IVPB SCH ×3 (13:00→15:23)
[2021-11-01] MEDS: INSULIN ASPART (NovoLOG) 100 UNIT/ML VIAL SQ SCH ×3 (13:00→20:58)
--- NOTE | 2021-11-01 14:38 | US ---
EXAMINATION TYPE: US kidneys/renal and bladder DATE OF EXAM: 11/01/2021 COMPARISON: NONE CLINICAL HISTORY: [place]. [place] EXAM MEASUREMENTS: Right Kidney: 16.4 x 8.6 x 6.5cm Left Kidney: 17.2 x 7.8 x 5.9cm Right Kidney: Cystic area noted in inferior pole measuring 3.3 cm Left Kidney: No hydronephrosis or masses seen Bladder: Non distended, villarreal in area Bilateral Jets seen: No There is no evidence for hydronephrosis at this point in time. No nephrolithiasis is seen. No solid masses are identified. The urinary bladder is anechoic. Bilateral ureteral jets are seen. IMPRESSION: Simple cyst right kidney. Otherwise unremarkable study.
[2021-11-01] MEDS ORDERED: SODIUM BICARB 8.4% 50 ML SYR (1 MEQ/ML) IV STA (15:11)
[2021-11-01] MEDS: SODIUM BICARBONATE TAB 650 MG TAB PO SCH ×2 (16:24→20:58)
[2021-11-01 16:37] LABS: Glucose,Whole Blood 262 mg/dL (70-110)
[2021-11-01 18:06] LABS: % Iron Saturation 3.33 (15.00-50.00)
[2021-11-01] MEDS: NICOTINE 14MG/24HR PATCH TRANSDERM SCH (18:21)
[2021-11-01 20:48] LABS: Glucose,Whole Blood 184 mg/dL (70-110)
[2021-11-01] MEDS: TAMSULOSIN 0.4 MG CAP.ER.24H PO SCH (20:58)
[2021-11-01] MEDS: PIPERACILLIN-TAZOBACTAM 3.375 GM in SODIUM CHLORIDE 0.9% 100 ML IVPB SCH (20:58)
[2021-11-01] MEDS ORDERED: ATORVASTATIN 40 MG TAB PO SCH (21:00)
[2021-11-02] MEDS: ACETAMINOPHEN TAB 325 MG TAB PO PRN ×2 (00:14→22:39)
[2021-11-02] MEDS: HYDROcodone/APAP 10-325MG 1 EACH TAB PO PRN ×3 (00:43→20:53)
[2021-11-02] MEDS: CYCLOBENZAPRINE 10 MG TAB PO PRN ×2 (00:43→19:32)
[2021-11-02] MEDS: INSULIN ASPART (NovoLOG) 100 UNIT/ML VIAL SQ SCH ×4 (06:11→19:55)
[2021-11-02 06:12] LABS: Glucose,Whole Blood 134 mg/dL (70-110)
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
[2021-11-02] MEDS ORDERED: ENOXAPARIN 40 MG/0.4 ML SYRINGE SQ SCH (09:00)
--- NOTE | 2021-11-02 09:11 | P.PN ---
Subjective Progress Note Date: 11/02/21 He is feeling better today, no nausea and less malaise. He continues to report pain around his gluteal cleft cellulitis. Pt did have a fever last night with tmax 102. Objective - Vital Signs Vital signs: Vital Signs Temp 98.2 F 11/02/21 03:54 Pulse 101 H 11/02/21 03:54 Resp 18 11/02/21 03:54 BP 108/62 11/02/21 03:54 Pulse Ox 95 11/02/21 03:54 FiO2 Intake & Output 11/01/21 11/02/21 11/02/21 18:59 06:59 18:59 Intake Total 1560 360 Output Total 250 810 Balance 1310 -810 360 Intake: Oral 1560 360 Output: Urine 250 810 Uretheral (Cha) 250 450 Other: Voiding Method Indwelling Catheter Indwelling Catheter - Exam Gen: well nourished male in NAD CV: RRR, no murmur Lungs: Normal effort, clear throughout Skin: gluteal abscess with decreasing induration and fluctuance. No drainage - Labs CBC & Chem 7: 10/31/21 19:37 11/01/21 10:07 Labs: Abnormal Lab Results - Last 24 Hours (Table) 11/01/21 11/01/21 11/01/21 Range/Units 10:07 10:07 12:10 Sodium 135 L (137-145) mmol/L Carbon Dioxide 17 L (22-30) mmol/L BUN 53 H (9-20) mg/dL Creatinine 5.29 H (0.66-1.25) mg/dL Glucose 202 H (74-99) mg/dL POC Glucose (mg/dL) 250 H (70-110) mg/dL Calcium 8.1 L (8.4-10.2) mg/dL Magnesium 1.3 L (1.6-2.3) mg/dL Iron 8 L (65-175) ug/dL % Saturation 3.33 L (15.00-50.00) Transferrin 167.0 L (204.0-354.0) mg/dL Ferritin 379.0 H (22.0-322.0) ng/mL 11/01/21 11/01/21 11/02/21 Range/Units 16:35 20:46 06:11 Sodium (137-145) mmol/L Carbon Dioxide (22-30) mmol/L BUN (9-20) mg/dL Creatinine (0.66-1.25) mg/dL Glucose (74-99) mg/dL POC Glucose (mg/dL) 262 H 184 H 134 H (70-110) mg/dL Calcium (8.4-10.2) mg/dL Magnesium (1.6-2.3) mg/dL Iron (65-175) ug/dL % Saturation (15.00-50.00) Transferrin (204.0-354.0) mg/dL Ferritin (22.0-322.0) ng/mL Microbiology - Last 24 Hours (Table) 10/31/21 22:20 Blood Culture - Preliminary Blood No Growth after 24 hours 10/31/21 22:15 Blood Culture - Preliminary Blood No Growth after 24 hours Assessment and Plan Plan: Continue current regimen, continue with zosyn renally dosed. Follow cultures. Consult ID for abx recommendations. Nephrology recs. Follow labs
[2021-11-02] MEDS ORDERED: ENOXAPARIN 30 MG/0.3 ML SYRINGE SQ SCH (09:16)
[2021-11-02] MEDS: PIPERACILLIN-TAZOBACTAM 3.375 GM in SODIUM CHLORIDE 0.9% 100 ML IVPB SCH ×2 (09:16→19:58)
[2021-11-02] MEDS: INSULIN DETEMIR (LEVEMIR) 100 UNIT/ML SYR SQ SCH (09:17)
[2021-11-02] MEDS: NICOTINE 14MG/24HR PATCH TRANSDERM SCH (09:17)
[2021-11-02] MEDS: GABAPENTIN 300 MG CAP PO SCH ×2 (09:17→19:58)
[2021-11-02] MEDS: CLOPIDOGREL 75 MG TAB PO SCH (09:18)
[2021-11-02] MEDS: PANTOPRAZOLE 40 MG TABLET PO SCH (09:18)
[2021-11-02] MEDS: METOPROLOL SUCCINATE (ER) 100 MG TAB.ER.24H PO SCH (09:18)
[2021-11-02] MEDS: ASPIRIN 81 MG PO SCH (09:18)
[2021-11-02] MEDS: SODIUM BICARBONATE TAB 650 MG TAB PO SCH ×3 (09:18→19:58)
[2021-11-02] MEDS: hydrALAZINE HCL 25 MG TAB PO SCH ×2 (09:18→19:59)
[2021-11-02] MEDS: ISOSORBIDE MONONITRATE ER 30 MG TAB.ER.24H PO SCH (09:18)
[2021-11-02 09:37] LABS: Calcium 7.9 mg/dL (8.4-10.2); Magnesium 1.9 mg/dL (1.6-2.3); Potassium 4.6 mmol/L (3.5-5.1)
[2021-11-02 10:12] LABS: Basophils % (A) 0 %; Eosinophils % (A) 0 %; HCT 24.5 % (39.0-53.0); HGB 8.3 gm/dL (13.0-17.5); Lymphocytes % (A) 8 %; MCH 32.1 pg (25.0-35.0); MCHC 33.9 g/dL (31.0-37.0); MCV 94.9 fL (80.0-100.0); Mean Platelet Volume 8.4; Monocytes # (A) 0.4 k/uL (0-1.0); Monocytes % (A) 3 %; Neutrophils # (A) 10.6 k/uL (1.3-7.7); Neutrophils % (A) 87 %; Platelet Count 189 k/uL (150-450); RBC 2.58 m/uL (4.30-5.90); RDW 13.2 % (11.5-15.5); WBC 12.2 k/uL (3.8-10.6)
--- NOTE | 2021-11-02 10:23 | P.PN ---
Subjective Patient is seen in follow-up for acute kidney injury and chronic kidney disease. Renal function worse. Creatinine 5.7. Nonoliguric. Has a Cha catheter. Blood pressure stable. Patient had a fever of 102.6F last night. He is on antibiotics. Wants to go home. Vital signs are stable. General: Awake. No acute distress. HEENT: Head exam is unremarkable. LUNGS: Breath sounds decreased. HEART: Rate and Rhythm are regular. ABDOMEN: Soft, no distention. EXTREMITITES: No edema. Objective - Vital Signs Vital signs: Vital Signs Temp 98.2 F 11/02/21 03:54 Pulse 101 H 11/02/21 03:54 Resp 18 11/02/21 03:54 BP 108/62 11/02/21 03:54 Pulse Ox 95 11/02/21 03:54 FiO2 Intake & Output 11/01/21 11/02/21 11/02/21 18:59 06:59 18:59 Intake Total 1560 360 Output Total 250 810 Balance 1310 -810 360 Intake: Oral 1560 360 Output: Urine 250 810 Uretheral (Cha) 250 450 Other: Voiding Method Indwelling Catheter Indwelling Catheter - Labs CBC & Chem 7: 11/02/21 08:19 11/02/21 08:19 Labs: Abnormal Lab Results - Last 24 Hours (Table) 11/01/21 11/01/21 11/01/21 Range/Units 10:07 10:07 12:10 WBC (3.8-10.6) k/uL RBC (4.30-5.90) m/uL Hgb (13.0-17.5) gm/dL Hct (39.0-53.0) % Neutrophils # (1.3-7.7) k/uL Sodium 135 L (137-145) mmol/L Carbon Dioxide 17 L (22-30) mmol/L BUN 53 H (9-20) mg/dL Creatinine 5.29 H (0.66-1.25) mg/dL Glucose 202 H (74-99) mg/dL POC Glucose (mg/dL) 250 H (70-110) mg/dL Calcium 8.1 L (8.4-10.2) mg/dL Magnesium 1.3 L (1.6-2.3) mg/dL Iron 8 L (65-175) ug/dL % Saturation 3.33 L (15.00-50.00) Transferrin 167.0 L (204.0-354.0) mg/dL Ferritin 379.0 H (22.0-322.0) ng/mL 11/01/21 11/01/21 11/02/21 Range/Units 16:35 20:46 06:11 WBC (3.8-10.6) k/uL RBC (4.30-5.90) m/uL Hgb (13.0-17.5) gm/dL Hct (39.0-53.0) % Neutrophils # (1.3-7.7) k/uL Sodium (137-145) mmol/L Carbon Dioxide (22-30) mmol/L BUN (9-20) mg/dL Creatinine (0.66-1.25) mg/dL Glucose (74-99) mg/dL POC Glucose (mg/dL) 262 H 184 H 134 H (70-110) mg/dL Calcium (8.4-10.2) mg/dL Magnesium (1.6-2.3) mg/dL Iron (65-175) ug/dL % Saturation (15.00-50.00) Transferrin (204.0-354.0) mg/dL Ferritin (22.0-322.0) ng/mL 11/02/21 11/02/21 Range/Units 08:19 08:19 WBC 12.2 H (3.8-10.6) k/uL RBC 2.58 L (4.30-5.90) m/uL Hgb 8.3 L (13.0-17.5) gm/dL Hct 24.5 L (39.0-53.0) % Neutrophils # 10.6 H (1.3-7.7) k/uL Sodium 133 L (137-145) mmol/L Carbon Dioxide 19 L (22-30) mmol/L BUN 60 H (9-20) mg/dL Creatinine 5.70 H (0.66-1.25) mg/dL Glucose 132 H (74-99) mg/dL POC Glucose (mg/dL) (70-110) mg/dL Calcium 7.9 L (8.4-10.2) mg/dL Magnesium (1.6-2.3) mg/dL Iron (65-175) ug/dL % Saturation (15.00-50.00) Transferrin (204.0-354.0) mg/dL Ferritin (22.0-322.0) ng/mL Microbiology - Last 24 Hours (Table) 10/31/21 22:20 Blood Culture - Preliminary Blood No Growth after 24 hours 10/31/21 22:15 Blood Culture - Preliminary Blood No Growth after 24 hours Assessment and Plan Plan: Assessment: 1. Acute kidney injury secondary to hemodynamic ATN/sepsis and urinary retention. Creatinine 5.08 on admission - 5.7 today. Nonoliguric. Kidney ultrasound showed no evidence of hydronephrosis. Kidneys noted to be large in size but not sure if this is an error. 2. Urinary retention status post Cha catheter placement. Also on Flomax. 3. Chronic kidney disease stage IV with baseline creatinine in the range of 2.7-3 secondary to biopsy-proven diabetic kidney disease. 4. Metabolic acidosis secondary to acute kidney injury. Better. On oral bicarb. Better. 5. Diabetes mellitus. 6. Anemia of chronic kidney disease. Iron deficiency noted. 7. Gluteal abscess on antibiotics. 8. Hypertension with chronic kidney disease. Controlled. 9. Hypomagnesemia from diuresis. Replace. Better. Plan: Maintain normal saline at 50 mL an hour. Continue to hold diuretics. Hold antihypertensives for systolic blood pressure less than 120. Add IV iron. Avoid nephrotoxins. Continue to monitor renal function and urine output. Discussed potential need for renal replacement therapy due to worsening renal fu nction. Patient refusing at this time. Continue to assess on daily basis. No urgency at this time. Antibiotics per infectious disease.
[2021-11-02] MEDS ORDERED: SODIUM FERRIC GLUCONAT-SUCROSE 125 MG in SODIUM CHLORIDE 0.9% 100 ML IVPB SCH (10:30)
[2021-11-02 11:45] LABS: Glucose,Whole Blood 168 mg/dL (70-110)
[2021-11-02] MEDS: IOPAMIDOL CONTRAST (ORAL USE) VIAL PO PRN ×2 (14:03→14:28)
--- NOTE | 2021-11-02 15:59 | CT ---
EXAMINATION TYPE: CT pelvis wo con DATE OF EXAM: 11/02/2021 COMPARISON: 11/28/2017 HISTORY: 60-year-old male testicular pain, right gluteal, perirectal abscess TECHNIQUE: Contiguous axial scanning of the pelvis without IV contrast. Coronal and sagittal reconstr uctions performed. CT DLP: 828.4 mGycm Automated exposure control for dose reduction was used. FINDINGS: Some generalized anasarca change is present. Redemonstrated exophytic 2.6 cm cyst lateral right kidney. Moderate atherosclerotic calcifications ab dominal aorta and iliac arteries. Bilateral external iliac chain lymph nodes measuring up to 1.2 cm are probably reactive. Mildly enlar ged bilateral inguinal lymph nodes are also noted measuring up to 1.9 cm, likely reactive. Sigmoid diverticulosis with colonic wall thickening along the midsigmoid, possible chronic diverticul itis. Routine colonoscopy screening recommended. Gonzalez catheter decompresses the bladder. There is air located nondependently within the collapsed claudia dder lumen. Prostate gland measures 4.0 cm wide. There is diffuse scrotal skin thickening/edema. Small foci of air within the right hemiscrotum and la teral and anterior aspect of the upper right hemiscrotum and then extending along the right perineum both into the right ischiorectal fossa and right gluteal cutaneous adipose tissues. There may be smal l focal phlegmon or early abscess measuring 3.0 cm just below the skin surface of the medial right bu ttock, axial image 54. Presacral edema. IMPRESSION: 1. 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 AIR EXTENDING INTO THE RIGH T ISCHIORECTAL FOSSA AND SOME WITHIN THE RIGHT GLUTEAL SUBCUTANEOUS ADIPOSE. 2. SMALL FOCAL PHLEGMON OR EARLY ABSCESS MEASURING 3.0 CM JUST BELOW THE SKIN SURFACE OF THE MEDIAL R IGHT BUTTOCK. 3. SOME THIRD SPACING AND PRESACRAL EDEMA. 4. GONZALEZ CATHETER IN PLACE. SIGMOID DIVERTICULOSIS AND PROBABLY SOME UNDERLYING CHRONIC DIVERTICULITI S. 5. INGUINAL AND BILATERAL EXTERNAL ILIAC CHAIN LYMPHADENOPATHY LIKELY REACTIVE. FINDINGS CALLED TO DR. SUAREZ AT APPROXIMATELY 3:55 PM.
[2021-11-02 16:36] LABS: Glucose,Whole Blood 184 mg/dL (70-110)
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
[2021-11-02 19:54] LABS: Glucose,Whole Blood 110 mg/dL (70-110)
[2021-11-02] MEDS: TAMSULOSIN 0.4 MG CAP.ER.24H PO SCH (19:58)
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
[2021-11-03] MEDS ORDERED: SODIUM CHLORIDE 0.9% 500 ML 250 ML IV ONE (01:42)
[2021-11-03 01:52] VITALS: BP 110/57; PULSE 102; RESP 18; TEMP 98.8
[2021-11-03] MEDS ORDERED: CLINDAMYCIN 600 MG in DEXTROSE 5% IN WATER 50 ML IVPB SCH ×2 (02:00)
--- NOTE | 2021-11-03 02:11 | P.DS ---
Providers Date of admission: 10/31/21 21:22 Expected date of discharge: 11/03/21 Attending physician: Milo Moss MD Consults: 10/31/21 21:20 Consult Physician Routine Consulting Provider: Marcial Padilla Consult Reason/Comments: acute on chronic rf Do you want consulting provider notified?: Yes 11/02/21 09:08 Consult Physician Routine Consulting Provider: Bruno Crowley Consult Reason/Comments: sepsis Do you want consulting provider notified?: Yes 11/02/21 15:56 Consult Physician Stat Consulting Provider: Jaret Hernadez Consult Reason/Comments: FOURNIERS gangrene Do you want consulting provider notified?: Yes 11/02/21 16:13 Consult Physician Stat Consulting Provider: Tiara Ayala Consult Reason/Comments: MAYANK'S GANGRENE Do you want consulting provider notified?: Yes Primary care physician: Angela Nieves Hospital Course: Final diagnosis 1. 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 CKD stage 4. 3. Urinary retention status post indwelling villarreal catheter 4. diabetes mellitus type 2 5. CAD 6. HTN 7. CHF, acute on chronic systolic dysfunction, acute exacerbation 8. DVT PPX lovenox Discharge disposition Patient is being transferred in a stable condition with guarded prognosis to [facility]. Accepting physician Dr. Jessica Alarcon and Dr. Monroy. Patient will follow-up with Dr. Moss in the outpatient setting upon discharge. Patient is to continue on clindamycin, daptomycin, and zosyn . Total time taken is greater than 35 minutes. Hospital course This is a 60 year-old male who follows with Dr. Moss and we are currently covering and was recently admitted with fever uti, urinary retention and features of sepsis and was being closely monitored. Patient has chronic kidney disease and not currently on dialysis. Patient continues to make urine. 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 Patient is maintained on gentle fluid boluses given his history of renal impairment and chf and will closely monitor. Patient is on daptomycin, zosyn, and now clindamycin per [facility] physician. [facility] in [place] has accepted the patient to their step down with surgical consultation. Patient will be accepted by Dr. Jessica Alarcon and report was given to Dr. Krueger and also interventional technologist Dr. Monroy. Transfer team to call with a bed available to the unit. Patient is agreeable with this transfer. Patient was evaluated by urology and indwelling villarreal catheter inserted and recommending to continue at this time. Currently no reports of chest pain, shortness of breath, or palpitations. Patient is afebrile. No reports of nausea or vomiting and patient is tolerating diet. Patient will be transferred to [facility] when a bed is available. Possibly today. Guarded prognosis. Physical exam: General: On exam vital signs are temp of 98.8F, pulse is 102, resp are 18, blood pressure is 110/57, and pulse ox is 98% on 2L. Alert and oriented x3. well developed, well nourished, obese. Cardio S1, S2 are muffled. Respiratory system shows diminished breath sounds at the bases with no wheezing or rhonchi noted. Abdomen is soft and nontender. Nervous system shows no focal deficits. Skin: Gluteal abscess with surrounding cellulitis Please refer to medication reconciliation sheet for a list of medications. The impression and plan of care has been dictated by Hailee Washington, Nurse Practitioner as directed. Dr. Phyllis MD I have performed a history and examination and MDM of this patient, discussed the same with the dictator, and agree with the dictator's assessment and plan as written ,documented as a scribe. Based on total visit time, I have performed more than 50% of the visit. Patient Condition at Discharge: Stable Plan - Discharge Summary Discharge Rx Participant: No New Discharge Prescriptions: No Action Atorvastatin [Lipitor] 40 mg PO HS Clopidogrel Bisulfate [Plavix] 75 mg PO DAILY lisinopriL [Zestril] 5 mg PO DAILY Omeprazole 40 mg PO DAILY hydrALAZINE HCL [Apresoline] 25 mg PO BID tab Isosorbide Mononitrate ER [Imdur] 30 mg PO DAILY Aspirin EC [Ecotrin Low Dose] 81 mg PO DAILY Ferrous Sulfate [Feosol] 325 mg PO DAILY Furosemide [Lasix] 40 mg PO DAILY Tamsulosin [Flomax] 0.4 mg PO HS Cyclobenzaprine [Flexeril] 10 mg PO BID PRN PRN Reason: Muscle Spasm Dulaglutide [Trulicity] 1.5 mg SQ SA Ergocalciferol [Vitamin D2 (1250 Mcg = 23963 Iu)] 1,250 mcg PO Q30D Gabapentin 600 mg PO BID HYDROcodone/APAP 10-325MG [[place] 10-325] 1 tab PO TID PRN PRN Reason: Pain Insulin Glargine,Hum.rec.anlog [Lantus Solostar Pen] 25 units SQ DAILY Metoprolol Succinate (ER) [Toprol Xl] 50 mg PO DAILY Discharge Medication List Atorvastatin [Lipitor] 40 mg PO HS 08/02/15 [History] Clopidogrel Bisulfate [Plavix] 75 mg PO DAILY 04/01/16 [History] lisinopriL [Zestril] 5 mg PO DAILY 04/24/17 [History] Omeprazole 40 mg PO DAILY 01/09/18 [History] hydrALAZINE HCL [Apresoline] 25 mg PO BID tab 02/01/18 [Rx] Isosorbide Mononitrate ER [Imdur] 30 mg PO DAILY 01/28/19 [History] Aspirin EC [Ecotrin Low Dose] 81 mg PO DAILY 10/27/21 [History] Cyclobenzaprine [Flexeril] 10 mg PO BID PRN 10/27/21 [History] Dulaglutide [Trulicity] 1.5 mg SQ SA 10/27/21 [History] Ergocalciferol [Vitamin D2 (1250 Mcg = 50951 Iu)] 1,250 mcg PO Q30D 10/27/21 [History] Ferrous Sulfate [Feosol] 325 mg PO DAILY 10/27/21 [History] Furosemide [Lasix] 40 mg PO DAILY 10/27/21 [History] Gabapentin 600 mg PO BID 10/27/21 [History] HYDROcodone/APAP 10-325MG [[place] 10-325] 1 tab PO TID PRN 10/27/21 [History] Insulin Glargine,Hum.rec.anlog [Lantus Solostar Pen] 25 units SQ DAILY 10/27/21 [History] Metoprolol Succinate (ER) [Toprol Xl] 50 mg PO DAILY 10/27/21 [History] Tamsulosin [Flomax] 0.4 mg PO HS 10/27/21 [History] Follow up Appointment(s)/Referral(s): Angela Nieves DO [Primary Care Provider] - 1-2 days
[2021-11-03] MEDS ORDERED: SODIUM CHLORIDE 0.9% 250 ML IV ONE (04:00)
[2021-11-03] MEDS ORDERED: INSULIN DETEMIR (LEVEMIR) 100 UNIT/ML SYR SQ SCH (07:00)
== END 2021-11-03 03:25 | disposition short-term general hospital (02) | DRG 871 ==
LOC: EC 18:46 → 3SCARD 21:22
PROVIDERS: ADMIT Family Medicine; ATTEND Family Medicine
DX: A41.9 Sepsis, unspecified organism (principal); I50.23 Acute on chronic systolic (congestive) heart failure; N17.0 Acute kidney failure with tubular necrosis; E87.2 Acidosis; I13.0 Hypertensive heart and chronic kidney disease with heart failure and stage 1 through stage 4 chronic kidney disease, or unspecified chronic kidney disease; N18.4 Chronic kidney disease, stage 4 (severe); L03.317 Cellulitis of buttock; L02.31 Cutaneous abscess of buttock; D63.1 Anemia in chronic kidney disease; E11.42 Type 2 diabetes mellitus with diabetic polyneuropathy; E11.22 Type 2 diabetes mellitus with diabetic chronic kidney disease; I25.10 Atherosclerotic heart disease of native coronary artery without angina pectoris; J44.9 Chronic obstructive pulmonary disease, unspecified; I48.91 Unspecified atrial fibrillation; Z79.4 Long term (current) use of insulin; Z20.822 Contact with and (suspected) exposure to COVID-19; N49.3 Fournier gangrene; E83.42 Hypomagnesemia; R33.9 Retention of urine, unspecified; E61.1 Iron deficiency; N50.89 Other specified disorders of the male genital organs; E78.5 Hyperlipidemia, unspecified; K21.9 Gastro-esophageal reflux disease without esophagitis; M19.90 Unspecified osteoarthritis, unspecified site; E66.9 Obesity, unspecified; Z68.30 Body mass index [BMI] 30.0-30.9, adult; F17.210 Nicotine dependence, cigarettes, uncomplicated; Z71.6 Tobacco abuse counseling; Z79.82 Long term (current) use of aspirin; Z79.02 Long term (current) use of antithrombotics/antiplatelets; Z79.899 Other long term (current) drug therapy; Z95.1 Presence of aortocoronary bypass graft; Z95.5 Presence of coronary angioplasty implant and graft; Z86.59 Personal history of other mental and behavioral disorders
CPT/HCPCS: 36415; 71046; 72192; 76770; 80048; 80053; 81001; 82728; 83540; 83550; 83605; 83735; 84439; 84443; 84481; 84484; 85025; 85610; 85730; 87040; 87502; 87635; 93005; 94760; 99285